=== PATIENT | female | born 1970 | race Caucasian/White ===

== ENCOUNTER 2016-08-28 00:07 | Emergency (ER) | payer MEDICAID ==
[~2016-08-28] VITALS: Ht 167.6 cm; Wt 124.3 kg
[~2016-08-28 00:07] MED LIST: ADVAIR DISK28 PUFFS IN; ADVAIR DISKUS 21 DSK IH; ALBUTEROL-200 PUFFS/ IH; ALBUTEROL2 PUFFS/17 IN; ALBUTEROL2.5 MG/NEB IN; AMLODIPINE10 MG PO; APAP/BUTALBITAL1 TA1 PO; ASPIRIN EC81 MG PO; BACLOFEN 10MG T10 MG PO; BACTRIM DS 8001 TA1 PO; BENZONATATE100 MG PO; BYDUREON PEN2 MG SC; CELECOXIB200 MG PO; CELEXA40 MG PO; CIPRO 500MG TA500 MG PO; CRESTOR10 MG PO; DICLOFENAC 50MG50 MG PO; DOXYCYCLINE HY100 M3 PO; DOXYCYCLINE HY100 M4 PO; DUONEB 3 MG/3 ML3 ML IH; FAMVIR500 MG PO; FISH OIL1000 MG PO; GABAPENTIN 600600 MG PO; GABAPENTIN TAB600 MG PO; GABAPENTIN300 MG PO; HYDROCHLOROTHIA25 M1 PO; IBU-8800 MG PO; INSULIN AS100 UNITS/ SC; INSULIN GL100 UNITS1 SC; INVOKANA300 MG PO; KEFLEX 500MG.500 MG PO; LASIX 20MG. TAB20 MG PO; LEVAQUIN LEVA-750 MG PO; LIPITOR10 MG PO; LISINOPRIL40 MG PO; LORTAB 5/500 501 TAB PO; LYRICA 100 MG100 MG PO; MEDROL 4MG. DOSE4 MG PO; MELOXICAM7.5 MG PO; METFORMIN1000 MG PO; METFORMIN500 MG PO; MONODOX100 MG PO; MUCINEX600 MG PO; NAPROSYN 375MG375 MG PO; NEXIUM40 MG PO; NIX CREAM R60 ML/BOT EX; NORCO 325 MG-51 TAB PO; NORVASC 10MG. T10 MG PO; OMEPRAZOLE40 MG PO; PEN-VK500 MG PO; PERCOCET 5/3251 EACH PO; PERCOCET1 TAB PO; PREDNISONE 10MG10 MG PO; PREDNISONE 20MG20 MG PO; PREDNISONE50 MG PO; PRENATAL PLUS1 TA1 PO; PRINIVIL10 MG PO; PROPRANOLOL HY160 MG PO; PROZAC40 MG PO; RANITIDINE HCL150 MG PO; ROBAXIN500 M1 PO; ROBITUSSIN10 ML/UDC PO; SEROQUEL50 MG PO; SINGULAIR 10 MG10 MG PO; TESSALON PERLE100 M1 PO; TESSALON PERLE100 MG PO; TIZANIDINE HCL 44 MG PO; TIZANIDINE2 MG PO; TOPAMAX25 MG PO; TRAZODONE 50MG50 MG PO; TRAZODONE50 MG PO; TRICOR145 M1 PO; VENTOLIN H0.09 MG/AC IH; VIBRAMYCIN 100100 MG PO; VICODIN 5/500 T1 TAB PO; VISTARIL25 MG PO; ZESTRIL20 MG PO
--- NOTE | 2016-08-28 00:26 | Emergency Room Report ---
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 N Clinical Suspician of Infection? N Mental Status: 1 - Regular (Normal Baseline) Sepsis Risk:Low Sepsis Risk Have you (or family members/close friends) recently traveled outside the [place]? N If Yes, where/when: Have you had exposure to infectious disease within the past month? N TB? Other? Specify: Source patient, RN notes reviewed, family, old records Exam Limitations no limitations Comment cough over the last few days with no rash Cardiac Chest Pain Chest pain indicative of cardiac No Timing/Duration this evening Severity moderate ALLERGIES Coded Allergies: erythromycin base (Intermediate, I-HIVES, SEVERE VOMITING 07/15/16) prochlorperazine (Intermediate, PARANOIA 07/15/16) Home Medications Active Scripts Doxycycline Hyclate (Vibramycin) 100 MG PO BID #20 CAP Prov: 07/15/16 Guaifenesin (Robitussin Plain Syr 200MG/10ML Udc) 5 ML PO Q4HP PRN cough #240 ML Prov: 07/15/16 Reported Medications AMLODIPINE BESYLATE (Norvasc) 1 TAB PO DAILY Propranolol Hcl (Propranolol HCl ER) 160 MG PO DAILY FLUTICASONE/SALMETEROL (Advair 500-50 Diskus) 2 PUFF IN BID Omeprazole (Omeprazole 40MG) 40 MG PO DAILY Montelukast Sodium (Singulair 10MG) 10 MG PO DAILY Albuterol/Ipratropiu (Duoneb) 3 ML IH QIDP PRN BREATHING #120 NEB METFORMIN HCL (Metformin) 1,000 MG PO BID Albuterol (Albuterol-Hfa Inhaler) 2 PUFFS IH Q4HP PRN BREATHING Canagliflozin (Invokana) 300 MG PO DAILY Celecoxib 200 MG PO DAILY #30 HYDROCHLOROTHIAZIDE (Hydrochlorothiazide) 25 MG PO DAILY Insulin Aspart (Novolog) (Insulin Aspart Flexpen 3ML) 30 UNITS SC BID #15 Insulin Glargine, Recombinan (Insulin Glargine 3ML) 50 UNITS SC QPM #15 CITALOPRAM HYDROBROMIDE (Citalopram HBr) 40 MG PO DAILY OMEGA-3 FATTY ACIDS/FISH OIL (Fish Oil 1,000 MG Capsule) 1,000 MG PO DAILY Gabapentin (Gabapentin 600MG) 80 MG PO Q8 Topiramate (Topamax) 25 MG PO QHS Atorvastatin Calcium (Lipitor 10MG) 10 MG PO QHS LISINOPRIL (Lisinopril) 10 MG PO DAILY Quetiapine Fumarate (Seroquel 50MG) 50 MG PO QHS FENOFIBRATE NANOCRYSTALLIZED (Tricor) 145 MG PO DAILY BACLOFEN (Baclofen) 10 MG PO TID Hydroxyzine Pamoate (Vistaril) 25 MG PO QHS History Medical History General CAD? No Angina: No [place]: No Hypertension? Yes Hyperlipidemia? Yes CHF? No DVT? No PE? No COPD? No Asthma? Yes Anemia? No GERD? Yes Gastric ulcers? No GI Bleed? No Hernia? No Thyroid Problems? No Hypothyroidism? No CVA? No Seizures? No Diabetes? Yes Insulin Dependent: Yes Insulin Pump: No Home FSBS? Yes Renal Insuffiency? No End Stage Renal Disease? No UTI? No Stones? No BPH? No GB Disease: Yes Nephritic Syndrome? No Asplenia? No Hepatitis? No Sickle Cell Disease? No Arthritis? Yes Migraines? No Cataracts? No Glaucoma? No MRSA? No HIV? No TB? No Anxiety? No Depression? No Cancer? Yes Site: SKIN CA CHIN More? 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 Respiratory cough, denies shortness of breath, denies wheezing Cardiovascular denies chest pain, denies syncope Gastrointestinal denies abdominal pain, denies diarrhea, denies vomiting Genitourinary denies: dysuria, frequency, hesitancy, hematuria. Musculoskeletal denies back pain, denies joint pain, denies joint swelling, denies neck pain Skin denies rash Psychiatric/Neurological denies headache, denies seizure Physical Exam Vital Signs Vital Signs Date Time Temp Pulse Resp B/P Pulse O2 O2 Flow FiO2 Ox Delivery Rate 08/280 99.7 78 16 135/93 90 - WBC >12,000 or <4,000 or 10% bands? 2 or more SIRS Criteria Met? B/P:135/93 MAP:107 Creatinine >2.0? UA output<0.5ml/kg/hr for 2 hrs? Platelet count >100,000? Lactate >2.0mmol/1? INR >1.2 or PTT > than 60 sec? Evidence of Organ Dysfunction? Provider documented clinical suspician of infection? N Sepsis Criteria Count: 0 Sepsis Risk: Low Sepsis Risk General Appearance no apparent distress Eye Exam - bilateral eye PERRL, bilateral eye EOMI Ear, Nose, Throat normal ENT inspection Neck supple Respiratory Status No: respiratory distress. Lung Sounds bilateral: rhonchi. 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 No Results/Orders Laboratory Tests 08/28/16 0015: Influenza Type A Ag DETECTED H, Influenza Type B Ag NOT DETECTED Orders Procedure Date/time Status CHEST(2 VIEWS-NOT PORTABLE) 08/28 16 Active INFLUENZA A&B ANTIGENS 08/28 16 Complete XRAY/CT/US XRAY/CT/US XRAY chest XR interpretation by reviewed by me Xray Results abnormal (perihilar changes ) Departure Departure Time of Disposition 0039 Disposition DC Home or Self Care(routine) Clinical Impression Primary Impression: Flu Condition STABLE Referrals JULIETH HENRY, JOHN (Family) Patient Instructions DI for H1N1 Influenza -- Adult Additional Instructions use meds and see pcp for follow up Discharge Counseling Counseled pt/family regarding diagnosis, test results, medications/RX, follow up needs Prescriptions Current Visit Scripts BENZONATATE (Benzonatate) 100 MG PO TID #15 CAP Oseltamivir Phosphate (Tamiflu 75MG Capsule) 75 MG PO BID #10 CAP ED Critical Care Critical Care No at [id number]
[2016-08-28] MEDS ORDERED: TAMIFLU 75MG CA75 MG PO (00:57)
[2016-08-28] MEDS ORDERED: TESSALON PERLE100 MG PO (00:57)
[2016-08-28 01:04] VITALS: BP 143/95
--- NOTE | 2016-08-28 08:04 | RADIOLOGY REPORT PS360 ---
CHEST(2 VIEWS-NOT PORTABLE) HISTORY: COUGH, CONGESTION COMPARISON: Multiple previous exams FINDINGS: The cardiomediastinal silhouette and pulmonary vascularity are within normal limits. The lungs are clear without infiltrates, suspicious nodules, or pleural effusions. No acute bony abnormalities. IMPRESSION: Negative chest, no acute finding
[2016-11-13] MEDS ORDERED: TYLENOL WITH CO1 TA1 PO (21:58)
[2016-11-13] MEDS ORDERED: NORCO 325 MG-51 TAB PO (22:15)
[2016-11-18] MEDS ORDERED: GABAPENTIN 600600 MG PO (22:13)
[2016-11-18] MEDS ORDERED: AUGMENTIN 875-1 EACH PO (23:49)
[2016-11-18] MEDS ORDERED: TESSALON PERLE100 M1 PO (23:49)
[2016-11-18] MEDS ORDERED: MEDROL 4MG. DOSE4 MG PO (23:50)
== END 2016-08-28 01:05 | disposition home or self-care (01) ==
LOC: ER 00:07
DX: J10.1 Influenza due to other identified influenza virus with other respiratory manifestations (principal); I10 Essential (primary) hypertension; K21.9 Gastro-esophageal reflux disease without esophagitis; E11.9 Type 2 diabetes mellitus without complications; Z79.4 Long term (current) use of insulin

== ENCOUNTER 2016-09-29 02:10 | Emergency (ER) | payer MEDICAID ==
[~2016-09-29] VITALS: Ht 167.6 cm; Wt 122.5 kg
[~2016-09-29 02:10] MED LIST changes: +TAMIFLU 75MG CA75 MG PO
--- NOTE | 2016-09-29 02:46 | Emergency Room Report ---
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 B/P: 194/127 MAP: 149 Pulse: 80 Resp: 22 Recent fever? N Clinical Suspician of Infection? N Mental Status: 1 - Regular (Normal Baseline) Sepsis Risk:Low Sepsis Risk Have you (or family members/close friends) recently traveled outside the [place]? N If Yes, where/when: Have you had exposure to infectious disease within the past month? N TB? Other? 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 been on abx and steroids and inhalers Cardiac Chest Pain Chest pain indicative of cardiac No Timing/Duration this evening Severity moderate ALLERGIES Coded Allergies: erythromycin base (Intermediate, I-HIVES, SEVERE VOMITING 07/15/16) prochlorperazine (Intermediate, PARANOIA 07/15/16) Home Medications Active Scripts Doxycycline Hyclate (Vibramycin) 100 MG PO BID #20 CAP Prov: 07/15/16 Guaifenesin (Robitussin Plain Syr 200MG/10ML Udc) 5 ML PO Q4HP PRN cough #240 ML Prov: 07/15/16 BENZONATATE (Benzonatate) 100 MG PO TID #15 CAP Prov: 08/28/16 Oseltamivir Phosphate (Tamiflu 75MG Capsule) 75 MG PO BID #10 CAP Prov: 08/28/16 Reported Medications AMLODIPINE BESYLATE (Norvasc) 1 TAB PO DAILY Propranolol Hcl (Propranolol HCl ER) 160 MG PO DAILY FLUTICASONE/SALMETEROL (Advair 500-50 Diskus) 2 PUFF IN BID Omeprazole (Omeprazole 40MG) 40 MG PO DAILY Montelukast Sodium (Singulair 10MG) 10 MG PO DAILY Albuterol/Ipratropiu (Duoneb) 3 ML IH QIDP PRN BREATHING #120 NEB METFORMIN HCL (Metformin) 1,000 MG PO BID Albuterol (Albuterol-Hfa Inhaler) 2 PUFFS IH Q4HP PRN BREATHING Canagliflozin (Invokana) 300 MG PO DAILY Celecoxib 200 MG PO DAILY #30 HYDROCHLOROTHIAZIDE (Hydrochlorothiazide) 25 MG PO DAILY Insulin Aspart (Novolog) (Insulin Aspart Flexpen 3ML) 30 UNITS SC BID #15 Insulin Glargine, Recombinan (Insulin Glargine 3ML) 50 UNITS SC QPM #15 CITALOPRAM HYDROBROMIDE (Citalopram HBr) 40 MG PO DAILY OMEGA-3 FATTY ACIDS/FISH OIL (Fish Oil 1,000 MG Capsule) 1,000 MG PO DAILY Gabapentin (Gabapentin 600MG) 80 MG PO Q8 Topiramate (Topamax) 25 MG PO QHS Atorvastatin Calcium (Lipitor 10MG) 10 MG PO QHS LISINOPRIL (Lisinopril) 10 MG PO DAILY Quetiapine Fumarate (Seroquel 50MG) 50 MG PO QHS FENOFIBRATE NANOCRYSTALLIZED (Tricor) 145 MG PO DAILY BACLOFEN (Baclofen) 10 MG PO TID Hydroxyzine Pamoate (Vistaril) 25 MG PO QHS History Medical History General CAD? No Angina: No [place]: No Hypertension? Yes Hyperlipidemia? Yes CHF? No DVT? No PE? No COPD? No Asthma? Yes Anemia? No GERD? Yes Gastric ulcers? No GI Bleed? No Hernia? No Thyroid Problems? No Hypothyroidism? No CVA? No Seizures? No Diabetes? Yes Insulin Dependent: Yes Insulin Pump: No Home FSBS? Yes Renal Insuffiency? No End Stage Renal Disease? No UTI? No Stones? No BPH? No GB Disease: Yes Nephritic Syndrome? No Asplenia? No Hepatitis? No Sickle Cell Disease? No Arthritis? Yes Migraines? No Cataracts? No Glaucoma? No MRSA? No HIV? No TB? No Anxiety? No Depression? No Cancer? Yes Site: SKIN CA CHIN More? 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 Respiratory cough, denies shortness of breath, denies wheezing, other Cardiovascular denies chest pain, denies palpitations, denies syncope Gastrointestinal denies abdominal pain, denies diarrhea, denies vomiting Genitourinary denies: dysuria, frequency, hesitancy, hematuria. Musculoskeletal denies back pain, denies joint pain, denies neck pain Skin denies rash Psychiatric/Neurological denies headache, denies seizure Physical Exam Vital Signs Vital Signs Date Time Temp Pulse Resp B/P Pulse O2 O2 Flow FiO2 Ox Delivery Rate 09/29 0433 98.0 76 20 197/112 96 09/29 0215 98.0 80 22 194/127 94 - WBC >12,000 or <4,000 or 10% bands? 2 or more SIRS Criteria Met? B/P:194/127 MAP:149 Creatinine >2.0? UA output<0.5ml/kg/hr for 2 hrs? Platelet count >100,000? Lactate >2.0mmol/1? INR >1.2 or PTT > than 60 sec? Evidence of Organ Dysfunction? Provider documented clinical suspician of infection? N Sepsis Criteria Count: 1 Sepsis Risk: Low Sepsis Risk General Appearance no apparent distress Eye Exam - bilateral eye PERRL, bilateral eye EOMI Ear, Nose, Throat normal ENT inspection Neck supple Respiratory Status No: respiratory distress. Lung Sounds bilateral: rhonchi. 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 No Results/Orders Laboratory Tests 09/29/16 0240: Troponin I < 0.02 09/29/16 0240: Sodium 137, Potassium 3.5, Chloride 102, Carbon Dioxide 25, BUN 15, Creatinine 0.9, Estimated Creat Clear 154, Estimated GFR (MDRD) 68, Glucose 306 H, Calcium 8.9, Total Bilirubin 0.3, AST 7 L, ALT 29, Alkaline Phosphatase 46, Total Protein 6.7, Albumin 3.0 L, Globulin 3.7 H, Albumin/Globulin Ratio 0.8 L, WBC 7.7, RBC 4.22, Hgb 12.5, Hct 37.8, MCV 89.6, RDW 14.1, Plt Count 359, MPV 5.9 L , Gran % 54.6, Gran # 4.2, Lymphocytes % 38.3, Monocytes % 3.6, Eosinophils % 3.1, Basophils % 0.5, Lymphocytes # 2.9, Monocytes # 0.3, Eosinophils # 0.2, Basophils # 0.0, PUBS MCHC 33.1, MCH 29.7 Current Medication Orders Sig/Safia Start time Last Medication Dose Route Stop Time Status Admin Albuterol/Ipratropium 3 ML ONCE ONE 09/29 314 DC 09/29 INH 09/29 315 0230 Furosemide 40 MG ONCE ONE 09/29 299 DC 09/29 IV 09/29 030 0255 Sodium Chloride 10 ML PRN PRN 09/29 0300 AC IV 09/30 0249 Furosemide 0 .STK-MED ONE 09/29 0254 DC .ROUTE Albuterol/Ipratropium 0 .STK-MED ONE 09/29 0230 DC INH Sodium Chloride 10 ML PRN PRN 09/29 0230 AC IV 09/30 0220 Orders Procedure Date/time Status RT REQUEST DUONEB 09/29 030 Active IV SALINE LOCK 09/29 024 Active TROPONIN I 09/29 248 Complete CHEST(2 VIEWS-NOT PORTABLE) 09/29 220 Active IV SALINE LOCK 09/29 220 Active CBC WITH AUTO DIFF 09/29 220 Complete CHEM 12 PROFILE 09/29 220 Complete XRAY/CT/US XRAY/CT/US XRAY chest XR interpretation by reviewed by me Xray Results abnormal (mild chf) Departure Departure Time of Disposition 0433 Disposition DC Home or Self Care(routine) Clinical Impression Primary Impression: Cough due to angiotensin-converting enzyme inhibitor Secondary Impressions: HTN (hypertension) Qualifiers: Hypertension type: essential hypertension Qualified Code: I10 - Essential (primary) hypertension Condition STABLE Patient Instructions DI for Cough -- Adult Additional Instructions stop lisinopril and see pcp saturday Discharge Counseling Counseled pt/family regarding diagnosis, test results, medications/RX, follow up needs Prescriptions Current Visit Scripts BENZONATATE (Benzonatate) 100 MG PO TID #15 CAP ED Critical Care Critical Care No at [id number]
[2016-09-29 03:47] LABS: HEMOGLOBIN 12.5 g/dL (12.2-16.2); LYMPH # 2.9 K/mm3 (0.7-4.5); LYMPH % 38.3 % (10-50.0)
[2016-09-29] MEDS ORDERED: TESSALON PERLE100 MG PO (04:36)
[2016-09-29 04:50] VITALS: BP 197/112
--- NOTE | 2016-09-29 06:33 | RADIOLOGY REPORT PS360 ---
CHEST(2 VIEWS-NOT PORTABLE) HISTORY: Cough and congestion with shortness of air COUGH ORDERING PHYSICIAN: Domi Hawthorne MD PATIENT AGE: 46 years COMPARISON: 08/28/2016 FINDINGS: Stable mild prominence of the cardiomediastinal silhouette. No CHF.. The lungs are clear without infiltrates, suspicious nodules, or pleural effusions. No acute bony abnormalities. IMPRESSION: Borderline cardiomegaly without failure.
[2016-11-13] MEDS ORDERED: TYLENOL WITH CO1 TA1 PO (21:58)
[2016-11-13] MEDS ORDERED: NORCO 325 MG-51 TAB PO (22:15)
[2016-11-18] MEDS ORDERED: GABAPENTIN 600600 MG PO (22:13)
[2016-11-18] MEDS ORDERED: AUGMENTIN 875-1 EACH PO (23:49)
[2016-11-18] MEDS ORDERED: TESSALON PERLE100 M1 PO (23:49)
[2016-11-18] MEDS ORDERED: MEDROL 4MG. DOSE4 MG PO (23:50)
== END 2016-09-29 04:50 | disposition home or self-care (01) ==
LOC: ER 02:10
PROVIDERS: Emergency Medicine
DX: R05 Cough (principal); T46.4X5A Adverse effect of angiotensin-converting-enzyme inhibitors, initial encounter; I10 Essential (primary) hypertension

== ENCOUNTER 2016-10-08 22:23 | Emergency (ER) | payer MEDICAID ==
[~2016-10-08] VITALS: Ht 167.6 cm; Wt 120.2 kg
[2016-10-08] MEDS ORDERED: ALDACTONE25 MG PO (22:37)
[2016-10-08] MEDS ORDERED: ESTRADIOL0.5 MG PO (22:38)
[2016-10-08] MEDS ORDERED: Pepcid20 MG PO (22:39)
[2016-10-08] MEDS ORDERED: LOSARTAN POTAS100 MG PO (22:39)
[2016-10-08] MEDS ORDERED: BACTROBAN2% TP (23:02)
[2016-10-08] MEDS ORDERED: MINOCYCLINE 10100 MG PO (23:02)
--- NOTE | 2016-10-08 23:03 | Emergency Room Report ---
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 N Clinical Suspician of Infection? N Mental Status: 1 - Regular (Normal Baseline) Sepsis Risk:Possible Sepsis Risk Have you (or family members/close friends) recently traveled outside the [place]? N If Yes, where/when: Have you had exposure to infectious disease within the past month? N TB? Other? Specify: Source patient, RN notes reviewed, family, old records Exam Limitations no limitations Comment rt lower leg lesion over the last few days Cardiac Chest Pain Chest pain indicative of cardiac No Timing/Duration this evening Severity moderate ALLERGIES Coded Allergies: erythromycin base (Intermediate, I-HIVES, SEVERE VOMITING 07/15/16) prochlorperazine (Intermediate, PARANOIA 07/15/16) Home Medications Reported Medications AMLODIPINE BESYLATE (Norvasc) 1 TAB PO DAILY FLUTICASONE/SALMETEROL (Advair 500-50 Diskus) 2 PUFF IN BID Omeprazole (Omeprazole 40MG) 40 MG PO DAILY Montelukast Sodium (Singulair 10MG) 10 MG PO DAILY Albuterol/Ipratropiu (Duoneb) 3 ML IH QIDP PRN BREATHING #120 NEB METFORMIN HCL (Metformin) 1,000 MG PO BID Albuterol (Albuterol-Hfa Inhaler) 2 PUFFS IH Q4HP PRN BREATHING Canagliflozin (Invokana) 300 MG PO DAILY Spironolactone (Aldactone) 25 MG PO DAILY Estradiol 2 MG PO DAILY Losartan Potassium (Losartan 100MG) 100 MG PO DAILY Famotidine (Pepcid 20MG) 20 MG PO BID Insulin Aspart (Novolog) (Insulin Aspart Flexpen 3ML) 30 UNITS SC BID #15 Insulin Glargine, Recombinan (Insulin Glargine 3ML) 50 UNITS SC QPM #15 CITALOPRAM HYDROBROMIDE (Citalopram HBr) 40 MG PO DAILY OMEGA-3 FATTY ACIDS/FISH OIL (Fish Oil 1,000 MG Capsule) 1,000 MG PO DAILY Gabapentin (Gabapentin 600MG) 80 MG PO Q8 Atorvastatin Calcium (Lipitor 10MG) 10 MG PO QHS LISINOPRIL (Lisinopril) 10 MG PO DAILY Quetiapine Fumarate (Seroquel 50MG) 50 MG PO QHS FENOFIBRATE NANOCRYSTALLIZED (Tricor) 145 MG PO DAILY BACLOFEN (Baclofen) 10 MG PO TID Hydroxyzine Pamoate (Vistaril) 25 MG PO QHS History Medical History General CAD? No Angina: No [place]: No Hypertension? Yes Hyperlipidemia? Yes CHF? No DVT? No PE? No COPD? No Asthma? Yes Anemia? No GERD? Yes Gastric ulcers? No GI Bleed? No Hernia? No Thyroid Problems? No Hypothyroidism? No CVA? No Seizures? No Diabetes? Yes Insulin Dependent: Yes Insulin Pump: No Home FSBS? Yes Renal Insuffiency? No End Stage Renal Disease? No UTI? No Stones? No BPH? No GB Disease: Yes Nephritic Syndrome? No Asplenia? No Hepatitis? No Sickle Cell Disease? No Arthritis? Yes Migraines? No Cataracts? No Glaucoma? No MRSA? No HIV? No TB? No Anxiety? No Depression? No Cancer? Yes Site: SKIN CA CHIN More? 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 Respiratory denies cough, denies shortness of breath, denies wheezing Cardiovascular denies chest pain, denies palpitations, denies syncope Gastrointestinal denies abdominal pain, denies diarrhea, denies vomiting Genitourinary denies: dysuria, frequency, hesitancy, hematuria. Musculoskeletal denies back pain, denies joint pain, denies neck pain Skin denies rash Psychiatric/Neurological denies headache, denies seizure Physical Exam Vital Signs Vital Signs Date Time Temp Pulse Resp B/P Pulse O2 O2 Flow FiO2 Ox Delivery Rate 10/080 98.3 109 20 139/88 99 - WBC >12,000 or <4,000 or 10% bands? 2 or more SIRS Criteria Met? B/P:139/88 MAP:105 Creatinine >2.0? UA output<0.5ml/kg/hr for 2 hrs? Platelet count >100,000? Lactate >2.0mmol/1? INR >1.2 or PTT > than 60 sec? Evidence of Organ Dysfunction? Provider documented clinical suspician of infection? N Sepsis Criteria Count: 2 Sepsis Risk: Possible Sepsis Risk General Appearance no apparent distress Eye Exam - bilateral eye PERRL, bilateral eye EOMI Ear, Nose, Throat normal ENT inspection Neck supple Respiratory Status No: respiratory distress. 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 No Departure Departure Time of Disposition 2255 Disposition DC Home or Self Care(routine) Clinical Impression Primary Impression: Cellulitis Qualifiers: Site of cellulitis: extremity Site of cellulitis of extremity: lower extremity Laterality: right Qualified Code: L03.115 - Cellulitis of right lower limb Condition STABLE Referrals Federcio Hawthorne MD (Family) Patient Instructions DI for Methicillin-Resistant Staph Infection (MRSA) Additional Instructions keep clean and see pcp for follow up Discharge Counseling Counseled pt/family regarding diagnosis, test results, medications/RX, follow up needs Prescriptions Current Visit Scripts MUPIROCIN 2% (Bactroban Oint) 1 BIBIANA TP BID #1 TUBE Minocycline Hcl (Minocycline 100MG. Capsule) 100 MG PO BID #14 CAP ED Critical Care Critical Care No at 2302
--- NOTE | 2016-10-08 23:03 | Emergency Room Report ---
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 N Clinical Suspician of Infection? N Mental Status: 1 - Regular (Normal Baseline) Sepsis Risk:Possible Sepsis Risk Have you (or family members/close friends) recently traveled outside the [place]? N If Yes, where/when: Have you had exposure to infectious disease within the past month? N TB? Other? Specify: Source patient, RN notes reviewed, family, old records Exam Limitations no limitations Comment rt lower leg lesion over the last few days Cardiac Chest Pain Chest pain indicative of cardiac No Timing/Duration this evening Severity moderate ALLERGIES Coded Allergies: erythromycin base (Intermediate, I-HIVES, SEVERE VOMITING 07/15/16) prochlorperazine (Intermediate, PARANOIA 07/15/16) Home Medications Reported Medications AMLODIPINE BESYLATE (Norvasc) 1 TAB PO DAILY FLUTICASONE/SALMETEROL (Advair 500-50 Diskus) 2 PUFF IN BID Omeprazole (Omeprazole 40MG) 40 MG PO DAILY Montelukast Sodium (Singulair 10MG) 10 MG PO DAILY Albuterol/Ipratropiu (Duoneb) 3 ML IH QIDP PRN BREATHING #120 NEB METFORMIN HCL (Metformin) 1,000 MG PO BID Albuterol (Albuterol-Hfa Inhaler) 2 PUFFS IH Q4HP PRN BREATHING Canagliflozin (Invokana) 300 MG PO DAILY Spironolactone (Aldactone) 25 MG PO DAILY Estradiol 2 MG PO DAILY Losartan Potassium (Losartan 100MG) 100 MG PO DAILY Famotidine (Pepcid 20MG) 20 MG PO BID Insulin Aspart (Novolog) (Insulin Aspart Flexpen 3ML) 30 UNITS SC BID #15 Insulin Glargine, Recombinan (Insulin Glargine 3ML) 50 UNITS SC QPM #15 CITALOPRAM HYDROBROMIDE (Citalopram HBr) 40 MG PO DAILY OMEGA-3 FATTY ACIDS/FISH OIL (Fish Oil 1,000 MG Capsule) 1,000 MG PO DAILY Gabapentin (Gabapentin 600MG) 80 MG PO Q8 Atorvastatin Calcium (Lipitor 10MG) 10 MG PO QHS LISINOPRIL (Lisinopril) 10 MG PO DAILY Quetiapine Fumarate (Seroquel 50MG) 50 MG PO QHS FENOFIBRATE NANOCRYSTALLIZED (Tricor) 145 MG PO DAILY BACLOFEN (Baclofen) 10 MG PO TID Hydroxyzine Pamoate (Vistaril) 25 MG PO QHS History Medical History General CAD? No Angina: No SC: No Hypertension? Yes Hyperlipidemia? Yes CHF? No DVT? No PE? No COPD? No Asthma? Yes Anemia? No GERD? Yes Gastric ulcers? No GI Bleed? No Hernia? No Thyroid Problems? No Hypothyroidism? No CVA? No Seizures? No Diabetes? Yes Insulin Dependent: Yes Insulin Pump: No Home FSBS? Yes Renal Insuffiency? No End Stage Renal Disease? No UTI? No Stones? No BPH? No GB Disease: Yes Nephritic Syndrome? No Asplenia? No Hepatitis? No Sickle Cell Disease? No Arthritis? Yes Migraines? No Cataracts? No Glaucoma? No MRSA? No HIV? No TB? No Anxiety? No Depression? No Cancer? Yes Site: SKIN CA CHIN More? 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 Respiratory denies cough, denies shortness of breath, denies wheezing Cardiovascular denies chest pain, denies palpitations, denies syncope Gastrointestinal denies abdominal pain, denies diarrhea, denies vomiting Genitourinary denies: dysuria, frequency, hesitancy, hematuria. Musculoskeletal denies back pain, denies joint pain, denies neck pain Skin denies rash Psychiatric/Neurological denies headache, denies seizure Physical Exam Vital Signs Vital Signs Date Time Temp Pulse Resp B/P Pulse O2 O2 Flow FiO2 Ox Delivery Rate 10/080 98.3 109 20 139/88 99 - WBC >12,000 or <4,000 or 10% bands? 2 or more SIRS Criteria Met? B/P:139/88 MAP:105 Creatinine >2.0? UA output<0.5ml/kg/hr for 2 hrs? Platelet count >100,000? Lactate >2.0mmol/1? INR >1.2 or PTT > than 60 sec? Evidence of Organ Dysfunction? Provider documented clinical suspician of infection? N Sepsis Criteria Count: 2 Sepsis Risk: Possible Sepsis Risk General Appearance no apparent distress Eye Exam - bilateral eye PERRL, bilateral eye EOMI Ear, Nose, Throat normal ENT inspection Neck supple Respiratory Status No: respiratory distress. 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 No Departure Departure Time of Disposition 2255 Disposition DC Home or Self Care(routine) Clinical Impression Primary Impression: Cellulitis Qualifiers: Site of cellulitis: extremity Site of cellulitis of extremity: lower extremity Laterality: right Qualified Code: L03.115 - Cellulitis of right lower limb Condition STABLE Referrals Federico Hawthorne MD (Family) Patient Instructions DI for Methicillin-Resistant Staph Infection (MRSA) Additional Instructions keep clean and see pcp for follow up Discharge Counseling Counseled pt/family regarding diagnosis, test results, medications/RX, follow up needs Prescriptions Current Visit Scripts MUPIROCIN 2% (Bactroban Oint) 1 BIBIANA TP BID #1 TUBE Minocycline Hcl (Minocycline 100MG. Capsule) 100 MG PO BID #14 CAP ED Critical Care Critical Care No at 2302
[2016-10-08 23:12] VITALS: BP 139/88
[2016-11-13] MEDS ORDERED: TYLENOL WITH CO1 TA1 PO (21:58)
[2016-11-13] MEDS ORDERED: NORCO 325 MG-51 TAB PO (22:15)
[2016-11-18] MEDS ORDERED: GABAPENTIN 600600 MG PO (22:13)
[2016-11-18] MEDS ORDERED: AUGMENTIN 875-1 EACH PO (23:49)
[2016-11-18] MEDS ORDERED: TESSALON PERLE100 M1 PO (23:49)
[2016-11-18] MEDS ORDERED: MEDROL 4MG. DOSE4 MG PO (23:50)
== END 2016-10-08 23:12 | disposition home or self-care (01) ==
LOC: ER 22:23
DX: L03.115 Cellulitis of right lower limb (principal); I10 Essential (primary) hypertension; K21.9 Gastro-esophageal reflux disease without esophagitis; E11.9 Type 2 diabetes mellitus without complications; Z79.4 Long term (current) use of insulin

== ENCOUNTER → 2017-05-08 | Outpatient (CLI) | payer MEDICAID ==
[~2017-05-08] MED LIST changes: +ALDACTONE25 MG PO; +AUGMENTIN 875-1 EACH PO; +BACTROBAN2% TP; +DIFLUCAN150 MG PO; +ESTRADIOL0.5 MG PO; +LOSARTAN POTAS100 MG PO; +MINOCYCLINE 10100 MG PO; +NYSTATIN TO15 GM/BOT TP; +Pepcid20 MG PO; +TYLENOL WITH CO1 TA1 PO
[2017-05-08 16:09] LABS: HEMOGLOBIN 12.8 g/dL (12.2-16.2); LYMPH # 2.3 K/mm3 (0.7-4.5); LYMPH % 30.8 % (10-50.0)
[2017-05-08 19:30] LABS: BUN 15 mg/dL (7-18)
[2017-05-08 20:22] LABS: GFR (ESTIMATED) 54 ML/MIN (59-)
[2017-05-10 08:45] LABS: Vitamin D, 25-Hydroxy 25.1 ng/mL (30.0-100.0)
== END ==
LOC: LAB 15:32
PROVIDERS: Physician Assistant
DX: E55.9 Vitamin D deficiency, unspecified (principal); E11.9 Type 2 diabetes mellitus without complications; E78.5 Hyperlipidemia, unspecified

== ENCOUNTER → 2017-06-03 | Outpatient (CLI) | payer MEDICAID ==
--- NOTE | 2017-06-04 05:22 | RADIOLOGY REPORT PS360 ---
MRI-L-SPINE W/O, MRI-3D RENDERING/MYELOGRAM HISTORY: Low back pain especially when standing, lumbar radiculopathy, bilateral leg numbness and tingling, prior lumbar surgery LUMBAR RADICULOPATHY ORDERING PHYSICIAN: JULIETH TRINIDAD PATIENT AGE: 46 years COMPARISON: 05/22/2016 TECHNIQUE: Standard multiplanar multiecho sequences are performed without contrast. 3-D MIP and myelographic images are also rendered and reviewed FINDINGS: There is straightening of the lumbar lordosis. The spinal cord ends at the L1-L2 level. There is a prominent central posterior bridging osteophyte slightly eccentric to the left at L1-L2 with hard disc as noted on the previous exam with resultant canal stenosis and moderate bilateral lateral recess narrowing left greater than right. Postsurgical changes are present at that level as well as before. L2-L3: Degenerative disc disease with bulging disc with mild right-sided foraminal narrowing. Mild facet hypertrophy. L3-L4: Degenerative disc disease with mild bulging disc with small central spurring/disc osteophyte complex with mild anterior compression upon the thecal sac as before. L4-5: Mild bulging disc somewhat eccentric to the left with [id number] left-sided foraminal narrowing. L5-S1: Unremarkable. No new extruded herniated disc evident.. IMPRESSION: 1. Overall no significant change compared to 06/22/2016. 2. Multilevel lumbar spondylosis with degenerative disc disease, bulging disc, and facet and ligamentum hypertrophy as detailed at each level above. Please see above for detail description. 3. No change in the prominent central posterior bridging osteophyte slightly eccentric to the left at L1-L2 with hard disc as noted on the previous exam with resultant canal stenosis and moderate bilateral lateral recess narrowing left greater than right. Postsurgical changes are present at that level as well as before.
== END ==
LOC: RAD 14:30
DX: M54.16 Radiculopathy, lumbar region (principal)

== ENCOUNTER 2017-07-20 17:08 | Emergency (ER) | payer MEDICAID ==
[~2017-07-20] VITALS: Ht 167.6 cm; Wt 134.9 kg
--- OUTSIDE RECORDS SUMMARY | 2017-07-20 17:26 | External Medical Summary Rpt | CCD ---
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 PHYSICIANS 80468 NAUSEA WITH 12-10-2009 [facility] VOMITING [facility] 88793 VOMITING 12-10-2009 EMERGENCY ALONE CARE PHYS [facility] V8801 ACQUIRED 12-05-2009 [facility] BOTH CERVIX WEST AND UTERUS 7847 EPISTAXIS 09-12-2009 [facility] 2562 POSTABLATIV 07-01-2009 HEALTH E OVARIAN [facility] FAILURE [facility] 8930 OPEN WOUND 04-09-2009 EMERGENCY TOE WITHOUT CARE PHYS MENTION [facility] COMPLICATIO N 8931 OPEN WOUND 04-09-2009 [facility] H[facility]PITAL COMPLICATED WEST E9209 ACC CAUSED 04-09-2009 [facility] CUT&PIERCIN [place] G INSTRUMENT/ OBJ 77818 PAIN IN 11-12-2008 KUNATH, JOINT, SITE REED & MIHAELA UNSPECIFIED 88141 CALCANEAL 10-22-2008 [facility]UR [facility] PSC 19564 UNSPECIFIED 10-20-2008 [facility]ALTH VIRAL [facility] 78211 UNSPECIFIED 10-20-2008 [facility] ARTHROPATHY [facility]ILY [facility] UNSPECIFIED 7140 RHEUMATOID 09-20-2008 [facility] ARTHRITIS [facility] 7231 CERVICALGIA 09-20-2008 [facility] 8472 LUMBAR 09-20-2008 [facility] SPRAIN AND HOSPITAL STRAIN WEST 43713 CONTUSION 09-20-2008 [facility] BACK [facility] 9599 INJURY 09-20-2008 RADIOLOGY OTHER AND ASSOCIATES UNSPECIFIED PSC UNSPECIFIED SITE 30036 UNSPECIFIED 02-05-2008 HEALTH GENITAL [facility] HERPES [facility] 11100 HERPETIC 02-05-2008 [facility] TIS 2749 GOUT, 01-09-2008 [facility] UNSPECIFIED [facility]IMARY CARE 84542 UNSPECIFIED 01-01-2008 FANG, SITE OF NOE Zuniga ANKLE SPRAIN AND STRAIN 29292 PAIN IN 10-21-2007 RADIOLOGY JOINT, ASSOCIATES ANKLE AND PSC FOOT 6272 SYMPTOMATIC 09-24-2007 [facility] MENOPAUSAL/ FAMILY FEMALE CARE[facility] 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, RIGHT FOOT M54.9 DORSALGIA, UNSPECIFIED R05 COUGH R07.89 OTHER CHEST PAIN R23.8 OTHER SKIN CHANGES R51 HEADACHE S42.309A UNSP FRACTURE OF SHAFT OF HUMERUS, UNSP ARM, INIT S86.912A STRAIN OF UNSP MUSC/TEND AT LOWER LEG LEVEL, LEFT LEG, INIT S90.02XA CONTUSION OF LEFT ANKLE, INITIAL ENCOUNTER Allergies, Adverse Reactions, Alerts Type Drug Allergy Adverse Reaction to Substance Substance Reaction Severity Erythromycin I-HIVES Unknown Prochlorperazine NA-HALLUCINATIONS Unknown Clinical Alert Notifications Alert Asthma: non-ICS non-compliance with h/o of SA beta agonist Diabetes: no eye exam in the last 365 days Diabetes: no lipid panel in the last 365 days Diabetes: no urine protein screening in the last 365 days Medications Na ND Rx Da Fi Fi Am Da Di Ph RX Ph St me C No te ll ll ou ys ag ar # ys at rm s nt no ma ic us Or Da si cy ia de te s n re d ME 54 10 11 30 30 00 WA Ac LO 45 -3 -2 .0 00 L- ti XI 80 0- 4- 00 07 MA ve CA 96 20 20 51 RT M 51 17 17 84 7. 6 31 PH 5 AR MG MA CY TA BL #5 ET 91 LO 00 10 11 30 30 00 WA Ac RA 78 -3 -2 .0 00 L- ti TA 15 0- 4- 00 08 MA ve DI 07 20 20 84 RT NE 70 17 17 18 1 19 PH 10 AR MA MG CY TA #5 BL 91 ET [place] 43 10 11 [address] 38 -2 -1 .0 00 L- ti AT 60 4- 7- 00 07 MA ve IN 53 20 20 51 RT 00 17 17 21 10 1 07 PH 0, AR 00 MA 0 CY UN IT #5 /G 91 M PO WD HY 00 10 11 30 [address] 18 -2 -1 .0 00 L- ti OX 50 4- 7- 00 07 MA ve YZ 67 20 20 51 RT IN 40 17 17 07 E 1 76 PH PA AR M MA 25 CY MG #5 91 CA P IN 50 10 11 30 30 00 PA Ac VO 45 -2 -1 .0 00 L- ti KA 80 4- 7- 00 07 MA ve NA 14 20 20 51 RT 13 17 17 07 30 0 65 PH 0 AR MG MA CY TA BL #5 ET 91 CI 54 10 11 30 30 00 PA Ac TA 45 -2 -1 .0 00 L- ti LO 80 4- 7- 00 07 MA ve AZ 88 20 20 51 RT AM 91 17 17 07 0 79 PH HB AR R MA 40 CY MG #5 91 TA BL ET FE 00 10 11 30 30 00 PA Ac NO 09 -2 -1 .0 00 L- ti FI 37 4- 7- 00 07 MA ve BR 75 20 20 51 RT AT 69 17 17 07 E 8 74 PH 14 AR 5 MA MG CY TA #5 BL 91 ET SP 00 10 11 30 30 00 PA Ac IR 22 -2 -1 .0 00 L- ti ON 82 4- 7- 00 07 MA ve OL 80 20 20 51 RT AC 31 17 17 07 TO 1 72 PH NE AR MA 25 CY MG #5 91 TA BL ET AM 68 10 11 30 30 00 PA Ac LO 64 -2 -1 .0 00 L- ti DI 50 4- 7- 00 07 MA ve PI 51 20 20 51 RT NE 65 17 17 07 4 73 PH BE AR SY MA LA CY TE #5 10 91 MG TA B LO 68 10 11 30 30 00 WA Ac SA 64 -2 -1 .0 00 L- ti RT 50 4- 7- 00 07 MA ve AN 41 20 20 51 RT 15 17 17 07 PO 4 71 PH TA AR SS MA IU CY M 10 #5 0 91 MG TA B FA 68 10 11 60 30 00 WA Ac MO 64 -2 -1 .0 00 L- ti TI 50 4- 7- 00 07 MA ve DI 14 20 20 50 RT NE 05 17 17 80 9 72 PH 20 AR MA MG CY TA #5 BL 91 ET FR 99 10 11 10 34 00 PA Ac EE 07 -2 -1 0. 00 L- ti ST 30 4- 7- 00 08 MA ve YL 13 20 20 0 84 RT E 00 17 17 11 28 1 41 PH G AR LA MA NC CY ET S #5 91 OM 60 10 11 30 30 00 PA Ac EP 50 -2 -1 .0 00 L- ti RA 50 4- 7- 00 07 MA ve ZO 14 20 20 51 RT LE 60 17 17 [address] AR MA 40 CY MG #5 91 CA PS UL E MO 57 10 11 30 30 00 PA Ac NT 23 -2 -1 .0 00 L- ti EL 70 4- 7- 00 07 MA ve UK 25 20 20 51 RT 53 17 17 07 T 0 70 PH SO AR D MA 10 CY MG #5 91 TA BL ET QU 16 10 11 30 30 00 PA Ac ET 72 -2 -1 .0 00 L- ti IA 90 4- 7- 00 07 MA ve PI 14 20 20 51 RT NE 60 17 17 07 1 69 PH FU AR MA MA RA CY TE #5 50 91 MG TA B NO 00 10 11 30 18 00 [facility] VO 16 -2 -1 .0 00 L- ti LO 93 4- 7- 00 07 MA ve G 69 20 20 51 RT ID 61 17 17 73 X 9 32 PH 70 AR -3 MA 0 CY FL EX #5 PE 91 N SY RN BD 08 10 11 10 28 00 PA Ac 29 -2 -1 0. 00 L- ti UL 03 4- 7- 00 08 MA ve TR 20 20 20 0 84 RT A- 10 17 17 11 FI 9 42 PH NE AR MA PE CY N ND #5 L 91 8M MX 31 G 64 10 11 4. 28 00 PA Ac T 38 -2 -1 00 00 L- ti D2 00 4- 7- 0 07 MA ve 73 20 20 51 RT 1. 70 17 17 27 25 6 15 PH AR MG MA CY (5 0, #5 00 91 0 UN IT ) AT 68 10 11 30 30 00 PA Ac OR 64 -2 -1 .0 00 L- ti VA 50 4- 7- [address] 45 20 20 51 RT AT 85 17 17 07 IN 4 75 PH AR 10 MA CY MG #5 TA 91 BL ET AD 00 10 11 12 30 00 PA Ac VA 17 -2 -1 .0 00 L- ti IR 30 4- 7- 00 07 MA ve 71 20 20 51 RT HF 72 17 17 07 A 0 67 PH 23 AR 0- MA 21 CY MC #5 G 91 IN VILLAVICENCIO LE R BA 00 10 11 90 30 00 PA Ac CL 83 -2 -1 .0 00 L- ti OF 21 4- 7- 00 07 MA ve EN 02 20 20 51 RT 45 17 17 07 10 0 84 PH AR MG MA CY TA BL #5 ET 91 FI 00 10 11 30 30 00 WA Ac SH 90 -2 -1 .0 00 L- ti 44 5- 7- 00 08 MA ve OI 04 20 20 84 RT L 36 17 17 12 1, 0 27 PH 00 AR 0 MA MG CY CA #5 PS 91 UL E GA 00 10 11 90 30 00 PA Ac BA 22 -1 -1 .0 00 L- ti PE 82 9- 7- 00 04 MA ve NT 63 20 20 53 RT IN 71 17 17 21 1 89 PH 80 AR 0 MA MG CY TA #5 BL 91 ET TR 59 10 11 1. 1 00 PA Ac IA 76 -1 -1 00 00 L- ti ZO 23 6- 0- 0 04 MA ve LA 71 20 20 53 RT M 80 17 17 26 0. 9 02 PH 25 AR MA MG CY TA #5 BL 91 ET ON 53 10 11 10 34 00 PA Ac ET 88 -1 -1 0. 00 L- ti OU 50 6- 0- 00 08 MA ve CH 24 20 20 0 84 RT 51 17 17 09 UL 0 14 PH TR AR A MA TE CY ST #5 ST 91 RI PS NO 00 10 11 30 23 00 PA Ac VO 16 -0 -0 .0 00 L- ti LO 93 7- 3- 00 07 MA ve G 69 20 20 50 RT ID 61 17 17 99 X 9 16 PH 70 AR -3 MA 0 CY FL EX #5 PE 91 N SY RN 64 10 10 4. 28 00 PA Ac T 38 -0 -2 00 00 L- ti D2 00 3- 7- 0 07 MA ve 73 20 20 51 RT 1. 70 17 17 07 25 6 82 PH AR MG MA CY (5 0, #5 00 91 0 UN IT ) FI 00 09 10 30 30 00 PA Ac SH 90 -1 -1 .0 00 L- ti 44 5- 3- 00 08 MA ve OI 04 20 20 84 RT L 36 17 17 11 1, 0 55 PH 00 AR 0 MA MG CY CA #5 PS 91 UL E NO 00 09 10 30 23 00 WA Ac VO 16 -1 -1 .0 00 L- ti LO 93 5- 3- 00 07 MA ve G 69 20 20 50 RT ID 61 17 17 99 X 9 16 PH 70 AR -3 MA 0 CY FL EX #5 PE 91 N SY RN FR 99 09 10 10 34 00 [facility] EE 07 -1 -1 0. 00 L- ti ST 30 5- 3- 00 08 MA ve YL 13 20 20 0 84 RT E 00 17 17 11 28 1 41 PH G AR LA MA NC CY ET S #5 91 AZ 50 09 10 6. 5 00 PA Ac IT 11 -2 -1 00 00 L- ti HR 10 0- 3- 0 07 MA ve OM 78 20 20 51 RT YC 75 17 17 07 IN 1 80 PH AR 25 MA 0 CY MG #5 TA 91 BL ET GA 00 09 10 90 30 00 PA Ac BA 22 -2 -1 .0 00 L- ti PE 82 0- 3- 00 04 MA ve NT 63 20 20 53 RT IN 71 17 17 21 1 89 PH 80 AR 0 MA MG CY TA #5 BL 91 ET BA 00 09 09 15 31 00 [facility] SA 00 -0 -2 .0 00 L- ti GL 27 5- 9- 00 07 MA ve AR 71 20 20 48 RT 55 17 17 95 10 9 02 PH 0 AR UN MA IT CY /M L #5 KW 91 IK PE N CI 54 09 09 30 30 00 PA Ac TA 45 -0 -2 .0 00 L- ti LO 80 6- 9- 00 07 MA ve AZ 88 20 20 50 RT AM 91 17 17 80 0 13 PH HB AR R MA 40 CY MG #5 91 TA BL ET BA 00 09 09 90 30 00 PA Ac CL 83 -0 -2 .0 00 L- ti OF 21 6- 9- 00 07 MA ve EN 02 20 20 50 RT 45 17 17 80 10 0 14 PH AR MG MA CY TA BL #5 ET 91 FA 68 09 09 60 30 00 PA Ac MO 64 -0 -2 .0 00 L- ti TI 50 6- 9- 00 07 MA ve DI 14 20 20 50 RT NE 05 17 17 80 9 72 PH 20 AR MA MG CY TA #5 BL 91 ET 64 09 09 4. 28 00 PA Ac T 38 -0 -2 00 00 L- ti D2 00 6- 9- 0 07 MA ve 73 20 20 50 RT 1. 70 17 17 80 25 6 24 PH AR MG MA CY (5 0, #5 00 91 0 UN IT ) AT 68 00 WA Ac OR 64 -0 -2 .0 00 L- ti VA [address] 45 20 20 50 RT AT 85 17 17 80 IN 4 26 PH AR 10 MA CY MG #5 TA 91 BL ET LO 68 09 05 18 30 00 WA Ac SA 64 -0 -2 .0 00 L- ti RT 50 07 MA ve AN 41 20 20 48 RT 15 17 17 89 PO 4 08 PH TA AR SS MA IU CY M 10 #5 0 91 MG TA B SP 59 00 WA Ac IR 74 -0 -2 .0 00 L- ti ON 60 07 MA ve OL 21 20 20 48 RT AC 60 17 17 89 TO 1 24 PH NE AR MA 25 CY MG #5 91 TA BL ET HY [address] 18 -0 -2 .0 00 L- ti OX 50 07 MA ve YZ 67 20 20 50 RT IN 40 17 17 80 E 1 09 PH PA AR M MA 25 CY MG #5 91 CA P MO 57 00 WA Ac NT 23 -0 -2 .0 00 L- ti EL 70 07 MA ve UK 25 20 20 50 RT 53 17 17 80 T 0 10 PH SO AR D MA 10 CY MG #5 91 TA BL ET QU 16 00 WA Ac ET 72 -0 -2 .0 00 L- ti IA 90 07 MA ve PI 14 20 20 50 RT NE 60 17 17 80 1 12 PH FU AR MA MA RA CY TE #5 50 91 MG TA B AM 68 00 WA Ac LO 64 -0 -2 .0 00 L- ti DI 50 07 MA ve PI 51 20 20 50 RT NE 65 17 17 80 4 20 PH BE AR SY MA LA CY TE #5 10 91 MG TA B LI 68 04 27 30 30 00 WA Ac SI 64 -0 -2 .0 00 L- ti NO 50 07 MA ve AZ 55 20 20 50 RT IL 25 17 17 80 4 21 PH 10 AR MA MG CY TA #5 BL 91 ET AD 00 04 27 12 30 00 WA Ac VA 17 -0 -2 .0 00 L- ti IR 30 6- 9- 00 07 MA ve 71 20 20 50 RT HF 72 17 17 80 A 0 22 PH 23 AR 0- MA 21 CY MC #5 G 91 IN VILLAVICENCIO LE R FE 00 04 27 30 30 00 PA Ac NO 09 -0 -2 .0 00 L- ti FI 37 5- 9- 00 07 MA ve BR 75 20 20 48 RT AT 69 17 17 89 E 8 12 PH 14 AR 5 MA MG CY TA #5 BL 91 ET OM 60 09 30 30 00 PA Ac EP 50 -0 -2 .0 00 L- ti RA 50 5 9- 00 07 MA ve ZO 14 20 20 48 RT LE 60 17 17 [address] AR MA 40 CY MG #5 91 CA PS UL E IN 50 04 27 30 30 00 PA Ac VO 45 -0 -2 .0 00 L- ti KA 80 5 9 00 07 MA ve NA 14 20 20 48 RT 13 17 17 89 30 0 07 PH 0 AR MG MA CY TA BL #5 ET 91 ON 08 09 10 34 00 PA Ac ET 88 -3 -2 0. 00 L- ti OU 50 1- 9- 00 08 MA ve CH 24 20 20 0 84 RT 51 17 17 09 UL 0 14 PH TR AR A MA TE CY ST #5 ST 91 RI PS BD 08 03 27 10 30 00 PA Ac 29 -2 -2 0. 00 L- ti UL 03 4- 2- 00 08 MA ve TR 20 20 20 0 84 RT A- 10 17 17 08 FI 9 20 PH NE AR MA PE CY N ND #5 L 91 8M MX 31 G ON 53 03 27 10 30 00 PA Ac ET 88 -2 -1 0. 00 L- ti OU 50 3- 5- 00 08 MA ve CH 13 20 20 0 84 RT 61 17 17 08 DE 0 05 PH LI AR CA MA CY 33 G #5 LA 91 NC ET S 64 07 08 4. 28 00 PA Ac T 38 -1 -1 00 00 L- ti D2 00 3- 1- 0 07 MA ve 73 20 20 48 RT 1. 70 17 17 89 25 6 26 PH AR MG MA CY (5 0, #5 00 91 0 UN IT ) ON 53 08 10 30 00 PA Ac ET 88 -1 -1 0. 00 L- ti OU 50 3- 1- 00 08 MA ve CH 13 20 20 0 84 RT 61 17 17 00 DE 0 52 PH LI AR CA MA CY 33 G #5 LA 91 NC ET S [place] 43 07 08 60 [address] 38 -1 -1 .0 00 L- ti AT 60 3- 1- 00 07 MA ve IN 53 20 20 49 RT 00 17 17 53 10 6 51 PH 0, AR 00 MA 0 CY UN IT #5 /G 91 M PO WD BA 00 07 08 15 31 00 PA Ac SA 00 -1 -1 .0 00 L- ti GL 27 3- 1- 00 07 MA ve AR 71 20 20 48 RT 55 17 17 95 10 9 02 PH 0 AR UN MA IT CY /M L #5 KW 91 IK PE N BA 00 07 08 90 30 00 PA Ac CL 83 -1 -1 .0 00 L- ti OF 21 3- 1- 00 07 MA ve EN 02 20 20 48 RT 45 17 17 89 10 0 16 PH AR MG MA CY TA BL #5 ET 91 CI 54 07 08 30 30 00 PA Ac TA 45 -1 -1 .0 00 L- ti LO 80 3- 1- 00 07 MA ve AZ 88 20 20 48 RT AM 91 17 17 89 0 09 PH HB AR R MA 40 CY MG #5 91 TA BL ET FA 68 07 08 60 30 00 PA Ac MO 64 -1 -1 .0 00 L- ti TI 50 3- 1- 00 07 MA ve DI 14 20 20 48 RT NE 05 17 17 89 9 11 PH 20 AR MA MG CY TA #5 BL 91 ET FE 00 07 08 30 30 00 PA Ac NO 09 -1 -1 .0 00 L- ti FI 37 3- 1- 00 07 MA ve BR 75 20 20 48 RT AT 69 17 17 89 E 8 12 PH 14 AR 5 MA MG CY TA #5 BL 91 ET HY 00 07 08 30 [address] 18 -1 -1 .0 00 L- ti OX 50 3- 1- 00 07 MA ve YZ 67 20 20 48 RT IN 40 17 17 89 E 1 05 PH PA AR M MA 25 CY MG #5 91 CA P IN 50 07 08 30 30 00 PA Ac VO 45 -1 -1 .0 00 L- ti KA 80 3- 1- 00 07 MA ve NA 14 20 20 48 RT 13 17 17 89 30 0 07 PH 0 AR MG MA CY TA BL #5 ET 91 LO 68 07 08 30 30 00 PA Ac SA 64 -1 -1 .0 00 L- ti RT 50 3- 1- 00 07 MA ve AN 41 20 20 48 RT 15 17 17 89 PO 4 08 PH TA AR SS MA IU CY M 10 #5 0 91 MG TA B NO 00 07 08 15 25 00 PA Ac VO 16 -1 -1 .0 00 L- ti LO 96 3- 1- 00 07 MA ve G 33 20 20 48 RT 10 91 17 17 89 0 0 19 PH UN AR IT MA S/ CY ML #5 FL 91 EX PE N MO 31 07 08 30 30 00 PA Ac NT 72 -1 -1 .0 00 L- ti EL 20 3- 1- 00 07 MA ve UK 72 20 20 48 RT 61 17 17 89 T 0 17 PH SO AR D MA 10 CY MG #5 91 TA BL ET OM 60 07 08 30 30 00 PA Ac EP 50 -1 -1 .0 00 L- ti RA 50 3- 1- 00 07 MA ve ZO 14 20 20 48 RT LE 60 17 17 [address] AR MA 40 CY MG #5 91 CA PS UL E QU 16 07 08 30 30 00 PA Ac ET 72 -1 -1 .0 00 L- ti IA 90 3- 1- 00 07 MA ve PI 14 20 20 48 RT NE 60 17 17 89 1 21 PH FU AR MA MA RA CY TE #5 50 91 MG TA B SP 59 07 08 30 30 00 PA Ac IR 74 -1 -1 .0 00 L- ti ON 60 3- 1- 00 07 MA ve OL 21 20 20 48 RT AC 60 17 17 89 TO 1 24 PH NE AR MA 25 CY MG #5 91 TA BL ET AT 68 07 08 30 30 00 PA Ac OR 64 -1 -1 .0 00 L- ti VA 50 4- 1- [address] 45 20 20 49 RT AT 85 17 17 88 IN 4 70 PH AR 10 MA CY MG #5 TA 91 BL ET AM 68 07 08 30 30 00 PA Ac LO 64 -1 -1 .0 00 L- ti DI 50 4- 1- 00 07 MA ve PI 51 20 20 49 RT NE 65 17 17 88 4 71 PH BE AR SY MA LA CY TE #5 10 91 MG TA B LI 68 07 08 30 30 00 PA Ac SI 18 -1 -1 .0 00 L- ti NO 00 4- 1- 00 07 MA ve AZ 98 20 20 49 RT [place] 00 17 17 88 1 72 PH 10 AR MA MG CY TA #5 BL 91 ET AD 00 07 08 12 30 00 WA Ac VA 17 -1 -1 .0 00 L- ti IR 30 4- 1- 00 07 MA ve 71 20 20 49 RT HF 72 17 17 88 A 0 73 PH 23 AR 0- MA 21 CY MC #5 G 91 IN VILLAVICENCIO LE R FL 55 06 07 1. 1 00 WA Ac UC 11 -2 -2 00 00 L- ti ON 10 3- 1- 0 07 MA ve AZ 14 20 20 49 RT OL 51 17 17 53 E 2 50 PH 15 AR 0 MA MG CY TA #5 BL 91 ET [place] 43 06 07 60 [address] 38 -2 -2 .0 00 L- ti AT 60 3- 1- 00 07 MA ve IN 53 20 20 49 RT 00 17 17 53 10 6 51 PH 0, AR 00 MA 0 CY UN IT #5 /G 91 M PO WD ON 53 06 06 10 34 00 PA Ac ET 88 -0 -3 0. 00 L- ti OU 50 2- 0- 00 08 MA ve CH 13 20 20 0 83 RT 61 17 17 97 DE 0 46 PH LI AR CA MA CY 33 G #5 LA 91 NC ET S ON 53 06 06 10 34 00 PA Ac ET 88 -0 -3 0. 00 L- ti OU 50 3- 0- 00 08 MA ve CH 24 20 20 0 83 RT 51 17 17 97 UL 0 45 PH TR AR A MA TE CY ST #5 ST 91 RI PS ON 53 06 06 1. 1 00 WA Ac ET 88 -0 -3 00 00 L- ti OU 50 5- 0- 0 08 MA ve CH 44 20 20 83 RT 80 17 17 97 UL 1 76 PH TR AR A2 MA CY GL UC #5 OS [address] HY 00 06 06 [address] 40 -0 -3 .0 00 L- ti OC 60 5- 0- 00 02 MA ve OD 12 20 20 24 RT ON 40 17 17 06 -A 1 17 PH CE AR TA MA ID CY NO PH #5 91 7. 5- 32 5 RE 08 05 06 10 30 00 WA Ac LI 39 -2 -2 0. 00 L- ti ON 69 9- 3- 00 08 MA ve 01 20 20 0 83 RT PE 63 17 17 95 N 4 42 PH NE AR ED MA LE CY 31 #5 GX 91 5/ 16 " AD 00 05 06 12 30 00 [facility] VA 17 -2 -1 .0 00 L- ti IR 30 2- 6- 00 07 MA ve 71 20 20 48 RT HF 72 17 17 89 A 0 70 PH 23 AR 0- MA 21 CY MC #5 G 91 IN VILLAVICENCIO LE R BA 00 05 15 31 00 [facility] SA 00 -2 -1 .0 00 L- ti GL 27 3- 6- 00 07 MA ve AR 71 20 20 48 RT 55 17 17 95 10 9 02 PH 0 AR UN MA IT CY /M L #5 KW 91 IK PE N SP 59 05 30 30 00 [facility] IR 74 -1 -1 .0 00 L- ti ON 60 8- 6- 00 07 MA ve OL 21 20 20 48 RT AC 60 17 17 06 TO 1 59 PH NE AR MA 25 CY MG #5 91 TA BL ET LO 68 05 30 30 00 [facility] SA 64 -1 -1 .0 00 L- ti RT 50 8- 6- 00 07 MA ve AN 41 20 20 48 RT 17 17 17 06 PO 0 60 PH TA AR SS MA IU CY M 10 #5 0 91 MG TA B HY 00 12 22 30 [address] [facility] [address] 18 -1 -1 .0 00 L- ti OX 50 9- 6- 00 07 MA ve YZ 67 20 20 48 RT IN 40 17 17 89 E 1 05 PH PA AR M MA 25 CY MG #5 91 CA P GA 00 05 30 00 [facility] BA 22 -1 -1 .0 00 L- ti PE 82 9- 6- 00 07 MA ve NT 63 20 20 48 RT IN 71 17 17 89 1 06 PH 80 AR 0 MA MG CY TA #5 BL 91 ET IN 50 05 30 30 00 [facility] VO 45 -1 -1 .0 00 L- ti KA 80 9- 6- 00 07 MA ve NA 14 20 20 48 RT 13 17 17 89 30 0 07 PH 0 AR MG MA CY TA BL #5 ET 91 CI 54 05 30 30 00 PA Ac TA 45 -1 -1 .0 00 L- ti LO 80 9- 6- 00 07 MA ve AZ 88 20 20 48 RT AM 91 17 17 89 0 09 PH HB AR R MA 40 CY MG #5 91 TA BL ET FA 68 05 06 60 30 00 PA Ac MO 64 -1 -1 .0 00 L- ti TI 50 9- 6- 00 07 MA ve DI 14 20 20 48 RT NE 05 17 17 89 9 11 PH 20 AR MA MG CY TA #5 BL 91 ET FE 00 12 22 29 30 00 WA Ac NO 09 -1 -1 .0 00 L- ti FI 37 - 6- 00 07 MA ve BR 75 20 20 48 RT AT 69 17 17 89 E 8 12 PH 14 AR 5 MA MG CY TA #5 BL 91 ET BA 00 05 30 00 WA Ac CL 83 -1 -1 .0 00 L- ti OF 21 07 MA ve EN 02 20 20 48 RT 45 17 17 89 10 0 16 PH AR MG MA CY TA BL #5 ET 91 MO 31 05 02 15 30 00 PA Ac NT 72 -1 -1 .0 00 L- ti EL 20 07 MA ve UK 72 20 20 48 RT 61 17 17 89 T 0 17 PH SO AR D MA 10 CY MG #5 91 TA BL ET NO 00 05 06 15 25 00 PA Ac VO 16 -1 -1 .0 00 L- ti LO 96 07 MA ve G 33 20 20 48 RT 10 91 17 17 89 0 0 19 PH UN AR IT MA S/ CY ML #5 FL 91 EX PE N OM 60 05 30 30 00 PA Ac EP 50 -1 -1 .0 00 L- ti RA 50 - 6- 00 07 MA ve ZO 14 20 20 48 RT LE 60 17 [address] AR MA 40 CY MG #5 91 CA PS UL E QU 16 05 02 15 30 00 PA Ac ET 72 -1 -1 .0 00 L- ti IA 90 6 07 MA ve PI 14 20 20 48 RT NE 60 17 17 89 1 21 PH FU AR MA MA RA CY TE #5 50 91 MG TA B 64 05 06 4. 28 00 PA Ac T 38 -1 -1 00 00 L- ti D2 00 9- 6- 0 07 MA ve 73 20 20 48 RT 1. 70 17 17 89 25 6 26 PH AR MG MA CY (5 0, #5 00 91 0 UN IT ) LI 54 05 06 30 30 00 PA Ac SI 45 -1 -1 .0 00 L- ti NO 80 6 00 07 MA ve AZ 99 20 20 48 RT IL 71 17 17 89 0 68 PH 10 AR MA MG CY TA #5 BL 91 ET AT 68 05 30 30 00 WA Ac OR 64 -1 -1 .0 00 L- ti VA 50 9- 6- [address] 45 20 20 48 RT AT 85 17 17 89 IN 4 69 PH AR 10 MA CY MG #5 TA 91 BL ET AM 68 05 06 30 30 00 WA Ac LO 64 -1 -1 .0 00 L- ti DI 50 9- 6- 00 07 MA ve PI 51 20 20 48 RT NE 65 17 17 89 4 71 PH BE AR SY MA LA CY TE #5 10 91 MG TA B HY 00 05 06 40 [address] 40 -1 -[address] ti OC 60 5- 9- 00 00 SI ve OD 12 20 20 48 DE ON 40 17 17 75 -A 5 83 PH CE AR TA MA ID CY NO PH OF CY 7. NT 5- HI 32 AN 5 A IN C IN 00 04 05 30 30 00 PA Ac CR 17 -1 -0 .0 00 L- ti US 30 0- 5- 00 07 MA ve E 87 20 20 48 RT EL 31 17 17 06 LI 0 61 PH PT AR A MA 62 CY .5 #5 MC 91 G IN H AL 00 04 04 22 25 00 PA Ac BU 48 -0 -2 5. 00 L- ti TE 79 5- 8- 00 07 MA ve RO 50 20 20 0 48 RT L 12 17 17 06 PARDO 5 57 PH L AR 2. MA 5 CY MG /3 #[address] SP 59 04 04 30 30 00 [facility] IR 74 -0 -2 .0 00 L- ti ON 60 5- 8- 00 07 MA ve OL 21 20 20 48 RT AC 60 17 17 06 TO 1 59 PH NE AR MA 25 CY MG #5 91 TA BL ET LO 68 04 04 30 30 00 PA Ac SA 64 -0 -2 .0 00 L- ti RT 50 5- 8- 00 07 MA ve AN 41 20 20 48 RT 17 17 17 06 PO 0 60 PH TA AR SS MA IU CY M 10 #5 0 91 MG TA B HY 00 03 04 [address] 40 -3 -2 .0 00 L- ti OC 60 0- 8- 00 02 MA ve OD 12 20 20 23 RT ON 30 17 17 97 -A 1 50 PH CE AR TA MA ID CY NO PH #5 EN 91 5- 32 5 SI 00 03 04 50 25 00 PA Ac LV 59 -3 -2 .0 00 L- ti ER 10 0- 8- 00 07 MA ve 81 20 20 47 RT PARDO 05 17 17 96 LF 5 99 PH AD AR IA MA ZI CY NE #5 1% 91 CR EA M AM 00 04 04 20 10 00 [facility] OX 78 -0 -2 .0 00 L- ti -C 11 3- 8- 00 07 MA ve LA 85 20 20 48 RT V 22 17 17 00 87 0 77 PH 5- AR 12 MA 5 CY MG #5 TA 91 BL ET BE 68 04 04 24 8 00 [facility] NZ 38 -0 -2 .0 00 L- ti ON 20 3- 8- 00 07 MA ve AT 24 20 20 48 RT AT 70 17 17 00 E 1 78 PH 10 AR 0 MA MG CY CA #5 PS 91 UL E ME 59 04 04 21 6 00 [facility] TH 74 -0 -2 .0 00 L- ti YL 60 3- 8- 00 07 MA ve AZ 00 20 20 48 RT ED 10 17 17 00 NI 3 79 PH SO AR LO MA NE CY 4 #5 MG 91 DO SE PK AC 00 03 04 20 3 00 CL Ac ET 09 -2 -2 .0 00 IN ti AM 30 7- 1- 00 00 IC ve IN 15 20 20 42 OP 01 17 17 63 PH HE 0 23 AR N- MA CO CY D #3 TA BL ET HY 00 03 04 7. [address] [facility] [address] 40 -2 -2 00 00 L- ti OC 60 9- 1- 0 02 MA ve OD 12 20 20 23 RT ON 30 17 17 97 -A 1 21 PH CE AR TA MA ID CY NO PH #5 EN 91 5- 32 5 HI 00 03 04 11 30 00 [facility] BI 23 -2 -1 8. 00 L- ti CL 40 1- 4- 00 08 MA ve EN 57 20 20 0 83 RT S 50 17 17 86 4% 4 20 PH AR LI MA QU CY ID #5 91 FL 55 03 04 2. 4 00 [facility] UC 11 -0 -0 00 00 L- ti ON 10 9- 7- 0 07 MA ve AZ 14 20 20 47 RT OL 51 17 17 53 E 2 71 PH 15 AR 0 MA MG CY TA #5 BL 91 ET LO 43 03 04 14 14 00 PH Ac SA 54 -1 -0 .0 00 YS ti RT 70 3- 7- 00 05 IC ve AN 36 20 20 02 IA 21 17 17 53 NS PO 1 89 TA PH SS AR IU MA M CY 10 0 AL MG LI AN TA CE B , IN C. FA 00 03 04 28 14 00 PH Ac MO 17 -1 -0 .0 00 YS ti TI 25 3- 7- 00 05 IC ve DI 72 20 20 02 IA NE 87 17 17 53 NS 0 87 20 PH AR MG MA CY TA BL AL ET LI AN CE , IN C. ES 00 03 04 14 14 00 PH Ac TR 55 -1 -0 .0 00 YS ti AD 50 3- 7- 00 05 IC ve IO 88 20 20 02 IA L 70 17 17 54 NS 2 4 06 MG PH AR TA MA BL CY ET AL LI AN CE , IN C. EA 08 02 03 10 30 00 PH Ac SY 49 -2 -2 0. 00 YS ti 63 6- 4- 00 03 IC ve TO 10 20 20 0 49 IA UC 60 17 17 67 NS H 1 27 PE PH N AR NE MA ED CY LE AL 31 LI GX AN 5/ CE 16 , IN C. HY 64 02 03 [address] 98 -2 -2 .0 00 YS ti OX 00 4- 4- 00 03 IC ve YZ 16 20 20 61 IA IN 90 17 17 43 NS E 5 67 PA PH M AR 25 MA CY MG AL CA LI P AN CE , IN C. MO 00 02 03 30 30 00 PH Ac NT 60 -2 -2 .0 00 YS ti EL 34 4- 4- 00 03 IC ve UK 65 20 20 61 IA 53 17 17 67 NS T 2 25 SO PH D AR 10 MA CY MG AL TA LI BL AN ET CE , IN C. AD 00 02 03 12 30 00 PH Ac VA 17 -2 -2 .0 00 YS ti IR 30 4- 4- 00 03 IC ve 71 20 20 61 IA HF 72 17 17 09 NS A 0 72 23 PH 0- AR 21 MA CY MC G AL IN LI VILLAVICENCIO AN LE CE R , IN C. AM 69 02 03 30 30 00 PH Ac LO 09 -2 -2 .0 00 YS ti DI 70 4- 4- 00 03 IC ve PI 12 20 20 60 IA NE 81 17 17 61 NS 5 39 BE PH SY AR LA MA TE CY 10 AL LI MG AN CE TA , B IN C. AT 55 02 03 30 30 00 PH Ac OR 11 -2 -2 .0 00 YS ti VA 10 4- 4- [address] 12 20 20 60 IA AT 10 17 17 61 NS IN 5 48 PH 10 AR MA MG CY TA AL BL LI ET AN CE , IN C. FE 68 02 03 30 30 00 PH Ac NO 38 -2 -2 .0 00 YS ti FI 20 4- 4- 00 03 IC ve BR 27 20 20 60 IA AT 01 17 17 61 NS E 6 56 14 PH 5 AR MG MA CY TA BL AL ET LI AN CE , IN C. FI 00 02 03 30 30 00 PH Ac SH 90 -2 -2 .0 00 YS ti 44 4- 4- 00 03 IC ve OI 04 20 20 49 IA L 36 17 17 67 NS 1, 0 01 00 PH 0 AR MG MA CY CA PS AL UL LI E AN CE , IN C. NO 00 02 03 15 30 00 PH Ac VO 16 -2 -2 .0 00 YS ti LO 96 4- 4- 00 03 IC ve G 33 20 20 46 IA 10 91 17 17 26 NS 0 0 39 UN PH IT AR S/ MA ML CY FL AL EX LI PE AN N CE , IN C. AC 65 02 03 10 30 00 PH Ac CU 70 -2 -2 0. 00 YS ti -C 20 4 4- 03 IC ve HE 40 20 20 0 61 IA K 71 17 17 09 NS AV 0 70 IV PH A AR PL MA US CY TE AL ST LI AN ST CE RP , IN C. IN 50 02 03 30 30 00 PH Ac VO 45 -2 -2 .0 00 YS ti KA 80 4- 4- 00 03 IC ve NA 14 20 20 60 IA 13 17 17 61 NS 30 0 40 0 PH MG AR MA TA CY BL ET AL LI AN CE , IN C. AC 50 02 03 10 30 00 PH Ac CU 92 -2 -2 0. 00 YS ti -C 40 4- 4- 00 03 IC ve HE 97 20 20 0 63 IA K 11 17 17 97 NS SO 0 31 FT PH CL AR IX MA CY LA NC AL ET LI S AN CE , IN C. LA 00 02 03 15 30 00 PH Ac NT 08 -2 -2 .0 00 YS ti US 82 4- 4- 00 03 IC ve 21 20 20 46 IA SO 90 17 17 27 NS LO [address] PH AR AR MA 10 CY 0 UN AL IT LI /M AN L CE , IN C. 64 02 03 4. 28 00 PH Ac T 38 -2 -2 00 00 YS ti D2 00 4- 4- 0 03 IC ve 73 20 20 61 IA 1. 70 17 17 09 NS 25 6 71 PH MG AR MA (5 CY 0, 00 AL 0 LI UN AN IT CE ) , IN C. CI 65 02 03 30 30 00 PH Ac TA 86 -2 -2 .0 00 YS ti LO 20 4- 4- 00 03 IC ve AZ 00 20 20 61 IA AM 70 17 17 43 NS 5 66 HB PH R AR 40 MA CY MG AL TA LI BL AN ET CE , IN C. GA 68 02 03 90 30 00 PH Ac BA 46 -2 -2 .0 00 YS ti PE 20 4- 4- 00 03 IC ve NT 12 20 20 54 IA IN 70 17 17 09 NS 5 92 80 PH 0 AR MG MA CY TA BL AL ET LI AN CE , IN C. QU 67 02 03 30 30 00 PH Ac ET 87 -2 -2 .0 00 YS ti IA 70 4- 4- 00 03 IC ve PI 24 20 20 61 IA NE 91 17 17 43 NS 0 63 FU PH MA AR RA MA TE CY 50 AL LI MG AN CE TA , B IN C. BA 00 02 03 90 30 00 PH Ac CL 52 -2 -2 .0 00 YS ti OF 71 4- 4- 00 03 IC ve EN 33 20 20 61 IA 01 17 17 43 NS 10 0 68 PH MG AR MA TA CY BL ET AL LI AN CE , IN C. OM 62 02 03 30 30 00 PH Ac EP 17 -2 -2 .0 00 YS ti RA 50 4- 4- 00 03 IC ve ZO 13 20 20 60 IA LE 64 17 17 [address] PH AR 40 MA CY MG AL CA LI PS AN UL CE E , IN C. ES 00 02 03 30 30 00 WA Ac TR 55 -1 -1 .0 00 L- ti AD 50 7- 7- 00 07 MA ve IO 88 20 20 47 RT L 70 17 17 14 2 4 51 PH MG AR MA TA CY BL ET #5 91 LO 68 02 03 30 30 00 WA Ac SA 64 -1 -1 .0 00 L- ti RT 50 6- 7- 00 07 MA ve AN 41 20 20 47 RT 17 17 17 11 PO 0 31 PH TA AR SS MA IU CY M 10 #5 0 91 MG TA B FA 68 02 03 60 30 00 WA Ac MO 64 -1 -1 .0 00 L- ti TI 50 6- 7- 00 07 MA ve DI 14 20 20 47 RT NE 05 17 17 11 9 33 PH 20 AR MA MG CY TA #5 BL 91 ET ID 13 02 03 14 7 00 WA Ac NO 66 -2 -1 .0 00 L- ti CY 80 1- 7- 00 07 MA ve CL 48 20 20 47 RT IN 45 17 17 19 E 0 59 PH 10 AR 0 MA MG CY CA #5 PS 91 UL E MU 68 02 03 22 7 00 PA Ac PI 46 -2 -1 .0 00 L- ti RO 20 1- 7- 00 07 MA ve CI 18 20 20 47 RT N 02 17 17 19 2% 2 62 PH AR OI MA NT CY ME NT #5 91 BE 68 02 03 15 5 00 PA Ac NZ 38 -1 -1 .0 00 L- ti ON 20 1- 0- 00 07 MA ve AT 24 20 20 47 RT AT 70 17 17 01 E 1 23 PH 10 AR 0 MA MG CY CA #5 PS 91 UL E SP 53 02 03 30 30 00 PA Ac IR 48 -1 -1 .0 00 L- ti ON 90 3- 0- 00 07 MA ve OL 14 20 20 47 RT AC 30 17 17 05 TO 1 18 PH NE AR MA 25 CY MG #5 91 TA BL ET LO 68 02 03 30 30 00 PA Ac SA 64 -1 -1 .0 00 L- ti RT 50 3- 0- 00 07 MA ve AN 40 20 20 47 RT 97 17 17 05 PO 0 21 PH TA AR SS MA IU CY M 50 #5 91 MG TA B HY 64 01 02 30 [address] 98 -2 -2 .0 00 YS ti OX 00 6- 4- 00 03 IC ve YZ 16 20 20 61 IA IN 90 17 17 43 NS E 5 67 PA PH M AR 25 MA CY MG AL CA LI P AN CE , IN C. AL 00 01 02 27 30 00 PH Ac BU 48 -2 -2 0. 00 YS ti TE 79 6- 4- 00 03 IC ve RO 50 20 20 0 60 IA L 10 17 17 50 NS PARDO 3 27 L PH 2. AR 5 MA MG CY /3 AL ML LI AN SO CE LN , IN C. MO 00 01 02 30 30 00 PH Ac NT 60 -2 -2 .0 00 YS ti EL 34 6- 4- 00 03 IC ve UK 65 20 20 61 IA 53 17 17 67 NS T 4 25 SO PH D AR 10 MA CY MG AL TA LI BL AN ET CE , IN C. AD 00 01 02 12 30 00 PH Ac VA 17 -2 -2 .0 00 YS ti IR 30 6- 4- 00 03 IC ve 71 20 20 61 IA HF 72 17 17 09 NS A 0 72 23 PH 0- AR 21 MA CY MC G AL IN LI VILLAVICENCIO AN LE CE R , IN C. AZ 51 01 02 60 30 00 PH Ac OP 99 -2 -2 .0 00 YS ti RA 10 6- 4- 00 03 IC ve NO 81 20 20 49 IA LO 80 17 17 66 NS L 1 92 ER PH AR 80 MA CY MG AL CA LI PS AN UL CE E , IN C. AM 69 01 02 30 30 00 PH Ac LO 09 -2 -2 .0 00 YS ti DI 70 6- 4- 00 03 IC ve PI 12 20 20 60 IA NE 81 17 17 61 NS 5 39 BE PH SY AR LA MA TE CY 10 AL LI MG AN CE TA , B IN C. AT 55 01 02 30 30 00 PH Ac OR 11 -2 -2 .0 00 YS ti VA 10 6- 4- [address] 12 20 20 60 IA AT 10 17 17 61 NS IN 5 48 PH 10 AR MA MG CY TA AL BL LI ET AN CE , IN C. FE 68 01 02 30 30 00 PH Ac NO 38 -2 -2 .0 00 YS ti FI 20 6- 4- 00 03 IC ve BR 27 20 20 60 IA AT 01 17 17 61 NS E 6 56 14 PH 5 AR MG MA CY TA BL AL ET LI AN CE , IN C. FI 00 01 02 30 30 00 PH Ac SH 90 -2 -2 .0 00 YS ti 44 6- 4- 00 03 IC ve OI 04 20 20 38 IA L 36 17 17 44 NS 1, 0 50 00 PH 0 AR MG MA CY CA PS AL UL LI E AN CE , IN C. NO 00 01 02 15 30 00 PH Ac VO 16 -2 -2 .0 00 YS ti LO 96 6- 4- 00 03 IC ve G 33 20 20 46 IA 10 91 17 17 26 NS 0 0 39 UN PH IT AR S/ MA ML CY FL AL EX LI PE AN N CE , IN C. IN 50 01 02 30 30 00 PH Ac VO 45 -2 -2 .0 00 YS ti KA 80 6- 4- 00 03 IC ve NA 14 20 20 60 IA 13 17 17 61 NS 30 0 40 0 PH MG AR MA TA CY BL ET AL LI AN CE , IN C. AC 65 01 02 10 30 00 PH Ac CU 70 -2 -2 0. 00 YS ti -C 20 6- 4- 00 03 IC ve HE 40 20 20 0 61 IA K 71 17 17 09 NS AV 0 70 IV PH A AR PL MA US CY TE AL ST LI AN ST CE RP , IN C. AC 50 01 02 10 30 00 PH Ac CU 92 -2 -2 0. 00 YS ti -C 40 6- 4- 00 03 IC ve HE 97 20 20 0 60 IA K 11 17 17 61 NS SO 0 65 FT PH CL AR IX MA CY LA NC AL ET LI S AN CE , IN C. LA 00 01 02 15 30 00 PH Ac NT 08 -2 -2 .0 00 YS ti US 82 6- 4- 00 03 IC ve 21 20 20 46 IA SO 90 17 17 27 NS LO [address] PH AR AR MA 10 CY 0 UN AL IT LI /M AN L CE , IN C. EA 08 01 02 10 30 00 PH Ac SY 49 -2 -2 0. 00 YS ti 63 6- 4- 00 03 IC ve TO 10 20 20 0 40 IA UC 60 17 17 21 NS H 1 22 PE PH N AR NE MA ED CY LE AL 31 LI GX AN 5/ CE 16 , IN C. HY 16 01 02 30 [address] 72 -2 -2 .0 00 YS ti OC 90 6- 4- 00 03 IC ve HL 18 20 20 60 IA OR 31 17 17 61 NS OT 7 62 HI PH AZ AR ID MA E CY 25 AL MG LI AN TA CE B , IN C. 64 01 02 4. 28 00 PH Ac T 38 -2 -2 00 00 YS ti D2 00 6- 4- 0 03 IC ve 73 20 20 61 IA 1. 70 17 17 09 NS 25 6 71 PH MG AR MA (5 CY 0, 00 AL 0 LI UN AN IT CE ) , IN C. CI 65 01 02 30 30 00 PH Ac TA 86 -2 -2 .0 00 YS ti LO 20 6- 4- 00 03 IC ve AZ 00 20 20 61 IA AM 70 17 17 43 NS 5 66 HB PH R AR 40 MA CY MG AL TA LI BL AN ET CE , IN C. GA 68 01 02 90 30 00 PH Ac BA 46 -2 -2 .0 00 YS ti PE 20 6- 4- 00 03 IC ve NT 12 20 20 54 IA IN 70 17 17 09 NS 5 92 80 PH 0 AR MG MA CY TA BL AL ET LI AN CE , IN C. CE 69 01 02 30 30 00 PH Ac LE 09 -2 -2 .0 00 YS ti CO 70 6- 4- 00 03 IC ve XI 42 20 20 40 IA B 11 17 17 21 NS 20 2 20 0 PH MG AR MA CA CY PS UL AL E LI AN CE , IN C. QU 67 01 02 30 30 00 PH Ac ET 87 -2 -2 .0 00 YS ti IA 70 6- 4- 00 03 IC ve PI 24 20 20 61 IA NE 91 17 17 43 NS 0 63 FU PH MA AR RA MA TE CY 50 AL LI MG AN CE TA , B IN C. BA 00 01 02 90 30 00 PH Ac CL 52 -2 -2 .0 00 YS ti OF 71 6- 4- 00 03 IC ve EN 33 20 20 61 IA 01 17 17 43 NS 10 0 68 PH MG AR MA TA CY BL ET AL LI AN CE , IN C. OM 55 01 02 30 30 00 PH Ac EP 11 -2 -2 .0 00 YS ti RA 10 6- 4- 00 03 IC ve ZO 64 20 20 60 IA LE 50 17 17 [address] PH AR 40 MA CY MG AL CA LI PS AN UL CE E , IN C. LA 00 12 02 15 30 00 PH Ac NT 08 -2 -1 .0 00 YS ti US 82 8- 0- 00 03 IC ve 21 20 20 46 IA SO 90 16 17 27 NS LO [address] PH AR AR MA 10 CY 0 UN AL IT LI /M AN L CE , IN C. BE 68 01 02 15 5 00 WA Ac NZ 38 -1 -0 .0 00 L- ti ON 20 0- 3- 00 07 MA ve AT 24 20 20 46 RT AT 70 17 17 36 E 1 94 PH 10 AR 0 MA MG CY CA #5 PS 91 UL E OS 47 01 02 10 5 00 WA Ac EL 78 -1 -0 .0 00 L- ti TA 10 0- 3- 00 07 MA ve ID 47 20 20 46 RT 01 17 17 36 R 3 95 PH PH AR OS MA CY 75 #5 MG 91 CA PS UL E RA 53 01 02 60 30 00 WA Ac NI 74 -0 -0 .0 00 L- ti TI 60 5- 3- 00 07 MA ve DI 25 20 20 46 RT NE 40 17 17 29 2 00 PH 30 AR 0 MA MG CY TA #5 BL 91 ET AC 65 12 01 10 30 00 PH Ac CU 70 -2 -2 0. 00 YS ti -C 20 9- 7- 00 03 IC ve HE 40 20 20 0 60 IA K 71 16 17 61 NS AV 0 51 IV PH A AR [address] MA US CY TE AL ST LI AN ST CE RP , IN C. AC 50 12 01 10 30 00 PH Ac CU 92 -2 -2 0. 00 YS ti -C 40 9- 7- 00 03 IC ve HE 97 20 20 0 60 IA K 11 16 17 61 NS SO 0 65 FT PH CL AR IX MA CY LA NC AL ET LI S AN CE , IN C. AD 00 12 01 12 30 00 PH Ac VA 17 -2 -2 .0 00 YS ti IR 30 9- 7- 00 03 IC ve 71 20 20 60 IA HF 72 16 17 61 NS A 0 49 23 PH 0- AR 21 MA CY MC G AL IN LI VILALVICENCIO AN LE CE R , IN C. AM 69 12 30 30 00 PH Ac LO 09 -2 -2 .0 00 YS ti DI 70 9- 7- 00 03 IC ve PI 12 20 20 60 IA NE 81 16 17 61 NS 5 39 BE PH SY AR LA MA TE CY 10 AL LI MG AN CE TA , B IN C. AT 55 12 30 30 00 PH Ac OR 11 -2 -2 .0 00 YS ti VA 10 9- 7- [address] 12 20 20 60 IA AT 10 16 17 61 NS IN 5 48 PH 10 AR MA MG CY TA AL BL LI ET AN CE , IN C. FE 45 12 30 30 00 PH Ac NO 80 -2 -2 .0 00 YS ti FI 20 9- 7- 00 03 IC ve BR 13 20 20 60 IA AT 27 16 17 61 NS E 5 56 14 PH 5 AR MG MA CY TA BL AL ET LI AN CE , IN C. HY 69 12 01 [address] 31 -2 -2 .0 00 YS ti OC 50 9- 7- 00 03 IC ve HL 13 20 20 60 IA OR 11 16 17 61 NS OT 0 62 HI PH AZ AR ID MA E CY 25 AL MG LI AN TA CE B , IN C. IN 50 12 01 30 30 00 PH Ac VO 45 -2 -2 .0 00 YS ti KA 80 9- 7- 00 03 IC ve NA 14 20 20 60 IA 13 16 17 61 NS 30 0 40 0 PH MG AR MA TA CY BL ET AL LI AN CE , IN C. LI 43 12 01 30 30 00 PH Ac SI 54 -2 -2 .0 00 YS ti NO 70 9- 7- 00 03 IC ve AZ 35 20 20 60 IA IL 31 16 17 61 NS 1 43 10 PH AR MG MA CY TA BL AL ET LI AN CE , IN C. OM 55 12 01 30 30 00 PH Ac EP 11 -2 -2 .0 00 YS ti RA 10 9- 7- 00 03 IC ve ZO 64 20 20 60 IA LE 50 16 17 [address] PH AR 40 MA CY MG AL CA LI PS AN UL CE E , IN C. 64 12 01 4. 28 00 PH Ac T 38 -2 -2 00 00 YS ti D2 00 9- 7- 0 03 IC ve 73 20 20 60 IA 1. 70 16 17 61 NS 25 6 58 PH MG AR MA (5 CY 0, 00 AL 0 LI UN AN IT CE ) , IN C. CE 65 01 01 20 10 00 WA Ac FU 86 -0 -2 .0 00 L- ti RO 20 3- 7- 00 07 MA ve XI 70 20 20 46 RT ME 06 17 17 22 0 78 PH AX AR ET MA IL CY 50 #5 0 91 MG TA B HY 64 12 30 [address] 98 -2 -2 .0 00 YS ti OX 00 8- 0- 00 03 IC ve YZ 16 20 20 54 IA IN 90 16 17 82 NS E 5 33 PA PH M AR 25 MA CY MG AL CA LI P AN CE , IN C. AL 00 12 01 27 30 00 PH Ac BU 48 -2 -2 0. 00 YS ti TE 79 8- 0- 00 03 IC ve RO 50 20 20 0 40 IA L 10 16 17 21 NS PARDO 3 23 L PH 2. AR 5 MA MG CY /3 AL ML LI AN SO CE LN , IN C. MO 00 12 01 30 30 00 PH Ac NT 60 -2 -2 .0 00 YS ti EL 34 8- 0- 00 03 IC ve UK 65 20 20 54 IA 53 16 17 79 NS T 4 57 SO PH D AR 10 MA CY MG AL TA LI BL AN ET CE , IN C. AZ 51 12 01 60 30 00 PH Ac OP 99 -2 -2 .0 00 YS ti RA 10 8- 0- 00 03 IC ve NO 81 20 20 49 IA LO 80 16 17 66 NS L 1 92 ER PH AR 80 MA CY MG AL CA LI PS AN UL CE E , IN C. NO 00 12 01 15 30 00 PH Ac VO 16 -2 -2 .0 00 YS ti LO 96 8- 0- 00 03 IC ve G 33 20 20 46 IA 10 91 16 17 26 NS 0 0 39 UN PH IT AR S/ MA ML CY FL AL EX LI PE AN N CE , IN C. ME 23 12 01 60 30 00 PH Ac TF 15 -2 -2 .0 00 YS ti OR 50 8- 0- 00 03 IC ve ID 10 20 20 40 IA N 41 16 17 21 NS HC 0 11 L PH 1, AR 00 MA 0 CY MG AL TA LI BL AN ET CE , IN C. CI 65 12 01 30 30 00 PH Ac TA 16 -2 -2 .0 00 YS ti LO 20 8- 0- 00 03 IC ve AZ 05 20 20 54 IA AM 45 16 17 82 NS 0 46 HB PH R AR 40 MA CY MG AL TA LI BL AN ET CE , IN C. TO 69 12 01 90 30 00 PH Ac PI 09 -2 -2 .0 00 YS ti RA 70 8- 0- 00 03 IC ve MA 12 20 20 54 IA TE 21 16 17 09 NS 5 93 25 PH AR MG MA CY TA BL AL ET LI AN CE , IN C. GA 68 12 01 90 30 00 PH Ac BA 46 -2 -2 .0 00 YS ti PE 20 8- 0- 00 03 IC ve NT 12 20 20 54 IA IN 70 16 17 09 NS 5 92 80 PH 0 AR MG MA CY TA BL AL ET LI AN CE , IN C. CE 69 12 01 30 30 00 PH Ac LE 09 -2 -2 .0 00 YS ti CO 70 8- 0- 00 03 IC ve XI 42 20 20 40 IA B 11 16 17 21 NS 20 2 20 0 PH MG AR MA CA CY PS UL AL E LI AN CE , IN C. QU 67 12 01 30 30 00 PH Ac ET 87 -2 -2 .0 00 YS ti IA 70 8- 0- 00 03 IC ve PI 24 20 20 54 IA NE 91 16 17 81 NS 0 94 FU PH MA AR RA MA TE CY 50 AL LI MG AN CE TA , B IN C. BA 00 12 01 90 30 00 PH Ac CL 52 -2 -2 .0 00 YS ti OF 71 8- 0- 00 03 IC ve EN 33 20 20 54 IA 01 16 17 82 NS 10 0 06 PH MG AR MA TA CY BL ET AL LI AN CE , IN C. PARDO 61 02 0 No LF 31 -1 AC 40 8- Lo ET 70 20 ng AM 10 13 er ID 1 E Ac 10 ti % ve EY E DR OP S LI 68 10 10 0 30 30 WA 38 GE Ac SI 18 -2 -2 .0 LG 56 IM ti NO 00 4- 4- 00 RE 41 AN ve AZ 51 20 20 EN 5 IL 70 11 11 S AN 3 #5 NA 40 76 3 MG # 57 TA 63 BL ET CR 00 10 10 0 30 30 WA 38 GE Ac ES 31 -2 -2 .0 LG 56 IM ti TO 00 4- 4- 00 RE 41 AN ve R 75 20 20 EN 6 20 29 11 11 S AN 0 #5 NA MG 76 3 TA # BL 57 ET 63 AM 68 10 10 0 30 30 WA 38 GE Ac LO 18 -2 -2 .0 LG 56 IM ti DI 00 4- 4- 00 RE 41 AN ve PI 75 20 20 EN 7 NE 20 11 11 S AN 3 #5 NA BE 76 SY 3 LA # TE 57 63 10 MG TA B FL 50 10 10 0 16 30 WA 38 GE Ac UT 38 -2 -2 .0 LG 56 IM ti IC 30 4- 4- 00 RE 41 AN ve 70 20 20 EN 8 ON 01 11 11 S AN E 6 #5 NA AZ 76 OP 3 # 50 57 63 MC G SP RA Y FL 00 10 10 0 30 30 WA 38 GE Ac UO 78 -2 -2 .0 LG 56 IM ti XE 12 4- 4- 00 RE 41 AN ve TI 82 20 20 EN 9 NE 43 11 11 S AN 1 #5 NA HC 76 L 3 40 # 57 MG 63 CA PS UL E HY 00 10 10 0 30 30 WA [address] 17 -2 -2 .0 LG 56 IM ti OC 22 4- 4- 00 RE 42 AN ve HL 08 20 20 EN 1 OR 98 11 11 S AN OT 0 #5 NA HI 76 AZ 3 ID # E 57 50 63 MG TA B NE 00 01 10 6 30 30 WA 37 GE Ac XI 18 -3 -2 .0 LG 15 IM ti UM 65 1- 1- 00 RE 53 AN ve 04 [address] 03 11 11 S AN 1 #5 NA 40 76 3 MG # 57 CA 63 PS UL E AC 00 10 10 0 20 4 WA 38 CO Ac ET 60 -2 -2 .0 LG 56 OP ti AM 32 1- 1- 00 RE 42 ER ve IN 33 20 20 EN 6 OP 83 11 11 S BI HE 2 #5 LL N- 76 Y CO 3 A D # #3 57 63 TA BL ET ME 59 10 10 0 21 6 WA 38 GA Ac TH 74 -1 -2 .0 LG 56 IN ti YL 60 8- 1- 00 RE 42 EY ve AZ 00 20 20 EN 7 ED 10 11 11 S ID NI 3 #5 CH SO 76 AE LO 3 L NE # S 4 57 63 MG DO SE PK 49 09 09 0 2. 30 WA 38 GE Ac 88 -1 -1 29 LG 35 IM ti 40 3- 5- 9 RE 00 AN ve 27 20 20 EN 2 01 11 11 S AN 4 #5 NA 76 3 # 57 63 FL 50 09 09 0 16 30 WA 38 GE Ac UT 38 -1 -1 .0 LG 35 IM ti IC 30 3- 3- 00 RE 00 AN ve 70 20 20 EN 0 ON 01 11 11 S AN E 6 #5 NA AZ 76 OP 3 # 50 57 63 MC G SP RA Y FL 00 09 09 0 30 30 WA 38 GE Ac UO 78 -1 -1 .0 LG 35 IM ti XE 12 3- 3- 00 RE 00 AN ve TI 82 20 20 EN 1 NE 43 11 11 S AN 1 #5 NA HC 76 L 3 40 # 57 MG 63 CA PS UL E LI 68 01 09 3 30 30 WA 37 GE Ac SI 18 -3 -1 .0 LG 15 IM ti NO 00 1- 2- 00 RE 52 AN ve AZ 51 20 20 EN 8 IL 70 11 11 S AN 3 #5 NA 40 76 3 MG # 57 TA 63 BL ET HY 00 01 09 3 30 30 WA [address] 17 -3 -1 .0 LG 15 IM ti OC 22 1- 2- 00 RE 52 AN ve HL 08 20 20 EN 9 OR 98 11 11 S AN OT 0 #5 NA HI 76 AZ 3 ID # E 57 50 63 MG TA B NE 00 01 09 6 30 30 WA 37 GE Ac XI 18 -3 -1 .0 LG 15 IM ti UM 65 2 00 RE 53 AN ve 04 [address] 03 11 11 S AN 1 #5 NA 40 76 3 MG # 57 CA 63 PS UL E CR 00 02 09 3 30 30 WA 37 GE Ac ES 31 -2 -1 .0 LG 31 IM ti TO 00 RE 53 AN ve R 75 20 20 EN 8 20 29 11 11 S AN 0 #5 NA MG 76 3 TA # BL 57 ET 63 AM 68 04 09 3 30 30 WA 37 CO Ac LO 18 -0 -1 .0 LG 51 TT ti DI 00 RE 18 ON ve PI 75 20 20 EN 8 NE 20 11 11 S RO 3 #5 BI BE 76 N SY 3 T LA # TE 57 63 10 MG TA B LI 68 01 08 3 30 30 WA 37 GE Ac SI 18 -3 -0 .0 LG 15 IM ti NO 00 RE 52 AN ve AZ 51 20 20 EN 8 IL 70 11 11 S AN 3 #5 NA 40 76 3 MG # 57 TA 63 BL ET HY 00 01 08 3 30 30 WA [address] 17 -3 -0 .0 LG 15 IM ti OC 22 RE 52 AN ve HL 08 20 20 EN 9 OR 98 11 11 S AN OT 0 #5 NA HI 76 AZ 3 ID # E 57 50 63 MG TA B NE 00 01 08 6 30 30 WA 37 GE Ac XI 18 -3 -0 .0 LG 15 IM ti UM 65 RE 53 AN ve 04 [address] 03 11 11 S AN 1 #5 NA 40 76 3 MG # 57 CA 63 PS UL E CR 00 02 08 3 30 30 WA 37 GE Ac ES 31 -2 -0 .0 LG 31 IM ti TO 00 RE 53 AN ve R 75 20 20 EN 8 20 29 11 11 S AN 0 #5 NA MG 76 3 TA # BL 57 ET 63 AM 68 04 08 3 30 30 WA 37 CO Ac LO 18 -0 -0 .0 LG 51 TT ti DI 00 RE 18 ON ve PI 75 20 20 EN 8 NE 20 11 11 S RO 3 #5 BI BE 76 N SY 3 T LA # TE 57 63 10 MG TA B TI 55 01 08 2 60 30 WA 37 CO Ac ZA 11 -2 -0 .0 LG 86 LG ti NI 10 0- 9- 00 RE 05 LA ve DI 17 20 20 EN 1 ZI NE 91 11 11 S ER 5 #5 HC 76 CH L 3 RI 2 # ST MG 57 OP 63 HE TA R BL L ET FL 00 08 08 0 30 30 WA 38 GE Ac UO 78 -0 -0 .0 LG 17 IM ti XE 12 RE 19 AN ve TI 82 20 20 EN 1 NE 43 11 11 S AN 1 #5 NA HC 76 L 3 40 # 57 MG 63 CA PS UL E 49 08 08 0 2. 30 WA 38 GE Ac 88 -0 -0 29 LG 17 IM ti 40 RE 19 AN ve 27 20 20 EN 2 01 11 11 S AN 4 #5 NA 76 3 # 57 63 FL 60 08 08 0 16 30 WA 38 GE Ac UT 50 -0 -0 .0 LG 17 IM ti IC 50 RE 37 AN ve 82 20 20 EN 3 ON 90 11 11 S AN E 1 #5 NA AZ 76 OP 3 # 50 57 63 MC G SP RA Y CL 63 07 07 0 28 7 WA 38 SO Ac IN 30 -2 -2 .0 LG 09 WE ti DA 40 4- 4- 00 RE 23 R ve MY 69 20 20 EN 7 DA CI 30 11 11 S N 1 #5 D HC 76 L 3 30 # 0 57 MG 63 CA PS UL E 00 07 07 0 20 3 WA 38 SO Ac 59 -2 -2 .0 LG 09 WE ti 10 4- 4- 00 RE 23 R ve 34 20 20 EN 8 DA 90 11 11 S 5 #5 D 76 3 # 57 63 00 07 07 0 12 2 WA 38 GR Ac 59 -2 -2 .0 LG 08 AY ti 10 2- 2- 00 RE 61 ve 34 20 20 EN 1 RO 90 11 11 S BE 5 #5 RT 76 B 3 # 57 63 PE 00 07 07 0 40 10 WA 38 GR Ac NI 09 -2 -2 .0 LG 08 AY ti CI 31 2- 2- 00 RE 61 ve LL 17 20 20 EN 2 RO IN 41 11 11 S BE 0 #5 RT VK 76 B 3 50 # 0 57 MG 63 TA BL ET LY 00 01 07 2 60 30 WA 38 CO Ac RI 07 -2 -1 .0 LG 02 LG ti CA 11 1- 3- 00 RE 35 LA ve 01 20 20 EN 7 ZI 15 66 11 11 S ER 0 8 #5 MG 76 CH 3 RI CA # ST PS 57 OP UL 63 HE E R L FL 00 02 07 2 30 30 WA 37 GE Ac UO 78 -2 -1 .0 LG 31 IM ti XE 12 8- 0- 00 RE 53 AN ve TI 82 20 20 EN 6 NE 43 11 11 S AN 1 #5 NA HC 76 L 3 40 # 57 MG 63 CA PS UL E TI 55 01 07 2 60 30 WA 37 CO Ac ZA 11 -2 -1 .0 LG 86 LG ti NI 10 0- 0- 00 RE 05 LA ve DI 17 20 20 EN 1 ZI NE 91 11 11 S ER 5 #5 HC 76 CH L 3 RI 2 # ST MG 57 OP 63 HE TA R BL L ET TI 55 01 06 2 60 30 WA 37 CO Ac ZA 11 -2 -0 .0 LG 86 LG ti NI 10 0- 8- 00 RE 05 LA ve DI 17 20 20 EN 1 ZI NE 91 11 11 S ER 5 #5 HC 76 CH L 3 RI 2 # ST MG 57 OP 63 HE TA R BL L ET AM 68 04 06 3 30 30 WA 37 CO Ac LO 18 -0 -0 .0 LG 51 TT ti DI 00 RE 18 ON ve PI 75 20 20 EN 8 NE 20 11 11 S RO 3 #5 BI BE 76 N SY 3 T LA # TE 57 63 10 MG TA B 49 02 06 1 2. 30 WA 37 GE Ac 88 -2 -0 29 LG 31 IM ti 40 8- 8- 9 RE 53 AN ve 27 20 20 EN 9 01 11 11 S AN 4 #5 NA 76 3 # 57 63 CR 00 02 06 3 30 30 WA 37 GE Ac ES 31 -2 -0 .0 LG 31 IM ti TO 00 RE 53 AN ve R 75 20 20 EN 8 20 29 11 11 S AN 0 #5 NA MG 76 3 TA # BL 57 ET 63 FL 00 02 06 2 30 30 WA 37 GE Ac UO 78 -2 -0 .0 LG 31 IM ti XE 12 RE 53 AN ve TI 82 20 20 EN 6 NE 43 11 11 S AN 1 #5 NA HC 76 L 3 40 # 57 MG 63 CA PS UL E NE 00 01 06 6 30 30 WA 37 GE Ac XI 18 -3 -0 .0 LG 15 IM ti UM 65 1- 8- 00 RE 53 AN ve 04 [address] 03 11 11 S AN 1 #5 NA 40 76 3 MG # 57 CA 63 PS UL E HY 00 01 06 3 30 30 WA [address] 17 -3 -0 .0 LG 15 IM ti OC 22 1- 8- 00 RE 52 AN ve HL 08 20 20 EN 9 OR 98 11 11 S AN OT 0 #5 NA HI 76 AZ 3 ID # E 57 50 63 MG TA B LI 68 01 06 3 30 30 WA 37 GE Ac SI 18 -3 -0 .0 LG 15 IM ti NO 00 1- 8- 00 RE 52 AN ve AZ 51 20 20 EN 8 IL 70 11 11 S AN 3 #5 NA 40 76 3 MG # 57 TA 63 BL ET 00 05 05 0 15 3 WA 37 RO Ac 59 -0 -0 .0 LG 68 GE ti 10 5- 6- 00 RE 08 RS ve 34 20 20 EN 3 90 11 11 S SH 5 #5 AR 76 ON 3 E # 57 63 FL 60 05 05 0 16 30 WA 37 RO Ac UT 50 -0 -0 .0 LG 68 GE ti IC 50 6- 6- 00 RE 08 RS ve 82 20 20 EN 4 ON 90 11 11 S SH E 1 #5 AR AZ 76 ON OP 3 E # 50 57 63 MC G SP RA Y CL 00 05 05 0 20 10 WA 37 RO Ac AR 09 -0 -0 .0 LG 68 GE ti IT 37 5- 6- 00 RE 08 RS ve HR 15 20 20 EN 5 OM 80 11 11 S SH YC 6 #5 AR IN 76 ON 3 E 50 # 0 57 MG 63 TA BL ET AM 68 04 04 3 30 30 WA 37 CO Ac LO 18 -0 -0 .0 LG 51 TT ti DI 00 4- 4- 00 RE 18 ON ve PI 75 20 20 EN 8 NE 20 11 11 S RO 3 #5 BI BE 76 N SY 3 T LA # TE 57 63 10 MG TA B 49 02 03 1 2. 30 WA 37 GE Ac 88 -2 -0 29 LG 31 IM ti 40 8- 1- 9 RE 53 AN ve 27 20 20 EN 9 01 11 11 S AN 4 #5 NA 76 3 # 57 63 FL 00 02 02 2 30 30 WA 37 GE Ac UO 78 -2 -2 .0 LG 31 IM ti XE 12 8- 8- 00 RE 53 AN ve TI 82 20 20 EN 6 NE 43 11 11 S AN 1 #5 NA HC 76 L 3 40 # 57 MG 63 CA PS UL E AM 68 02 02 3 30 30 WA 37 GE Ac LO 18 -2 -2 .0 LG 31 IM ti DI 00 RE 53 AN ve PI 75 20 20 EN 7 NE 10 11 11 S AN 3 #5 NA BE 76 SY 3 LA # TE 57 5 63 MG TA B CR 00 02 02 3 30 30 WA 37 GE Ac ES 31 -2 -2 .0 LG 31 IM ti TO 00 RE 53 AN ve R 75 20 20 EN 8 20 29 11 11 S AN 0 #5 NA MG 76 3 TA # BL 57 ET 63 AM 68 09 01 5 30 30 WA 36 GE Ac LO 18 -2 -3 .0 LG 47 IM ti DI 00 RE 74 AN ve PI 75 20 20 EN 9 NE 10 10 11 S AN 3 #5 NA BE 76 SY 3 LA # TE 57 5 63 MG TA B CR 00 11 01 1 30 30 WA 36 GE Ac ES 31 -0 -3 .0 LG 67 IM ti TO 00 RE 70 AN ve R 75 20 20 EN 6 20 29 10 11 S AN 0 #5 NA MG 76 3 TA # BL 57 ET 63 LI 68 01 01 3 30 30 WA 37 GE Ac SI 18 -3 -3 .0 LG 15 IM ti NO 00 RE 52 AN ve AZ 51 20 20 EN 8 IL 70 11 11 S AN 3 #5 NA 40 76 3 MG # 57 TA 63 BL ET HY 00 01 01 3 30 30 WA [address] 17 -3 -3 .0 LG 15 IM ti OC 22 RE 52 AN ve HL 08 20 20 EN 9 OR 98 11 11 S AN OT 0 #5 NA HI 76 AZ 3 ID # E 57 50 63 MG TA B NE 00 01 01 6 30 30 WA 37 GE Ac XI 18 -3 -3 .0 LG 15 IM ti UM 65 08-19- 00 RE 53 AN ve 04 [address] 03 11 11 S AN 1 #5 NA 40 76 3 MG # 57 CA 63 PS UL E 00 01 01 1 30 30 WA 37 GE Ac 09 -3 -3 .0 LG 15 IM ti 34 1- - RE 52 AN ve 35 20 20 EN 3 60 11 11 S AN 1 #5 NA 76 3 # 57 63 LY 00 01 01 3 60 30 WA 82 CO Ac RI 07 -2 -2 .0 LG 96 LG ti CA 11 1- - 00 RE 05 LA ve 01 20 20 EN ZI 15 66 11 11 S ER 0 8 #5 MG 54 CH 8 RI CA # ST PS 55 OP UL 48 HE E R L PE 00 01 01 0 40 10 WA 82 BR Ac NI 09 -2 -2 .0 LG 96 AC ti CI 31 1- 00 RE 04 KE ve LL 17 20 20 EN N IN 41 11 11 S DA 0 #5 VK 54 D 8 L 50 # 0 55 MG 48 TA BL ET TI 55 01 01 3 60 30 WA 82 CO Ac ZA 11 -2 -2 .0 LG 96 LG ti NI 10 0- 1- 00 RE 06 LA ve DI 17 20 20 EN ZI NE 91 11 11 S ER 5 #5 HC 54 CH L 8 RI 2 # ST MG 55 OP 48 HE TA R BL L ET 00 01 01 0 15 2 WA 82 BR Ac 59 -2 -2 .0 LG 96 AC ti 10 RE 07 KE ve 34 20 20 EN N 90 11 11 S DA 5 #5 54 D 8 L # 55 48 00 12 12 0 15 2 WA 16 KU Ac 59 -2 -2 .0 LG 89 SH ti 10 3 3- 00 RE 29 MA ve 34 20 20 EN 7 N 90 10 10 S PARDO 5 #9 SA 16 N 2 # 91 62 PE 00 12 12 0 40 10 WA 16 CO Ac NI 09 -2 -2 .0 LG 89 LG ti CI 31 3- 3- 00 RE 29 LA ve LL 17 20 20 EN 9 ZI IN 41 10 10 S ER 0 #9 VK 16 CH 2 RI 50 # ST 0 91 OP MG 62 HE R TA L BL ET CR 00 11 11 1 30 30 WA 36 GE Ac ES 31 -0 -0 .0 LG 67 IM ti TO RE 70 AN ve R 75 20 20 EN 6 20 29 10 10 S AN 0 #5 NA MG 76 3 TA # BL 57 ET 63 CR 00 10 10 3 30 30 WA 36 GE Ac ES 31 -2 -2 .0 LG 65 IM ti TO 00 RE 83 AN ve R 75 20 20 EN 3 10 19 10 10 S AN 0 #5 NA MG 76 3 TA # BL 57 ET 63 LI 68 07 10 3 30 30 WA 36 RA Ac SI 18 -1 -2 .0 LG 11 NC ti NO 00 6- 8- 00 RE 53 K ve AZ 51 20 20 EN 8 ER IL 70 10 10 S IN 3 #5 M 40 76 3 MG # 57 TA 63 BL ET LY 00 09 10 5 60 30 WA 36 CO Ac RI 07 -1 -2 .0 LG 43 LG ti CA 11 7- 8- 00 RE 94 LA ve 01 20 20 EN 1 ZI 15 66 10 10 S ER 0 8 #5 MG 76 CH 3 RI CA # ST PS 57 OP UL 63 HE E R L TI 55 09 10 3 60 30 WA 36 CO Ac ZA 11 -1 -2 .0 LG 43 LG ti NI 10 - 8 00 RE 94 LA ve DI 17 20 20 EN 2 ZI NE 91 10 10 S ER 5 #5 HC 76 CH L 3 RI 2 # ST MG 57 OP 63 HE TA R BL L ET NE 00 08 10 4 30 30 WA 36 GE Ac XI 18 -2 -2 .0 LG 47 IM ti UM 65 8 00 RE 74 AN ve 04 [address] 03 10 10 S AN 1 #5 NA 40 76 3 MG # 57 CA 63 PS UL E AM 68 09 10 5 30 30 WA 36 GE Ac LO 18 -2 -2 .0 LG 47 IM ti DI 00 RE 74 AN ve PI 75 20 20 EN 9 NE 10 10 10 S AN 3 #5 NA BE 76 SY 3 LA # TE 57 5 63 MG TA B HY 00 10 10 0 30 30 WA [address] 17 -1 -1 .0 LG 57 IM ti OC 22 3- 3- 00 RE 15 AN ve HL 08 20 20 EN 0 OR 98 10 10 S AN OT 0 #5 NA HI 76 AZ 3 ID # E 57 50 63 MG TA B AM 68 09 09 5 30 30 WA 36 GE Ac LO 18 -2 -2 .0 LG 47 IM ti DI 00 7 RE 74 AN ve PI 75 20 20 EN 9 NE 10 10 10 S AN 3 #5 NA BE 76 SY 3 LA # TE 57 5 63 MG TA B LI 68 07 09 3 30 30 WA 36 RA Ac SI 18 -1 -2 .0 LG 11 NC ti NO 00 6 5- 00 RE 53 K ve AZ 51 20 20 EN 8 ER IL 70 10 10 S IN 3 #5 M 40 76 3 MG # 57 TA 63 BL ET NE 00 08 09 4 30 30 WA 36 GE Ac XI 18 -2 -2 .0 LG 47 IM ti UM 65 4- 5- 00 RE 74 AN ve 04 [address] 03 10 10 S AN 1 #5 NA 40 76 3 MG # 57 CA 63 PS UL E CR 00 08 09 0 30 30 WA 36 GE Ac ES 31 -2 -2 .0 LG 47 IM ti TO 00 4- 5- 00 RE 74 AN ve R 75 20 20 EN 8 10 19 10 10 S AN 0 #5 NA MG 76 3 TA # BL 57 ET 63 LY 00 09 09 5 60 30 WA 36 CO Ac RI 07 -1 -1 .0 LG 43 LG ti CA 11 7- 7- 00 RE 94 LA ve 01 20 20 EN 1 ZI 15 66 10 10 S ER 0 8 #5 MG 76 CH 3 RI CA # ST PS 57 OP UL 63 HE E R L TI 55 09 09 3 60 30 WA 36 CO Ac ZA 11 -1 -1 .0 LG 43 LG ti NI 10 7- 7- 00 RE 94 LA ve DI 17 20 20 EN 2 ZI NE 91 10 10 S ER 5 #5 HC 76 CH L 3 RI 2 # ST MG 57 OP 63 HE TA R BL L ET GA 68 08 08 0 60 30 WA 36 CO Ac BA 46 -2 -2 .0 LG 32 LG ti PE 20 6- 6- 00 RE 10 LA ve NT 12 20 20 EN 2 ZI IN 60 10 10 S ER 5 #5 60 76 CH 0 3 RI MG # ST 57 OP TA 63 HE BL R ET L CR 00 08 08 1 30 30 WA 79 GE Ac ES 31 -2 -2 .0 LG 28 IM ti TO 00 4 4- 00 RE 34 AN ve R 75 20 20 EN 10 19 10 10 S AN 0 #5 NA MG 54 8 TA # BL 55 ET 48 NE 00 08 08 5 30 30 WA 79 GE Ac XI 18 -2 -2 .0 LG 28 IM ti UM 65 4- 4- 00 RE 35 AN ve [address] 03 10 10 S AN 1 #5 NA 40 54 8 MG # 55 CA 48 PS UL E LI 68 07 07 3 30 30 WA 36 RA Ac SI 18 -1 -1 .0 LG 11 NC ti NO 00 6- 6- 00 RE 53 K ve AZ 51 20 20 EN 8 ER IL 70 10 10 S IN 3 #5 M 40 76 3 MG # 57 TA 63 BL ET HY 00 11 07 3 30 30 WA [address] 17 -1 -1 .0 LG 08 NC ti OC 22 3- 5- 00 RE 32 K ve HL 08 20 20 EN 8 ER OR 98 09 10 S IN OT 0 #5 M HI 76 AZ 3 ID # E 57 50 63 MG TA B AM 68 06 07 1 30 30 WA 35 GE Ac LO 18 -0 -1 .0 LG 90 IM ti DI 00 1- 5- 00 RE 14 AN ve PI 75 20 20 EN 8 NE 10 10 10 S AN 3 #5 NA BE 76 SY 3 LA # TE 57 5 63 MG TA B CY 59 02 07 1 60 30 WA 36 CO Ac CL 74 -2 -1 .0 LG 11 LG ti OB 60 3- 5- 00 RE 53 LA ve EN 17 20 20 EN 4 ZI ZA 71 10 10 S ER AZ 0 #5 IN 76 CH E 3 RI 10 # ST 57 OP MG 63 HE R TA L BL ET AM 00 06 06 0 20 10 PA 35 GE Ac OX 78 -1 -1 .0 LG 97 IM ti -C 11 5- 7- 00 RE 33 AN ve LA 85 20 20 EN 4 V 22 10 10 S AN 87 0 #5 NA 5- 76 12 3 5 # MG 57 63 TA BL ET AM 68 06 06 1 30 30 PA 35 GE Ac LO 18 -0 -0 .0 LG 90 IM ti DI 00 1- 3- 00 RE 14 AN ve PI 75 20 20 EN 8 NE 10 10 10 S AN 3 #5 NA BE 76 SY 3 LA # TE 57 5 63 MG TA B 00 05 06 0 30 2 PA 35 YE Ac 59 -2 -0 .0 LG 90 LI ti 10 5- 3- 00 RE 14 CH ve 74 20 20 EN 9 90 10 10 S PARDO 5 #5 SA 76 N 3 M # 57 63 00 05 05 0 40 3 PA 35 YE Ac 59 -1 -1 .0 LG 81 LI ti 10 7- 8- 00 RE 56 CH ve 74 20 20 EN 1 90 10 10 S PARDO 5 #5 SA 76 N 3 M # 57 63 AZ 00 04 04 0 6. 1 PA 35 KI Ac OM 78 -2 -2 00 LG 69 LL ti ET 11 4- 4- 0 RE 10 IN ve VILLAVICENCIO 83 20 20 EN 3 DE ZI 00 10 10 S R NE 1 #5 76 HL 25 3 EY # E MG 57 63 TA BL ET PARDO 53 04 04 0 20 10 PA 35 KI Ac LF 74 -2 -2 .0 LG 69 LL ti AM 60 4- 4- 00 RE 10 IN ve ET 27 20 20 EN 4 DE HO 20 10 10 S R XA 5 #5 ZO 76 HL LE 3 EY -T # E MP 57 63 DS TA BL ET NE 00 04 04 0 30 30 WA 35 RA Ac XI 18 -1 -1 .0 LG 63 NC ti UM 65 RE 18 K ve 04 20 [address] 03 10 10 S IN 1 #5 M 40 76 3 MG # 57 CA 63 PS UL E PE 00 04 04 0 40 10 WA 35 LO Ac NI 09 -1 -1 .0 LG 66 VE ti CI 31 RE 20 ve LL 17 20 20 EN 9 TI IN 41 10 10 S MO 0 #5 TH VK 76 Y 3 A 50 # 0 57 MG 63 TA BL ET 00 04 04 0 20 3 WA 35 LO Ac 59 -1 -1 .0 LG 66 VE ti 10 RE 30 ve 74 20 20 EN 7 TI 90 10 10 S MO 5 #5 TH 76 Y 3 A # 57 63 AM 00 04 04 0 [address] Ac OX 78 -1 -1 .0 LG 65 AW ti -C 11 RE 57 ve LA 85 20 20 EN 2 AZ V 22 10 10 S ID 87 0 #5 5- 76 12 3 5 # MG 57 63 TA BL ET ME 68 04 04 0 [address] Ac LO 18 -1 -1 .0 LG 65 AW ti XI 00 RE 57 ve CA 50 20 20 EN 3 AZ M 10 10 10 S ID 7. 3 #5 5 76 MG 3 # TA 57 BL 63 ET TR 65 04 04 0 [address] Ac AM 16 -1 -1 .0 LG 65 AW ti AD 20 RE 57 ve OL 62 20 20 EN 4 AZ 71 10 10 S ID HC 1 #5 L 76 50 3 # MG 57 63 TA BL ET HY 00 11 04 3 30 30 WA [address] 17 -1 -1 .0 LG 08 NC ti OC 22 3 3 00 RE 32 K ve HL 08 20 20 EN 8 ER OR 98 09 10 S IN OT 0 #5 M HI 76 AZ 3 ID # E 57 50 63 MG TA B LI 68 11 04 3 30 30 WA 34 RA Ac SI 18 -1 -1 .0 LG 86 NC ti NO 00 3- 3- 00 RE 38 K ve AZ 51 20 20 EN 5 ER IL 70 09 10 S IN 3 #5 M 40 76 3 MG # 57 TA 63 BL ET LY 00 12 04 3 60 30 WA 35 CO Ac RI 07 -1 -1 .0 LG 32 LG ti CA 11 6- 3- 00 RE 19 LA ve 01 20 20 EN 8 ZI 15 66 09 10 S ER 0 8 #5 MG 76 CH 3 RI CA # ST PS 57 OP UL 63 HE E R L NE 00 01 03 1 30 30 WA 35 GE Ac XI 18 -2 -2 .0 LG 20 IM ti UM 65 5- 1- 00 RE 25 AN ve 04 [address] 03 10 10 S AN 1 #5 NA 40 76 3 MG # 57 CA 63 PS UL E CY 59 02 03 0 60 30 WA 35 CO Ac CL 74 -1 -2 .0 LG 51 LG ti OB 60 5- 1- 00 RE 01 LA ve EN 17 20 20 EN 1 ZI ZA 71 10 10 S ER AZ 0 #5 IN 76 CH E 3 RI 10 # ST 57 OP MG 63 HE R TA L BL ET 59 02 02 00 8. 30 WA 35 EM Ac 31 -1 -2 50 LG 32 ER ti 00 2- 6- 0 RE 13 Y ve 57 20 20 EN 1 DA 92 10 10 S RY 0 57 L 63 L AM 00 02 02 00 30 10 WA 35 EM Ac OX 09 -1 -2 .0 LG 32 ER ti IC 33 2- 6- 00 RE 13 Y ve IL 10 20 20 EN 0 DA LI 90 10 10 S RY N 5 57 L 50 63 L 0 MG CA PS UL E LY 00 10 02 01 60 30 WA 34 CO Ac RI 07 -1 -2 .0 LG 86 LG ti CA 11 6- 6- 00 RE 38 LA ve 01 20 20 EN 4 ZI 75 46 09 10 S ER 8 57 MG [address] PS OP UL HE E R L LI 68 11 02 02 30 30 WA 34 RA Ac SI 18 -1 -2 .0 LG 86 NC ti NO 00 3- 6- 00 RE 38 K ve AZ 51 20 20 EN 5 ER IL 70 09 10 S IN 3 57 M 40 63 MG TA BL ET AZ 50 02 02 00 60 4 WA 35 EM Ac OM 38 -1 -2 .0 LG 32 ER ti ET 30 2- 6- 00 RE 13 Y ve VILLAVICENCIO 80 20 20 EN 2 DA ZI 41 10 10 S RY NE 6 57 L -C 63 L OD EI NE SY RU P CY 59 02 02 00 60 30 WA 35 CO Ac CL 74 -1 -2 .0 LG 33 LG ti OB 60 5- 6- 00 RE 11 LA ve EN 17 20 20 EN 7 ZI ZA 71 10 10 S ER AZ 0 57 IN 63 CH E RI 10 ST OP MG HE R TA L BL ET HY 00 11 02 01 30 30 WA [address] 17 -1 -2 .0 LG 08 NC ti OC 22 3- 6- 00 RE 32 K ve HL 08 20 20 EN 8 ER OR 98 09 10 S IN OT 0 57 M HI 63 AZ ID E 50 MG TA B NE 00 01 02 00 30 30 WA 35 GE Ac XI 18 -2 -1 .0 LG 20 IM ti UM 65 5- 1- 00 RE 25 AN ve 04 [address] 03 10 10 S AN 1 57 NA 40 63 MG CA PS UL E LI 68 11 01 01 30 30 WA 34 RA Ac SI 18 -1 -1 .0 LG 86 NC ti NO 00 3- 4- 00 RE 38 K ve AZ 51 20 20 EN 5 ER IL 70 09 10 S IN 3 57 M 40 63 MG TA BL ET CY 59 11 01 01 60 30 WA 34 CO Ac CL 74 -0 -1 .0 LG 76 LG ti OB 60 9- 4- 00 RE 00 LA ve EN 17 20 20 EN 5 ZI ZA 71 09 10 S ER AZ 0 57 IN 63 CH E RI 10 ST OP MG HE R TA L BL ET HY 00 11 01 00 30 30 WA [address] 17 -1 -1 .0 LG 08 NC ti OC 22 3- 4- 00 RE 32 K ve HL 08 20 20 EN 8 ER OR 98 09 10 S IN OT 0 57 M HI 63 AZ ID E 50 MG TA B LY 00 12 12 00 60 30 WA 16 CO Ac RI 07 -1 -3 .0 LG 16 LG ti CA 11 6- 1- 00 RE 50 LA ve 01 20 20 EN 1 ZI 15 66 09 09 S ER 0 8 19 MG [address] PS OP UL HE E R L LY 00 10 12 00 60 30 WA 34 CO Ac RI 07 -1 -1 .0 LG 86 LG ti CA 11 6- 7- 00 RE 38 LA ve 01 20 20 EN 4 ZI 75 46 09 09 S ER 8 57 MG [address] PS OP UL HE E R L LI 68 11 12 00 30 30 WA 34 RA Ac SI 18 -1 -1 .0 LG 86 NC ti NO 00 3- 7- 00 RE 38 K ve AZ 51 20 20 EN 5 ER IL 70 09 09 S IN 3 57 M 40 63 MG TA BL ET CY 59 11 11 00 60 30 WA 34 CO Ac CL 74 -0 -1 .0 LG 76 LG ti OB 60 9- 9- 00 RE 00 LA ve EN 17 20 20 EN 5 ZI ZA 71 09 09 S ER AZ 0 57 IN 63 CH E RI 10 ST OP MG HE R TA L BL ET LI 68 11 11 00 14 14 WA 34 LA Ac SI 18 -1 -1 .0 LG 77 UR ti NO 00 1- 9- 00 RE 26 EN ve AZ 51 20 20 EN 8 O- IL 70 09 09 S AL 3 57 VA 40 63 RE Z MG LI AH TA J BL ET HY 00 11 11 00 30 30 WA [address] 17 -0 -1 .0 LG 76 UR ti OC 22 9- 9- 00 RE 00 EN ve HL 08 20 20 EN 6 O- OR 98 09 09 S AL OT 0 57 VA HI 63 RE AZ Z ID LI E AH 50 J MG TA B LY 00 10 10 00 60 30 WA 72 CO Ac RI 07 -1 -2 .0 LG 08 LG ti CA 11 6- 2- 00 RE 44 LA ve 01 20 20 EN ZI 75 46 09 09 S ER 8 05 MG 54 CH [address] PS OP UL HE E R L AZ 00 09 08 02 30 30 WA 70 LA Ac EM 04 -1 -1 .0 L- 70 UR ti AR 61 0- 3- 00 MA 31 EN ve IN 10 20 20 RT 8 O- 28 08 09 AL 0. 1 PH VA 62 AR RE 5 MA Z MG CY LI AH TA #1 J BL 51 ET 0 LI 54 05 08 01 30 30 WA 71 LA Ac SI 45 -2 -1 .0 L- 17 UR ti NO 80 8- 3- 00 MA 91 EN ve AZ 99 20 20 RT 0 O- IL 41 09 09 AL 0 PH VA 40 AR RE MA Z MG CY LI AH TA #1 J BL 51 ET 0 54 05 08 01 30 30 WA 71 LA Ac 45 -2 -1 .0 L- 17 UR ti 80 8- 3- 00 MA 90 EN ve 96 20 20 RT 9 O- 91 09 09 AL 0 PH VA AR RE MA Z CY [facility] #1 J 51 0 00 03 08 01 60 30 WA 71 CO Ac 37 -2 -1 .0 L- 17 LG ti 80 7- 3- 00 MA 74 LA ve 75 20 20 RT 0 ZI 19 09 09 ER 3 PH AR CH MA RI [facility] OP #1 HE 51 R 0 L SA 00 05 07 00 60 30 KM 68 CO Ac VE 45 -2 -0 .0 AR 05 LG ti LL 61 7- 2- 00 T 77 LA ve A 55 20 20 PH 7 ZI 50 06 09 09 AR ER 0 MA MG CY CH RI TA 30 ST BL 29 OP ET HE R L LI 54 05 06 00 30 30 WA 71 LA Ac SI 45 -2 -0 .0 L- 17 UR ti NO 80 8- 4- 00 MA 91 EN ve AZ 99 20 20 RT 0 O- IL 41 09 09 AL 0 PH VA 40 AR RE MA Z MG CY [facility] TA #1 J BL 51 ET 0 54 05 06 00 30 30 WA 71 LA Ac 45 -2 -0 .0 L- 17 UR ti 80 8- 4- 00 MA 90 EN ve 96 20 20 RT 9 O- 91 09 09 AL 0 PH VA AR RE MA Z CY [facility] #1 J 51 0 AZ 00 09 06 01 30 30 WA 70 LA Ac EM 04 -1 -0 .0 L- 70 UR ti AR 61 0- 4- 00 MA 31 EN ve IN 10 20 20 RT 8 O- 28 08 09 AL 0. 1 PH VA 62 AR RE 5 MA Z MG CY [facility] TA #1 J BL 51 ET 0 00 03 06 00 60 30 WA 71 CO Ac 37 -2 -0 .0 L- 17 LG ti 80 7- 4- 00 MA 74 LA ve 75 20 20 RT 0 ZI 19 09 09 ER 3 PH AR CH MA RI [facility] OP #1 HE 51 R 0 L CY 00 03 04 00 60 30 KR 66 CO Ac CL 59 -2 -0 .0 OG 16 LG ti OB 15 7- 9- 00 ER 31 LA ve EN 65 20 20 0 ZI ZA 81 09 09 PH ER AZ 0 AR IN MA CH E CY RI 10 ST #9 OP MG 01 HE R TA L BL ET NA 68 02 02 00 20 10 WA 32 No Ac AZ 46 -0 -1 .0 LG 00 t ti OX 20 2- 2- 00 RE 46 Av ve EN 19 20 20 EN 0 ai 00 09 09 S la 50 5 57 bl 0 63 e MG TA BL ET CY 59 02 02 00 15 5 WA 32 No Ac CL 74 -0 -1 .0 LG 00 t ti OB 60 2- 2- 00 RE 45 Av ve EN 17 20 20 EN 9 ai ZA 71 09 09 S la AZ 0 57 bl IN 63 e E 10 MG TA BL ET CI 16 02 02 00 14 7 WA 32 SP Ac AZ 25 -0 -1 .0 LG 00 EL ti OF 20 2- 2- 00 RE 45 LM ve LO 51 20 20 EN 7 AN XA 50 09 09 S CI 1 57 PA N 63 UL HC L 50 0 MG TA B 00 02 02 00 12 1 WA 32 SP Ac 59 -0 -1 .0 LG 00 EL ti 10 2- 2- 00 RE 45 LM ve 34 20 20 EN 8 AN 90 09 09 S 5 57 PA 63 UL LI 54 05 11 02 30 30 WA 70 LA Ac SI 45 -2 -2 .0 L- 51 UR ti NO 80 5- 0- 00 MA 25 EN ve AZ 99 20 20 RT 9 O- IL 41 08 08 AL 0 PH VA 40 AR RE MA Z MG CY LI AH TA #1 J BL 51 ET 0 GA 59 11 11 00 12 30 WA 70 LA Ac BA 76 -1 -2 0. L- 82 UR ti PE 25 4- 0- 00 MA 63 EN ve NT 02 20 20 0 RT 8 O- IN 30 08 08 AL 1 PH VA 60 AR RE 0 MA Z MG CY LI AH TA #1 J BL 51 ET 0 54 05 11 02 60 30 WA 70 BL Ac 45 -0 -2 .0 L- 47 EC ti 80 6- 0- 00 MA 62 HE ve 97 20 20 RT 3 R 60 08 08 SA 7 PH UL AR MA CY #1 51 0 DI 00 11 11 00 60 30 WA 70 LA Ac CL 78 -1 -2 .0 L- 82 UR ti OF 11 4- 0- 00 MA 63 EN ve EN 78 20 20 RT 6 O- AC 90 08 08 AL 1 PH VA SO AR RE D MA Z EC CY LI AH 75 #1 J 51 MG 0 TA B TR 00 05 11 02 90 30 WA 70 BL Ac AM 37 -2 -2 .0 L- 52 EC ti AD 84 9- 0- 00 MA 02 HE ve OL 15 20 20 RT 8 R 10 08 08 SA HC 1 PH UL L AR 50 MA CY MG #1 TA 51 BL 0 ET ME 00 05 11 02 30 10 WA 70 BL Ac TH 60 -2 -2 .0 L- 52 EC ti OC 34 9- 0- 00 MA 02 HE ve AR 48 20 20 RT 9 R BA 62 08 08 SA MO 1 PH UL L AR 75 MA 0 CY MG #1 TA 51 BL 0 ET HY 00 05 11 02 30 30 WA [address] 17 -2 -2 .0 L- 50 UR ti OC 22 2- 0- 00 MA 82 EN ve HL 08 20 20 RT 4 O- OR 98 08 08 AL OT 0 PH VA HI AR RE AZ MA Z ID CY LI E AH 50 #1 J 51 MG 0 TA B AZ 00 09 11 00 30 30 WA 70 LA Ac EM 04 -1 -2 .0 L- 70 UR ti AR 61 0- 0- 00 MA 31 EN ve IN 10 20 20 RT 8 O- 28 08 08 AL 0. 1 PH VA 62 AR RE 5 MA Z MG CY LI AH TA #1 J BL 51 ET 0 00 04 09 02 12 30 WA 70 LA Ac 17 -1 -1 0. L- 43 UR ti 24 7- 1- 00 MA 91 EN ve 44 20 20 0 RT 8 O- 36 08 08 AL 0 PH VA M RE 10 Z -1 LI 51 AH 0 J DI 00 04 09 02 60 30 WA 70 LA Ac CL 78 -1 -1 .0 L- 43 UR ti OF 11 7- 1- 00 MA 91 EN ve EN 78 20 20 RT 9 O- AC 90 08 08 AL 1 PH VA SO M RE D 10 Z EC -1 LI 51 AH 75 0 J MG TA B AZ 00 09 09 00 30 30 WA 63 AL Ac EM 04 -0 -1 .0 LG 06 VA ti AR 61 4- 1- 00 RE 24 RE ve IN 10 20 20 EN Z 28 08 08 S AN 0. 1 05 TH 62 54 ON 5 8 Y MG W TA BL ET TR 00 05 09 01 90 30 WA 70 BL Ac AM 37 -2 -1 .0 L- 52 EC ti AD 84 9- 1- 00 MA 02 HE ve OL 15 20 20 RT 8 R 10 08 08 SA HC 1 PH UL L M 50 10 -1 MG 51 0 TA BL ET HY 00 05 09 01 30 30 [place] [address] 17 -2 -1 .0 L- 50 UR ti OC 22 2- 1- 00 MA 82 EN ve HL 08 20 20 RT 4 O- OR 98 08 08 AL OT 0 PH VA HI M RE AZ 10 Z ID -1 LI E 51 AH 50 0 J MG TA B 54 05 09 01 60 30 WA 70 BL Ac 45 -0 -1 .0 L- 47 EC ti 80 6- 1- 00 MA 62 HE ve 97 20 20 RT 3 R 60 08 08 SA 7 PH UL M 10 -1 51 0 LI 54 05 09 01 30 30 WA 70 LA Ac SI 45 -2 -1 .0 L- 51 UR ti NO 80 5- 1- 00 MA 25 EN ve AZ 99 20 20 RT 9 O- IL 41 08 08 AL 0 PH VA 40 M RE 10 Z MG -1 LI 51 AH TA 0 J BL ET ME 00 05 09 01 30 10 WA 70 BL Ac TH 60 -2 -1 .0 L- 52 EC ti OC 34 9- 1- 00 MA 02 HE ve AR 48 20 20 RT 9 R BA 62 08 08 SA MO 1 PH UL L M 75 10 0 -1 MG 51 0 TA BL ET AC 00 06 07 00 21 7 KR 65 No Ac YC 09 -1 -0 .0 OG 65 t ti LO 38 9- 3- 00 ER 06 Av ve 94 20 20 3 ai R 30 08 08 PH la 40 1 AR bl 0 MA e MG CY TA #9 BL 01 ET 00 06 07 00 15 10 KR 45 No Ac AI 12 -1 -0 0. OG 38 t ti FE 10 9- 3- 00 ER 17 Av ve NE 77 20 20 0 6 ai SI 51 08 08 PH la N- 6 AR bl CO MA e DE CY IN E #9 SY 01 RU P 00 06 07 00 60 20 WA 30 GE Ac 59 -1 -0 .0 LG 76 IM ti 13 0- 3- 00 RE 71 AN ve 46 20 20 EN 0 60 08 08 S AN 5 57 NA 63 PE 00 06 07 00 21 7 WA 30 WA Ac NI 09 -0 -0 .0 LG 76 RR ti CI 31 9- 3- 00 RE 34 EN ve LL 17 20 20 EN 0 IN 41 08 08 S BR 0 57 EN VK 63 TO N 50 D 0 MG TA BL ET ME 00 05 06 00 30 10 WA 70 No Ac TH 60 -2 -0 .0 L- 52 t ti OC 34 9- 5- 00 MA 02 Av ve AR 48 20 20 RT 9 ai BA 62 08 08 la MO 1 PH bl L M e 75 10 0 -1 MG 51 0 TA BL ET GA 59 04 06 01 12 30 WA 70 No Ac BA 76 -1 -0 0. L- 43 t ti PE 25 7- 5- 00 MA 91 Av ve NT 02 20 20 0 RT 8 ai IN 30 08 08 la 1 PH bl 60 M e 0 10 MG -1 51 TA 0 BL ET LI 54 05 06 00 30 30 WA 70 No Ac SI 45 -2 -0 .0 L- 51 t ti NO 80 5- 5- 00 MA 25 Av ve AZ 99 20 20 RT 9 ai IL 41 08 08 la 0 PH bl 40 M e 10 MG -1 51 TA 0 BL ET TR 00 05 06 00 90 30 WA 70 No Ac AM 37 -2 -0 .0 L- 52 t ti AD 84 9- 5- 00 MA 02 Av ve OL 15 20 20 RT 8 ai 10 08 08 la HC 1 PH bl L M e 50 10 -1 MG 51 0 TA BL ET AZ 00 02 06 02 30 30 WA 70 No Ac EM 04 -0 -0 .0 L- 38 t ti AR 61 6- 5- 00 MA 58 Av ve IN 10 20 20 RT 8 ai 28 08 08 la 0. 1 PH bl 62 M e 5 10 MG -1 51 TA 0 BL ET HY 00 05 06 00 30 30 WA [address] 17 -2 -0 .0 L- 50 t ti OC 22 2- 5- 00 MA 82 Av ve HL 08 20 20 RT 4 ai OR 98 08 08 la OT 0 PH bl HI M e AZ 10 ID -1 E 51 50 0 MG TA B AL 00 05 06 00 60 30 WA 70 No Ac LO 59 -0 -0 .0 L- 47 t ti PU 15 6- 5- 00 MA 62 Av ve RI 54 20 20 RT 3 ai NO 30 08 08 la L 1 PH bl 10 M e 0 10 MG -1 51 TA 0 BL ET DI 00 04 06 01 60 30 WA 70 No Ac CL 78 -1 -0 .0 L- 43 t ti OF 11 7- 5- 00 MA 91 Av ve EN 78 20 20 RT 9 ai AC 90 08 08 la 1 PH bl SO M e D 10 EC -1 51 75 0 MG TA B AZ 00 02 04 01 30 30 WA 70 No Ac EM 04 -0 -2 .0 L- 38 t ti AR 61 6- 4- 00 MA 58 Av ve IN 10 20 20 RT 8 ai 28 08 08 la 0. 1 PH bl 62 M e 5 10 MG -1 51 TA 0 BL ET DI 00 04 04 00 60 30 WA 70 No Ac CL 78 -1 -2 .0 L- 43 t ti OF 11 7- 4- 00 MA 91 Av ve EN 78 20 20 RT 9 ai AC 90 08 08 la 1 PH bl SO M e D 10 EC -1 51 75 0 MG TA B GA 59 04 04 00 12 30 WA 70 No Ac BA 76 -1 -2 0. L- 43 t ti PE 25 7- 4- 00 MA 91 Av ve NT 02 20 20 0 RT 8 ai IN 30 08 08 la 1 PH bl 60 M e 0 10 MG -1 51 TA 0 BL ET AL 00 02 04 02 30 30 70 No Ac LO 59 -2 -2 .0 L- 33 t ti PU 15 0- 4- 00 MA 06 Av ve RI 54 20 20 RT 3 ai NO 30 08 08 la L 1 PH bl 10 M e 0 10 MG -1 51 TA 0 BL ET ME 00 02 04 01 30 10 70 No Ac TH 60 -0 -2 .0 L- 38 t ti OC 34 6- 4- 00 MA 58 Av ve AR 48 20 20 RT 9 ai BA 62 08 08 la MO 1 PH bl L M e 75 10 0 -1 MG 51 0 TA BL ET HY 00 02 04 01 [address] 17 -0 -2 .0 L- 38 t ti OC 22 6- 4- 00 MA 58 Av ve HL 08 20 20 RT 7 ai OR 98 08 08 la OT 0 PH bl HI M e AZ 10 ID -1 E 51 50 0 MG TA B LI 54 02 04 01 30 30 70 No Ac SI 45 -0 -2 .0 L- 38 t ti NO 80 6- 4- 00 MA 58 Av ve AZ 99 20 20 RT 6 ai IL 41 08 08 la 0 PH bl 40 M e 10 MG -1 51 TA 0 BL ET AZ 00 02 04 00 30 30 70 No Ac EM 04 -0 -1 .0 L- 38 t ti AR 61 6- 7- 00 MA 58 Av ve IN 10 20 20 RT 8 ai 28 08 08 la 0. 1 PH bl 62 M e 5 10 MG -1 51 TA 0 BL ET ME 00 02 04 00 30 10 WA 70 No Ac TH 60 -0 -1 .0 L- 38 t ti OC 34 6- 7- 00 MA 58 Av ve AR 48 20 20 RT 9 ai BA 62 08 08 la MO 1 PH bl L M e 75 10 0 -1 MG 51 0 TA BL ET AL 00 02 04 01 30 30 WA 70 No Ac LO 59 -2 -1 .0 L- 33 t ti PU 15 0- 7- 00 MA 06 Av ve RI 54 20 20 RT 3 ai NO 30 08 08 la L 1 PH bl 10 M e 0 10 MG -1 51 TA 0 BL ET 00 02 04 01 12 30 WA 70 No Ac 18 -0 -1 0. L- 30 t ti 50 7- 7- 00 MA 42 Av ve 10 20 20 0 RT 4 ai 70 08 08 la 1 PH bl M e 10 -1 51 0 HY 00 02 04 00 30 30 [place] [address] 17 -0 -1 .0 L- 38 t ti OC 22 6- 7- 00 MA 58 Av ve HL 08 20 20 RT 7 ai OR 98 08 08 la OT 0 PH bl HI M e AZ 10 ID -1 E 51 50 0 MG TA B LI 54 02 04 00 30 30 WA 70 No Ac SI 45 -0 -1 .0 L- 38 t ti NO 80 6- 7- 00 MA 58 Av ve AZ 99 20 20 RT 6 ai IL 41 08 08 la 0 PH bl 40 M e 10 MG -1 51 TA 0 BL ET DI 00 03 04 00 60 30 WA 70 No Ac CL 78 -0 -0 .0 L- 35 t ti OF 11 4- 7- 00 MA 78 Av ve EN 78 20 20 RT 7 ai AC 90 08 08 la 1 PH bl SO M e D 10 EC -1 51 75 0 MG TA B 00 02 03 00 15 3 WA 14 No Ac 59 -0 -2 .0 LG 31 t ti 10 3- 6- 00 RE 83 Av ve 34 20 20 EN 0 ai 90 08 08 S la 5 19 bl 09 e ME 00 02 03 00 30 10 WA 67 No Ac TH 60 -0 -2 .0 L 05 t ti OC 34 6- 6- 00 MA 36 Av ve AR 48 20 20 RT 9 ai BA 62 08 08 la MO 1 PH bl L AR e 75 MA 0 CY MG 10 TA -2 BL 96 ET 7 00 02 03 00 12 30 WA 70 No Ac 18 -0 -2 0. L- 30 t ti 50 7- 6- 00 MA 42 Av ve 10 20 20 0 RT 4 ai 70 08 08 la 1 PH bl M e 10 -1 51 0 LI 68 02 03 00 30 30 WA 67 No Ac SI 18 -0 -2 .0 L 05 t ti NO 00 6- 6- 00 MA 36 Av ve AZ 51 20 20 RT 2 ai IL 70 08 08 la 3 PH bl 40 AR e MA MG CY TA 10 BL -2 ET 96 7 TR 00 02 03 00 90 30 WA 67 No Ac AM 37 -0 -2 .0 L 05 t ti AD 84 6- 6- 00 MA 36 Av ve OL 15 20 20 RT 6 ai 10 08 08 la HC 1 PH bl L AR e 50 MA CY MG 10 TA -2 BL 96 ET 7 HY 00 02 03 00 30 30 WA [address] 17 -0 -2 .0 L 05 t ti OC 22 6- 6- 00 MA 36 Av ve HL 08 20 20 RT 3 ai OR 98 08 08 la OT 0 PH bl HI AR e AZ MA ID CY E 50 10 -2 MG 96 7 TA B AZ 00 02 03 00 30 30 WA 67 No Ac EM 04 -0 -2 .0 L 05 t ti AR 61 6- 6- 00 MA 36 Av ve IN 10 20 20 RT 8 ai 28 08 08 la 0. 1 PH bl 62 AR e 5 MA MG CY TA 10 BL -2 ET 96 7 AL 00 02 03 00 30 30 WA 70 No Ac LO 59 -2 -2 .0 L- 33 t ti PU 15 0- 6- 00 MA 06 Av ve RI 54 20 20 RT 3 ai NO 30 08 08 la L 1 PH bl 10 M e 0 10 MG -1 51 TA 0 BL ET Vital Signs 10-06-2012 22:17 Name Value Interpretat Reference Comment ion Range BP 108 mm[Hg] Diastolic BP Systolic 162 mm[Hg] Heart 60 /min Rate/Pulse O2% 97 % Respiratory 20 /min Rate 10-06-2012 21:35 Name Value Interpretat Reference Comment ion Range BP 109 mm[Hg] Diastolic BP Systolic 155 mm[Hg] Heart 62 /min Rate/Pulse O2% 97 % Respiratory 20 /min Rate Results Labs Lab Lab Date Result Refere Interp Status Commen Order Detail nces retati t Range on Comprehensive metabolic panel (06-17-2017 14:25) Serum = 1.0 1.1-1.8 complet or 017 ed plasma 14:25 albumin /globul in mass ra Serum = 3.7 3.4-5.0 complet or 017 gm/dL ed plasma 14:25 albumin measure ment (mas Serum 06-17-2 = 55 46-116 complet or 017 U/L ed plasma 14:25 alkalin e phospha tase dk Serum 06-17-2 = 0.5 0.2-1.0 complet or 017 mg/dL ed plasma 14:25 total bilirub in measure m Serum 06-17-2 = 17 7-18 complet or 017 mg/dL ed plasma 14:25 urea nitroge n measure men Serum 06-17-2 = 9.6 8.5-10. complet or 017 mg/dL 1 ed plasma 14:25 calcium measure ment (mas Serum 06-17-2 = 99 98-107 complet or 017 mmoL/L ed plasma 14:25 chlorid e measure ment (mo Carbon = 29 21.0-32 complet dioxide 017 mmoL/L .0 ed 14:25 measure ment Serum 06-17-2 = 0.9 0.55-1. complet or 017 mg/dL 02 ed plasma 14:25 creatin ine measure ment ( Estimat = 68 59- complet ed 017 ML/MIN ed glomeru 14:25 lar filtrat ion rate (GF Comment: REFERENCE RANGE: >60 ML/MIN/1.73 SQUARE METERS Comment: If this patient is -Citizen Of [place], then multiply the Comment: result by 1.210. Serum 06-17-2 = 3.7 1.3-3.2 complet globuli 017 gm/dL ed n 14:25 measure ment (mass/v olume) Serum 06-17- = 199 74-106 complet or 017 mg/dL ed plasma 14:25 glucose measure ment (mas Serum 2 = 4.6 3.5-5.1 complet potassi 017 mmoL/L ed um 14:25 measure ment Serum 06-17-2 = 132 136-145 complet sodium 017 mmoL/L ed measure 14:25 ment Serum 06-17-2 = 15 15-37 complet or 017 U/L ed plasma 14:25 asparta te aminotr ansfera ALT = 31 12-78 complet (SGPT) 017 U/L ed ser/alondra 14:25 s Protein 2 = 7.4 6.4-8.2 complet total 017 gm/dL ed ser/alondra 14:25 s CRP (06-17-2017 14:25) CRP = 1.4 0.0-0.9 complet 017 MG/DL ed 14:25 CBC w auto diff (06-17-2017 14:25) Automat 2 = 0.0 0-0.2 complet ed 017 K/MM3 ed blood 14:25 basophi l count (count/ vo Baso % = 0.6 % 0.1-2.0 complet 017 ed 14:25 Automat 2 = 0.1 0.0-0.4 complet ed 017 K/mm3 ed blood 14: eosinop hil count Automat = 1.4 % 0.1-12. complet ed 017 0 ed blood 14: eosinop hils/10 0 leukocy t Blood = 4.3 1.8-7.8 complet granulo 017 K/mm3 ed cytes 14:25 automat ed count (numb Granulo = 66.4 37.0-80 complet cyte 017 % .0 ed percent 14: age Blood = 44.2 37.0-47 complet hematoc 017 % .0 ed rit 14:25 (volume fractio n) Blood = 14.0 12.2-16 complet hemoglo 017 g/dL .2 ed bin 14:25 measure ment (mass/v olum Absolut = 1.8 0.7-4.5 complet e 017 K/mm3 ed lymphoc 14: yte count Lymphoc = 27.2 10-50.0 complet yte 017 % ed count, 14:25 blood, automat ed Mean = 28.8 27-31.2 complet corpusc 017 pg ed ular 14: hemoglo bin (MCH) determ Automat = 31.7 31.8-35 complet ed 017 g/dl .4 ed erythro 14:25 cyte mean corpusc ular h Automat = 90.9 82.2-97 complet ed 017 fl .8 ed erythro 14:25 cyte mean corpusc ular v Absolut = 0.3 0.1-1.0 complet e 017 K/mm3 ed monocyt 14:25 e count [place] % 06-17-2 = 4.3 % 1.7-9.3 complet 017 ed 14:25 Automat 06-17-2 = 8.2 7.4-10. complet ed 017 fl 4 ed blood 14:25 platele t mean volume dk Blood = 333 142-424 complet platele 017 K/mm3 ed t count 14:25 Red = 4.86 4.2-5.4 complet blood 017 M/mm3 ed cell 14:25 count Automat = 14.6 11.5-17 complet ed 017 % .5 ed erythro 14:25 cyte distrib ution width Blood = 6.5 4.8-10. complet leukocy 017 K/MM3 8 ed lani 14:25 count (number /volume ) Erythrocyte sedimentation rate by kelsea (06-17-2017 14:25) Erythro 06-17- = 31 0-20 complet cyte 017 mm/hr ed sedimen 14:25 tation rate by kelsea Serum DNA double strand antibody assay ( (06-17-2017 14:25) Serum < 1 0-9 complet DNA 017 IU/mL ed double 14:25 strand antibod y assay ( Comment: Negative <5 Comment: Equivocal 5 - 9 Comment: Positive >9 Comment: Performed at: [facility] Comment: [id number] [place], [place] [id number] Comment: Managing Broker: Pepe Anderson PhD, Phone: [phone] Antinuclear Antibodies, IFA (06-17-2017 14:25) Serum = . complet nuclear 017 Negativ ed 14:25 e antibod y titer by immunof l Comment: Negative <1:80 Comment: Borderline 1:80 Comment: Positive >1:80 Comment: Performed at: [facility] Comment: [id number] [place], [place] [id number] Comment: Managing Broker: Pepe Anderson PhD, Phone: [phone] CCP IgG + IgA serum LATOSHA (06-17-2017 14:25) CCP IgG = 8 0-19 complet + IgA 017 units ed serum 14:25 LATOSHA Comment: Negative <20 Comment: Weak positive 20 - 39 Comment: Moderate positive 40 - 59 Comment: Strong positive >59 Comment: Performed at: [facility] Comment: [address] [facility], [place], [place] [id number] Comment: Managing Broker: Tereso Rowe MD, Phone: [phone] Serum or plasma rheumatoid factor measur (06-17-2017 14:25) Serum < 10.0 0.0-13. complet or 017 IU/mL 9 ed plasma 14:25 rheumat oid factor measur Comment: Performed at: [facility] Comment: [id number] [place], [place] [id number] Comment: Managing Broker: Pepe Anderson PhD, Phone: [phone] Hemoglobin A1c in Blood (05-08-2017 08:55) Hemoglo 9.8 % 0.0% High complet bin A1c 017 - ed in 08:55 7.0% Blood Procedures Procedure DOS Code Location Performer Comment OTHER [address] [facility] EXPLORATI 4 N N ON&DECOMP [facility] [address] [facility] SKIN&SUBC [address] [place] [address] UTANEOUS [facility] TISSUE OTHER SITES APPLICATI 9354 [facility] ON [address] [facility] Encounters Encounter Start End Date Code Location Performer Type Date [facility] AND[facility] - 7 7 [facility] [facility] 7 [facility] 7 7 [facility] 7 7 [facility] 7 7 [facility] 7 7 [facility] 7 [facility] 7 [facility] 7 [facility] - 7 7 [facility] - 7 7 [facility] 7 7 [facility] - 7 7 [facility] - 7 7 [facility] 7 7 [facility] - 7 7 [facility] - 7 7 [facility] - 7 7 [facility] AND[facility] 7 7 [facility] [place] - 7 7 [facility] - 7 7 [facility] ANDRY [facility] 7 7 [facility] AND[facility] - 7 7 [facility] 6 6 [facility] [place] [facility] 6 6 [facility] 6 6 [facility] AND[facility] - 6 6 [facility] AND[facility] 6 6 [facility] - 6 6 [facility] 6 [facility] 6 6 [facility] 6 6 [facility] 6 6 [facility] - 6 6 [facility] 6 6 [facility] UNIV[facility] - 6 6 [facility] - 6 6 [facility] AND[facility] 6 6 [facility] - 6 6 [facility] AND[facility] 6 6 [facility] AND[facility] - 6 6 [facility] AND[facility] - 6 6 [facility] AND[facility] 6 6 [facility] AND[facility] - 6 6 [facility] 5 5 [facility] - 5 5 [facility] 5 5 [facility] 5 5 [facility] - 5 5 [facility] - 5 5 [facility] 5 5 [facility] AND[facility] - 5 5 [facility] AND[facility] 4 4 [facility] AND[facility] - 4 4 [facility] [place] - [address] [facility] - 4 4 [facility] AND[facility] 4 4 [facility] ANDRY - 3 3 [facility] ANDRY [facility] 3 3 [facility] ST - 3 3 [facility] ST - 3 3 [facility] Emergency PIPPA Andry Lazar (ER) 3 20:42 3 22:18 [facility] ANDRY - 3 3 [facility] ANDRY [facility] 3 3 [facility] ST - 3 3 [facility] ANDRY [facility] 3 3 [facility] ANDRY - 2 2 [facility] ANDRY - 2 2 [facility] AND[facility] - 2 2 [facility] ANDRY - 2 2 [facility] ANDRY [facility] 2 2 [facility] ANDRY - 2 2 [facility] ANDRY [facility] 2 2 [facility] ANDRY - 2 2 [facility] ANDRY - 2 2 [facility] ANDRY [facility] 2 2 [facility] ANDRY - 2 2 [facility] ANDRY - 1 1 [facility] ANDRY [facility] 1 1 [facility] ANDRY - [address] [facility] [address] - 1 1 [facility] NADRY - [address] [facility] [address] - 1 1 [facility] ANDRY [facility] [address] [facility] [address] - 1 1 [facility] ST - 1 1 [facility] ST - 1 1 [facility] ST - 0 0 [facility] - 0 [address] [facility] - 0 0 [facility] - 0 0 [facility] - 0 0 [facility] - 0 [address] [facility] [place] - 0 0 [facility] [place] - 0 0 [facility] [place] - 0 0 [facility] [place] - 0 [address] [facility] [place] [id number] [facility] [place] [id number] [facility] [place] [id number] [address] [facility] [place] [id number] 8 [facility] [place] [address] [facility] [place] [address] [facility]
--- OUTSIDE RECORDS SUMMARY | 2017-07-20 17:26 | External Medical Summary Rpt | CCD ---
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 OTHER AND ASSOCIATES UNSPECIFIED PSC UNSPECIFIED SITE 97747 UNSPECIFIED 02-05-2008 [facility] GENITAL [facility]PES [facility]. 14577 HERPETIC 02-05-2008 [facility] TIS 2749 GOUT, 01-09-2008 [facility]PEC[facility]IMARY C[facility] 27324 UNSPECIFIED 01-01-2008 FANG, SITE OF NOE Zuniga ANKLE SPRAIN AND STRAIN 14798 PAIN IN 10-21-2007 [facility]OC[facility] ANKLE [...] HY 00 10 11 [address] 18 -2 -1 .0 00 L- ti OX 50 4- 7- 00 07 MA ve YZ 67 20 20 51 RT IN 40 17 17 07 E 1 76 PH PA AR M MA 25 CY MG #5 91 CA P IN 50 10 11 30 30 00 ND Ac VO 45 -2 -1 .0 00 L- ti KA 80 4- 7- 00 07 MA ve NA 14 20 20 51 RT 13 17 17 07 30 0 65 PH 0 AR MG MA CY TA BL #5 ET 91 CI 54 10 11 30 30 00 ND Ac TA 45 -2 -1 .0 00 L- ti LO 80 4- 7- 00 07 MA ve RI 88 20 20 51 RT AM 91 17 17 07 0 79 PH HB AR R MA 40 CY MG #5 91 TA BL ET FE 00 10 11 30 30 00 ND Ac NO 09 -2 -1 .0 00 L- ti FI 37 4- 7- 00 07 MA ve BR 75 20 20 51 RT AT 69 17 17 07 E 8 74 PH 14 AR 5 MA MG CY TA #5 BL 91 ET SP 00 10 11 30 30 00 ND Ac IR 22 -2 -1 .0 00 L- ti ON 82 4- 7- 00 07 MA ve OL 80 20 20 51 RT AC 31 17 17 07 TO 1 72 PH NE AR MA 25 CY MG #5 91 TA BL ET AM 68 10 11 30 30 00 ND Ac LO 64 -2 -1 .0 00 [...] FR 99 10 11 10 34 00 ND Ac EE 07 -2 -1 0. 00 L- ti ST 30 4- 7- 00 08 MA ve YL 13 20 20 0 84 RT E 00 17 17 11 28 1 41 PH G AR LA MA NC CY ET S #5 91 OM 60 10 11 30 30 00 ND Ac EP 50 -2 -1 .0 00 L- ti RA 50 4- 7- 00 07 MA ve ZO 14 20 20 51 RT LE 60 17 17 [address] AR MA 40 CY MG #5 91 CA PS UL E MO 57 10 11 30 30 00 ND Ac NT 23 -2 -1 .0 00 L- ti EL 70 4- 7- 00 07 MA ve UK 25 20 20 51 RT 53 17 17 07 T 0 70 PH SO AR D MA 10 CY MG #5 91 TA BL ET QU 16 10 11 30 30 00 ND Ac ET 72 -2 -1 .0 00 L- ti IA 90 4- 7- 00 07 MA ve PI 14 20 20 51 RT NE 60 17 17 07 1 69 PH FU AR MA MA RA CY TE #5 50 91 MG TA B NO 00 10 11 30 18 00 [facility] VO 16 -2 -1 .0 00 L- ti LO 93 4- 7- 00 07 MA ve G 69 20 20 51 RT NV 61 17 17 73 X 9 32 PH 70 AR -3 MA 0 CY FL EX #5 PE 91 N SY RN BD 08 10 11 10 28 00 ND Ac 29 -2 -1 0. 00 L- ti UL 03 4- 7- 00 08 MA ve TR 20 20 20 0 84 RT A- 10 17 17 11 FI 9 42 PH NE AR MA PE CY N ND #5 L 91 8M MX 31 G 64 10 11 4. 28 00 ND Ac T 38 -2 -1 00 00 L- ti D2 00 4- 7- 0 07 MA ve 73 20 20 51 RT 1. 70 17 17 27 25 6 15 PH AR MG MA CY (5 0, #5 00 91 0 UN IT ) AT 68 10 11 30 30 00 ND Ac OR 64 -2 -1 .0 00 L- ti VA 50 4- 7- [address] 45 20 20 51 RT AT 85 17 17 07 IN 4 75 PH AR 10 MA CY MG #5 TA 91 BL ET AD 00 10 11 12 30 00 ND Ac VA 17 -2 -1 .0 00 L- ti IR 30 4- 7- 00 07 MA ve 71 20 20 51 RT HF 72 17 17 07 A 0 67 PH 23 AR 0- MA 21 CY MC #5 G 91 IN VILLAVICENCIO LE R BA 00 10 11 90 30 00 ND Ac CL 83 -2 -1 .0 00 [...] GA 00 10 11 90 30 00 ND Ac BA 22 -1 -1 .0 00 L- ti PE 82 9- 7- 00 04 MA ve NT 63 20 20 53 RT IN 71 17 17 21 1 89 PH 80 AR 0 MA MG CY TA #5 BL 91 ET TR 59 10 11 1. 1 00 ND Ac IA 76 -1 -1 00 00 L- ti ZO 23 6- 0- 0 04 MA ve LA 71 20 20 53 RT M 80 17 17 26 0. 9 02 PH 25 AR MA MG CY TA #5 BL 91 ET ON 53 10 11 10 34 00 ND Ac ET 88 -1 -1 0. 00 L- ti OU 50 6- 0- 00 08 MA ve CH 24 20 20 0 84 RT 51 17 17 09 UL 0 14 PH TR AR A MA TE CY ST #5 ST 91 RI PS NO 00 10 11 30 23 00 ND Ac VO 16 -0 -0 .0 00 L- ti LO 93 7- 3- 00 07 MA ve G 69 20 20 50 RT NV 61 17 17 99 X 9 16 PH 70 AR -3 MA 0 CY FL EX #5 PE 91 N SY RN 64 10 10 4. 28 00 ND Ac T 38 -0 -2 00 00 L- ti D2 00 3- 7- 0 07 MA ve 73 20 20 51 RT 1. 70 17 17 07 25 6 82 PH AR MG MA CY (5 0, #5 00 91 0 UN IT ) FI 00 09 10 30 30 00 ND Ac SH 90 -1 -1 .0 00 [...] ve G 69 20 20 50 RT NV 61 17 17 99 X 9 16 PH 70 AR -3 MA 0 CY FL EX #5 PE 91 N SY RN FR 99 09 10 10 34 00 [facility] EE 07 -1 -1 0. 00 L- ti ST 30 5- 3- 00 08 MA ve YL 13 20 20 0 84 RT E 00 17 17 11 28 1 41 PH G AR LA MA NC CY ET S #5 91 AZ 50 09 10 6. 5 00 ND Ac IT 11 -2 -1 00 00 L- ti HR 10 0- 3- 0 07 MA ve OM 78 20 20 51 RT YC 75 17 17 07 IN 1 80 PH AR 25 MA 0 CY MG #5 TA 91 BL ET GA 00 09 10 90 30 00 ND Ac BA 22 -2 -1 .0 00 L- ti PE 82 0- 3- 00 04 MA ve NT 63 20 20 53 RT IN 71 17 17 21 1 89 PH 80 AR 0 MA MG CY TA #5 BL 91 ET BA 00 09 09 15 31 00 [facility] SA 00 -0 -2 .0 00 L- ti GL 27 5- 9- 00 07 MA ve AR 71 20 20 48 RT 55 17 17 95 10 9 02 PH 0 AR UN MA IT CY /M L #5 KW 91 IK PE N CI 54 09 09 30 30 00 ND Ac TA 45 -0 -2 .0 00 L- ti LO 80 6- 9- 00 07 MA ve RI 88 20 20 50 RT AM 91 17 17 80 0 13 PH HB AR R MA 40 CY MG #5 91 TA BL ET BA 00 09 09 90 30 00 ND Ac CL 83 -0 -2 .0 00 L- ti OF 21 6- 9- 00 07 MA ve EN 02 20 20 50 RT 45 17 17 80 10 0 14 PH AR MG MA CY TA BL #5 ET 91 FA 68 09 09 60 30 00 ND Ac MO 64 -0 -2 .0 00 L- ti TI 50 6- 9- 00 07 MA ve DI 14 20 20 50 RT NE 05 17 17 80 9 72 PH 20 AR MA MG CY TA #5 BL 91 ET 64 09 09 4. 28 00 ND Ac T 38 -0 -2 00 00 [...] L- ti NO 50 07 MA ve RI 55 20 20 50 RT IL 25 [...] FE 00 04 27 30 30 00 ND Ac NO 09 -0 -2 .0 00 L- ti FI 37 5- 9- 00 07 MA ve BR 75 20 20 48 RT AT 69 17 17 89 E 8 12 PH 14 AR 5 MA MG CY TA #5 BL 91 ET OM 60 09 30 30 00 ND Ac EP 50 -0 -2 .0 00 L- ti RA 50 5 9- 00 07 MA ve ZO 14 20 20 48 RT LE 60 17 17 [address] AR MA 40 CY MG #5 91 CA PS UL E IN 50 04 27 30 30 00 ND Ac VO 45 -0 -2 .0 00 L- ti KA 80 5 9 00 07 MA ve NA 14 20 20 48 RT 13 17 17 89 30 0 07 PH 0 AR MG MA CY TA BL #5 ET 91 ON 08 09 10 34 00 ND Ac ET 88 -3 -2 0. 00 L- ti OU 50 1- 9- 00 08 MA ve CH 24 20 20 0 84 RT 51 17 17 09 UL 0 14 PH TR AR A MA TE CY ST #5 ST 91 RI PS BD 08 03 27 10 30 00 ND Ac 29 -2 -2 0. 00 L- ti UL 03 4- 2- 00 08 MA ve TR 20 20 20 0 84 RT A- 10 17 17 08 FI 9 20 PH NE AR MA PE CY N ND #5 L 91 8M MX 31 G ON 53 03 27 10 30 00 ND Ac ET 88 -2 -1 0. 00 L- ti OU 50 3- 5- 00 08 MA ve CH 13 20 20 0 84 RT 61 17 17 08 DE 0 05 PH LI AR CA MA CY 33 G #5 LA 91 NC ET S 64 07 08 4. 28 00 ND Ac T 38 -1 -1 00 00 L- ti D2 00 3- 1- 0 07 MA ve 73 20 20 48 RT 1. 70 17 17 89 25 6 26 PH AR MG MA CY (5 0, #5 00 91 0 UN IT ) ON 53 08 10 30 00 ND Ac ET 88 -1 -1 0. 00 L- ti OU 50 3- 1- 00 08 MA ve CH 13 20 20 0 84 RT 61 17 17 00 DE 0 52 PH LI AR CA MA CY 33 G #5 LA 91 NC ET S NY 43 07 08 60 [address] 38 -1 -1 .0 00 L- ti AT 60 3- 1- 00 07 MA ve IN 53 20 20 49 RT 00 17 17 53 10 6 51 PH 0, AR 00 MA 0 CY UN IT #5 /G 91 M PO WD BA 00 07 08 15 31 00 ND Ac SA 00 -1 -1 .0 00 L- ti GL 27 3- 1- 00 07 MA ve AR 71 20 20 48 RT 55 17 17 95 10 9 02 PH 0 AR UN MA IT CY /M L #5 KW 91 IK PE N BA 00 07 08 90 30 00 ND Ac CL 83 -1 -1 .0 00 L- ti OF 21 3- 1- 00 07 MA ve EN 02 20 20 48 RT 45 17 17 89 10 0 16 PH AR MG MA CY TA BL #5 ET 91 CI 54 07 08 30 30 00 ND Ac TA 45 -1 -1 .0 00 L- ti LO 80 3- 1- 00 07 MA ve RI 88 20 20 48 RT AM 91 17 17 89 0 09 PH HB AR R MA 40 CY MG #5 91 TA BL ET FA 68 07 08 60 30 00 ND Ac MO 64 -1 -1 .0 00 L- ti TI 50 3- 1- 00 07 MA ve DI 14 20 20 48 RT NE 05 17 17 89 9 11 PH 20 AR MA MG CY TA #5 BL 91 ET FE 00 07 08 30 30 00 ND Ac NO 09 -1 -1 .0 00 L- ti FI 37 3- 1- 00 07 MA ve BR 75 20 20 48 RT AT 69 17 17 89 E 8 12 PH 14 AR 5 MA MG CY TA #5 BL 91 ET HY 00 07 08 30 [address] 18 -1 -1 .0 00 L- ti OX 50 3- 1- 00 07 MA ve YZ 67 20 20 48 RT IN 40 17 17 89 E 1 05 PH PA AR M MA 25 CY MG #5 91 CA P IN 50 07 08 30 30 00 ND Ac VO 45 -1 -1 .0 00 L- ti KA 80 3- 1- 00 07 MA ve NA 14 20 20 48 RT 13 17 17 89 30 0 07 PH 0 AR MG MA CY TA BL #5 ET 91 LO 68 07 08 30 30 00 ND Ac SA 64 -1 -1 .0 00 L- ti RT 50 3- 1- 00 07 MA ve AN 41 20 20 48 RT 15 17 17 89 PO 4 08 PH TA AR SS MA IU CY M 10 #5 0 91 MG TA B NO 00 07 08 15 25 00 ND Ac VO 16 -1 -1 .0 00 L- ti LO 96 3- 1- 00 07 MA ve G 33 20 20 48 RT 10 91 17 17 89 0 0 19 PH UN AR IT MA S/ CY ML #5 FL 91 EX PE N MO 31 07 08 30 30 00 ND Ac NT 72 -1 -1 .0 00 L- ti EL 20 3- 1- 00 07 MA ve UK 72 20 20 48 RT 61 17 17 89 T 0 17 PH SO AR D MA 10 CY MG #5 91 TA BL ET OM 60 07 08 30 30 00 ND Ac EP 50 -1 -1 .0 00 L- ti RA 50 3- 1- 00 07 MA ve ZO 14 20 20 48 RT LE 60 17 17 [address] AR MA 40 CY MG #5 91 CA PS UL E QU 16 07 08 30 30 00 ND Ac ET 72 -1 -1 .0 00 L- ti IA 90 3- 1- 00 07 MA ve PI 14 20 20 48 RT NE 60 17 17 89 1 21 PH FU AR MA MA RA CY TE #5 50 91 MG TA B SP 59 07 08 30 30 00 ND Ac IR 74 -1 -1 .0 00 L- ti ON 60 3- 1- 00 07 MA ve OL 21 20 20 48 RT AC 60 17 17 89 TO 1 24 PH NE AR MA 25 CY MG #5 91 TA BL ET AT 68 07 08 30 30 00 ND Ac OR 64 -1 -1 .0 00 L- ti VA 50 4- 1- [address] 45 20 20 49 RT AT 85 17 17 88 IN 4 70 PH AR 10 MA CY MG #5 TA 91 BL ET AM 68 07 08 30 30 00 ND Ac LO 64 -1 -1 .0 00 L- ti DI 50 4- 1- 00 07 MA ve PI 51 20 20 49 RT NE 65 17 17 88 4 71 PH BE AR SY MA LA CY TE #5 10 91 MG TA B LI 68 07 08 30 30 00 ND Ac SI 18 -1 -1 .0 00 L- ti NO 00 4- 1- 00 07 MA ve RI 98 20 20 49 RT IL 00 [...] ON 53 06 06 10 34 00 ND Ac ET 88 -0 -3 0. 00 L- ti OU 50 2- 0- 00 08 MA ve CH 13 20 20 0 83 RT 61 17 17 97 DE 0 46 PH LI AR CA MA CY 33 G #5 LA 91 NC ET S ON 53 06 06 10 34 00 ND Ac ET 88 -0 -3 0. 00 [...] 1 17 PH CE AR TA MA NV CY NO PH #5 91 7. 5- [...] AD 00 05 06 12 30 00 [facility] VA 17 -2 -1 .0 00 L- ti IR 30 2- 6- 00 07 MA ve 71 20 20 48 RT HF 72 17 17 89 A 0 70 PH 23 AR 0- MA 21 CY MC #5 G 91 IN VILLAVICENCIO LE R BA 00 05 15 31 00 [facility] SA 00 -2 -1 .0 00 L- ti GL 27 3- 6- 00 07 MA ve AR 71 20 20 48 RT 55 17 17 95 10 9 02 PH 0 AR UN MA IT CY /M L #5 KW 91 IK PE N SP 59 05 30 30 00 [facility] IR 74 -1 -1 .0 00 L- ti ON 60 8- 6- 00 07 MA ve OL 21 20 20 48 RT AC 60 17 17 06 TO 1 59 PH NE AR MA 25 CY MG #5 91 TA BL ET LO 68 05 30 30 00 [facility] SA 64 -1 -1 .0 00 L- ti RT 50 8- 6- 00 07 MA ve AN 41 20 20 48 RT 17 17 17 06 PO 0 60 PH TA AR SS MA IU CY M 10 #5 0 91 MG TA B HY 00 12 22 [address] [facility] [address] 18 -1 -1 .0 00 L- ti OX 50 9- 6- 00 07 MA ve YZ 67 20 20 48 RT IN 40 17 17 89 E 1 05 PH PA AR M MA 25 CY MG #5 91 CA P GA 00 05 30 00 [facility] BA 22 -1 -1 .0 00 L- ti PE 82 9- 6- 00 07 MA ve NT 63 20 20 48 RT IN 71 17 17 89 1 06 PH 80 AR 0 MA MG CY TA #5 BL 91 ET IN 50 05 30 30 00 [facility] VO 45 -1 -1 .0 00 L- ti KA 80 9- 6- 00 07 MA ve NA 14 20 20 48 RT 13 17 17 89 30 0 07 PH 0 AR MG MA CY TA BL #5 ET 91 CI 54 05 30 30 00 ND Ac TA 45 -1 -1 .0 00 L- ti LO 80 9- 6- 00 07 MA ve RI 88 20 20 48 RT AM 91 17 17 89 0 09 PH HB AR R MA 40 CY MG #5 91 TA BL ET FA 68 05 06 60 30 00 ND Ac MO 64 -1 -1 .0 00 [...] MO 31 05 02 15 30 00 ND Ac NT 72 -1 -1 .0 00 L- ti EL 20 07 MA ve UK 72 20 20 48 RT 61 17 17 89 T 0 17 PH SO AR D MA 10 CY MG #5 91 TA BL ET NO 00 05 06 15 25 00 ND Ac VO 16 -1 -1 .0 00 L- ti LO 96 07 MA ve G 33 20 20 48 RT 10 91 17 17 89 0 0 19 PH UN AR IT MA S/ CY ML #5 FL 91 EX PE N OM 60 05 30 30 00 ND Ac EP 50 -1 -1 .0 00 L- ti RA 50 - 6- 00 07 MA ve ZO 14 20 20 48 RT LE 60 17 17 [address] AR MA 40 CY MG #5 91 CA PS UL E QU 16 05 02 15 30 00 ND Ac ET 72 -1 -1 .0 00 L- ti IA 90 6 07 MA ve PI 14 20 20 48 RT NE 60 17 17 89 1 21 PH FU AR MA MA RA CY TE #5 50 91 MG TA B 64 05 06 4. 28 00 ND Ac T 38 -1 -1 00 00 L- ti D2 00 9- 6- 0 07 MA ve 73 20 20 48 RT 1. 70 17 17 89 25 6 26 PH AR MG MA CY (5 0, #5 00 91 0 UN IT ) LI 54 05 06 30 30 00 ND Ac SI 45 -1 -1 .0 00 L- ti NO 80 6 00 07 MA ve RI 99 20 20 48 RT IL 71 [...] 5 83 PH CE AR TA MA NV CY NO PH OF CY 7. NT 5- HI 32 AN 5 A IN C IN 00 04 05 30 30 00 ND Ac CR 17 -1 -0 .0 00 L- ti US 30 0- 5- 00 07 MA ve E 87 20 20 48 RT EL 31 17 17 06 LI 0 61 PH PT AR A MA 62 CY .5 #5 MC 91 G IN H AL 00 04 04 22 25 00 ND Ac BU 48 -0 -2 5. 00 L- ti TE 79 5- 8- 00 07 MA ve RO 50 20 20 0 48 RT L 12 17 17 06 PARDO 5 57 PH L AR 2. MA 5 CY MG /3 #[address] SP 59 04 04 30 30 00 [facility] IR 74 -0 -2 .0 00 L- ti ON 60 5- 8- 00 07 MA ve OL 21 20 20 48 RT AC 60 17 17 06 TO 1 59 PH NE AR MA 25 CY MG #5 91 TA BL ET LO 68 04 04 30 30 00 ND Ac SA 64 -0 -2 .0 00 L- ti RT 50 5- 8- 00 07 MA ve AN 41 20 20 48 RT 17 17 17 06 PO 0 60 PH TA AR SS MA IU CY M 10 #5 0 91 MG TA B HY 00 03 04 [address] 40 -3 -2 .0 00 L- ti OC 60 0- 8- 00 02 MA ve OD 12 20 20 23 RT ON 30 17 17 97 -A 1 50 PH CE AR TA MA NV CY NO PH #5 EN 91 5- 32 5 SI 00 03 04 50 25 00 ND Ac LV 59 -3 -2 .0 00 L- ti ER 10 0- 8- 00 07 MA ve 81 20 20 47 RT PARDO 05 17 17 96 LF 5 99 PH AD AR IA MA ZI CY NE #5 1% 91 CR EA M AM 00 04 04 20 10 00 [facility] OX 78 -0 -2 .0 00 L- ti -C 11 3- 8- 00 07 MA ve LA 85 20 20 48 RT V 22 17 17 00 87 0 77 PH 5- AR 12 MA 5 CY MG #5 TA 91 BL ET BE 68 04 04 24 8 00 [facility] NZ 38 -0 -2 .0 00 L- ti ON 20 3- 8- 00 07 MA ve AT 24 20 20 48 RT AT 70 17 17 00 E 1 78 PH 10 AR 0 MA MG CY CA #5 PS 91 UL E ME 59 04 04 21 6 00 [facility] TH 74 -0 -2 .0 00 L- ti YL 60 3- 8- 00 07 MA ve RI 00 20 20 48 RT ED 10 [...] HY 00 03 04 7. [address] [facility] [address] 40 -2 -2 00 00 L- ti OC 60 9- 1- 0 02 MA ve OD 12 20 20 23 RT ON 30 17 17 97 -A 1 21 PH CE AR TA MA NV CY NO PH #5 EN 91 5- 32 5 HI 00 03 04 11 30 00 [facility] BI 23 -2 -1 8. 00 L- ti CL 40 1- 4- 00 08 MA ve EN 57 20 20 0 83 RT S 50 17 17 86 4% 4 20 PH AR LI MA QU CY ID #5 91 FL 55 03 04 2. 4 00 [facility] UC 11 -0 -0 00 00 [...] 20 4- 4- 00 03 IC ve RI 00 20 20 61 IA AM 70 [...] MG CY TA #5 BL 91 ET NV 13 02 03 14 7 00 WA Ac NO 66 -2 -1 .0 00 L- ti CY 80 1- 7- 00 07 MA ve CL 48 20 20 47 RT IN 45 17 17 19 E 0 59 PH 10 AR 0 MA MG CY CA #5 PS 91 UL E MU 68 02 03 22 7 00 ND Ac PI 46 -2 -1 .0 00 L- ti RO 20 1- 7- 00 07 MA ve CI 18 20 20 47 RT N 02 17 17 19 2% 2 62 PH AR OI MA NT CY ME NT #5 91 BE 68 02 03 15 5 00 ND Ac NZ 38 -1 -1 .0 00 L- ti ON 20 1- 0- 00 07 MA ve AT 24 20 20 47 RT AT 70 17 17 01 E 1 23 PH 10 AR 0 MA MG CY CA #5 PS 91 UL E SP 53 02 03 30 30 00 ND Ac IR 48 -1 -1 .0 00 L- ti ON 90 3- 0- 00 07 MA ve OL 14 20 20 47 RT AC 30 17 17 05 TO 1 18 PH NE AR MA 25 CY MG #5 91 TA BL ET LO 68 02 03 30 30 00 ND Ac SA 64 -1 -1 .0 00 [...] AN LE CE R , IN C. RI 51 01 02 60 30 00 PH [...] 20 6- 4- 00 03 IC ve RI 00 20 20 61 IA AM 70 [...] 10 0- 3- 00 07 MA ve NV 47 20 20 46 RT 01 17 [...] 70 9- 7- 00 03 IC ve RI 35 20 20 60 IA IL 31 [...] BL AN ET CE , IN C. RI 51 12 01 60 30 00 PH [...] 50 8- 0- 00 03 IC ve NV 10 20 20 40 IA N 41 16 17 21 NS HC 0 11 L PH 1, AR 00 MA 0 CY MG AL TA LI BL AN ET CE , IN C. CI 65 12 01 30 30 00 PH Ac TA 16 -2 -2 .0 00 YS ti LO 20 8- 0- 00 03 IC ve RI 05 20 20 54 IA AM 45 [...] 4- 4- 00 RE 41 AN ve RI 51 20 20 EN 5 IL 70 [...] 11 S AN E 6 #5 NA RI 76 OP 3 # 50 57 63 [...] 8- 1- 00 RE 42 EY ve RI 00 20 20 EN 7 ED 10 11 11 S NV NI 3 #5 CH SO 76 AE [...] 11 S AN E 6 #5 NA RI 76 OP 3 # 50 57 63 [...] 1- 2- 00 RE 52 AN ve RI 51 20 20 EN 8 IL 70 [...] ti NO 00 RE 52 AN ve RI 51 20 20 EN 8 IL 70 [...] 11 S AN E 1 #5 NA RI 76 OP 3 # 50 57 63 [...] 1- 8- 00 RE 52 AN ve RI 51 20 20 EN 8 IL 70 [...] 11 S SH E 1 #5 AR RI 76 ON OP 3 E # 50 [...] ti NO 00 RE 52 AN ve RI 51 20 20 EN 8 IL 70 [...] 6- 8- 00 RE 53 K ve RI 51 20 20 EN 8 ER IL [...] 6 5- 00 RE 53 K ve RI 51 20 20 EN 8 ER IL [...] 6- 6- 00 RE 53 K ve RI 51 20 20 EN 8 ER IL [...] ZI ZA 71 10 10 S ER RI 0 #5 IN 76 CH E 3 RI 10 # ST 57 OP MG 63 HE R TA L BL ET AM 00 06 06 0 20 10 ND 35 GE Ac OX 78 -1 -1 .0 LG 97 IM ti -C 11 5- 7- 00 RE 33 AN ve LA 85 20 20 EN 4 V 22 10 10 S AN 87 0 #5 NA 5- 76 12 3 5 # MG 57 63 TA BL ET AM 68 06 06 1 30 30 ND 35 GE Ac LO 18 -0 -0 .0 LG 90 IM ti DI 00 1- 3- 00 RE 14 AN ve PI 75 20 20 EN 8 NE 10 10 10 S AN 3 #5 NA BE 76 SY 3 LA # TE 57 5 63 MG TA B 00 05 06 0 30 2 ND 35 YE Ac 59 -2 -0 .0 LG 90 LI ti 10 5- 3- 00 RE 14 CH ve 74 20 20 EN 9 90 10 10 S PARDO 5 #5 SA 76 N 3 M # 57 63 00 05 05 0 40 3 ND 35 YE Ac 59 -1 -1 .0 LG 81 LI ti 10 7- 8- 00 RE 56 CH ve 74 20 20 EN 1 90 10 10 S PARDO 5 #5 SA 76 N 3 M # 57 63 RI 00 04 04 0 6. 1 ND 35 KI Ac OM 78 -2 -2 00 LG 69 LL ti ET 11 4- 4- 0 RE 10 IN ve VILLAVICENCIO 83 20 20 EN 3 DE ZI 00 10 10 S R NE 1 #5 76 HL 25 3 EY # E MG 57 63 TA BL ET PARDO 53 04 04 0 20 10 ND 35 KI Ac LF 74 -2 -2 [...] 2 AZ V 22 10 10 S NV 87 0 #5 5- 76 12 3 5 # MG 57 63 TA BL ET ME 68 04 04 0 [address] Ac LO 18 -1 -1 .0 LG 65 AW ti XI 00 RE 57 ve CA 50 20 20 EN 3 AZ M 10 10 10 S NV 7. 3 #5 5 76 MG 3 # TA 57 BL 63 ET TR 65 04 04 0 [address] Ac AM 16 -1 -1 .0 LG 65 AW ti AD 20 RE 57 ve OL 62 20 20 EN 4 AZ 71 10 10 S NV HC 1 #5 L 76 50 3 [...] 3- 3- 00 RE 38 K ve RI 51 20 20 EN 5 ER IL [...] ZI ZA 71 10 10 S ER RI 0 #5 IN 76 CH E 3 [...] 3- 6- 00 RE 38 K ve RI 51 20 20 EN 5 ER IL 70 09 10 S IN 3 57 M 40 63 MG TA BL ET RI 50 02 02 00 60 4 WA [...] ZI ZA 71 10 10 S ER RI 0 57 IN 63 CH E RI [...] 3- 4- 00 RE 38 K ve RI 51 20 20 EN 5 ER IL 70 09 10 S IN 3 57 M 40 63 MG TA BL ET CY 59 11 01 01 60 30 WA 34 CO Ac CL 74 -0 -1 .0 LG 76 LG ti OB 60 9- 4- 00 RE 00 LA ve EN 17 20 20 EN 5 ZI ZA 71 09 10 S ER RI 0 57 IN 63 CH E RI [...] 3- 7- 00 RE 38 K ve RI 51 20 20 EN 5 ER IL 70 09 09 S IN 3 57 M 40 63 MG TA BL ET CY 59 11 11 00 60 30 WA 34 CO Ac CL 74 -0 -1 .0 LG 76 LG ti OB 60 9- 9- 00 RE 00 LA ve EN 17 20 20 EN 5 ZI ZA 71 09 09 S ER RI 0 57 IN 63 CH E RI 10 ST OP MG HE R TA L BL ET LI 68 11 11 00 14 14 WA 34 LA Ac SI 18 -1 -1 .0 LG 77 UR ti NO 00 1- 9- 00 RE 26 EN ve RI 51 20 20 EN 8 O- IL [...] PS OP UL HE E R L RI 00 09 08 02 30 30 WA [...] 8- 3- 00 MA 91 EN ve RI 99 20 20 RT 0 O- IL [...] PH VA AR RE MA Z CY [facility] #1 J 51 0 00 03 08 01 60 30 WA 71 CO Ac 37 -2 -1 .0 L- 17 LG ti 80 7- 3- 00 MA 74 LA ve 75 20 20 RT 0 ZI 19 09 09 ER 3 PH AR CH MA RI [facility] OP #1 HE 51 R 0 L [...] 8- 4- 00 MA 91 EN ve RI 99 20 20 RT 0 O- IL 41 09 09 AL 0 PH VA 40 AR RE MA Z MG CY [facility] TA #1 J BL 51 ET 0 54 05 06 00 30 30 WA 71 LA Ac 45 -2 -0 .0 L- 17 UR ti 80 8- 4- 00 MA 90 EN ve 96 20 20 RT 9 O- 91 09 09 AL 0 PH VA AR RE MA Z CY [facility] #1 J 51 0 RI 00 09 06 01 30 30 WA 70 LA Ac EM 04 -1 -0 .0 L- 70 UR ti AR 61 0- 4- 00 MA 31 EN ve IN 10 20 20 RT 8 O- 28 08 09 AL 0. 1 PH VA 62 AR RE 5 MA Z MG CY [facility] TA #1 J BL 51 ET 0 00 03 06 00 60 30 WA 71 CO Ac 37 -2 -0 .0 L- 17 LG ti 80 7- 4- 00 MA 74 LA ve 75 20 20 RT 0 ZI 19 09 09 ER 3 PH AR CH MA RI [facility] OP #1 HE 51 R 0 L CY 00 03 04 00 60 30 KR 66 CO Ac CL 59 -2 -0 .0 OG 16 LG ti OB 15 7- 9- 00 ER 31 LA ve EN 65 20 20 0 ZI ZA 81 09 09 PH ER RI 0 AR IN MA CH E CY RI 10 ST #9 OP MG 01 HE R TA L BL ET NA 68 02 02 00 20 10 WA 32 No Ac RI 46 -0 -1 .0 LG 00 t [...] ai ZA 71 09 09 S la RI 0 57 bl IN 63 e E 10 MG TA BL ET CI 16 02 02 00 14 7 WA 32 SP Ac RI 25 -0 -1 .0 LG 00 EL [...] 5- 0- 00 MA 25 EN ve RI 99 20 20 RT 9 O- IL [...] #1 J 51 MG 0 TA B RI 00 09 11 00 30 30 WA [...] AH 75 0 J MG TA B RI 00 09 09 00 30 30 WA [...] 5- 1- 00 MA 25 EN ve RI 99 20 20 RT 9 O- IL [...] 5- 5- 00 MA 25 Av ve RI 99 20 20 RT 9 ai IL [...] -1 MG 51 0 TA BL ET RI 00 02 06 02 30 30 WA [...] -1 51 75 0 MG TA B RI 00 02 04 01 30 30 WA [...] 6- 4- 00 MA 58 Av ve RI 99 20 20 RT 6 ai IL 41 08 08 la 0 PH bl 40 M e 10 MG -1 51 TA 0 BL ET RI 00 02 04 00 30 30 70 [...] 6- 7- 00 MA 58 Av ve RI 99 20 20 RT 6 ai IL [...] 6- 6- 00 MA 36 Av ve RI 51 20 20 RT 2 ai IL [...] 10 -2 MG 96 7 TA B RI 00 02 03 00 30 30 WA [...] Comment: If this patient is -Citizen Of [place], then multiply the Comment: result by 1.210. [...] 017 K/mm3 ed monocyt 14:25 e count [place] % 06-17-2 = 4.3 % 1.7-9.3 complet [...] 9 Comment: Positive >9 Comment: Performed at: [facility] Comment: [id number], [place] [id number] Comment: Marketing Database Analyst: Pepe Anderson PhD, Phone: [phone] Antinuclear Antibodies, IFA (06-17-2017 14:25) Serum = . complet nuclear 017 Negativ ed 14:25 e antibod y titer by immunof l Comment: Negative <1:80 Comment: Borderline 1:80 Comment: Positive >1:80 Comment: Performed at: [facility] Comment: [id number], [place] [id number] Comment: Marketing Database Analyst: Pepe Anderson PhD, Phone: [phone] CCP IgG + IgA serum LATOSHA (06-17-2017 14:25) CCP IgG = 8 0-19 complet + IgA 017 units ed serum 14:25 LATOSHA Comment: Negative <20 Comment: Weak positive 20 - 39 Comment: Moderate positive 40 - 59 Comment: Strong positive >59 Comment: Performed at: [facility] Comment: [id number] [facility], [place], [place] [id number] Comment: Marketing Database Analyst: Tereso Rowe MD, Phone: [phone] Serum or plasma rheumatoid factor measur (06-17-2017 14:25) Serum < 10.0 0.0-13. complet or 017 IU/mL 9 ed plasma 14:25 rheumat oid factor measur Comment: Performed at: [place] [facility] Comment: [id number] [place], [place] [id number] Comment: Marketing Database Analyst: Pepe Anderson PhD, Phone: [phone] Hemoglobin A1c in Blood (05-08-2017 08:55) Hemoglo 9.8 % 0.0% High complet bin A1c 017 - ed in 08:55 7.0% Blood Procedures Procedure DOS Code Location Performer Comment OTHER 0309 [facility] EXPLORATI 4 N N ON&DECOMP [facility] [address] [facility] SKIN&SUBC [address] [place] [address] UTANEOUS [facility] TISSUE OTHER SITES APPLICATI 9354 R [facility] ON [address] SPLINT [facility] Encounters Encounter Start End Date Code Location Performer Type Date [facility] - 7 7 [facility] 7 [facility] - 7 7 [facility] AND[facility] 7 7 [facility] 7 [facility] - 7 7 [facility] ANDRY [facility] 7 7 [facility] ANDRY - 7 7 [facility] - 7 7 [facility] - 7 7 [facility] - 7 7 [facility] - 7 7 [facility] - 7 7 [facility] - 7 7 [facility] - 7 7 [facility] - 7 7 [facility] 7 7 [facility] 7 [facility] UK - 7 7 [facility] ANDRY - 7 7 [facility] 6 6 [facility] - 6 6 [facility] - 6 6 [facility] AND[facility] - 6 6 [facility] AND[facility] 6 6 [facility] - 6 6 Y [facility] ANDRY [facility] 6 6 [facility] AND[facility] 6 6 [facility] AND[facility] - 6 6 [facility] ANDRY - 6 6 [facility] ANDRY - 6 6 [facility] ANDRY [facility] 6 6 [facility] UNIVERSIT - 6 6 Y [facility] AND[facility] - 6 6 [facility] ANDRY [facility] 6 6 [facility] ANDRY - 6 6 [facility] ANDRY - 6 6 [facility] ANDRY - 6 6 [facility] ANDRY - 6 6 [facility] ANDRY [facility] 6 6 [facility] ANDRY - 6 6 [facility] AND[facility] - 5 5 [facility] UNIV[facility] - 5 5 Y [facility] ANDRY [facility] 5 5 [facility] UNIVERSIT - 5 5 Y [facility] T [facility] ANDRY - 5 5 [facility] ANDRY - 5 5 [facility] ANDRY [facility] 5 5 [facility] ANDRY [facility] 5 5 [facility] NADRY - 4 4 [facility] ANDRY - 4 4 [facility] [place] - 4 4 [facility] ANDRY [facility] 4 4 [facility] ANDRY [facility] 4 4 [facility] ANDRY - 3 3 [facility] ANDRY - 3 3 [facility] - 3 3 [facility] ST - 3 3 [facility] Emergency PIPPA Andry Lazar (ER[facility] 3 20:42 3 22:18 [facility] ANDRY - 3 3 [facility] ANDRY - 3 3 [facility] - 3 3 [facility] ANDRY - 3 3 [facility] ANDRY [facility] 2 2 [facility] ANDRY - 2 2 [facility] ANDRY - 2 2 [facility] ANDRY - 2 2 [facility] AND[facility] - 2 2 [facility] ANDRY - 2 2 [facility] ANDRY - 2 2 [facility] ANDRY [facility] 2 2 [facility] - 2 2 [facility] ANDRY [facility] 2 2 [facility] ANDRY - 2 2 [facility] - 1 1 [facility] ANDRY [facility] 1 1 [facility] ANDRY - 1 1 [facility] ST - 1 1 [facility] ANDRY - 1 1 [facility] - 1 1 [facility] ANDRY [facility] 1 1 [facility] [address] - 1 [address] [facility] [address] - 1 [address] [facility] [address] - 1 [address] [facility] [address] - 0 0 [facility] - 0 0 [facility] - 0 0 [facility] - 0 0 [facility] - 0 0 [facility] - 0 [address] [facility] - [address] [facility] - [address] [facility] - [address] [facility] - [address] [facility] [place] [id number] [address] [facility] [place] [place] [phone] [address] [facility] [place] [phone] [facility] [place] [phone] [address] [facility] [place] [phone] [address] [facility] [phone] 8 [facility]
--- OUTSIDE RECORDS SUMMARY | 2017-07-20 17:41 | External Medical Summary Rpt | CCD ---
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 04-09-2009 [facility] COMPL[facility] WEST [id number] ACC CAUSED 04-09-2009 [facility] CUT&PIERCIN WEST G INSTRUMENT/ OBJ 80274 PAIN IN 11-12-2008 KUNATH, JOINT, SITE REED & TEMMING UNSPECIFIED 27439 CALCANEAL 10-22-2008 [facility] PSC 16737 UNSPECIFIED 10-20-2008 HEALTH VIRAL POINT WARTS [facility] 94219 UNSPECIFIED 10-20-2008 [facility] ARTHROPATHY [facility] UNSPECIFIED 7140 RHEUMATOID 09-20-2008 [facility] AR[facility]RIT[facility] 7231 CERVICALGIA 09-20-2008 [facility] 8472 LUMBAR 09-20-2008 [facility] SPR[facility]OS[facility] STRAIN WEST 15514 CONTUSION 09-20-2008 [facility] 9599 INJURY 09-20-2008 RADIOLOGY OTHER AND ASSOCIATES UNSPECIFIED PSC UNSPECIFIED SITE 86954 UNSPECIFIED 02-05-2008 HEALTH GENITAL POINT HERPES [facility] 26436 HERPETIC 02-05-2008 [facility] TIS 2749 GOUT, 01-09-2008 [facility] UNSPECIFIED [facility]IMARY CARE 06980 UNSPECIFIED 01-01-2008 FANG, SITE OF NOE Zuniga ANKLE SPRAIN AND STRAIN 10680 PAIN IN 10-21-2007 [facility], [facility] ANKLE AND PSC FOOT 6272 SYMPTOMATIC 09-24-2007 [facility] MENOPAUSAL/ FAMILY FEMALE [facility] CLIMACTERIC STATES Medications Na ND Rx Da Fi Fi Am Da Di Ph RX Ph St me C No te ll ll ou ys ag ar # ys at rm s nt no ma ic us Or Da si cy ia de te s n re d LO 00 10 11 30 30 00 WA Ac RA 78 -3 -2 .0 00 L- ti TA 15 0- 4- 00 08 MA ve DI 07 20 20 84 RT NE 70 17 17 18 1 19 PH 10 AR MA MG CY TA #5 BL 91 ET ME 54 10 11 30 30 00 WA Ac LO 45 -3 -2 .0 00 L- ti XI 80 0- 4- 00 07 MA ve CA 96 20 20 51 RT M 51 17 17 84 7. 6 31 PH 5 AR MG MA CY TA BL #5 ET 91 GA 00 10 11 90 30 00 WA Ac BA 22 -1 -1 .0 00 [...] /G 91 M PO WD BA 00 10 11 90 30 00 MI Ac CL 83 -2 -1 .0 00 L- ti OF 21 4- 7- 00 07 MA ve EN 02 20 20 51 RT 45 17 17 07 10 0 84 PH AR MG MA CY TA BL #5 ET 91 AD 00 10 11 12 30 00 MI Ac VA 17 -2 -1 .0 00 L- ti IR 30 4- 7- 00 07 MA ve 71 20 20 51 RT HF 72 17 17 07 A 0 67 PH 23 AR 0- MA 21 CY MC #5 G 91 IN VILLAVICENCIO LE R AT 68 10 11 30 30 00 MI Ac OR 64 -2 -1 .0 00 L- ti VA 50 4- 7- [address] 45 20 20 51 RT AT 85 17 17 07 IN 4 75 PH AR 10 MA CY MG #5 TA 91 BL ET 64 10 11 4. 28 00 MI Ac T 38 -2 -1 00 00 L- ti D2 00 4- 7- 0 07 MA ve 73 20 20 51 RT 1. 70 17 17 27 25 6 15 PH AR MG MA CY (5 0, #5 00 91 0 UN IT ) BD 08 10 11 10 28 00 MI Ac 29 -2 -1 0. 00 L- ti UL 03 4- 7- 00 08 MA ve TR 20 20 20 0 84 RT A- 10 17 17 11 FI 9 42 PH NE AR MA PE CY N ND #5 L 91 8M MX 31 G NO 00 10 11 30 18 00 MI Ac VO 16 -2 -1 .0 00 L- ti LO 93 4- 7- 00 07 MA ve G 69 20 20 51 RT [place] 61 17 17 73 X 9 32 PH 70 AR -3 MA 0 CY FL EX #5 PE 91 N SY RN QU 16 10 11 30 30 00 MI Ac ET 72 -2 -1 .0 00 L- ti IA 90 4- 7- 00 07 MA ve PI 14 20 20 51 RT NE 60 17 17 07 1 69 PH FU AR MA MA RA CY TE #5 50 91 MG TA B MO 57 10 11 30 30 00 MI Ac NT 23 -2 -1 .0 00 L- ti EL 70 4- 7- 00 07 MA ve UK 25 20 20 51 RT 53 17 17 07 T 0 70 PH SO AR D MA 10 CY MG #5 91 TA BL ET OM 60 10 11 30 30 00 MI Ac EP 50 -2 -1 .0 00 L- ti RA 50 4- 7- 00 07 MA ve ZO 14 20 20 51 RT LE 60 17 17 [address] AR MA 40 CY MG #5 91 CA PS UL E FR 99 10 11 10 34 00 MI Ac EE 07 -2 -1 0. 00 L- ti ST 30 4- 7- 00 08 MA ve YL 13 20 20 0 84 RT E 00 17 17 11 28 1 41 PH G AR LA MA NC CY ET S #5 91 FA 68 10 11 60 30 00 MI Ac MO 64 -2 -1 .0 00 L- ti TI 50 4- 7- 00 07 MA ve DI 14 20 20 50 RT NE 05 17 17 80 9 72 PH 20 AR MA MG CY TA #5 BL 91 ET LO 68 10 11 30 30 00 MI Ac SA 64 -2 -1 .0 00 L- ti RT 50 4- 7- 00 07 MA ve AN 41 20 20 51 RT 15 17 17 07 PO 4 71 PH TA AR SS MA IU CY M 10 #5 0 91 MG TA B AM 68 10 11 30 30 00 MI Ac LO 64 -2 -1 .0 00 L- ti DI 50 4- 7- 00 07 MA ve PI 51 20 20 51 RT NE 65 17 17 07 4 73 PH BE AR SY MA LA CY TE #5 10 91 MG TA B SP 00 10 11 30 30 00 MI Ac IR 22 -2 -1 .0 00 L- ti ON 82 4- 7- 00 07 MA ve OL 80 20 20 51 RT AC 31 17 17 07 TO 1 72 PH NE AR MA 25 CY MG #5 91 TA BL ET FE 00 10 11 30 30 00 MI Ac NO 09 -2 -1 .0 00 L- ti FI 37 4- 7- 00 07 MA ve BR 75 20 20 51 RT AT 69 17 17 07 E 8 74 PH 14 AR 5 MA MG CY TA #5 BL 91 ET CI 54 10 11 30 30 00 MI Ac TA 45 -2 -1 .0 00 L- ti LO 80 4- 7- 00 07 MA ve IA 88 20 20 51 RT AM 91 17 17 07 0 79 PH HB AR R MA 40 CY MG #5 91 TA BL ET IN 50 10 11 30 30 00 MI Ac VO 45 -2 -1 .0 00 L- ti KA 80 4- 7- 00 07 MA ve NA 14 20 20 51 RT 13 17 17 07 30 0 65 PH 0 AR MG MA CY TA BL #5 ET 91 HY 00 10 11 30 [address] 18 -2 -1 .0 00 L- ti OX 50 4- 7- 00 07 MA ve YZ 67 20 20 51 RT IN 40 17 17 07 E 1 76 PH PA AR M MA 25 CY MG #5 91 CA P FI 00 10 11 30 30 00 MI Ac SH 90 -2 -1 .0 00 L- ti 44 5- 7- 00 08 MA ve OI 04 20 20 84 RT L 36 17 17 12 1, 0 27 PH 00 AR 0 MA MG CY CA #5 PS 91 UL E TR 59 10 11 1. 1 00 MI Ac IA 76 -1 -1 00 00 L- ti ZO 23 6- 0- 0 04 MA ve LA 71 20 20 53 RT M 80 17 17 26 0. 9 02 PH 25 AR MA MG CY TA #5 BL 91 ET ON 53 10 11 10 34 00 MI Ac ET 88 -1 -1 0. 00 L- ti OU 50 6- 0- 00 08 MA ve CH 24 20 20 0 84 RT 51 17 17 09 UL 0 14 PH TR AR A MA TE CY ST #5 ST 91 RI PS NO 00 10 11 30 23 00 MI Ac VO 16 -0 -0 .0 00 L- ti LO 93 7- 3- 00 07 MA ve G 69 20 20 50 RT [place] 61 17 17 99 X 9 16 PH 70 AR -3 MA 0 CY FL EX #5 PE 91 N SY RN 64 10 10 4. 28 00 MI Ac T 38 -0 -2 00 00 L- ti D2 00 3- 7- 0 07 MA ve 73 20 20 51 RT 1. 70 17 17 07 25 6 82 PH AR MG MA CY (5 0, #5 00 91 0 UN IT ) FR 99 09 10 10 34 00 MI Ac EE 07 -1 -1 0. 00 L- ti ST 30 5- 3- 00 08 MA ve YL 13 20 20 0 84 RT E 00 17 17 11 28 1 41 PH G AR LA MA NC CY ET S #5 91 NO 00 09 10 30 23 00 MI Ac VO 16 -1 -1 .0 00 L- ti LO 93 5- 3- 00 07 MA ve G 69 20 20 50 RT [place] 61 17 17 99 X 9 16 PH 70 AR -3 MA 0 CY FL EX #5 PE 91 N SY RN FI 00 09 10 30 30 00 MI Ac SH 90 -1 -1 .0 00 L- ti 44 5- 3- 00 08 MA ve OI 04 20 20 84 RT L 36 17 17 11 1, 0 55 PH 00 AR 0 MA MG CY CA #5 PS 91 UL E AZ 50 09 10 6. 5 00 MI Ac IT 11 -2 -1 00 00 L- ti HR 10 0- 3- 0 07 MA ve OM 78 20 20 51 RT YC 75 17 17 07 IN 1 80 PH AR 25 MA 0 CY MG #5 TA 91 BL ET GA 00 09 10 90 30 00 MI Ac BA 22 -2 -1 .0 00 L- ti PE 82 0- 3- 00 04 MA ve NT 63 20 20 53 RT IN 71 17 17 21 1 89 PH 80 AR 0 MA MG CY TA #5 BL 91 ET ON 53 08 09 10 34 00 MI Ac ET 88 -3 -2 0. 00 L- ti OU 50 1- 9- 00 08 MA ve CH 24 20 20 0 84 RT 51 17 17 09 UL 0 14 PH TR AR A MA TE CY ST #5 ST 91 RI PS IN 50 09 09 30 30 00 MI Ac VO 45 -0 -2 .0 00 L- ti KA 80 5- 9- 00 07 MA ve NA 14 20 20 48 RT 13 17 17 89 30 0 07 PH 0 AR MG MA CY TA BL #5 ET 91 OM 60 09 09 30 30 00 MI Ac EP 50 -0 -2 .0 00 L- ti RA 50 5- 9- 00 07 MA ve ZO 14 20 20 48 RT LE 60 17 [address] AR MA 40 CY MG #5 91 CA PS UL E BA 00 09 05 03 31 00 MI Ac SA 00 -0 -2 .0 00 L- ti GL 27 07 MA ve AR 71 20 20 48 RT 55 17 17 95 10 9 02 PH 0 AR UN MA IT CY /M L #5 KW 91 IK PE N FE 00 MI Ac NO 09 -0 -2 .0 00 L- ti FI 37 07 MA ve BR 75 20 20 48 RT AT 69 17 17 89 E 8 12 PH 14 AR 5 MA MG CY TA #5 BL 91 ET LO 68 MI Ac SA 64 -0 -2 .0 00 L- ti RT 50 07 MA ve AN 41 20 20 48 RT 15 17 17 89 PO 4 08 PH TA AR SS MA IU CY M 10 #5 0 91 MG TA B SP 59 MI Ac IR 74 -0 -2 .0 00 L- ti ON 60 07 MA ve OL 21 20 20 48 RT AC 60 17 17 89 TO 1 24 PH NE AR MA 25 CY MG #5 91 TA BL ET HY [address] 18 -0 -2 .0 00 L- ti OX 50 07 MA ve YZ 67 20 20 50 RT IN 40 17 17 80 E 1 09 PH PA AR M MA 25 CY MG #5 91 CA P MO 57 MI Ac NT 23 -0 -2 .0 00 L- ti EL 70 07 MA ve UK 25 20 20 50 RT 53 17 17 80 T 0 10 PH SO AR D MA 10 CY MG #5 91 TA BL ET QU 16 MI Ac ET 72 -0 -2 .0 00 L- ti IA 90 07 MA ve PI 14 20 20 50 RT NE 60 17 17 80 1 12 PH FU AR MA MA RA CY TE #5 50 91 MG TA B CI 54 MI Ac TA 45 -0 -2 .0 00 L- ti LO 80 07 MA ve IA 88 20 20 50 RT AM 91 17 17 80 0 13 PH HB AR R MA 40 CY MG #5 91 TA BL ET BA 00 04 27 90 30 MI Ac CL 83 -0 -2 .0 00 L- ti OF 21 6- 9- 00 07 MA ve EN 02 20 20 50 RT 45 17 17 80 10 0 14 PH AR MG MA CY TA BL #5 ET 91 AM 68 09 09 30 30 00 WA Ac LO 64 -0 -2 .0 00 L- ti DI 50 6- 9- 00 07 MA ve PI 51 20 20 50 RT NE 65 17 17 80 4 20 PH BE AR SY MA LA CY TE #5 10 91 MG TA B LI 68 09 30 30 00 WA Ac SI 64 -0 -2 .0 00 L- ti NO 50 6- 9- 00 07 MA ve IA 55 20 20 50 RT IL 25 17 17 80 4 21 PH 10 AR MA MG CY TA #5 BL 91 ET AD 00 09 09 12 30 00 WA Ac VA 17 -0 -2 .0 00 L- ti IR 30 6- 9- 00 07 MA ve 71 20 20 50 RT HF 72 17 17 80 A 0 22 PH 23 AR 0- MA 21 CY MC #5 G 91 IN VILLAVICENCIO LE R 64 09 09 4. 28 00 WA Ac T 38 -0 -2 00 00 L- ti D2 00 6- 9- 0 07 MA ve 73 20 20 50 RT 1. 70 17 17 80 25 6 24 PH AR MG MA CY (5 0, #5 00 91 0 UN IT ) AT 68 09 09 30 30 00 WA Ac OR 64 -0 -2 .0 00 L- ti VA 50 6- 9- [address] 45 20 20 50 RT AT 85 17 17 80 IN 4 26 PH AR 10 MA CY MG #5 TA 91 BL ET FA 68 09 09 60 30 00 MI Ac MO 64 -0 -2 .0 00 L- ti TI 50 6- 9- 00 07 MA ve DI 14 20 20 50 RT NE 05 17 17 80 9 72 PH 20 AR MA MG CY TA #5 BL 91 ET BD 08 08 09 10 30 00 WA Ac 29 -2 -2 0. 00 L- ti UL 03 4- 2- 00 08 MA ve TR 20 20 20 0 84 RT A- 10 17 17 08 FI 9 20 PH NE AR MA PE CY N ND #5 L 91 8M MX 31 G ON 53 08 09 10 30 00 WA Ac ET 88 -2 -1 0. 00 L- ti OU 50 3- 5- 00 08 MA ve CH 13 20 20 0 84 RT 61 17 17 08 DE 0 05 PH LI AR CA MA CY 33 G #5 LA 91 NC ET S 64 07 08 4. 28 00 MI Ac T 38 -1 -1 00 00 L- ti D2 00 3- 1- 0 07 MA ve 73 20 20 48 RT 1. 70 17 17 89 25 6 26 PH AR MG MA CY (5 0, #5 00 91 0 UN IT ) ON 53 07 08 10 30 00 MI Ac ET 88 -1 -1 0. 00 L- ti OU 50 3- 1- 00 08 MA ve CH 13 20 20 0 84 RT 61 17 17 00 DE 0 52 PH LI AR CA MA CY 33 G #5 LA 91 NC ET S [place] 43 07 08 60 [address] 38 -1 -1 .0 00 L- ti AT 60 3- 1- 00 07 MA ve IN 53 20 20 49 RT 00 17 17 53 10 6 51 PH 0, AR 00 MA 0 CY UN IT #5 /G 91 M PO WD BA 00 07 08 15 31 00 MI Ac SA 00 -1 -1 .0 00 L- ti GL 27 3- 1- 00 07 MA ve AR 71 20 20 48 RT 55 17 17 95 10 9 02 PH 0 AR UN MA IT CY /M L #5 KW 91 IK PE N BA 00 07 08 90 30 00 MI Ac CL 83 -1 -1 .0 00 L- ti OF 21 3- 1- 00 07 MA ve EN 02 20 20 48 RT 45 17 17 89 10 0 16 PH AR MG MA CY TA BL #5 ET 91 CI 54 07 08 30 30 00 MI Ac TA 45 -1 -1 .0 00 L- ti LO 80 3- 1- 00 07 MA ve IA 88 20 20 48 RT AM 91 17 17 89 0 09 PH HB AR R MA 40 CY MG #5 91 TA BL ET FA 68 07 08 60 30 00 MI Ac MO 64 -1 -1 .0 00 L- ti TI 50 3- 1- 00 07 MA ve DI 14 20 20 48 RT NE 05 17 17 89 9 11 PH 20 AR MA MG CY TA #5 BL 91 ET FE 00 07 08 30 30 00 MI Ac NO 09 -1 -1 .0 00 L- ti FI 37 3- 1- 00 07 MA ve BR 75 20 20 48 RT AT 69 17 17 89 E 8 12 PH 14 AR 5 MA MG CY TA #5 BL 91 ET HY 00 07 08 30 [address] 18 -1 -1 .0 00 L- ti OX 50 3- 1- 00 07 MA ve YZ 67 20 20 48 RT IN 40 17 17 89 E 1 05 PH PA AR M MA 25 CY MG #5 91 CA P IN 50 07 08 30 30 00 MI Ac VO 45 -1 -1 .0 00 L- ti KA 80 3- 1- 00 07 MA ve NA 14 20 20 48 RT 13 17 17 89 30 0 07 PH 0 AR MG MA CY TA BL #5 ET 91 LO 68 07 08 30 30 00 MI Ac SA 64 -1 -1 .0 00 L- ti RT 50 3- 1- 00 07 MA ve AN 41 20 20 48 RT 15 17 17 89 PO 4 08 PH TA AR SS MA IU CY M 10 #5 0 91 MG TA B NO 00 07 08 15 25 00 MI Ac VO 16 -1 -1 .0 00 L- ti LO 96 3- 1- 00 07 MA ve G 33 20 20 48 RT 10 91 17 17 89 0 0 19 PH UN AR IT MA S/ CY ML #5 FL 91 EX PE N MO 31 07 08 30 30 00 MI Ac NT 72 -1 -1 .0 00 L- ti EL 20 3- 1- 00 07 MA ve UK 72 20 20 48 RT 61 17 17 89 T 0 17 PH SO AR D MA 10 CY MG #5 91 TA BL ET OM 60 07 08 30 30 00 MI Ac EP 50 -1 -1 .0 00 L- ti RA 50 3- 1- 00 07 MA ve ZO 14 20 20 48 RT LE 60 17 17 [address] AR MA 40 CY MG #5 91 CA PS UL E QU 16 07 08 30 30 00 MI Ac ET 72 -1 -1 .0 00 L- ti IA 90 3- 1- 00 07 MA ve PI 14 20 20 48 RT NE 60 17 17 89 1 21 PH FU AR MA MA RA CY TE #5 50 91 MG TA B SP 59 07 08 30 30 00 MI Ac IR 74 -1 -1 .0 00 L- ti ON 60 3- 1- 00 07 MA ve OL 21 20 20 48 RT AC 60 17 17 89 TO 1 24 PH NE AR MA 25 CY MG #5 91 TA BL ET AT 68 07 08 30 30 00 MI Ac OR 64 -1 -1 .0 00 L- ti VA 50 4- 1- [address] 45 20 20 49 RT AT 85 17 17 88 IN 4 70 PH AR 10 MA CY MG #5 TA 91 BL ET AM 68 07 08 30 30 00 WA Ac LO 64 -1 -1 .0 00 L- ti DI 50 4- 1- 00 07 MA ve PI 51 20 20 49 RT NE 65 17 17 88 4 71 PH BE AR SY MA LA CY TE #5 10 91 MG TA B LI 68 07 08 30 30 00 MI Ac SI 18 -1 -1 .0 00 L- ti NO 00 4- 1- 00 07 MA ve IA 98 20 20 49 RT IL 00 17 17 88 1 72 PH 10 AR MA MG CY TA #5 BL 91 ET AD 00 07 08 12 30 00 MI Ac VA 17 -1 -1 .0 00 L- ti IR 30 4- 1- 00 07 MA ve 71 20 20 49 RT HF 72 17 17 88 A 0 73 PH 23 AR 0- MA 21 CY MC #5 G 91 IN VILLAVICENCIO LE R FL 55 06 07 1. 1 00 MI Ac UC 11 -2 -2 00 00 L- ti ON 10 3- 1- 0 07 MA ve AZ 14 20 20 49 RT OL 51 17 17 53 E 2 50 PH 15 AR 0 MA MG CY TA #5 BL 91 ET [place] 43 06 07 60 [address] 38 -2 -2 .0 00 L- ti AT 60 3- 1- 00 07 MA ve IN 53 20 20 49 RT 00 17 17 53 10 6 51 PH 0, AR 00 MA 0 CY UN IT #5 /G 91 M PO WD ON 53 06 06 10 34 00 MI Ac ET 88 -0 -3 0. 00 L- ti OU 50 3- 0- 00 08 MA ve CH 24 20 20 0 83 RT 51 17 17 97 UL 0 45 PH TR AR A MA TE CY ST #5 ST 91 RI PS ON 53 06 06 1. 1 00 MI Ac ET 88 -0 -3 00 00 L- ti OU 50 5- 0- 0 08 MA ve CH 44 20 20 83 RT 80 17 17 97 UL 1 76 PH TR AR A2 MA CY GL UC #5 OS [address] HY 00 06 06 [address] 40 -0 -3 .0 00 L- ti OC 60 5- 0- 00 02 MA ve OD 12 20 20 24 RT ON 40 17 17 06 -A 1 17 PH CE AR TA MA [place] CY NO PH #5 91 7. 5- 32 5 ON 53 06 06 10 34 00 MI Ac ET 88 -0 -3 0. 00 L- ti OU 50 2- 0- 00 08 MA ve CH 13 20 20 0 83 RT 61 17 17 97 DE 0 46 PH LI AR CA MA CY 33 G #5 LA 91 NC ET S RE 08 05 01 26 30 00 MI Ac LI 39 -2 -2 0. 00 L- ti ON 69 3 00 08 MA ve 01 20 20 0 83 RT PE 63 17 17 95 N 4 42 PH NE AR ED MA LE CY 31 #5 GX 91 " SP 59 05 30 30 00 MI Ac IR 74 -1 -1 .0 00 L- ti ON 60 07 MA ve OL 21 20 20 48 RT AC 60 17 17 06 TO 1 59 PH NE AR MA 25 CY MG #5 91 TA BL ET LO 68 05 02 15 30 00 MI Ac SA 64 -1 -1 .0 00 L- ti RT 50 8 6 00 07 MA ve AN 41 20 20 48 RT 17 17 17 06 PO 0 60 PH TA AR SS MA IU CY M 10 #5 0 91 MG TA B HY 00 12 22 [address] 18 -1 -1 .0 00 L- ti OX 50 9 6- 00 07 MA ve YZ 67 20 20 48 RT IN 40 17 17 89 E 1 05 PH PA AR M MA 25 CY MG #5 91 CA P GA 00 05 30 00 MI Ac BA 22 -1 -1 .0 00 L- ti PE 82 9- 6- 00 07 MA ve NT 63 20 20 48 RT IN 71 17 17 89 1 06 PH 80 AR 0 MA MG CY TA #5 BL 91 ET IN 50 05 02 15 30 00 MI Ac VO 45 -1 -1 .0 00 L- ti KA 80 9 6- 00 07 MA ve NA 14 20 20 48 RT 13 17 17 89 30 0 07 PH 0 AR MG MA CY TA BL #5 ET 91 CI 54 05 30 30 00 MI Ac TA 45 -1 -1 .0 00 L- ti LO 80 9 6- 00 07 MA ve IA 88 20 20 48 RT AM 91 17 17 89 0 09 PH HB AR R MA 40 CY MG #5 91 TA BL ET FA 68 05 06 60 30 00 MI Ac MO 64 -1 -1 .0 00 L- ti TI 50 9 6- 00 07 MA ve DI 14 20 20 48 RT NE 05 17 17 89 9 11 PH 20 AR MA MG CY TA #5 BL 91 ET FE 00 12 22 29 30 00 MI Ac NO 09 -1 -1 .0 00 L- ti FI 37 9- 6- 07 MA ve BR 75 20 20 48 RT AT 69 17 17 89 E 8 12 PH 14 AR 5 MA MG CY TA #5 BL 91 ET BA 00 05 06 30 00 MI Ac CL 83 -1 -1 .0 00 L- ti OF 21 07 MA ve EN 02 20 20 48 RT 45 17 17 89 10 0 16 PH AR MG MA CY TA BL #5 ET 91 MO 31 00 MI Ac NT 72 -1 -1 .0 00 L- ti EL 20 07 MA ve UK 72 20 20 48 RT 61 17 17 89 T 0 17 PH SO AR D MA 10 CY MG #5 91 TA BL ET NO 00 12 22 15 00 MI Ac VO 16 -1 -1 .0 00 L- ti LO 96 9 6- 07 MA ve G 33 20 20 48 RT 10 91 17 17 89 0 0 19 PH UN AR IT MA S/ CY ML #5 FL 91 EX PE N OM 60 00 [facility] EP 50 -1 -1 .0 00 L- ti RA 50 9 6- 00 07 MA ve ZO 14 20 20 48 RT LE 60 17 17 [address] AR MA 40 CY MG #5 91 CA PS UL E QU 16 00 MI Ac ET 72 -1 -1 .0 00 L- ti IA 90 9 6- 00 07 MA ve PI 14 20 20 48 RT NE 60 17 17 89 1 21 PH FU AR MA MA RA CY TE #5 50 91 MG TA B 64 05 06 4. 28 00 MI Ac T 38 -1 -1 00 00 L- ti D2 00 9- 6- 0 07 MA ve 73 20 20 48 RT 1. 70 17 17 89 25 6 26 PH AR MG MA CY (5 0, #5 00 91 0 UN IT ) LI 54 05 02 15 30 00 MI Ac SI 45 -1 -1 .0 00 L- ti NO 80 9 6- 07 MA ve IA 99 20 20 48 RT IL 71 17 17 89 0 68 PH 10 AR MA MG CY TA #5 BL 91 ET AT 68 05 02 15 30 00 MI Ac OR 64 -1 -1 .0 00 [...] TE #5 10 91 MG TA B AD 00 05 06 12 30 00 MI Ac VA 17 -2 -1 .0 00 L- ti IR 30 2- 6- 00 07 MA ve 71 20 20 48 RT HF 72 17 17 89 A 0 70 PH 23 AR 0- MA 21 CY MC #5 G 91 IN VILLAVICENCIO LE R BA 00 05 06 15 31 00 MI Ac SA 00 -2 -1 .0 00 L- ti GL 27 3- 6- 00 07 MA ve AR 71 20 20 48 RT 55 17 17 95 10 9 02 PH 0 AR UN MA IT CY /M L #5 KW 91 IK PE N HY 00 05 06 40 [address] 40 -1 -[address] ti OC 60 5- 9- 00 00 SI ve OD 12 20 20 48 DE ON 40 17 17 75 -A 5 83 PH CE AR TA MA [place] CY NO PH OF CY 7. NT 5- HI 32 AN 5 A IN C IN 00 04 05 30 30 00 MI Ac CR 17 -1 -0 .0 00 L- ti US 30 0- 5- 00 07 MA ve E 87 20 20 48 RT EL 31 17 17 06 LI 0 61 PH PT AR A MA 62 CY .5 #5 MC 91 G IN H HY 00 03 04 [address] 40 -3 -2 .0 00 L- ti OC 60 0- 8- 00 02 MA ve OD 12 20 20 23 RT ON 30 17 17 97 -A 1 50 PH CE AR TA MA [place] CY NO PH #5 EN 91 5- 32 5 SI 00 03 04 50 25 00 [place] Ac LV 59 -3 -2 .0 00 L- ti ER 10 0- 8- 00 07 MA ve 81 20 20 47 RT PARDO 05 17 17 96 LF 5 99 PH AD AR IA MA ZI CY NE #5 1% 91 CR EA M AM 00 04 04 20 10 00 MI Ac OX 78 -0 -2 .0 00 L- ti -C 11 3- 8- 00 07 MA ve LA 85 20 20 48 RT V 22 17 17 00 87 0 77 PH 5- AR 12 MA 5 CY MG #5 TA 91 BL ET BE 68 04 04 24 8 00 MI Ac NZ 38 -0 -2 .0 00 L- ti ON 20 3- 8- 00 07 MA ve AT 24 20 20 48 RT AT 70 17 17 00 E 1 78 PH 10 AR 0 MA MG CY CA #5 PS 91 UL E ME 59 04 04 21 6 00 MI Ac TH 74 -0 -2 .0 00 L- ti YL 60 3- 8- 00 07 MA ve IA 00 20 20 48 RT ED 10 17 17 00 NI 3 79 PH SO AR LO MA NE CY 4 #5 MG 91 DO SE PK AL 00 04 04 22 25 00 MI Ac BU 48 -0 -2 5. 00 L- ti TE 79 5- 8- 00 07 MA ve RO 50 20 20 0 48 RT L 12 17 17 06 PARDO 5 57 PH L AR 2. MA 5 CY MG /3 #5 [address] SP 59 04 04 30 30 00 MI Ac IR 74 -0 -2 .0 00 L- ti ON 60 5 8 00 07 MA ve OL 21 20 20 48 RT AC 60 17 17 06 TO 1 59 PH NE AR MA 25 CY MG #5 91 TA BL ET LO 68 04 04 30 30 00 MI Ac SA 64 -0 -2 .0 00 L- ti RT 50 5- 8- 00 07 MA ve AN 41 20 20 48 RT 17 17 17 06 PO 0 60 PH TA AR SS MA IU CY M 10 #5 0 91 MG TA B AC 00 03 04 20 3 00 CL Ac ET 09 -2 -2 .0 00 IN ti AM 30 7- 1- 00 00 IC ve IN 15 20 20 42 OP 01 17 17 63 PH HE 0 23 AR N- MA CO CY D #3 TA BL ET HY 00 03 04 7. [address] 40 -2 -2 00 00 L- ti OC 60 9- 1- 0 02 MA ve OD 12 20 20 23 RT ON 30 17 17 97 -A 1 21 PH CE AR TA MA [place] CY NO PH #5 EN 91 5- 32 5 HI 00 03 04 11 30 00 MI Ac BI 23 -2 -1 8. 00 L- ti CL 40 1- 4- 00 08 MA ve EN 57 20 20 0 83 RT S 50 17 17 86 4% 4 20 PH AR LI MA QU CY ID #5 91 FL 55 03 04 2. 4 00 [place] Ac UC 11 -0 -0 00 00 L- [...] AL LI AN CE , IN C. HY 64 02 03 [...] -2 0. 00 YS ti -C 20 4- 4- 00 03 IC ve HE 40 [...] 20 4- 4- 00 03 IC ve IA 00 20 20 61 IA AM 70 [...] AN UL CE E , IN C. EA 08 02 03 10 30 00 PH Ac SY 49 -2 -2 0. 00 YS ti 63 6- 4- 00 03 IC ve TO 10 20 20 0 49 IA UC 60 17 17 67 NS H 1 27 PE PH N AR NE MA ED CY LE AL 31 LI GX AN 5/ CE 16 , IN C. LO 68 02 03 30 30 00 [place] Ac SA 64 -1 -1 .0 00 L- ti RT 50 6- 7- 00 07 MA ve AN 41 20 20 47 RT 17 17 17 11 PO 0 31 PH TA AR SS MA IU CY M 10 #5 0 91 MG TA B FA 68 02 03 60 30 00 MI Ac MO 64 -1 -1 .0 00 L- ti TI 50 6- 7- 00 07 MA ve DI 14 20 20 47 RT NE 05 17 17 11 9 33 PH 20 AR MA MG CY TA #5 BL 91 ET ES 00 02 03 30 30 00 MI Ac TR 55 -1 -1 .0 00 L- ti AD 50 7- 7- 00 07 MA ve IO 88 20 20 47 RT L 70 17 17 14 2 4 51 PH MG AR MA TA CY BL ET #5 91 [place] 13 02 03 14 7 00 MI Ac NO 66 -2 -1 .0 00 L- ti CY 80 1- 7- 00 07 MA ve CL 48 20 20 47 RT IN 45 17 17 19 E 0 59 PH 10 AR 0 MA MG CY CA #5 PS 91 UL E MU 68 02 03 22 7 00 MI Ac PI 46 -2 -1 .0 00 L- ti RO 20 1- 7- 00 07 MA ve CI 18 20 20 47 RT N 02 17 17 19 2% 2 62 PH AR OI MA NT CY ME NT #5 91 BE 68 02 03 15 5 00 MI Ac NZ 38 -1 -1 .0 00 L- ti ON 20 1- 0- 00 07 MA ve AT 24 20 20 47 RT AT 70 17 17 01 E 1 23 PH 10 AR 0 MA MG CY CA #5 PS 91 UL E SP 53 02 03 30 30 00 MI Ac IR 48 -1 -1 .0 00 L- ti ON 90 3- 0- 00 07 MA ve OL 14 20 20 47 RT AC 30 17 17 05 TO 1 18 PH NE AR MA 25 CY MG #5 91 TA BL ET LO 68 02 03 30 30 00 MI Ac SA 64 -1 -1 .0 00 [...] CE LN , IN C. MO 00 02 30 30 00 PH Ac NT 60 -2 -2 .0 00 YS ti EL 34 6- 4- 00 03 IC ve UK 65 20 20 61 IA 53 17 17 67 NS T 4 25 SO PH D AR 10 MA CY MG AL TA LI BL AN ET CE , IN C. AD 00 02 12 30 00 PH Ac VA 17 -2 -2 .0 00 YS ti IR 30 6- 4- 00 03 IC ve 71 20 20 61 IA HF 72 17 17 09 NS A 0 72 23 PH 0- AR 21 MA CY MC G AL IN LI VILLAVICENCIO AN LE CE R , IN C. IA 51 01 02 60 30 00 PH [...] CE , IN C. FI 00 02 30 30 00 PH Ac SH [...] 20 6- 4- 00 03 IC ve IA 00 20 20 61 IA AM 70 [...] /M AN L CE , IN C. RA 53 01 02 60 30 00 WA Ac NI 74 -0 -0 .0 00 L- ti TI 60 5- 3- 00 07 MA ve DI 25 20 20 46 RT NE 40 17 17 29 2 00 PH 30 AR 0 MA MG CY TA #5 BL 91 ET BE 68 01 02 15 5 00 [...] 10 0- 3- 00 07 MA ve [place] 47 20 20 46 RT 01 17 17 36 R 3 95 PH PH AR OS MA CY 75 #5 MG 91 CA PS UL E AC 65 12 01 10 30 00 PH Ac CU 70 -2 -2 0. 00 YS ti -C 20 03 IC ve HE 40 20 20 0 60 IA K 71 16 17 61 NS AV 0 51 IV PH A AR PL MA US CY TE AL ST LI AN ST CE RP , IN C. AC 50 12 01 30 00 PH Ac CU 92 -2 -2 0. 00 YS ti -C 40 03 IC ve HE 97 20 20 0 60 IA K 11 16 17 61 NS SO 0 65 FT PH CL AR IX MA CY LA NC AL ET LI S AN CE , IN C. AD 00 12 08 30 29 00 PH Ac VA 17 -2 -2 .0 00 YS ti IR 30 03 IC ve 71 20 20 60 IA HF 72 16 17 61 NS A 0 49 23 PH 0- AR 21 MA CY MC G AL IN LI VILLAVICENCIO AN LE CE R , IN C. AM 69 12 09 17 30 00 PH Ac LO 09 -2 -2 .0 00 YS ti DI 70 03 IC ve PI 12 20 20 60 IA NE 81 16 17 61 NS 5 39 BE PH SY AR LA MA TE CY 10 AL LI MG AN CE TA , B IN C. AT 55 12 09 17 30 00 PH Ac OR 11 -2 -2 .0 00 YS ti VA 10 - [address] 12 20 20 60 IA AT 10 16 17 61 NS IN 5 48 PH 10 AR MA MG CY TA AL BL LI ET AN CE , IN C. FE 45 12 09 17 30 00 PH Ac NO 80 -2 -2 .0 00 YS ti FI 20 9- 7- 00 03 IC ve BR 13 20 20 60 IA AT 27 16 17 61 NS E 5 56 14 PH 5 AR MG MA CY TA BL AL ET LI AN CE , IN C. HY 69 12 [address] 31 -2 -2 .0 00 YS ti OC 50 9- 7- 00 03 IC ve HL 13 20 20 60 IA OR 11 16 17 61 NS OT 0 62 HI PH AZ AR ID MA E CY 25 AL MG LI AN TA CE B , IN C. IN 50 12 30 30 00 PH Ac VO 45 -2 -2 .0 00 YS ti KA 80 9- 7- 00 03 IC ve NA 14 20 20 60 IA 13 16 17 61 NS 30 0 40 0 PH MG AR MA TA CY BL ET AL LI AN CE , IN C. LI 43 12 30 30 00 PH Ac SI 54 -2 -2 .0 00 YS ti NO 70 9- 7- 00 03 IC ve IA 35 20 20 60 IA IL 31 16 17 61 NS 1 43 10 PH AR MG MA CY TA BL AL ET LI AN CE , IN C. OM 55 12 30 30 00 PH Ac EP 11 [...] 91 MG TA B HY 64 12 01 [address] 98 [...] LN , IN C. MO 00 12 30 30 00 PH Ac NT 60 -2 -2 .0 00 YS ti EL 34 8- 0- 00 03 IC ve [place] 65 20 20 54 IA 53 16 17 79 NS T 4 57 SO PH D AR 10 MA CY MG AL TA LI BL AN ET CE , IN C. IA 51 12 01 60 30 00 PH Ac OP 99 -2 -2 .0 00 YS ti RA 10 8- 0- 00 03 IC ve NO 81 20 20 49 IA LO 80 16 17 66 NS L 1 92 ER PH AR 80 MA CY MG AL CA LI PS AN UL CE E , IN C. NO 00 07 19 15 30 00 PH Ac VO 16 [...] 50 8- 0- 00 03 IC ve [place] 10 20 20 40 IA N 41 16 17 21 NS HC 0 11 L PH 1, AR 00 MA 0 CY MG AL TA LI BL AN ET CE , IN C. CI 65 12 30 30 00 PH Ac TA 16 -2 -2 .0 00 YS ti LO 20 8- 0- 00 03 IC ve IA 05 20 20 54 IA AM 45 16 17 82 NS 0 46 HB PH R AR 40 MA CY MG AL TA LI BL AN ET CE , IN C. TO 69 12 90 30 00 PH Ac PI 09 -2 -2 .0 00 YS ti RA 70 8- 0- 00 03 IC ve MA 12 20 20 54 IA TE 21 16 17 09 NS 5 93 25 PH AR MG MA CY TA BL AL ET LI AN CE , IN C. GA 68 12 90 30 00 PH Ac BA 46 [...] LI AN CE , IN C. LI 68 10 10 0 30 30 WA 38 GE Ac SI 18 -2 -2 .0 LG 56 IM ti NO 00 4- 4 00 RE 41 AN ve IA 51 20 20 EN 5 IL 70 11 11 S AN 3 #5 NA 40 76 3 MG # 57 TA 63 BL ET CR 00 10 10 0 30 30 WA 38 GE Ac ES 31 -2 -2 .0 LG 56 IM ti TO 00 4 4 00 RE 41 AN ve R 75 [...] 11 S AN E 6 #5 NA IA 76 OP 3 # 50 57 63 [...] 8- 1- 00 RE 42 EY ve IA 00 20 20 EN 7 ED 10 11 11 S [place] NI 3 #5 CH SO 76 AE [...] 11 S AN E 6 #5 NA IA 76 OP 3 # 50 57 63 [...] 1- 2- 00 RE 52 AN ve IA 51 20 20 EN 8 IL 70 [...] NE 00 01 09 6 30 30 MI 37 GE Ac XI 18 -3 -1 .0 LG 15 IM ti UM 65 1- 2- 00 RE 53 AN ve 04 [address] 03 11 11 S AN 1 #5 NA 40 76 3 MG # 57 CA 63 PS UL E CR 00 02 09 3 30 30 MI 37 GE Ac ES 31 -2 -1 .0 LG 31 IM ti TO 00 RE 53 AN ve R 75 20 20 EN 8 20 29 11 11 S AN 0 #5 NA MG 76 3 TA # BL 57 ET 63 AM 68 04 09 3 30 30 MI 37 CO Ac LO 18 -0 -1 .0 LG 51 TT ti DI 00 RE 18 ON ve PI 75 20 20 EN 8 NE 20 11 11 S RO 3 #5 BI BE 76 N SY 3 T LA # TE 57 63 10 MG TA B LI 68 01 08 3 30 30 MI 37 GE Ac SI 18 -3 -0 .0 LG 15 IM ti NO 00 RE 52 AN ve IA 51 20 20 EN 8 IL 70 11 11 S AN 3 #5 NA 40 76 3 MG # 57 TA 63 BL ET HY 00 01 08 3 30 30 MI [address] 17 -3 -0 .0 LG 15 IM ti OC 22 RE 52 AN ve HL 08 20 20 EN 9 OR 98 11 11 S AN OT 0 #5 NA HI 76 AZ 3 ID # E 57 50 63 MG TA B NE 00 01 08 6 30 30 MI 37 GE Ac XI 18 -3 -0 .0 LG 15 IM ti UM 65 08-27- 00 RE 53 AN ve 04 [address] 03 11 11 S AN 1 #5 NA 40 76 3 MG # 57 CA 63 PS UL E CR 00 02 08 3 30 30 MI 37 GE Ac ES 31 -2 -0 .0 LG 31 IM ti TO 00 RE 53 AN ve R 75 20 20 EN 8 20 29 11 11 S AN 0 #5 NA MG 76 3 TA # BL 57 ET 63 AM 68 04 08 3 30 30 MI 37 CO Ac LO 18 -0 -0 .0 LG 51 TT ti DI 00 4- 9- 00 RE 18 ON ve PI 75 [...] .0 LG 17 IM ti XE 12 9- 9- 00 RE 19 AN ve TI 82 20 20 EN 1 NE 43 11 11 S AN 1 #5 NA HC 76 L 3 40 # 57 MG 63 CA PS UL E 49 08 08 0 2. 30 WA 38 GE Ac 88 -0 -0 29 LG 17 IM ti 40 9- 9- 9 RE 19 AN ve 27 20 20 EN 2 01 11 11 S AN 4 #5 NA 76 3 # 57 63 FL 60 08 08 0 16 30 WA 38 GE Ac UT 50 -0 -0 .0 LG 17 IM ti IC 50 9- 9- 00 RE 37 AN ve 82 20 20 EN 3 ON 90 11 11 S AN E 1 #5 NA IA 76 OP 3 # 50 57 63 [...] .0 LG 31 IM ti XE 12 8 0 RE 53 AN ve TI 82 20 20 EN 6 NE 43 11 11 S AN 1 #5 NA HC 76 L 3 40 # 57 MG 63 CA PS UL E TI 55 01 07 2 60 30 WA 37 CO Ac ZA 11 -2 -1 .0 LG 86 LG ti NI 10 0- 0 00 RE 05 LA ve DI 17 20 20 EN 1 ZI NE 91 11 11 S ER 5 #5 HC 76 CH L 3 RI 2 # ST MG 57 OP 63 HE TA R BL L ET LI 68 01 06 3 30 30 WA 37 GE Ac SI 18 -3 -0 .0 LG 15 IM ti NO 00 RE 52 AN ve IA 51 20 20 EN 8 IL 70 11 11 S AN 3 #5 NA 40 76 3 MG # 57 TA 63 BL ET HY 00 01 06 3 30 30 WA [address] 17 -3 -0 .0 LG 15 IM ti OC 22 RE 52 AN ve HL 08 20 20 EN 9 OR 98 11 11 S AN OT 0 #5 NA HI 76 AZ 3 ID # E 57 50 63 MG TA B NE 00 01 06 6 30 30 WA 37 GE Ac XI 18 -3 -0 .0 LG 15 IM ti UM 65 RE 53 AN ve 04 [address] 03 11 11 S AN 1 #5 NA 40 76 3 MG # 57 CA 63 PS UL E FL 00 02 06 2 30 30 WA 37 GE Ac UO 78 -2 -0 .0 LG 31 IM ti XE 12 RE 53 AN ve TI 82 20 20 EN 6 NE 43 11 11 S AN 1 #5 NA HC 76 L 3 40 # 57 MG 63 CA PS UL E CR 00 02 06 3 30 30 WA 37 GE Ac ES 31 -2 -0 .0 LG 31 IM ti TO 00 8- 8- 00 RE 53 AN ve R 75 20 20 EN 8 20 29 11 11 S AN 0 #5 NA MG 76 3 TA # BL 57 ET 63 49 02 06 1 2. 30 WA 37 GE Ac 88 -2 -0 29 LG 31 IM ti 40 8- 8- 9 RE 53 AN ve 27 20 20 EN 9 01 11 11 S AN 4 #5 NA 76 3 # 57 63 AM 68 04 06 3 30 30 WA 37 CO Ac LO 18 -0 -0 .0 LG 51 TT ti DI 00 4- 8- 00 RE 18 ON ve PI 75 20 20 EN 8 NE 20 11 11 S RO 3 #5 BI BE 76 N SY 3 T LA # TE 57 63 10 MG TA B TI 55 01 06 2 60 30 WA 37 CO Ac ZA 11 -2 -0 .0 LG 86 LG ti NI 10 0- 8- 00 RE 05 LA ve DI 17 20 20 EN 1 ZI NE 91 11 11 S ER 5 #5 HC 76 CH L 3 RI 2 # ST MG 57 OP 63 HE TA R BL L ET 00 05 05 0 15 3 [...] 11 S SH E 1 #5 AR IA 76 ON OP 3 E # 50 [...] ti NO 00 RE 52 AN ve IA 51 20 20 EN 8 IL 70 [...] .0 LG 15 IM ti 34 1- 1- 00 RE 52 AN ve 35 20 20 EN 3 60 11 11 S AN 1 #5 NA 76 3 # 57 63 PE 00 01 01 0 40 10 WA 82 BR Ac NI 09 -2 -2 .0 LG 96 AC ti CI 31 1- 1- 00 RE 04 KE ve LL [...] -2 .0 LG 96 AC ti 10 1- 00 RE 07 KE ve 34 20 20 EN N 90 11 11 S DA 5 #5 54 D 8 L # 55 48 LY 00 01 01 3 60 30 WA 82 CO Ac RI 07 -2 -2 .0 LG 96 LG ti CA 11 1- 1- 00 RE 05 LA ve 01 20 20 EN ZI 15 66 11 11 S ER 0 8 #5 MG 54 CH 8 RI CA # ST PS 55 OP UL 48 HE E R L 00 12 12 0 15 2 WA 16 KU Ac 59 -2 -2 .0 LG 89 SH ti 10 3- 3- 00 RE 29 MA ve 34 [...] -0 .0 LG 67 IM ti TO 00 2- 2- 00 RE 70 AN ve R 75 [...] .0 LG 11 NC ti NO 00 8 00 RE 53 K ve IA 51 20 20 EN 8 ER IL 70 10 10 S IN 3 #5 M 40 76 3 MG # 57 TA 63 BL ET LY 00 09 10 5 60 30 WA 36 CO Ac RI 07 -1 -2 .0 LG 43 LG ti CA 11 7 8 00 RE 94 LA ve 01 20 20 EN 1 ZI 15 66 10 10 S ER 0 8 #5 MG 76 CH 3 RI CA # ST PS 57 OP UL 63 HE E R L TI 55 09 10 3 60 30 WA 36 CO Ac ZA 11 -1 -2 .0 LG 43 LG ti NI 10 RE 94 LA ve DI 17 20 20 EN 2 ZI NE 91 10 10 S ER 5 #5 HC 76 CH L 3 RI 2 # ST MG 57 OP 63 HE TA R BL L ET NE 00 08 10 4 30 30 WA 36 GE Ac XI 18 -2 -2 .0 LG 47 IM ti UM 65 4 8 00 RE 74 AN ve 04 [address] 03 10 10 S AN 1 #5 NA 40 76 3 MG # 57 CA 63 PS UL E AM 68 09 10 5 30 30 WA 36 GE Ac LO 18 -2 -2 .0 LG 47 IM ti DI 00 8 00 RE 74 AN ve PI 75 [...] LG 47 IM ti DI 00 7 7 00 RE 74 AN ve PI 75 20 20 EN 9 NE 10 10 10 S AN 3 #5 NA BE 76 SY 3 LA # TE 57 5 63 MG TA B LI 68 07 09 3 30 30 WA 36 RA Ac SI 18 -1 -2 .0 LG 11 NC ti NO 00 6- 5- 00 RE 53 K ve IA 51 20 20 EN 8 ER IL [...] .0 LG 28 IM ti TO 00 4- 4- 00 RE 34 AN ve R [...] 6- 6- 00 RE 53 K ve IA 51 20 20 EN 8 ER IL [...] ZI ZA 71 10 10 S ER IA 0 #5 IN 76 CH E 3 RI 10 # ST 57 OP MG 63 HE R TA L BL ET AM 00 06 06 0 20 10 MI 35 GE Ac OX 78 -1 -1 .0 LG 97 IM ti -C 11 5- 7- 00 RE 33 AN ve LA 85 20 20 EN 4 V 22 10 10 S AN 87 0 #5 NA 5- 76 12 3 5 # MG 57 63 TA BL ET AM 68 06 06 1 30 30 WA 35 GE Ac LO 18 -0 -0 .0 LG 90 IM ti DI 00 1- 3- 00 RE 14 AN ve PI 75 20 20 EN 8 NE 10 10 10 S AN 3 #5 NA BE 76 SY 3 LA # TE 57 5 63 MG TA B 00 05 06 0 30 2 WA 35 YE Ac 59 -2 -0 .0 LG 90 LI ti 10 5- 3- 00 RE 14 CH ve 74 20 20 EN 9 90 10 10 S PARDO 5 #5 SA 76 N 3 M # 57 63 00 05 05 0 40 3 WA 35 YE Ac 59 -1 -1 .0 LG 81 LI ti 10 7- 8- 00 RE 56 CH ve 74 20 20 EN 1 90 10 10 S PARDO 5 #5 SA 76 N 3 M # 57 63 IA 00 04 04 0 6. 1 WA 35 KI Ac OM 78 -2 -2 00 LG 69 LL ti ET 11 4- 4- 0 RE 10 IN ve VILLAVICENCIO 83 20 20 EN 3 DE ZI 00 10 10 S R NE 1 #5 76 HL 25 3 EY # E MG 57 63 TA BL ET PARDO 53 04 04 0 20 10 WA 35 KI Ac LF 74 -2 -2 [...] .0 LG 63 NC ti UM 65 9- 9- 00 RE 18 K ve 04 20 [address] 03 10 10 S IN 1 #5 M 40 76 3 MG # 57 CA 63 PS UL E PE 00 04 04 0 40 10 WA 35 LO Ac NI 09 -1 -1 .0 LG 66 VE ti CI 31 9- 9- 00 RE 20 ve LL 17 20 20 EN 9 TI IN 41 10 10 S MO 0 #5 TH VK 76 Y 3 A 50 # 0 57 MG 63 TA BL ET 00 04 04 0 20 3 WA 35 LO Ac 59 -1 -1 .0 LG 66 VE ti 10 9- 9- 00 RE 30 ve 74 20 20 EN 7 TI 90 10 10 S MO 5 #5 TH 76 Y 3 A # 57 63 AM 00 04 04 0 [address] Ac OX 78 -1 -1 .0 LG 65 AW ti -C 11 8- 8- 00 RE 57 ve LA 85 20 20 EN 2 AZ V 22 10 10 S [place] 87 0 #5 5- 76 12 3 5 # MG 57 63 TA BL ET ME 68 04 04 0 [address] Ac LO 18 -1 -1 .0 LG 65 AW ti XI 00 8- 8- 00 RE 57 ve CA 50 20 20 EN 3 AZ M 10 10 10 S [place] 7. 3 #5 5 76 MG 3 # TA 57 BL 63 ET TR 65 04 04 0 [address] Ac AM 16 -1 -1 .0 LG 65 AW ti AD 20 8- 8- 00 RE 57 ve OL 62 20 20 EN 4 AZ 71 10 10 S NY HC 1 #5 L 76 50 3 # MG 57 63 TA BL ET LI 68 11 04 3 30 30 WA 34 RA Ac SI 18 -1 -1 .0 LG 86 NC ti NO 00 3- 3- 00 RE 38 K ve IA 51 20 20 EN 5 ER IL 70 09 10 S IN 3 #5 M 40 76 3 MG # 57 TA 63 BL ET HY 00 11 04 3 30 30 WA [address] 17 -1 -1 .0 LG 08 NC ti OC 22 3- 3- 00 RE 32 K ve HL 08 20 20 EN 8 ER OR 98 09 10 S IN OT 0 #5 M HI 76 AZ 3 ID # E 57 50 63 MG TA B LY 00 12 04 3 60 30 [...] ZI ZA 71 10 10 S ER IA 0 #5 IN 76 CH E 3 RI 10 # ST 57 OP MG 63 HE R TA L BL ET LI 68 11 02 02 30 30 WA 34 RA Ac SI 18 -1 -2 .0 LG 86 NC ti NO 00 3- 6- 00 RE 38 K ve IA 51 20 20 EN 5 ER IL 70 09 10 S IN 3 57 M 40 63 MG TA BL ET HY 00 11 02 01 30 30 WA [address] 17 -1 -2 .0 LG 08 NC ti OC 22 3- 6- 00 RE 32 K ve HL 08 20 20 EN 8 ER OR 98 09 10 S IN OT 0 57 M HI 63 AZ ID E 50 MG TA B IA 50 02 02 00 60 4 WA [...] ZI ZA 71 10 10 S ER IA 0 57 IN 63 CH E RI 10 ST OP MG HE R TA L BL ET 59 [...] PS OP UL HE E R L NE 00 01 02 00 30 30 WA 35 GE Ac XI 18 -2 -1 .0 LG 20 IM ti UM 65 5- 1- 00 RE 25 AN ve 04 [address] 03 10 10 S AN 1 57 NA 40 63 MG CA PS UL E CY 59 11 01 01 60 30 WA 34 CO Ac CL 74 -0 -1 .0 LG 76 LG ti OB 60 9- 4- 00 RE 00 LA ve EN 17 20 20 EN 5 ZI ZA 71 09 10 S ER IA 0 57 IN 63 CH E RI [...] AZ ID E 50 MG TA B LI 68 11 01 01 30 30 WA 34 RA Ac SI 18 -1 -1 .0 LG 86 NC ti NO 00 3- 4- 00 RE 38 K ve IA 51 20 20 EN 5 ER IL 70 09 10 S IN 3 57 M 40 63 MG TA BL ET LY 00 12 12 00 60 30 [...] 3- 7- 00 RE 38 K ve IA 51 20 20 EN 5 ER IL 70 09 09 S IN 3 57 M 40 63 MG TA BL ET CY 59 11 11 00 60 30 WA 34 CO Ac CL 74 -0 -1 .0 LG 76 LG ti OB 60 9- 9- 00 RE 00 LA ve EN 17 20 20 EN 5 ZI ZA 71 09 09 S ER IA 0 57 IN 63 CH E RI 10 ST OP MG HE R TA L BL ET HY 00 11 11 00 30 30 WA [address] 17 -0 -1 .0 LG 76 UR ti OC 22 9- 9- 00 RE 00 EN ve HL 08 20 20 EN 6 O- OR 98 09 09 S AL OT 0 57 VA HI 63 RE AZ Z ID LI E AH 50 J MG TA B LI 68 11 11 00 14 14 WA 34 LA Ac SI 18 -1 -1 .0 LG 77 UR ti NO 00 1- 9- 00 RE 26 EN ve IA 51 20 20 EN 8 O- IL 70 09 09 S AL 3 57 VA 40 63 RE Z MG LI AH TA J BL ET LY 00 10 10 00 60 30 WA 72 CO Ac RI 07 -1 -2 .0 LG 08 LG ti CA 11 6- 2- 00 RE 44 LA ve 01 20 20 EN ZI 75 46 09 09 S ER 8 05 MG 54 CH [address] PS OP UL HE E R L IA 00 09 08 02 30 30 WA [...] 8- 3- 00 MA 91 EN ve IA 99 20 20 RT 0 O- IL [...] PH VA AR RE MA Z CY LI AH #1 J 51 0 00 03 08 01 60 30 WA 71 CO Ac 37 -2 -1 .0 L- 17 LG ti 80 7- 3- 00 MA 74 LA ve 75 20 20 RT 0 ZI 19 09 09 ER 3 PH AR CH MA RI CY ST OP #1 HE 51 R 0 L [...] 8- 4- 00 MA 91 EN ve IA 99 20 20 RT 0 O- IL 41 09 09 AL 0 PH VA 40 AR RE MA Z MG CY LUIZA AH TA #1 J BL 51 ET 0 00 03 06 00 60 30 WA 71 CO Ac 37 -2 -0 .0 L- 17 LG ti 80 7- 4- 00 MA 74 LA ve 75 20 20 RT 0 ZI 19 09 09 ER 3 PH AR CH MA RI CY ST OP #1 HE 51 R 0 L 54 05 06 00 30 30 WA 71 LA Ac 45 -2 -0 .0 L- 17 UR ti 80 8- 4- 00 MA 90 EN ve 96 20 20 RT 9 O- 91 09 09 AL 0 PH VA AR RE MA Z CY LI AH #1 J 51 0 IA 00 09 06 01 30 30 WA 70 LA Ac EM 04 -1 -0 .0 L- 70 UR ti AR 61 0- 4- 00 MA 31 EN ve IN 10 20 20 RT 8 O- 28 08 09 AL 0. 1 PH VA 62 AR RE 5 MA Z MG CY LI TA #1 J BL 51 ET 0 CY 00 03 04 00 60 30 KR 66 CO Ac CL 59 -2 -0 .0 OG 16 LG ti OB 15 7- 9- 00 ER 31 LA ve EN 65 20 20 0 ZI ZA 81 09 09 PH ER IA 0 AR IN MA CH E CY RI 10 ST #9 OP MG 01 HE R TA L BL ET NA 68 02 02 00 20 10 WA 32 No Ac IA 46 -0 -1 .0 LG 00 t [...] ai ZA 71 09 09 S la IA 0 57 bl IN 63 e E 10 MG TA BL ET CI 16 02 02 00 14 7 WA 32 SP Ac IA 25 -0 -1 .0 LG 00 EL [...] 09 S 5 57 PA 63 UL GA 59 11 11 00 12 30 [...] #1 J 51 MG 0 TA B IA 00 09 11 00 30 30 WA 70 LA Ac EM 04 -1 -2 .0 L- 70 UR ti AR 61 0- 0- 00 MA 31 EN ve IN 10 20 20 RT 8 O- 28 08 08 AL 0. 1 PH VA 62 AR RE 5 MA Z MG CY LI AH TA #1 J BL 51 ET 0 LI 54 05 11 02 30 30 WA 70 LA Ac SI 45 -2 -2 .0 L- 51 UR ti NO 80 5- 0- 00 MA 25 EN ve IA 99 20 20 RT 9 O- IL 41 08 08 AL 0 PH VA 40 AR RE MA Z MG CY LI AH TA #1 J BL 51 ET 0 HY 00 05 09 01 30 30 WA [address] 17 -2 -1 .0 L- 50 UR ti OC 22 2- 1- 00 MA 82 EN ve HL 08 20 20 RT 4 O- OR 98 08 08 AL OT 0 PH VA HI M RE AZ 10 Z ID -1 LI E 51 AH 50 0 J MG TA B ME 00 05 09 01 30 10 WA 70 BL Ac TH 60 -2 -1 .0 L- 52 EC ti OC 34 9- 1- 00 MA 02 HE ve AR 48 20 20 RT 9 R BA 62 08 08 SA MO 1 PH UL L M 75 10 0 -1 MG 51 0 TA BL ET LI 54 05 09 01 30 30 WA 70 LA Ac SI 45 -2 -1 .0 L- 51 UR ti NO 80 5- 1- 00 MA 25 EN ve IA 99 20 20 RT 9 O- IL 41 08 08 AL 0 PH VA 40 M RE 10 Z MG -1 LI 51 AH TA 0 J BL ET 00 04 09 02 12 30 WA [...] AH 75 0 J MG TA B IA 00 09 09 00 30 30 WA [...] -1 MG 51 0 TA BL ET 54 05 09 01 60 30 WA 70 BL Ac 45 -0 -1 .0 L- 47 EC ti 80 6- 1- 00 MA 62 HE ve 97 20 20 RT 3 R 60 08 08 SA 7 PH UL M 10 -1 51 0 00 06 07 00 60 20 WA [...] 50 D 0 MG TA BL ET 00 06 07 00 15 10 KR 45 No Ac AI 12 -1 -0 0. OG 38 t ti FE 10 9- 3- 00 ER 17 Av ve NE 77 20 20 0 6 ai SI 51 08 08 PH la N- 6 AR bl CO MA e DE CY IN E #9 SY 01 RU P AC 00 06 07 00 21 7 KR 65 No Ac YC 09 -1 -0 .0 OG 65 t ti LO 38 9- 3- 00 ER 06 Av ve 94 20 20 3 ai R 30 08 08 PH la 40 1 AR bl 0 MA e MG CY TA #9 BL 01 ET TR 00 05 06 00 90 30 WA 70 No Ac AM 37 -2 -0 .0 L- 52 t ti AD 84 9- 5- 00 MA 02 Av ve OL 15 20 20 RT 8 ai 10 08 08 la HC 1 PH bl L M e 50 10 -1 MG 51 0 TA BL ET ME 00 05 06 [...] MG -1 51 TA 0 BL ET IA 00 02 06 02 30 30 WA [...] -1 51 75 0 MG TA B LI 54 05 06 00 30 30 WA 70 No Ac SI 45 -2 -0 .0 L- 51 t ti NO 80 5- 5- 00 MA 25 Av ve IA 99 20 20 RT 9 ai IL [...] MG -1 51 TA 0 BL ET GA 59 04 04 30 70 No Ac BA 76 -1 -2 0. L- 43 t ti PE 25 7- 4- 00 MA 91 Av ve NT 02 20 20 0 RT 8 ai IN 30 08 08 la 1 PH bl 60 M e 0 10 MG -1 51 TA 0 BL ET DI 00 04 04 60 30 70 No Ac CL 78 -1 -2 .0 L- 43 t ti OF 11 7- 4- 00 MA 91 Av ve EN 78 20 20 RT 9 ai AC 90 08 08 la 1 PH bl SO M e D 10 EC -1 51 75 0 MG TA B ME 00 02 04 30 10 70 No Ac TH 60 -0 -2 .0 L- 38 t ti OC 34 6- 4- 00 MA 58 Av ve AR 48 20 20 RT 9 ai BA 62 08 08 la MO 1 PH bl L M e 75 10 0 -1 MG 51 0 TA BL ET HY 00 02 04 30 [address] 17 -0 -2 .0 L- 38 t ti OC 22 6- 4- 00 MA 58 Av ve HL 08 20 20 RT 7 ai OR 98 08 08 la OT 0 PH bl HI M e AZ 10 ID -1 E 51 50 0 MG TA B LI 54 02 04 30 30 70 No Ac SI 45 -0 -2 .0 L- 38 t ti NO 80 6- 4- 00 MA 58 Av ve IA 99 20 20 RT 6 ai IL 41 08 08 la 0 PH bl 40 M e 10 MG -1 51 TA 0 BL ET IA 00 02 04 09 17 30 70 No Ac EM 04 -0 -2 .0 L- 38 t ti AR 61 6- 4- 00 MA 58 Av ve IN 10 20 20 RT 8 ai 28 08 08 la 0. 1 PH bl 62 M e 5 10 MG -1 51 TA 0 BL ET AL 00 02 04 09 17 30 70 No Ac LO 59 -2 -1 [...] bl M e 10 -1 51 0 IA 00 02 04 00 30 30 WA 70 No Ac EM 04 -0 -1 .0 L- 38 t ti AR 61 6- 7- 00 MA 58 Av ve IN 10 20 20 RT 8 ai 28 08 08 la 0. 1 PH bl 62 M e 5 10 MG -1 51 TA 0 BL ET HY 00 02 04 00 30 30 WA [address] 17 -0 -1 .0 L- 38 t ti OC 22 6- 7- 00 MA 58 Av ve HL 08 20 20 RT 7 ai OR 98 08 08 la OT 0 PH bl HI M e AZ 10 ID -1 E 51 50 0 MG TA B ME 00 02 04 00 30 10 WA 70 No Ac TH 60 -0 -1 .0 L- 38 t ti OC 34 6- 7- 00 MA 58 Av ve AR 48 20 20 RT 9 ai BA 62 08 08 la MO 1 PH bl L M e 75 10 0 -1 MG 51 0 TA BL ET LI 54 02 04 00 30 30 WA 70 No Ac SI 45 -0 -1 .0 L- 38 t ti NO 80 6- 7- 00 MA 58 Av ve IA 99 20 20 RT 6 ai IL [...] S la 5 19 bl 09 e 00 02 03 00 12 30 WA [...] 6- 6- 00 MA 36 Av ve IA 51 20 20 RT 2 ai IL [...] 10 -2 MG 96 7 TA B IA 00 02 03 00 30 30 WA 67 No Ac EM 04 -0 -2 .0 L 05 t ti AR 61 6- 6- 00 MA 36 Av ve IN 10 20 20 RT 8 ai 28 08 08 la 0. 1 PH bl 62 AR e 5 MA MG CY TA 10 BL -2 ET 96 7 ME 00 02 03 00 30 10 WA 67 No Ac TH 60 -0 -2 .0 L 05 t ti OC 34 6- 6- 00 MA 36 Av ve AR 48 20 20 RT 9 ai BA 62 08 08 la MO 1 PH bl L AR e 75 MA 0 CY MG 10 TA -2 BL 96 ET 7 AL 00 02 03 00 30 30 WA 70 No Ac LO 59 -2 -2 .0 L- 33 t ti PU 15 0- 6- 00 MA 06 Av ve RI 54 20 20 RT 3 ai NO 30 08 08 la L 1 PH bl 10 M e 0 10 MG -1 51 TA 0 BL ET Procedures Procedure DOS Code Location Performer Comment OTHER 0309 [facility] EXPLORATI 4 N N ON&DECOMP [facility] 8659 [facility] SKIN&SUBC [address] [place] [address] [facility] TISSUE OTHER SITES APPLICATI 9354 [facility] ON OF 8 [facility] Encounters Encounter Start End Date Code Location Performer Type Date [facility] - 7 7 [facility] OUTPAT[facility]EN [facility] 7 7 [facility] - 7 7 [facility] AND[facility] - 7 7 [facility] - [facility] 7 [facility] - 7 7 [facility] - 7 7 [facility] - 7 7 [facility] - 7 7 [facility] - 7 7 [facility] - 7 7 [facility] - 7 7 [facility] - 7 7 [facility] - 7 7 [facility] - 7 7 [facility] - 7 7 [facility] - 7 7 [facility] - 7 7 [facility] - 7 7 [facility] - 7 7 [facility] - 6 6 [facility] - 6 6 [facility] - [facility] 6 [facility] - 6 6 [facility] - 6 6 [facility] - 6 6 [facility] - 6 6 Y [facility] ANDRY - 6 6 [facility] - 6 6 [facility] - 6 6 [facility]RY - 6 6 [facility] ANDRY - 6 6 [facility] ANDRY - 6 6 [facility]IVERS[facility] - [address] [facility] ANDRY - 6 6 [facility] ANDRY - 6 6 [facility] - 6 6 [facility] - 6 6 [facility] ANDRY - 6 6 [facility] ANDRY - 6 6 [facility] ANDRY - 6 6 [facility] ANDRY - 6 6 [facility] ANDRY - 5 5 [facility] UNIVERSIT - 5 5 Y [facility] ANDRY - 5 5 [facility] - 5 5 Y [facility] ANDRY - 5 5 [facility] - 5 5 [facility] ANDRY - 5 5 [facility]RY - 5 5 [facility]RY - 4 4 [facility] - 4 4 [facility] [place] - 4 4 [facility] ANDRY - 4 4 [facility] ANDRY [facility] 4 4 [facility] ANDRY - 3 3 [facility] ANDRY - 3 3 [facility] ST - 3 3 [facility] ST - 3 3 [facility] ANDRY - 3 3 [facility] - 3 3 [facility] ST - 3 3 [facility] ANDRY - 3 3 [facility] - 2 2 [facility] - 2 2 [facility] - 2 2 [facility] - 2 2 [facility] - 2 2 [facility] - 2 2 [facility] - 2 2 [facility] - 2 2 [facility] - 2 2 [facility] - 2 2 [facility] - 2 2 [facility] - 1 1 [facility] - 1 1 [facility] - [facility] - [facility] - 1 1 [facility] - 1 1 [facility] - 1 1 [facility] - 1 [facility] - [facility] - 0 [facility] - 0 0 [facility] - 0 0 [facility] - 0 0 [facility] - [address] [facility] - 0 0 [facility] - 0 0 [facility] - 0 0 [facility] - 0 0 [facility] [place] [id number] [facility] [place] [id number] [facility] [address] [place] [id number] [facility] [place] [id number] [facility] [place] [id number] [facility]
--- OUTSIDE RECORDS SUMMARY | 2017-07-20 17:41 | External Medical Summary Rpt | CCD ---
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 01-09-2008 [facility] UNSPECIF[facility]IMARY C[facility] 00071 UNSPECIFIED 01-01-2008 FANG, SITE OF NOE Zuniga ANKLE SPRAIN AND STRAIN 94678 PAIN IN 10-21-2007 [facility] ANKLE [...] BA 00 10 11 90 30 00 MA Ac CL 83 -2 -1 .0 00 L- ti OF 21 4- 7- 00 07 MA ve EN 02 20 20 51 RT 45 17 17 07 10 0 84 PH AR MG MA CY TA BL #5 ET 91 AD 00 10 11 12 30 00 MA Ac VA 17 -2 -1 .0 00 L- ti IR 30 4- 7- 00 07 MA ve 71 20 20 51 RT HF 72 17 17 07 A 0 67 PH 23 AR 0- MA 21 CY MC #5 G 91 IN VILLAVICENCIO LE R AT 68 10 11 30 30 00 MA Ac OR 64 -2 -1 .0 00 L- ti VA 50 4- 7- [address] 45 20 20 51 RT AT 85 17 17 07 IN 4 75 PH AR 10 MA CY MG #5 TA 91 BL ET 64 10 11 4. 28 00 MA Ac T 38 -2 -1 00 00 L- ti D2 00 4- 7- 0 07 MA ve 73 20 20 51 RT 1. 70 17 17 27 25 6 15 PH AR MG MA CY (5 0, #5 00 91 0 UN IT ) BD 08 10 11 10 28 00 MA Ac 29 -2 -1 0. 00 L- ti UL 03 4- 7- 00 08 MA ve TR 20 20 20 0 84 RT A- 10 17 17 11 FI 9 42 PH NE AR MA PE CY N ND #5 L 91 8M MX 31 G NO 00 10 11 30 18 00 MA Ac VO 16 -2 -1 .0 00 L- ti LO 93 4- 7- 00 07 MA ve G 69 20 20 51 RT MT 61 17 17 73 X 9 32 PH 70 AR -3 MA 0 CY FL EX #5 PE 91 N SY RN QU 16 10 11 30 30 00 MA Ac ET 72 -2 -1 .0 00 L- ti IA 90 4- 7- 00 07 MA ve PI 14 20 20 51 RT NE 60 17 17 07 1 69 PH FU AR MA MA RA CY TE #5 50 91 MG TA B MO 57 10 11 30 30 00 MA Ac NT 23 -2 -1 .0 00 L- ti EL 70 4- 7- 00 07 MA ve UK 25 20 20 51 RT 53 17 17 07 T 0 70 PH SO AR D MA 10 CY MG #5 91 TA BL ET OM 60 10 11 30 30 00 MA Ac EP 50 -2 -1 .0 00 L- ti RA 50 4- 7- 00 07 MA ve ZO 14 20 20 51 RT LE 60 17 17 [address] AR MA 40 CY MG #5 91 CA PS UL E FR 99 10 11 10 34 00 MA Ac EE 07 -2 -1 0. 00 L- ti ST 30 4- 7- 00 08 MA ve YL 13 20 20 0 84 RT E 00 17 17 11 28 1 41 PH G AR LA MA NC CY ET S #5 91 FA 68 10 11 60 30 00 MA Ac MO 64 -2 -1 .0 00 L- ti TI 50 4- 7- 00 07 MA ve DI 14 20 20 50 RT NE 05 17 17 80 9 72 PH 20 AR MA MG CY TA #5 BL 91 ET LO 68 10 11 30 30 00 MA Ac SA 64 -2 -1 .0 00 L- ti RT 50 4- 7- 00 07 MA ve AN 41 20 20 51 RT 15 17 17 07 PO 4 71 PH TA AR SS MA IU CY M 10 #5 0 91 MG TA B AM 68 10 11 30 30 00 MA Ac LO 64 -2 -1 .0 00 L- ti DI 50 4- 7- 00 07 MA ve PI 51 20 20 51 RT NE 65 17 17 07 4 73 PH BE AR SY MA LA CY TE #5 10 91 MG TA B SP 00 10 11 30 30 00 MA Ac IR 22 -2 -1 .0 00 L- ti ON 82 4- 7- 00 07 MA ve OL 80 20 20 51 RT AC 31 17 17 07 TO 1 72 PH NE AR MA 25 CY MG #5 91 TA BL ET FE 00 10 11 30 30 00 MA Ac NO 09 -2 -1 .0 00 L- ti FI 37 4- 7- 00 07 MA ve BR 75 20 20 51 RT AT 69 17 17 07 E 8 74 PH 14 AR 5 MA MG CY TA #5 BL 91 ET CI 54 10 11 30 30 00 MA Ac TA 45 -2 -1 .0 00 L- ti LO 80 4- 7- 00 07 MA ve AR 88 20 20 51 RT AM 91 17 17 07 0 79 PH HB AR R MA 40 CY MG #5 91 TA BL ET IN 50 10 11 30 30 00 MA Ac VO 45 -2 -1 .0 00 L- ti KA 80 4- 7- 00 07 MA ve NA 14 20 20 51 RT 13 17 17 07 30 0 65 PH 0 AR MG MA CY TA BL #5 ET 91 HY 00 10 11 [address] 18 -2 -1 .0 00 L- ti OX 50 4- 7- 00 07 MA ve YZ 67 20 20 51 RT IN 40 17 17 07 E 1 76 PH PA AR M MA 25 CY MG #5 91 CA P FI 00 10 11 30 30 00 MA Ac SH 90 -2 -1 .0 00 L- ti 44 5- 7- 00 08 MA ve OI 04 20 20 84 RT L 36 17 17 12 1, 0 27 PH 00 AR 0 MA MG CY CA #5 PS 91 UL E TR 59 10 11 1. 1 00 MA Ac IA 76 -1 -1 00 00 L- ti ZO 23 6- 0- 0 04 MA ve LA 71 20 20 53 RT M 80 17 17 26 0. 9 02 PH 25 AR MA MG CY TA #5 BL 91 ET ON 53 10 11 10 34 00 MA Ac ET 88 -1 -1 0. 00 L- ti OU 50 6- 0- 00 08 MA ve CH 24 20 20 0 84 RT 51 17 17 09 UL 0 14 PH TR AR A MA TE CY ST #5 ST 91 RI PS NO 00 10 11 30 23 00 MA Ac VO 16 -0 -0 .0 00 L- ti LO 93 7- 3- 00 07 MA ve G 69 20 20 50 RT MT 61 17 17 99 X 9 16 PH 70 AR -3 MA 0 CY FL EX #5 PE 91 N SY RN 64 10 10 4. 28 00 MA Ac T 38 -0 -2 00 00 L- ti D2 00 3- 7- 0 07 MA ve 73 20 20 51 RT 1. 70 17 17 07 25 6 82 PH AR MG MA CY (5 0, #5 00 91 0 UN IT ) FR 99 09 10 10 34 00 MA Ac EE 07 -1 -1 0. 00 L- ti ST 30 5- 3- 00 08 MA ve YL 13 20 20 0 84 RT E 00 17 17 11 28 1 41 PH G AR LA MA NC CY ET S #5 91 NO 00 09 10 30 23 00 MA Ac VO 16 -1 -1 .0 00 L- ti LO 93 5- 3- 00 07 MA ve G 69 20 20 50 RT MT 61 17 17 99 X 9 16 PH 70 AR -3 MA 0 CY FL EX #5 PE 91 N SY RN FI 00 09 10 30 30 00 MA Ac SH 90 -1 -1 .0 00 L- ti 44 5- 3- 00 08 MA ve OI 04 20 20 84 RT L 36 17 17 11 1, 0 55 PH 00 AR 0 MA MG CY CA #5 PS 91 UL E AZ 50 09 10 6. 5 00 MA Ac IT 11 -2 -1 00 00 L- ti HR 10 0- 3- 0 07 MA ve OM 78 20 20 51 RT YC 75 17 17 07 IN 1 80 PH AR 25 MA 0 CY MG #5 TA 91 BL ET GA 00 09 10 90 30 00 MA Ac BA 22 -2 -1 .0 00 L- ti PE 82 0- 3- 00 04 MA ve NT 63 20 20 53 RT IN 71 17 17 21 1 89 PH 80 AR 0 MA MG CY TA #5 BL 91 ET ON 53 08 09 10 34 00 MA Ac ET 88 -3 -2 0. 00 L- ti OU 50 1- 9- 00 08 MA ve CH 24 20 20 0 84 RT 51 17 17 09 UL 0 14 PH TR AR A MA TE CY ST #5 ST 91 RI PS IN 50 09 09 30 30 00 MA Ac VO 45 -0 -2 .0 00 L- ti KA 80 5- 9- 00 07 MA ve NA 14 20 20 48 RT 13 17 17 89 30 0 07 PH 0 AR MG MA CY TA BL #5 ET 91 OM 60 09 09 30 30 00 MA Ac EP 50 -0 -2 .0 00 L- ti RA 50 5- 9- 00 07 MA ve ZO 14 20 20 48 RT LE 60 17 17 [address] AR MA 40 CY MG #5 91 CA PS UL E BA 00 09 05 03 31 00 MA Ac SA 00 -0 -2 .0 00 L- ti GL 27 07 MA ve AR 71 20 20 48 RT 55 17 17 95 10 9 02 PH 0 AR UN MA IT CY /M L #5 KW 91 IK PE N FE 00 MA Ac NO 09 -0 -2 .0 00 L- ti FI 37 07 MA ve BR 75 20 20 48 RT AT 69 17 17 89 E 8 12 PH 14 AR 5 MA MG CY TA #5 BL 91 ET LO 68 MA Ac SA 64 -0 -2 .0 00 L- ti RT 50 07 MA ve AN 41 20 20 48 RT 15 17 17 89 PO 4 08 PH TA AR SS MA IU CY M 10 #5 0 91 MG TA B SP 59 MA Ac IR 74 -0 -2 .0 00 L- ti ON 60 07 MA ve OL 21 20 20 48 RT AC 60 17 17 89 TO 1 24 PH NE AR MA 25 CY MG #5 91 TA BL ET HY [address] 18 -0 -2 .0 00 L- ti OX 50 07 MA ve YZ 67 20 20 50 RT IN 40 17 17 80 E 1 09 PH PA AR M MA 25 CY MG #5 91 CA P MO 57 MA Ac NT 23 -0 -2 .0 00 L- ti EL 70 07 MA ve UK 25 20 20 50 RT 53 17 17 80 T 0 10 PH SO AR D MA 10 CY MG #5 91 TA BL ET QU 16 MA Ac ET 72 -0 -2 .0 00 L- ti IA 90 07 MA ve PI 14 20 20 50 RT NE 60 17 17 80 1 12 PH FU AR MA MA RA CY TE #5 50 91 MG TA B CI 54 MA Ac TA 45 -0 -2 .0 00 L- ti LO 80 07 MA ve AR 88 20 20 50 RT AM 91 17 17 80 0 13 PH HB AR R MA 40 CY MG #5 91 TA BL ET BA 00 04 27 90 30 MA Ac CL 83 -0 -2 .0 00 [...] 50 6- 9- 00 07 MA ve AR 55 20 20 50 RT IL 25 [...] FA 68 09 09 60 30 00 MA Ac MO 64 -0 -2 .0 00 [...] S 64 07 08 4. 28 00 MA Ac T 38 -1 -1 00 00 L- ti D2 00 3- 1- 0 07 MA ve 73 20 20 48 RT 1. 70 17 17 89 25 6 26 PH AR MG MA CY (5 0, #5 00 91 0 UN IT ) ON 53 07 08 10 30 00 MA Ac ET 88 -1 -1 0. 00 L- ti OU 50 3- 1- 00 08 MA ve CH 13 20 20 0 84 RT 61 17 17 00 DE 0 52 PH LI AR CA MA CY 33 G #5 LA 91 NC ET S NY 43 07 08 60 [address] 38 -1 -1 .0 00 L- ti AT 60 3- 1- 00 07 MA ve IN 53 20 20 49 RT 00 17 17 53 10 6 51 PH 0, AR 00 MA 0 CY UN IT #5 /G 91 M PO WD BA 00 07 08 15 31 00 MA Ac SA 00 -1 -1 .0 00 L- ti GL 27 3- 1- 00 07 MA ve AR 71 20 20 48 RT 55 17 17 95 10 9 02 PH 0 AR UN MA IT CY /M L #5 KW 91 IK PE N BA 00 07 08 90 30 00 MA Ac CL 83 -1 -1 .0 00 L- ti OF 21 3- 1- 00 07 MA ve EN 02 20 20 48 RT 45 17 17 89 10 0 16 PH AR MG MA CY TA BL #5 ET 91 CI 54 07 08 30 30 00 MA Ac TA 45 -1 -1 .0 00 L- ti LO 80 3- 1- 00 07 MA ve AR 88 20 20 48 RT AM 91 17 17 89 0 09 PH HB AR R MA 40 CY MG #5 91 TA BL ET FA 68 07 08 60 30 00 MA Ac MO 64 -1 -1 .0 00 L- ti TI 50 3- 1- 00 07 MA ve DI 14 20 20 48 RT NE 05 17 17 89 9 11 PH 20 AR MA MG CY TA #5 BL 91 ET FE 00 07 08 30 30 00 MA Ac NO 09 -1 -1 .0 00 L- ti FI 37 3- 1- 00 07 MA ve BR 75 20 20 48 RT AT 69 17 17 89 E 8 12 PH 14 AR 5 MA MG CY TA #5 BL 91 ET HY 00 07 08 30 [address] 18 -1 -1 .0 00 L- ti OX 50 3- 1- 00 07 MA ve YZ 67 20 20 48 RT IN 40 17 17 89 E 1 05 PH PA AR M MA 25 CY MG #5 91 CA P IN 50 07 08 30 30 00 MA Ac VO 45 -1 -1 .0 00 L- ti KA 80 3- 1- 00 07 MA ve NA 14 20 20 48 RT 13 17 17 89 30 0 07 PH 0 AR MG MA CY TA BL #5 ET 91 LO 68 07 08 30 30 00 MA Ac SA 64 -1 -1 .0 00 L- ti RT 50 3- 1- 00 07 MA ve AN 41 20 20 48 RT 15 17 17 89 PO 4 08 PH TA AR SS MA IU CY M 10 #5 0 91 MG TA B NO 00 07 08 15 25 00 MA Ac VO 16 -1 -1 .0 00 L- ti LO 96 3- 1- 00 07 MA ve G 33 20 20 48 RT 10 91 17 17 89 0 0 19 PH UN AR IT MA S/ CY ML #5 FL 91 EX PE N MO 31 07 08 30 30 00 MA Ac NT 72 -1 -1 .0 00 L- ti EL 20 3- 1- 00 07 MA ve UK 72 20 20 48 RT 61 17 17 89 T 0 17 PH SO AR D MA 10 CY MG #5 91 TA BL ET OM 60 07 08 30 30 00 MA Ac EP 50 -1 -1 .0 00 L- ti RA 50 3- 1- 00 07 MA ve ZO 14 20 20 48 RT LE 60 17 17 [address] AR MA 40 CY MG #5 91 CA PS UL E QU 16 07 08 30 30 00 MA Ac ET 72 -1 -1 .0 00 L- ti IA 90 3- 1- 00 07 MA ve PI 14 20 20 48 RT NE 60 17 17 89 1 21 PH FU AR MA MA RA CY TE #5 50 91 MG TA B SP 59 07 08 30 30 00 MA Ac IR 74 -1 -1 .0 00 L- ti ON 60 3- 1- 00 07 MA ve OL 21 20 20 48 RT AC 60 17 17 89 TO 1 24 PH NE AR MA 25 CY MG #5 91 TA BL ET AT 68 07 08 30 30 00 MA Ac OR 64 -1 -1 .0 00 [...] LI 68 07 08 30 30 00 MA Ac SI 18 -1 -1 .0 00 L- ti NO 00 4- 1- 00 07 MA ve AR 98 20 20 49 RT IL 00 17 17 88 1 72 PH 10 AR MA MG CY TA #5 BL 91 ET AD 00 07 08 12 30 00 MA Ac VA 17 -1 -1 .0 00 L- ti IR 30 4- 1- 00 07 MA ve 71 20 20 49 RT HF 72 17 17 88 A 0 73 PH 23 AR 0- MA 21 CY MC #5 G 91 IN VILLAVICENCIO LE R FL 55 06 07 1. 1 00 MA Ac UC 11 -2 -2 00 00 L- ti ON 10 3- 1- 0 07 MA ve AZ 14 20 20 49 RT OL 51 17 17 53 E 2 50 PH 15 AR 0 MA MG CY TA #5 BL 91 ET [place] 43 06 07 60 [address] 38 -2 -2 .0 00 L- ti AT 60 3- 1- 00 07 MA ve IN 53 20 20 49 RT 00 17 17 53 10 6 51 PH 0, AR 00 MA 0 CY UN IT #5 /G 91 M PO WD ON 53 06 06 10 34 00 MA Ac ET 88 -0 -3 0. 00 L- ti OU 50 3- 0- 00 08 MA ve CH 24 20 20 0 83 RT 51 17 17 97 UL 0 45 PH TR AR A MA TE CY ST #5 ST 91 RI PS ON 53 06 06 1. 1 00 MA Ac ET 88 -0 -3 00 00 L- ti OU 50 5- 0- 0 08 MA ve CH 44 20 20 83 RT 80 17 17 97 UL 1 76 PH TR AR A2 MA CY GL UC #5 OS [address] HY 00 06 06 [address] 40 -0 -3 .0 00 L- ti OC 60 5- 0- 00 02 MA ve OD 12 20 20 24 RT ON 40 17 17 06 -A 1 17 PH CE AR TA MA MT CY NO PH #5 91 7. 5- 32 5 ON 53 06 06 10 34 00 MA Ac ET 88 -0 -3 0. 00 L- ti OU 50 2- 0- 00 08 MA ve CH 13 20 20 0 83 RT 61 17 17 97 DE 0 46 PH LI AR CA MA CY 33 G #5 LA 91 NC ET S RE 08 05 01 26 30 00 MA Ac LI 39 -2 -2 0. 00 L- ti ON 69 3 00 08 MA ve 01 20 20 0 83 RT PE 63 17 17 95 N 4 42 PH NE AR ED MA LE CY 31 #5 GX 91 " SP 59 05 30 30 00 MA Ac IR 74 -1 -1 .0 00 L- ti ON 60 07 MA ve OL 21 20 20 48 RT AC 60 17 17 06 TO 1 59 PH NE AR MA 25 CY MG #5 91 TA BL ET LO 68 05 02 15 30 00 MA Ac SA 64 -1 -1 .0 00 L- ti RT 50 8 6 00 07 MA ve AN 41 20 20 48 RT 17 17 17 06 PO 0 60 PH TA AR SS MA IU CY M 10 #5 0 91 MG TA B HY 00 12 22 [address] 18 -1 -1 .0 00 L- ti OX 50 9 6- 00 07 MA ve YZ 67 20 20 48 RT IN 40 17 17 89 E 1 05 PH PA AR M MA 25 CY MG #5 91 CA P GA 00 05 30 00 MA Ac BA 22 -1 -1 .0 00 L- ti PE 82 9- 6- 00 07 MA ve NT 63 20 20 48 RT IN 71 17 17 89 1 06 PH 80 AR 0 MA MG CY TA #5 BL 91 ET IN 50 05 02 15 30 00 MA Ac VO 45 -1 -1 .0 00 L- ti KA 80 9 6- 00 07 MA ve NA 14 20 20 48 RT 13 17 17 89 30 0 07 PH 0 AR MG MA CY TA BL #5 ET 91 CI 54 05 30 30 00 MA Ac TA 45 -1 -1 .0 00 L- ti LO 80 9 6- 00 07 MA ve AR 88 20 20 48 RT AM 91 17 17 89 0 09 PH HB AR R MA 40 CY MG #5 91 TA BL ET FA 68 05 06 60 30 00 MA Ac MO 64 -1 -1 .0 00 L- ti TI 50 9 6- 00 07 MA ve DI 14 20 20 48 RT NE 05 17 17 89 9 11 PH 20 AR MA MG CY TA #5 BL 91 ET FE 00 12 22 29 30 00 MA Ac NO 09 -1 -1 .0 00 L- ti FI 37 9- 6- 07 MA ve BR 75 20 20 48 RT AT 69 17 17 89 E 8 12 PH 14 AR 5 MA MG CY TA #5 BL 91 ET BA 00 05 06 30 00 MA Ac CL 83 -1 -1 .0 00 L- ti OF 21 07 MA ve EN 02 20 20 48 RT 45 17 17 89 10 0 16 PH AR MG MA CY TA BL #5 ET 91 MO 31 00 MA Ac NT 72 -1 -1 .0 00 L- ti EL 20 07 MA ve UK 72 20 20 48 RT 61 17 17 89 T 0 17 PH SO AR D MA 10 CY MG #5 91 TA BL ET NO 00 12 22 15 00 MA Ac VO 16 -1 -1 .0 00 L- ti LO 96 9 6- 07 MA ve G 33 20 20 48 RT 10 91 17 17 89 0 0 19 PH UN AR IT MA S/ CY ML #5 FL 91 EX PE N OM 60 00 [facility] EP 50 -1 -1 .0 00 L- ti RA 50 9 6- 00 07 MA ve ZO 14 20 20 48 RT LE 60 17 17 [address] AR MA 40 CY MG #5 91 CA PS UL E QU 16 00 MA Ac ET 72 -1 -1 .0 00 L- ti IA 90 9 6- 00 07 MA ve PI 14 20 20 48 RT NE 60 17 17 89 1 21 PH FU AR MA MA RA CY TE #5 50 91 MG TA B 64 05 06 4. 28 00 MA Ac T 38 -1 -1 00 00 L- ti D2 00 9- 6- 0 07 MA ve 73 20 20 48 RT 1. 70 17 17 89 25 6 26 PH AR MG MA CY (5 0, #5 00 91 0 UN IT ) LI 54 05 02 15 30 00 MA Ac SI 45 -1 -1 .0 00 L- ti NO 80 9 6- 07 MA ve AR 99 20 20 48 RT IL 71 17 17 89 0 68 PH 10 AR MA MG CY TA #5 BL 91 ET AT 68 05 02 15 30 00 MA Ac OR 64 -1 -1 .0 00 [...] AD 00 05 06 12 30 00 MA Ac VA 17 -2 -1 .0 00 L- ti IR 30 2- 6- 00 07 MA ve 71 20 20 48 RT HF 72 17 17 89 A 0 70 PH 23 AR 0- MA 21 CY MC #5 G 91 IN VILLAVICENCIO LE R BA 00 05 06 15 31 00 MA Ac SA 00 -2 -1 .0 00 [...] 5 83 PH CE AR TA MA MT CY NO PH OF CY 7. NT 5- HI 32 AN 5 A IN C IN 00 04 05 30 30 00 MA Ac CR 17 -1 -0 .0 00 L- ti US 30 0- 5- 00 07 MA ve E 87 20 20 48 RT EL 31 17 17 06 LI 0 61 PH PT AR A MA 62 CY .5 #5 MC 91 G IN H HY 00 03 04 [address] 40 -3 -2 .0 00 L- ti OC 60 0- 8- 00 02 MA ve OD 12 20 20 23 RT ON 30 17 17 97 -A 1 50 PH CE AR TA MA MT CY NO PH #5 EN 91 5- [...] AM 00 04 04 20 10 00 MA Ac OX 78 -0 -2 .0 00 L- ti -C 11 3- 8- 00 07 MA ve LA 85 20 20 48 RT V 22 17 17 00 87 0 77 PH 5- AR 12 MA 5 CY MG #5 TA 91 BL ET BE 68 04 04 24 8 00 MA Ac NZ 38 -0 -2 .0 00 L- ti ON 20 3- 8- 00 07 MA ve AT 24 20 20 48 RT AT 70 17 17 00 E 1 78 PH 10 AR 0 MA MG CY CA #5 PS 91 UL E ME 59 04 04 21 6 00 MA Ac TH 74 -0 -2 .0 00 L- ti YL 60 3- 8- 00 07 MA ve AR 00 20 20 48 RT ED 10 17 17 00 NI 3 79 PH SO AR LO MA NE CY 4 #5 MG 91 DO SE PK AL 00 04 04 22 25 00 MA Ac BU 48 -0 -2 5. 00 L- ti TE 79 5- 8- 00 07 MA ve RO 50 20 20 0 48 RT L 12 17 17 06 PARDO 5 57 PH L AR 2. MA 5 CY MG /3 #5 [address] SP 59 04 04 30 30 00 MA Ac IR 74 -0 -2 .0 00 L- ti ON 60 5 8 00 07 MA ve OL 21 20 20 48 RT AC 60 17 17 06 TO 1 59 PH NE AR MA 25 CY MG #5 91 TA BL ET LO 68 04 04 30 30 00 MA Ac SA 64 -0 -2 .0 00 [...] HY 00 03 04 7. [address] 40 -2 -2 00 00 L- ti OC 60 9- 1- 0 02 MA ve OD 12 20 20 23 RT ON 30 17 17 97 -A 1 21 PH CE AR TA MA MT CY NO PH #5 EN 91 5- 32 5 HI 00 03 04 11 30 00 MA Ac BI 23 -2 -1 8. 00 [...] 20 4- 4- 00 03 IC ve AR 00 20 20 61 IA AM 70 [...] FA 68 02 03 60 30 00 MA Ac MO 64 -1 -1 .0 00 L- ti TI 50 6- 7- 00 07 MA ve DI 14 20 20 47 RT NE 05 17 17 11 9 33 PH 20 AR MA MG CY TA #5 BL 91 ET ES 00 02 03 30 30 00 MA Ac TR 55 -1 -1 .0 00 L- ti AD 50 7- 7- 00 07 MA ve IO 88 20 20 47 RT L 70 17 17 14 2 4 51 PH MG AR MA TA CY BL ET #5 91 MT 13 02 03 14 7 00 MA Ac NO 66 -2 -1 .0 00 L- ti CY 80 1- 7- 00 07 MA ve CL 48 20 20 47 RT IN 45 17 17 19 E 0 59 PH 10 AR 0 MA MG CY CA #5 PS 91 UL E MU 68 02 03 22 7 00 MA Ac PI 46 -2 -1 .0 00 L- ti RO 20 1- 7- 00 07 MA ve CI 18 20 20 47 RT N 02 17 17 19 2% 2 62 PH AR OI MA NT CY ME NT #5 91 BE 68 02 03 15 5 00 MA Ac NZ 38 -1 -1 .0 00 L- ti ON 20 1- 0- 00 07 MA ve AT 24 20 20 47 RT AT 70 17 17 01 E 1 23 PH 10 AR 0 MA MG CY CA #5 PS 91 UL E SP 53 02 03 30 30 00 MA Ac IR 48 -1 -1 .0 00 L- ti ON 90 3- 0- 00 07 MA ve OL 14 20 20 47 RT AC 30 17 17 05 TO 1 18 PH NE AR MA 25 CY MG #5 91 TA BL ET LO 68 02 03 30 30 00 MA Ac SA 64 -1 -1 .0 00 [...] AN LE CE R , IN C. AR 51 01 02 60 30 00 PH [...] 20 6- 4- 00 03 IC ve AR 00 20 20 61 IA AM 70 [...] 10 0- 3- 00 07 MA ve MT 47 20 20 46 RT 01 17 [...] 70 9- 7- 00 03 IC ve AR 35 20 20 60 IA IL 31 [...] BL AN ET CE , IN C. AR 51 12 01 60 30 00 PH [...] 50 8- 0- 00 03 IC ve MT 10 20 20 40 IA N 41 16 17 21 NS HC 0 11 L PH 1, AR 00 MA 0 CY MG AL TA LI BL AN ET CE , IN C. CI 65 12 30 30 00 PH Ac TA 16 -2 -2 .0 00 YS ti LO 20 8- 0- 00 03 IC ve AR 05 20 20 54 IA AM 45 [...] 4- 4 00 RE 41 AN ve AR 51 20 20 EN 5 IL 70 [...] 11 S AN E 6 #5 NA AR 76 OP 3 # 50 57 63 [...] 8- 1- 00 RE 42 EY ve AR 00 20 20 EN 7 ED 10 11 11 S MT NI 3 #5 CH SO 76 AE [...] 11 S AN E 6 #5 NA AR 76 OP 3 # 50 57 63 [...] 1- 2- 00 RE 52 AN ve AR 51 20 20 EN 8 IL 70 [...] NE 00 01 09 6 30 30 MA 37 GE Ac XI 18 -3 -1 .0 LG 15 IM ti UM 65 1- 2- 00 RE 53 AN ve 04 [address] 03 11 11 S AN 1 #5 NA 40 76 3 MG # 57 CA 63 PS UL E CR 00 02 09 3 30 30 MA 37 GE Ac ES 31 -2 -1 .0 LG 31 IM ti TO 00 RE 53 AN ve R 75 20 20 EN 8 20 29 11 11 S AN 0 #5 NA MG 76 3 TA # BL 57 ET 63 AM 68 04 09 3 30 30 MA 37 CO Ac LO 18 -0 -1 .0 LG 51 TT ti DI 00 RE 18 ON ve PI 75 20 20 EN 8 NE 20 11 11 S RO 3 #5 BI BE 76 N SY 3 T LA # TE 57 63 10 MG TA B LI 68 01 08 3 30 30 MA 37 GE Ac SI 18 -3 -0 .0 LG 15 IM ti NO 00 RE 52 AN ve AR 51 20 20 EN 8 IL 70 11 11 S AN 3 #5 NA 40 76 3 MG # 57 TA 63 BL ET HY 00 01 08 3 30 30 MA [address] 17 -3 -0 .0 LG 15 IM ti OC 22 RE 52 AN ve HL 08 20 20 EN 9 OR 98 11 11 S AN OT 0 #5 NA HI 76 AZ 3 ID # E 57 50 63 MG TA B NE 00 01 08 6 30 30 MA 37 GE Ac XI 18 -3 -0 .0 LG 15 IM ti UM 65 08-27- 00 RE 53 AN ve 04 [address] 03 11 11 S AN 1 #5 NA 40 76 3 MG # 57 CA 63 PS UL E CR 00 02 08 3 30 30 MA 37 GE Ac ES 31 -2 -0 .0 LG 31 IM ti TO 00 RE 53 AN ve R 75 20 20 EN 8 20 29 11 11 S AN 0 #5 NA MG 76 3 TA # BL 57 ET 63 AM 68 04 08 3 30 30 MA 37 CO Ac LO 18 -0 -0 [...] 11 S AN E 1 #5 NA AR 76 OP 3 # 50 57 63 [...] ti NO 00 RE 52 AN ve AR 51 20 20 EN 8 IL 70 [...] 11 S SH E 1 #5 AR AR 76 ON OP 3 E # 50 [...] ti NO 00 RE 52 AN ve AR 51 20 20 EN 8 IL 70 [...] 00 8 00 RE 53 K ve AR 51 20 20 EN 8 ER IL [...] 6- 5- 00 RE 53 K ve AR 51 20 20 EN 8 ER IL [...] 6- 6- 00 RE 53 K ve AR 51 20 20 EN 8 ER IL [...] ZI ZA 71 10 10 S ER AR 0 #5 IN 76 CH E 3 RI 10 # ST 57 OP MG 63 HE R TA L BL ET AM 00 06 06 0 20 10 MA 35 GE Ac OX 78 -1 -1 [...] 76 N 3 M # 57 63 AR 00 04 04 0 6. 1 WA [...] 2 AZ V 22 10 10 S MT 87 0 #5 5- 76 12 3 5 # MG 57 63 TA BL ET ME 68 04 04 0 [address] Ac LO 18 -1 -1 .0 LG 65 AW ti XI 00 8- 8- 00 RE 57 ve CA 50 20 20 EN 3 AZ M 10 10 10 S MT 7. 3 #5 5 76 MG 3 # TA 57 BL 63 ET TR 65 04 04 0 [address] Ac AM 16 -1 -1 .0 LG 65 AW ti AD 20 8- 8- 00 RE 57 ve OL 62 20 20 EN 4 AZ 71 10 10 S MT HC 1 #5 L 76 50 3 # MG 57 63 TA BL ET LI 68 11 04 3 30 30 WA 34 RA Ac SI 18 -1 -1 .0 LG 86 NC ti NO 00 3- 3- 00 RE 38 K ve AR 51 20 20 EN 5 ER IL [...] ZI ZA 71 10 10 S ER AR 0 #5 IN 76 CH E 3 RI 10 # ST 57 OP MG 63 HE R TA L BL ET LI 68 11 02 02 30 30 WA 34 RA Ac SI 18 -1 -2 .0 LG 86 NC ti NO 00 3- 6- 00 RE 38 K ve AR 51 20 20 EN 5 ER IL [...] AZ ID E 50 MG TA B AR 50 02 02 00 60 4 WA [...] ZI ZA 71 10 10 S ER AR 0 57 IN 63 CH E RI [...] ZI ZA 71 09 10 S ER AR 0 57 IN 63 CH E RI [...] 3- 4- 00 RE 38 K ve AR 51 20 20 EN 5 ER IL [...] 3- 7- 00 RE 38 K ve AR 51 20 20 EN 5 ER IL 70 09 09 S IN 3 57 M 40 63 MG TA BL ET CY 59 11 11 00 60 30 WA 34 CO Ac CL 74 -0 -1 .0 LG 76 LG ti OB 60 9- 9- 00 RE 00 LA ve EN 17 20 20 EN 5 ZI ZA 71 09 09 S ER AR 0 57 IN 63 CH E RI [...] 1- 9- 00 RE 26 EN ve AR 51 20 20 EN 8 O- IL [...] PS OP UL HE E R L AR 00 09 08 02 30 30 WA [...] 8- 3- 00 MA 91 EN ve AR 99 20 20 RT 0 O- IL [...] 8- 4- 00 MA 91 EN ve AR 99 20 20 RT 0 O- IL [...] CY LI AH #1 J 51 0 AR 00 09 06 01 30 30 WA [...] ZI ZA 81 09 09 PH ER AR 0 AR IN MA CH E CY RI 10 ST #9 OP MG 01 HE R TA L BL ET NA 68 02 02 00 20 10 WA 32 No Ac AR 46 -0 -1 .0 LG 00 t [...] ai ZA 71 09 09 S la AR 0 57 bl IN 63 e E 10 MG TA BL ET CI 16 02 02 00 14 7 WA 32 SP Ac AR 25 -0 -1 .0 LG 00 EL [...] #1 J 51 MG 0 TA B AR 00 09 11 00 30 30 WA [...] 5- 0- 00 MA 25 EN ve AR 99 20 20 RT 9 O- IL [...] 5- 1- 00 MA 25 EN ve AR 99 20 20 RT 9 O- IL [...] AH 75 0 J MG TA B AR 00 09 09 00 30 30 WA [...] MG -1 51 TA 0 BL ET AR 00 02 06 02 30 30 WA [...] 5- 5- 00 MA 25 Av ve AR 99 20 20 RT 9 ai IL [...] 4- 00 MA 58 Av ve AR 99 20 20 RT 6 ai IL 41 08 08 la 0 PH bl 40 M e 10 MG -1 51 TA 0 BL ET AR 00 02 04 09 17 30 70 [...] bl M e 10 -1 51 0 AR 00 02 04 00 30 30 WA [...] 7- 00 MA 58 Av ve AR 99 20 20 RT 6 ai IL [...] 6- 00 MA 36 Av ve AR 51 20 20 RT 2 ai IL [...] 10 -2 MG 96 7 TA B AR 00 02 03 00 30 30 WA [...] DOS Code Location Performer Comment OTHER 0309 [facility] EXPLORAT[facility] 4 N N ON&[facility] [facility] SKIN&SUBC [address] [place] [address] [facility] T[facility] OTHER SITES APPLICATI 9354 [facility] ON OF 8 [facility] Encounters Encounter Start End Date Code Location Performer Type Date [facility] - [facility] - 7 7 [facility] OUTPATIEN [facility] ANDRY [facility] 7 7 [facility] ANDRY - 7 7 [facility] - 7 7 [facility] AND[facility] 7 7 [facility] - [facility] [facility] 7 7 [facility] - 7 7 [facility] - [facility] 7 7 [facility] - 6 6 [facility] [place] - 6 6 [facility] 6 6 [facility] - 6 6 [facility] - 6 6 [facility] 6 [facility] - 6 6 [facility] - 6 6 [facility] - 6 6 [facility] - 6 6 [facility] - 6 6 [facility] - 6 6 [facility] - 6 6 [facility] - 6 6 [facility] - 6 6 [facility] - 6 6 [facility] - 6 6 [facility] - 6 6 [facility] - 6 6 [facility] - 6 6 [facility] - 6 6 [facility] - 5 5 [facility] - 5 5 [facility] - 5 5 [facility] - 5 5 [facility] AND[facility] - 5 5 [facility] - 5 5 [facility] - 5 5 [facility] 5 5 [facility] - 4 4 [facility] - 4 4 [facility] [place] - 4 4 [facility] - 4 4 [facility] 4 4 [facility] - 3 3 [facility] 3 3 [facility] - 3 3 [facility] ST - 3 3 [facility] - 3 3 [facility] 3 3 [facility] - 3 3 [facility] - 3 3 [facility] - 2 2 [facility] - 2 2 [facility] - 2 2 [facility] - 2 2 [facility] - 2 2 [facility] - 2 2 [facility] - 2 2 [facility] - 2 2 [facility] - 2 2 [facility] - 2 2 [facility] - 2 2 [facility] - 1 1 [facility] - 1 1 [facility] - 1 1 [facility] 1 [facility] ANDRY [facility] 1 1 [facility] 1 [facility] ANDRY - [address] [facility] [address] - 1 1 [facility] - 1 [address] [facility] - [facility] [address] [facility] - 0 0 [facility] - 0 0 [facility] - 0 0 [facility] - 0 0 [facility] - 0 0 [facility] - 0 [address] [facility] [address] [facility] - 0 [facility] - 0 [facility] [address] [facility] [place] [id number] [facility] [place] [id number] [facility] [address] [place] [address] [address] [facility] [place] [address] [facility] [place] [address] [facility]
--- OUTSIDE RECORDS SUMMARY | 2017-07-20 17:46 | External Medical Summary Rpt | CCD ---
Demographics Preferred Language Persian Marital Status Unknown Taoism Affiliation Unknown Race Unknown Ethnic Group Unknown Author Author , AMAURI BAUGH Address Unknown Phone Immunization No patient found.
--- OUTSIDE RECORDS SUMMARY | 2017-07-20 17:46 | External Medical Summary Rpt | CCD ---
Demographics Preferred Language German Marital Status Unknown Alevism Affiliation Unknown Race Unknown Ethnic Group Unknown Author Author , AMAURI BAUGH Address Unknown Phone Immunization No patient found.
--- OUTSIDE RECORDS SUMMARY | 2017-07-20 17:46 | External Medical Summary Rpt ---
Author Author [employer], [employer] Organization [employer] Address Unknown Phone Unavailable Results CBC W Auto Differential panel in Blood Observa Value Referen Units Interpr Notes Date tion ce etation Range Basophils 0 - 0.2 K/MM3 Normal No Jun 17 informati 2016 2:25 [#/volume on in PM ] in source Blood by data Automated count Basophils 0.1 - 2.0 % Normal No Jun 17 /100 informati 2017 2:25 leukocyte on in PM s in source Blood by data Automated count Eosinophi 0.0 - 0.4 K/mm3 Normal No Jun 17 ls informati 2016 2:25 [#/volume on in PM ] in source Blood by data Automated count Eosinophi 0.1 - % Normal No Jun 17 ls/100 12.0 informati 2016 2:25 leukocyte on in PM s in source Blood by data Automated count Granulocy 1.8 - 7.8 K/mm3 Normal No Jun 17 lani informati 2017 2:25 [#/volume on in PM ] in source Blood by data Automated count Granulocy 37.0 - % Normal No Jun 17 lani/100 80.0 informati 2017 2:25 leukocyte on in PM s in source Blood by data Automated count Hematocri 37.0 - % Normal No Jun 17 t [Volume 47.0 informati 2016 2:25 on in PM Fraction] source of Blood data Hemoglobi 12.2 - g/dL Normal No Jun 17 n 16.2 informati 2016 2:25 [Mass/vol on in PM ume] in source Blood data Lymphocyt 0.7 - 4.5 K/mm3 Normal No Jun 17 es informati 2016 2:25 [#/volume on in PM ] in source Unspecifi data ed specimen by Automated count Lymphocyt 10 - 50.0 % Normal No Jun 17 es informati 2016 2:25 [#/volume on in PM ] in source Unspecifi data ed specimen by Automated count Erythrocy 27 - 31.2 pg Normal No Jun 17 te mean informati 2016 2:25 corpuscul on in PM ar source hemoglobi data n [Entitic mass] Erythrocy 31.8 - g/dl Low No Jun 17 te mean 35.4 inform2016 2:25 corpuscul on in PM ar source hemoglobi data n concentra tion [Mass/vol ume] by Automated count Erythrocy 82.2 - fl Normal No Jun 17 te mean 97.8 informati 2016 2:25 corpuscul on in PM ar volume source [Entitic data volume] by Automated count Monocytes 0.1 - 1.0 K/mm3 Normal No Jun 17 inform2016 2:25 [#/volume on in PM ] in source Blood by data Automated count Monocytes 1.7 - 9.3 % Normal No Jun 17 /100 inform2016 2:25 leukocyte on in PM s in source Blood by data Automated count Platelet 7.4 - fl Normal No Jun 17 mean 10.4 inform2016 2:25 volume on in PM [Entitic source volume] data in Blood by Automated count Platelets 142 - 424 K/mm3 Normal No Jun 17 inform2016 2:25 [#/volume on in PM ] in source Blood data Erythrocy 4.2 - 5.4 M/mm3 Normal No Jun 17 lani informati 2016 2:25 [#/volume on in PM ] in source Amniotic data fluid Erythrocy 11.5 - % Normal No Jun 17 te 17.5 informati 2016 2:25 distribut on in PM ion width source [Entitic data volume] by Automated count Leukocyte 4.8 - K/MM3 Normal No Jun 17 s 10.8 informati 2016 2:25 [#/volume on in PM ] in source Blood data Erythrocyte sedimentation rate by Westergren method Observa Value Referen Units Interpr Notes Date tion ce etation Range Erythrocy 0 - 20 mm/hr High No Jun 17 te informati 2016 2:25 sedimenta on in PM tion rate source by data Westergre n method Comprehensive metabolic 2000 panel in Serum or Plasma Observa Value Referen Units Interpr Notes Date tion ce etation Range Albumin/G 1.1 - 1.8 No Low No Jun 17 lobulin informati informati 2016 2:25 [Mass on in on in PM ratio] in source source Serum or data data Plasma Albumin 3.4 - 5.0 gm/dL Normal No Jun 17 [Mass/vol informati 2017 2:25 ume] in on in PM Serum or source Plasma data Alkaline 46 - 116 U/L Normal No Jun 17 phosphata informati 2017 2:25 se on in PM [Enzymati source c data activity/ volume] in Serum or Plasma Bilirubin 0.2 - 1.0 mg/dL Normal No Jun 17 .total informati 2017 2:25 [Mass/vol on in PM ume] in source Serum or data Plasma Urea 7 - 18 mg/dL Normal No Jun 17 nitrogen informati 2017 2:25 [Mass/vol on in PM ume] in source Serum or data Plasma Calcium 8.5 - mg/dL Normal No Jun 17 [Mass/vol 10.1 informati 2017 2:25 ume] in on in PM Serum or source Plasma data Chloride 98 - 107 mmoL/L Normal No Jun 17 [Moles/vo informati 2017 2:25 lume] in on in PM Serum or source Plasma data Carbon 21.0 - mmoL/L Normal No Jun 17 dioxide, 32.0 informati 2017 2:25 total on in PM [Moles/vo source lume] in data Serum or Plasma Creatinin 0.55 - mg/dL Normal No Jun 17 e 1.02 informati 2017 2:25 [Mass/vol on in PM ume] in source Serum or data Plasma Estimated 59- ML/MIN No REFERENCE Jun 17 informati RANGE: 2017 2:25 glomerula on in >60 PM r source ML/MIN/1. filtratio data 73 SQUARE n rate METERSIf (GF this patient is -A merican, then multiply theresult by 1.210. Globulin 1.3 - 3.2 gm/dL High No Jun 17 [Mass/vol informati 2017 2:25 ume] in on in PM Serum source data Glucose 74 - 106 mg/dL High No Jun 17 [Mass/vol informati 2017 2:25 ume] in on in PM Serum or source Plasma data Potassium 3.5 - 5.1 mmoL/L Normal No Jun 17 informati 2017 2:25 [Moles/vo on in PM lume] in source Serum or data Plasma Sodium 136 - 145 mmoL/L Low No Jun 17 [Moles/vo informati 2017 2:25 lume] in on in PM Serum or source Plasma data Aspartate 15 - 37 U/L Normal No Jun 17 informati 2017 2:25 aminotran on in PM sferase source [Enzymati data c activity/ volume] in Serum or Plasma Alanine 12 - 78 U/L Normal No Jun 17 aminotran informati 2017 2:25 sferase on in PM [Enzymati source c data activity/ volume] in Serum or Plasma Protein 6.4 - 8.2 gm/dL Normal No Jun 17 [Mass/vol informati 2017 2:25 ume] in on in PM Serum or source Plasma data CRP Observa Value Referen Units Interpr Notes Date tion ce etation Range CRP 0.0 - 0.9 MG/DL High No Jun 17 informati 2017 2:25 on in PM source data Cobalamin (Vitamin B12) [Mass/volume] in Serum Observa Value Referen Units Interpr Notes Date tion ce etation Range Cobalamin 211 - 946 pg/mL No Performed May 08 (Vitamin informati at: CB 2017 8:55 B12) on in - [facility] AM [Mass/vol source ume] in data [place] [address] Serum 0 [place], [place] [id number] [employer] Operator: Pepe Anderson PhD, Phone: [phone] Folate [Mass/volume] in Serum or Plasma Observa Value Referen Units Interpr Notes Date tion ce etation Range Folate >3.0 ng/mL No A serum Sep [Mass/vol informati folate 2017 8:55 ume] in on in concentra AM Serum or source tion of Plasma data less than 3.1 ng/mL isconside red to represent clinical deficienc y. 25-Hydroxyvitamin D [Mass/volume] in Serum or Plasma Observa Value Referen Units Interpr Notes Date tion ce etation Range 25-Hydrox 30.0 - ng/mL Low Vitamin D Sep 20 yvitamin 100.0 2017 8:55 D deficienc AM [Mass/vol y has ume] in been Serum or defined Plasma by the [place] ofMedicin e and an Endocrine Society practice guideline as alevel of serum 25-OH vitamin D less than 20 ng/mL (1,2).The Endocrine Society went on to further define vitamin Dinsuffic iency as a level between 21 and 29 ng/mL (2).1. IOM (Institut e of Medicine) . 2010. Dietary reference intakes for calcium and D. Zack crum DC: [employer].2. Roxy MF, Robyn NC, Mari Stanford VILLAVICENCIO, et al.Evalua tion, treatment , and preventio n of vitamin Ddeficien cy: an Endocrine Society clinical practiceg giana. JCEM. 2010; 96(7):191 1-30. Comprehensive metabolic 2000 panel in Serum or Plasma Observa Value Referen Units Interpr Notes Date tion ce etation Range Albumin/G 1.1 - 1.8 No Normal No Sep 20 lobulin informati informati 2017 8:55 [Mass on in on in AM ratio] in source source Serum or data data Plasma Albumin 3.4 - 5.0 gm/dL Normal No Sep 20 [Mass/vol informati 2017 8:55 ume] in on in AM Serum or source Plasma data Alkaline 46 - 116 U/L Normal No Sep 20 phosphata informati 2017 8:55 se on in AM [Enzymati source c data activity/ volume] in Serum or Plasma Bilirubin 0.2 - 1.0 mg/dL Normal No Sep 20 .total informati 2017 8:55 [Mass/vol on in AM ume] in source Serum or data Plasma Urea 7 - 18 mg/dL Normal No Sep 20 nitrogen informati 2017 8:55 [Mass/vol on in AM ume] in source Serum or data Plasma Calcium 8.5 - mg/dL Normal No Sep 20 [Mass/vol 10.1 informati 2017 8:55 ume] in on in AM Serum or source Plasma data Chloride 98 - 107 mmoL/L Normal No Sep 20 [Moles/vo informati 2017 8:55 lume] in on in AM Serum or source Plasma data Carbon 21.0 - mmoL/L Normal No Sep 20 dioxide, 32.0 informati 2017 8:55 total on in AM [Moles/vo source lume] in data Serum or Plasma Creatinin 0.55 - mg/dL High No Sep 20 e 1.02 informati 2017 8:55 [Mass/vol on in AM ume] in source Serum or data Plasma Estimated 59- ML/MIN Low REFERENCE Sep 20 RANGE: 2017 8:55 glomerula >60 AM r ML/MIN/1. filtratio 73 SQUARE n rate METERSIf (GF this patient is -A merican, then multiply theresult by 1.210. Globulin 1.3 - 3.2 gm/dL Normal No Sep 20 [Mass/vol informati 2017 8:55 ume] in on in AM Serum source data Glucose 74 - 106 mg/dL High No Sep 20 [Mass/vol informati 2017 8:55 ume] in on in AM Serum or source Plasma data Potassium 3.5 - 5.1 mmoL/L Normal No Sep 20 informati 2016 8:55 [Moles/vo on in AM lume] in source Serum or data Plasma Sodium 136 - 145 mmoL/L Normal No Sep 20 [Moles/vo informati 2016 8:55 lume] in on in AM Serum or source Plasma data Aspartate 15 - 37 U/L Low No Sep 20 informati 2017 8:55 aminotran on in AM sferase source [Enzymati data c activity/ volume] in Serum or Plasma Alanine 12 - 78 U/L Normal No Sep 20 aminotran informati 2017 8:55 sferase on in AM [Enzymati source c data activity/ volume] in Serum or Plasma Protein 6.4 - 8.2 gm/dL Normal No Sep 20 [Mass/vol informati 2017 8:55 ume] in on in AM Serum or source Plasma data Lipid 1996 panel in Serum or Plasma Observa Value Referen Units Interpr Notes Date tion ce etation Range Cholester < 200 mg/dL No No Sep 20 ol informati informati 2017 8:55 [Moles/vo on in on in AM lume] in source source Unspecifi data data ed specimen Cholester 40 - 60 MG/DL Low No Sep 20 ol in HDL informati 2017 8:55 on in AM [Mass/vol source ume] in data Serum or Plasma Cholester 0 - 130 mg/dL Normal No Sep 20 ol in LDL informati 2017 8:55 on in AM [Mass/vol source ume] in data Serum or Plasma by calculati on Triglycer 30 - 200 mg/dL High No Sep 20 jaimie informati 2017 8:55 [Moles/vo on in AM lume] in source Serum or data Plasma Cholester 0 - 40 No High No Sep 20 ol in informati informati 2017 8:55 VLDL on in on in AM [Mass/vol source source ume] in data data Serum or Plasma Thyrotropin [Units/volume] in Serum or Plasma Observa Value Referen Units Interpr Notes Date tion ce etation Range Thyrotrop 0.358 - uIU/ml No No Sep 20 in 3.740 informati informati 2017 8:55 [Units/vo on in on in AM lume] in source source Serum or data data Plasma Hemoglobin A1c in Blood Observa Value Referen Units Interpr Notes Date tion ce etation Range Hemoglo 9.8 0.0 - % High < 6% Sep 20 bin A1c 7.0 NON-CHRIS 2017 in BETIC 8:55 AM Blood LEVEL< 7% CONTROL LED DIABETI C LEVEL> 8% POORLY CONTROL LED DIABETI C LEVEL CBC W Auto Differential panel in Blood Observa Value Referen Units Interpr Notes Date tion ce etation Range Basophils 0 - 0.2 K/MM3 Normal No Sep 20 informati 2017 8:55 [#/volume on in AM ] in source Blood by data Automated count Basophils 0.1 - 2.0 % Normal No Sep 20 /100 informati 2017 8:55 leukocyte on in AM s in source Blood by data Automated count Eosinophi 0.0 - 0.4 K/mm3 Normal No Sep 20 ls informati 2016 8:55 [#/volume on in AM ] in source Blood by data Automated count Eosinophi 0.1 - % Normal No Sep 20 ls/100 12.0 informati 2017 8:55 leukocyte on in AM s in source Blood by data Automated count Granulocy 1.8 - 7.8 K/mm3 Normal No Sep 20 lani informati 2017 8:55 [#/volume on in AM ] in source Blood by data Automated count Granulocy 37.0 - % Normal No Sep 20 lani/100 80.0 informati 2016 8:55 leukocyte on in AM s in source Blood by data Automated count Hematocri 37.0 - % Normal No Sep 20 t [Volume 47.0 informati 2017 8:55 on in AM Fraction] source of Blood data Hemoglobi 12.2 - g/dL Normal No Sep 20 n 16.2 informati 2016 8:55 [Mass/vol on in AM ume] in source Blood data Lymphocyt 0.7 - 4.5 K/mm3 Normal No Sep 20 es informati 2016 8:55 [#/volume on in AM ] in source Unspecifi data ed specimen by Automated count Lymphocyt 10 - 50.0 % Normal No Sep 20 es informati 2016 8:55 [#/volume on in AM ] in source Unspecifi data ed specimen by Automated count Erythrocy 27 - 31.2 pg Normal No Sep 20 te mean informati 2016 8:55 corpuscul on in AM ar source hemoglobi data n [Entitic mass] Erythrocy 31.8 - g/dl Normal No Sep 20 te mean 35.4 informati 2016 8:55 corpuscul on in AM ar source hemoglobi data n concentra tion [Mass/vol ume] by Automated count Erythrocy 82.2 - fl Normal No Sep 20 te mean 97.8 informati 2016 8:55 corpuscul on in AM ar volume source [Entitic data volume] by Automated count Monocytes 0.1 - 1.0 K/mm3 Normal No Sep 20 informati 2017 8:55 [#/volume on in AM ] in source Blood by data Automated count Monocytes 1.7 - 9.3 % Normal No Sep 20 /100 informati 2016 8:55 leukocyte on in AM s in source Blood by data Automated count Platelet 7.4 - fl Normal No Sep 20 mean 10.4 informati 2017 8:55 volume on in AM [Entitic source volume] data in Blood by Automated count Platelets 142 - 424 K/mm3 No No Sep 20 informati informati 2017 8:55 [#/volume on in on in AM ] in source source Blood data data Erythrocy 4.2 - 5.4 M/mm3 Normal No Sep 20 lani informati 2016 8:55 [#/volume on in AM ] in source Amniotic data fluid Erythrocy 11.5 - % Normal No Sep 20 te 17.5 informati 2016 8:55 distribut on in AM ion width source [Entitic data volume] by Automated count Leukocyte 4.8 - K/MM3 Normal No Sep 20 s 10.8 informati 2016 8:55 [#/volume on in AM ] in source Blood data XR CHEST PA AND LATERAL Observa Value Referen Units Interpr Notes Date tion ce etation Range TEXT PROCEDU No No No No Sep 06 DIAGNOS RE: AP informa informa informa informa 2012 IS and tion in tion in tion in tion in 7:44 PM BATTERY lateral source source source source chest, data data data data 09/06/19 13.TOMMIE CATION: Shortne ss of breath. FINDING S: AP and lateral chest. Compari son PA and lateral chest perform ed2009. Low lunglun gs. Heart size and pulmona ry vascula rity are within normal limits. Nofocal infiltr ates,ef fusion, pneumot horax.I MPRESSI ON: No acute finding s in the chest. EK EKG 12 LEAD Observa Value Referen Units Interpr Notes Date tion ce etation Range Sinus No No No No Sep 06 bradyca informa informa informa informa 2013 rdiaNor tion in tion in tion in tion in 7:25 PM mal ECG source source source source except data data data data for rate
--- OUTSIDE RECORDS SUMMARY | 2017-07-20 17:46 | External Medical Summary Rpt ---
[...] [facility] AM [Mass/vol source ume] in data [place] [address] Serum 0 [place], [place] [id number] [employer] Director: Pepe Anderson PhD, Phone: [phone] Folate [Mass/volume] in Serum or Plasma [...] been Serum or defined Plasma by the [place] ofMedicin e and an Endocrine Society practice guideline as alevel of serum 25-OH vitamin D less than 20 ng/mL (1,2).The Endocrine Society went on to further define vitamin Dinsuffic iency as a level between 21 and 29 ng/mL (2).1. IOM (Institut e of Medicine) . 2010. Dietary reference intakes for calcium and D. Zack crum DC: [employer] Press.2. Roxy MF, Robyn NC, Mari Stanford [...] - 200 mg/dL High No Sep 20 jiamie informati 2017 8:55 [Moles/vo on in AM [...]
[2017-07-20] MEDS ORDERED: FLONASE 50 MCG16 GM (17:55)
[2017-07-20] MEDS ORDERED: OMNICEF 300 MG300 MG PO (17:55)
[2017-07-20] MEDS ORDERED: DELSYM30 MG/5 ML PO (17:55)
[2017-07-20] MEDS ORDERED: MUCINEX1200 MG PO (17:55)
--- NOTE | 2017-07-20 18:00 | [facility]gent [facility] Report ---
History of Present Issue Date/Time Seen by Provider 07/20/17 7552 Visit Reason Pt arrived:Wheelchair Presenting Problem:PT C/O COUGH, HEAD AND CHEST CONGESTION Location if Accident: Onset of symptoms date/time:/ or onset unknown for:MEDICAL HX UNKNOWN Have you (or family members/close friends) recently traveled outside the [place]? N If Yes, where/when: Have you had exposure to infectious disease within the past month? TB? Other? Specify: Patient state that she has been having cough and congestion on and off for the last several weeks State that she has continued to get worse State that she has been having sinus pain and pressure along with bilateral ear pain State that she has been coughing so much that her throat feels sore and irritated ALLERGIES Coded Allergies: erythromycin base (Intermediate, I-HIVES, SEVERE VOMITING 11/12/16) prochlorperazine (Intermediate, PARANOIA 11/12/16) Home Medications Active Scripts Fluconazole (Diflucan 150MG) 150 MG PO ONCE #1 TAB Prov: 02/08/17 Nystatin (Nystatin Topical Powder; 15GM Bottle) 1 BIBIANA TP TID #1 BOTTLE Ref 1 Prov: 02/08/17 Reported Medications AMLODIPINE BESYLATE (Norvasc) 1 TAB PO DAILY FLUTICASONE/SALMETEROL (Advair 500-50 Diskus) 2 PUFF IN BID Omeprazole (Omeprazole 40MG) 40 MG PO DAILY Montelukast Sodium (Singulair 10MG) 10 MG PO DAILY Albuterol/Ipratropiu (Duoneb) 3 ML IH QIDP PRN BREATHING #120 NEB Albuterol (Albuterol-Hfa Inhaler) 2 PUFFS IH Q4HP PRN BREATHING Canagliflozin (Invokana) 300 MG PO DAILY Spironolactone (Aldactone) 25 MG PO DAILY Estradiol 2 MG PO DAILY Losartan Potassium (Losartan 100MG) 100 MG PO DAILY Famotidine (Pepcid 20MG) 20 MG PO BID Gabapentin (Gabapentin 600MG) 800 MG PO TID Insulin Aspart (Novolog) (Insulin Aspart Flexpen 3ML) 30 UNITS SC BID #15 Insulin Glargine, Recombinan (Insulin Glargine 3ML) 50 UNITS SC QPM #15 CITALOPRAM HYDROBROMIDE (Citalopram HBr) 40 MG PO DAILY OMEGA-3 FATTY ACIDS/FISH OIL (Fish Oil 1,000 MG Capsule) 1,000 MG PO DAILY Atorvastatin Calcium (Lipitor 10MG) 10 MG PO QHS Quetiapine Fumarate (Seroquel 50MG) 50 MG PO QHS FENOFIBRATE NANOCRYSTALLIZED (Tricor) 145 MG PO DAILY BACLOFEN (Baclofen) 10 MG PO TID Hydroxyzine Pamoate (Vistaril) 25 MG PO QHS History Medical History General CAD? No Angina: No NV: No Hypertension? Yes Hyperlipidemia? Yes CHF? No DVT? No PE? No COPD? No Asthma? Yes Anemia? No GERD? Yes Gastric ulcers? No GI Bleed? No Hernia? No Thyroid Problems? No Hypothyroidism? No CVA? No Seizures? No Diabetes? Yes Insulin Dependent: Yes Insulin Pump: No Home FSBS? Yes Renal Insuffiency? No UTI? No Stones? No BPH? No GB Disease: Yes Nephritic Syndrome? No Asplenia? No Hepatitis? No Sickle Cell Disease? No Arthritis? Yes Migraines? No Cataracts? No Glaucoma? No MRSA? No HIV? No TB? No Anxiety? No Depression? No Cancer? Yes Site: SKIN CA CHIN More? Yes Additional hx: OSTEOARTHRITIS FIBROMYALGIA DJD CHF Immunization HX Ped.Immunizations UTD No DT/Tetanus 1-4 Years Ago Flu Refused Pneumonia Never Had Surgical Hx Previous Surgery?Y HYSTERECTOMY Tubal Ligation EXPLORATORY LAP CHOLECYSTECTOMY LAMINECTOMY 2013 CA SKIN ON CHIN VAGINAL BIOPSY CA TUMORS VAGINA Family History Family HX Diabetes Yes CAD Yes Hypertension Yes Hyperlipidemia Yes Cancer Yes TB No Social History Smoking Hx Smoker: Current Every Day Smoker Tobacco: Yes Type Cigarettes Packs/day 1 1/2 - 2 Packs Alcohol Alcohol: No Review of Systems All Other Systems Reviewed and Negative ENT ear pain, nose congestion, throat pain. Respiratory denies no symptoms reported, see HPI, cough, orthopnea, denies shortness of breath, denies wheezing Physical Exam Vital Signs Vital Signs Date Time Temp Pulse Resp B/P Pulse O2 O2 Flow FiO2 Ox Delivery Rate 07/20 1721 98.4 102 22 153/98 98 General Appearance normal appearance, WD/WN, no apparent distress Ear, Nose, Throat sinus pain/drainage, nasal congestion, Throat red, irritated nasal congestion and drainage Respiratory Status Yes: trachea midline, chest symmetrical, non tender chest. No: respiratory distress. Lung Sounds bilateral: normal breath sounds, lungs clear. Cardiovascular normal exam, regular rate/rhythm, no peripheral edema Neurologic alert, normal exam, oriented x 3 Medical Decision Making LABS/Meds/Orders Pt receiving controlled substance in ED? No Results/Orders Current Medication Orders Sig/Safia Start time Last Medication Dose Route Stop Time Status Admin Cefdinir 300 MG ONCE ONE 07/20 1800 AC PO 07/20 180 Departure Departure Time of Disposition 174 Disposition DC Home or Self Care(routine) Clinical Impression Primary Impression: Upper respiratory infection Qualifiers: URI type: unspecified URI Qualified Code: J06.9 - Acute upper respiratory infection, unspecified Condition STABLE Referrals JOHN SURESH (Family): 3 Days-Call Office if no improvement Patient Instructions Cough, DI for Cough -- Adult, Sore Throat Additional Instructions * Monitor Temp. Tylenol and/or Ibuprofen as needed. ER if fever is no less than 101 despite alternating Tylenol and Ibuprofen * Encourage fluids, water, Gatorade, powerade, pedialyte if /toddler/or child * Warm salt water gargles for throat irritation *Warm fluids *Sore throat lozenges *Sleep elevated *humidifier or vaporizer Lots of rest Increase fluids, water, Gatorade, powerade *Flonase 2 sprays each nostril daily but may take 2-3 days to notice improvement with it Use nebulizer as previously prescribed Follow up IMMEDIATELY for new or worsening of symptoms OR no noticeable improvement over the next 48-72 hours. 911 immediately for any life threatening symptoms such as chest pain or difficulty breathing Discharge Counseling Counseled pt/family regarding diagnosis, test results, medications/RX, home care, follow up needs Prescriptions Current Visit Scripts CEFDINIR (Cefdinir) 300 MG PO BID #20 CAP Fluticasone Propionate (Flonase 50 Mcg Nasal [place]) 2 SPRAY NA DAILY #1 BOT Dextromethorphan Polistirex (Delsym) 10 TSP PO Q12H #150 ML Guaifenesin (Mucinex) 1,200 MG PO BID #20 TER at 1800
[2017-07-20 18:30] VITALS: BP 152/90
[2017-08-01] MEDS ORDERED: KEFLEX 500MG.500 MG PO (18:30)
[2017-08-02] MEDS ORDERED: AMLO5TAB PO (17:03)
[2017-08-02] MEDS ORDERED: LISINOPRIL10 MG PO (17:09)
[2017-08-02] MEDS ORDERED: LOPRESSOR 50 MG50 MG PO (17:09)
[2017-08-02] MEDS ORDERED: FUROSEMIDE40 MG PO (17:09)
== END 2017-07-20 18:31 | disposition home or self-care (01) ==
LOC: UTC 17:08
DX: J06.9 Acute upper respiratory infection, unspecified (principal)

== ENCOUNTER 2017-07-28 01:07 | Emergency (ER) | payer MEDICAID ==
[~2017-07-28] VITALS: Ht 167.6 cm; Wt 134.3 kg
[~2017-07-28 01:07] MED LIST changes: +DELSYM30 MG/5 ML PO; +FLONASE 50 MCG16 GM; +MUCINEX1200 MG PO; +OMNICEF 300 MG300 MG PO
[2017-07-28 01:44] LABS: HEMOGLOBIN 13.8 g/dL (12.2-16.2); LYMPH # 2.6 K/mm3 (0.7-4.5); LYMPH % 30.8 % (10-50.0)
--- OUTSIDE RECORDS SUMMARY | 2017-07-28 02:22 | External Medical Summary Rpt | CCD ---
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 OR [place] LUMP IN MED CTR HEAD AND NECK 96625 OTHER 12-21-2010 ST DISEASES OF [place] NASAL [facility] CAVITY AND SINUSES 3671 MYOPIA 10-20-2010 QUANG MENDOZA 3309 SYMPTOMATIC 10-03-2010 ST STATES [facility] W/ARTFICL ER MENOPAUSE 99118 PAIN IN 10-03-2010 ST JOINT [place] PELVIC [facility]ICAL[facility] REGION AND ER THIGH 34164 INCONCLUSIV 10-03-2010 [place] [address] OTHER 10-03-2010 ST ABNORMAL [facility] RADIOLOGICA ER L EXAM BREAST V7612 OTHER 10-03-2010 ST [place] [address] UNSPECIFIED 09-08-2010 ST DENTAL [place] 2662 OTHER 08-15-2010 [facility]ALTH B-COMPLEX [facility] DEFICIENCIE FAMILY S CARE, [place] V061 NEED PROPH 08-15-2010 HEALTH VAC W/COMB [facility] DIPHTH-TETA FAMILY NUS-PERTUSS CARE, IN VAC V7231 ROUTINE 08-15-2010 HEALTH GYNECOLOGIC [facility] AL FAMILY EXAMINATION CARE, IN V762 SCREENING 08-15-2010 ST FOR [place] MALIGNANT [facility]ICAL[facility]ENT NEOPLASM OF ER THE CERVIX 27128 PAIN IN 07-31-2010 [place] FIRE JOINT, PROTECT LOWER LEG DISTR 31444 CONTUSION 07-31-2010 ST. OF KNEE [place] JUDITH V143 PERSONAL 07-31-2010 [facility]. 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 CULAR [place] PREMATURE JUDITH BEATS 25466 OTHER 04-28-2010 ST. PREMATURE [place] BEATS JUDITH 95189 GENERALIZED 04-28-2010 [facility] PSC 7850 UNSPECIFIED 04-28-2010 [facility] HEART PSC TACHYCARDIA 2669 UNSPECIFIED 04-11-2010 HEALTH VITAMIN [place] [address] UNSPECIFIED 03-09-2010 [facility]IO [facility] 7821 RASH AND 03-09-2010 HEALTH OTHER POINT NONSPECIFIC FAMILY SKIN CARE, INC. ERUPTION 37263 CALCU 01-02-2010 ST GALLBLADD [place] W/OTH PHYSICIANS CHOLECYST W/O [place]ENTION OBST 49600 CALCU 01-02-2010 INDEPENDENT GALLBLADD W/O MENTION ANESTHESIOL OGIST CHOLECYST/O BST 60768 CALCU BD 01-02-2010 ST WITHOUT [place] MENTION MED CTR CHOLECYST/O BSTRUCTION 5756 CHOLESTEROL 01-02-2010 [facility] [place] GALLBL[facility] PHYSICIANS 96311 NAUSEA WITH 12-10-2009 [facility] VOMITING [facility] 75635 VOMITING 12-10-2009 EMERGENCY ALONE CARE PHYS [facility] V8801 ACQUIRED 12-05-2009 [facility] BOTH CERVIX WEST AND UTERUS 7847 EPISTAXIS 09-12-2009 [facility] 2562 POSTABLATIV 07-01-2009 HEALTH E OVARIAN POINT FAILURE [facility] 8930 OPEN WOUND 04-09-2009 EMERGENCY TOE WITHOUT CARE PHYS MENTION [facility] COMPLICATIO N 8931 OPEN WOUND 04-09-2009 [facility] COMPL[facility]ATED [facility] E9209 ACC CAUSED 04-09-2009 [facility] CUT&PIERCIN HIALEAH G INSTRUMENT/ OBJ 86856 PAIN IN 11-12-2008 KUNATH, JOINT, SITE REED & TEMMING UNSPECIFIED 57817 CALCANEAL 10-22-2008 [facility] PSC 25975 UNSPECIFIED 10-20-2008 [facility] VIRAL [facility] 41664 UNSPECIFIED 10-20-2008 [facility] ARTHROPATHY [facility]ILY [facility]. UNSPECIFIED 7140 RHEUMATOID 09-20-2008 [facility] ARTHRITIS [facility] 7231 CERVICALGIA 09-20-2008 [facility] 8472 LUMBAR 09-20-2008 [facility] SPRAIN AND HOSPITAL STRAIN WEST 32085 CONTUSION 09-20-2008 [facility] 9599 INJURY 09-20-2008 RAD[facility] OTHER AND ASSOCIATES UNSPECIFIED PSC UNSPECIFIED SITE 46774 UNSPECIFIED 02-05-2008 [facility]ALTH GENITAL [facility]. 87192 HERPETIC 02-05-2008 [facility] [place] [place] [facility] TIS 2749 GOUT, 01-09-2008 [facility] UNSPECIFIED [facility]IMARY C[facility] 44125 UNSPECIFIED 01-01-2008 FANG, SITE OF NOE Zuniga ANKLE SPRAIN AND STRAIN 16088 PAIN IN 10-21-2007 [facility], [facility]OCIATES ANKLE [...] MG CY TA #5 BL 91 ET FI 00 10 11 30 30 00 [...] TA #5 BL 91 ET BA 00 10 11 90 30 00 PR Ac CL 83 -2 -1 .0 00 L- ti OF 21 4- 7- 00 07 MA ve EN 02 20 20 51 RT 45 17 17 07 10 0 84 PH AR MG MA CY TA BL #5 ET 91 [place] 43 10 11 [address] 38 -2 -1 .0 00 L- ti AT 60 4- 7- 00 07 MA ve IN 53 20 20 51 RT 00 17 17 21 10 1 07 PH 0, AR 00 MA 0 CY UN IT #5 /G 91 M PO WD QU 16 10 11 30 30 00 PR Ac ET 72 -2 -1 .0 00 L- ti IA 90 4- 7- 00 07 MA ve PI 14 20 20 51 RT NE 60 17 17 07 1 69 PH FU AR MA MA RA CY TE #5 50 91 MG TA B NO 00 10 11 30 18 00 PR Ac VO 16 -2 -1 .0 00 L- ti LO 93 4- 7- 00 07 MA ve G 69 20 20 51 RT WY 61 17 17 73 X 9 32 PH 70 AR -3 MA 0 CY FL EX #5 PE 91 N SY RN BD 08 10 11 10 28 00 PR Ac 29 -2 -1 0. 00 L- ti UL 03 4- 7- 00 08 MA ve TR 20 20 20 0 84 RT A- 10 17 17 11 FI 9 42 PH NE AR MA PE CY N ND #5 L 91 8M MX 31 G 64 10 11 4. 28 00 PR Ac T 38 -2 -1 00 00 L- ti D2 00 4- 7- 0 07 MA ve 73 20 20 51 RT 1. 70 17 17 27 25 6 15 PH AR MG MA CY (5 0, #5 00 91 0 UN IT ) AT 68 10 11 30 30 00 WA Ac OR 64 -2 -1 .0 00 L- ti VA 50 4- 7- [address] 45 20 20 51 RT AT 85 17 17 07 IN 4 75 PH AR 10 MA CY MG #5 TA 91 BL ET AD 00 10 11 12 30 00 PR Ac VA 17 -2 -1 .0 00 L- ti IR 30 4- 7- 00 07 MA ve 71 20 20 51 RT HF 72 17 17 07 A 0 67 PH 23 AR 0- MA 21 CY MC #5 G 91 IN VILLAVICENCIO LE R AM 68 10 11 30 30 00 WA Ac LO 64 -2 -1 .0 00 L- ti DI 50 4- 7- 00 07 MA ve PI 51 20 20 51 RT NE 65 17 17 07 4 73 PH BE AR SY MA LA CY TE #5 10 91 MG TA B LO 68 10 11 30 30 00 PR Ac SA 64 -2 -1 .0 00 L- ti RT 50 4- 7- 00 07 MA ve AN 41 20 20 51 RT 15 17 17 07 PO 4 71 PH TA AR SS MA IU CY M 10 #5 0 91 MG TA B FA 68 10 11 60 30 00 PR Ac MO 64 -2 -1 .0 00 L- ti TI 50 4- 7- 00 07 MA ve DI 14 20 20 50 RT NE 05 17 17 80 9 72 PH 20 AR MA MG CY TA #5 BL 91 ET FR 99 10 11 10 34 00 PR Ac EE 07 -2 -1 0. 00 L- ti ST 30 4- 7- 00 08 MA ve YL 13 20 20 0 84 RT E 00 17 17 11 28 1 41 PH G AR LA MA NC CY ET S #5 91 OM 60 10 11 30 30 00 PR Ac EP 50 -2 -1 .0 00 L- ti RA 50 4- 7- 00 07 MA ve ZO 14 20 20 51 RT LE 60 17 17 [address] AR MA 40 CY MG #5 91 CA PS UL E MO 57 10 11 30 30 00 PR Ac NT 23 -2 -1 .0 00 L- ti EL 70 4- 7- 00 07 MA ve UK 25 20 20 51 RT 53 17 17 07 T 0 70 PH SO AR D MA 10 CY MG #5 91 TA BL ET IN 50 10 11 30 30 00 PR Ac VO 45 -2 -1 .0 00 L- ti KA 80 4- 7- 00 07 MA ve NA 14 20 20 51 RT 13 17 17 07 30 0 65 PH 0 AR MG MA CY TA BL #5 ET 91 CI 54 10 11 30 30 00 PR Ac TA 45 -2 -1 .0 00 L- ti LO 80 4- 7- 00 07 MA ve NM 88 20 20 51 RT AM 91 17 17 07 0 79 PH HB AR R MA 40 CY MG #5 91 TA BL ET FE 00 10 11 30 30 00 WA Ac NO 09 -2 -1 .0 00 L- ti FI 37 4- 7- 00 07 MA ve BR 75 20 20 51 RT AT 69 17 17 07 E 8 74 PH 14 AR 5 MA MG CY TA #5 BL 91 ET SP 00 10 11 30 30 00 PR Ac IR 22 -2 -1 .0 00 L- ti ON 82 4- 7- 00 07 MA ve OL 80 20 20 51 RT AC 31 17 17 07 TO 1 72 PH NE AR MA 25 CY MG #5 91 TA BL ET HY 00 10 11 30 [address] 18 -2 -1 .0 00 L- ti OX 50 4- 7- 00 07 MA ve YZ 67 20 20 51 RT IN 40 17 17 07 E 1 76 PH PA AR M MA 25 CY MG #5 91 CA P ON 53 10 11 10 34 00 PR Ac ET 88 -1 -1 0. 00 L- ti OU 50 6- 0- 00 08 MA ve CH 24 20 20 0 84 RT 51 17 17 09 UL 0 14 PH TR AR A MA TE CY ST #5 ST 91 RI PS TR 59 10 11 1. 1 00 PR Ac IA 76 -1 -1 00 00 L- ti ZO 23 6- 0- 0 04 MA ve LA 71 20 20 53 RT M 80 17 17 26 0. 9 02 PH 25 AR MA MG CY TA #5 BL 91 ET NO 00 10 11 30 23 00 PR Ac VO 16 -0 -0 .0 00 L- ti LO 93 7- 3- 00 07 MA ve G 69 20 20 50 RT WY 61 17 17 99 X 9 16 PH 70 AR -3 MA 0 CY FL EX #5 PE 91 N SY RN 64 10 10 4. 28 00 PR Ac T 38 -0 -2 00 00 L- ti D2 00 3- 7- 0 07 MA ve 73 20 20 51 RT 1. 70 17 17 07 25 6 82 PH AR MG MA CY (5 0, #5 00 91 0 UN IT ) FR 99 09 10 10 34 00 PR Ac EE 07 -1 -1 0. 00 L- ti ST 30 5- 3- 00 08 MA ve YL 13 20 20 0 84 RT E 00 17 17 11 28 1 41 PH G AR LA MA NC CY ET S #5 91 NO 00 09 10 30 23 00 PR Ac VO 16 -1 -1 .0 00 L- ti LO 93 5- 3- 00 07 MA ve G 69 20 20 50 RT WY 61 17 17 99 X 9 16 PH 70 AR -3 MA 0 CY FL EX #5 PE 91 N SY RN FI 00 09 10 30 30 00 PR Ac SH 90 -1 -1 .0 00 L- ti 44 5- 3- 00 08 MA ve OI 04 20 20 84 RT L 36 17 17 11 1, 0 55 PH 00 AR 0 MA MG CY CA #5 PS 91 UL E GA 00 09 10 90 30 00 PR Ac BA 22 -2 -1 .0 00 L- ti PE 82 0- 3- 00 04 MA ve NT 63 20 20 53 RT IN 71 17 17 21 1 89 PH 80 AR 0 MA MG CY TA #5 BL 91 ET AZ 50 09 10 6. 5 00 PR Ac IT 11 -2 -1 00 00 L- ti HR 10 0- 3- 0 07 MA ve OM 78 20 20 51 RT YC 75 17 17 07 IN 1 80 PH AR 25 MA 0 CY MG #5 TA 91 BL ET BA 00 09 09 90 30 00 PR Ac CL 83 -0 -2 .0 00 L- ti OF 21 6- 9- 00 07 MA ve EN 02 20 20 50 RT 45 17 17 80 10 0 14 PH AR MG MA CY TA BL #5 ET 91 CI 54 09 30 30 00 PR Ac TA 45 -0 -2 .0 00 L- ti LO 80 6- 9- 00 07 MA ve NM 88 20 20 50 RT AM 91 17 17 80 0 13 PH HB AR R MA 40 CY MG #5 91 TA BL ET QU 16 09 09 30 30 00 PR Ac ET 72 -0 -2 .0 00 L- ti IA 90 6- 9- 00 07 MA ve PI 14 20 20 50 RT NE 60 17 17 80 1 12 PH FU AR MA MA RA CY TE #5 50 91 MG TA B MO 57 09 09 30 30 00 PR Ac NT 23 -0 -2 .0 00 L- ti EL 70 6- 9- 00 07 MA ve UK 25 20 20 50 RT 53 17 17 80 T 0 10 PH SO AR D MA 10 CY MG #5 91 TA BL ET HY 00 04 27 30 [address] 18 -0 -2 .0 00 L- ti OX 50 6 07 MA ve YZ 67 20 20 50 RT IN 40 17 17 80 E 1 09 PH PA AR M MA 25 CY MG #5 91 CA P SP 59 09 05 18 30 00 PR Ac IR 74 -0 -2 .0 00 L- ti ON 60 07 MA ve OL 21 20 20 48 RT AC 60 17 17 89 TO 1 24 PH NE AR MA 25 CY MG #5 91 TA BL ET LO 68 09 05 18 30 00 PR Ac SA 64 -0 -2 .0 00 L- ti RT 50 07 MA ve AN 41 20 20 48 RT 15 17 17 89 PO 4 08 PH TA AR SS MA IU CY M 10 #5 0 91 MG TA B FE 00 PR Ac NO 09 -0 -2 .0 00 L- ti FI 37 07 MA ve BR 75 20 20 48 RT AT 69 17 17 89 E 8 12 PH 14 AR 5 MA MG CY TA #5 BL 91 ET ON 53 08 09 10 34 00 PR Ac ET 88 -3 -2 0. 00 L- ti OU 50 08 MA ve CH 24 20 20 0 84 RT 51 17 17 09 UL 0 14 PH TR AR A MA TE CY ST #5 ST 91 RI PS FA 68 09 30 00 PR Ac MO 64 -0 -2 .0 00 L- ti TI 50 07 MA ve DI 14 20 20 50 RT NE 05 17 17 80 9 72 PH 20 AR MA MG CY TA #5 BL 91 ET IN 50 09 05 18 30 00 WA Ac VO 45 -0 -2 .0 00 L- ti KA 80 07 MA ve NA 14 20 20 48 RT 13 17 17 89 30 0 07 PH 0 AR MG MA CY TA BL #5 ET 91 OM 60 09 05 18 30 00 WA Ac EP 50 -0 -2 .0 00 L- ti RA 50 07 MA ve ZO 14 20 20 48 RT LE 60 17 17 [address] AR MA 40 CY MG #5 91 CA PS UL E AT 68 09 05 18 30 00 PR Ac OR 64 -0 -2 .0 00 L- ti VA 50 6- 9- [address] 45 20 20 50 RT AT 85 17 17 80 IN 4 26 PH AR 10 MA CY MG #5 TA 91 BL ET 64 09 09 4. 28 00 PR Ac T 38 -0 -2 00 00 L- ti D2 00 6- 9- 0 07 MA ve 73 20 20 50 RT 1. 70 17 17 80 25 6 24 PH AR MG MA CY (5 0, #5 00 91 0 UN IT ) AD 00 09 09 12 30 00 PR Ac VA 17 -0 -2 .0 00 L- ti IR 30 6- 9- 00 07 MA ve 71 20 20 50 RT HF 72 17 17 80 A 0 22 PH 23 AR 0- MA 21 CY MC #5 G 91 IN VILLAVICENCIO LE R LI 68 04 27 30 30 00 [facility] SI 64 -0 -2 .0 00 L- ti NO 50 6- 9- 00 07 MA ve NM 55 20 20 50 RT IL 25 17 17 80 4 21 PH 10 AR MA MG CY TA #5 BL 91 ET AM 68 04 27 30 30 00 PR Ac LO 64 -0 -2 .0 00 L- ti DI 50 6- 9- 00 07 MA ve PI 51 20 20 50 RT NE 65 17 17 80 4 20 PH BE AR SY MA LA CY TE #5 10 91 MG TA B BA 00 04 27 15 31 00 [facility] SA 00 -0 -2 .0 00 L- ti GL 27 5- 9- 00 07 MA ve AR 71 20 20 48 RT 55 17 17 95 10 9 02 PH 0 AR UN MA IT CY /M L #5 KW 91 IK PE N BD 08 08 09 10 30 00 PR Ac 29 -2 -2 0. 00 L- ti UL 03 4- 2- 00 08 MA ve TR 20 20 20 0 84 RT A- 10 17 17 08 FI 9 20 PH NE AR MA PE CY N ND #5 L 91 8M MX 31 G ON 53 08 09 10 30 00 PR Ac ET 88 -2 -1 0. 00 L- ti OU 50 3- 5- 00 08 MA ve CH 13 20 20 0 84 RT 61 17 17 08 DE 0 05 PH LI AR CA MA CY 33 G #5 LA 91 NC ET S AD 00 07 08 12 30 00 PR Ac VA 17 -1 -1 .0 00 L- ti IR 30 4- 1- 00 07 MA ve 71 20 20 49 RT HF 72 17 17 88 A 0 73 PH 23 AR 0- MA 21 CY MC #5 G 91 IN VILLAVICENCIO LE R 64 07 08 4. 28 00 PR Ac T 38 -1 -1 00 00 L- ti D2 00 3- 1- 0 07 MA ve 73 20 20 48 RT 1. 70 17 17 89 25 6 26 PH AR MG MA CY (5 0, #5 00 91 0 UN IT ) ON 53 07 08 10 30 00 PR Ac ET 88 -1 -1 0. 00 L- ti OU 50 3- 1- 00 08 MA ve CH 13 20 20 0 84 RT 61 17 17 00 DE 0 52 PH LI AR CA MA CY 33 G #5 LA 91 NC ET S [place] 43 07 08 60 20 [address] [facility] [address] 38 -1 -1 .0 00 L- ti AT 60 3- 1- 00 07 MA ve IN 53 20 20 49 RT 00 17 17 53 10 6 51 PH 0, AR 00 MA 0 CY UN IT #5 /G 91 M PO WD BA 00 07 08 15 31 00 PR Ac SA 00 -1 -1 .0 00 L- ti GL 27 3- 1- 00 07 MA ve AR 71 20 20 48 RT 55 17 17 95 10 9 02 PH 0 AR UN MA IT CY /M L #5 KW 91 IK PE N MO 31 07 08 30 30 00 [facility] NT 72 -1 -1 .0 00 L- ti EL 20 3- 1- 00 07 MA ve UK 72 20 20 48 RT 61 17 17 89 T 0 17 PH SO AR D MA 10 CY MG #5 91 TA BL ET NO 00 07 08 15 25 00 [facility] VO 16 -1 -1 .0 00 L- ti LO 96 3- 1- 00 07 MA ve G 33 20 20 48 RT 10 91 17 17 89 0 0 19 PH UN AR IT MA S/ CY ML #5 FL 91 EX PE N BA 00 07 08 90 30 00 PR Ac CL 83 -1 -1 .0 00 L- ti OF 21 3- 1- 00 07 MA ve EN 02 20 20 48 RT 45 17 17 89 10 0 16 PH AR MG MA CY TA BL #5 ET 91 CI 54 07 08 30 30 00 PR Ac TA 45 -1 -1 .0 00 L- ti LO 80 3- 1- 00 07 MA ve NM 88 20 20 48 RT AM 91 17 17 89 0 09 PH HB AR R MA 40 CY MG #5 91 TA BL ET FA 68 07 08 60 30 00 WA Ac MO 64 -1 -1 .0 00 L- ti TI 50 3- 1- 00 07 MA ve DI 14 20 20 48 RT NE 05 17 17 89 9 11 PH 20 AR MA MG CY TA #5 BL 91 ET FE 00 07 08 30 30 00 WA Ac NO 09 -1 -1 .0 00 L- ti FI 37 3- 1- 00 07 MA ve BR 75 20 20 48 RT AT 69 17 17 89 E 8 12 PH 14 AR 5 MA MG CY TA #5 BL 91 ET HY 00 07 08 [address] 18 -1 -1 .0 00 L- ti OX 50 3- 1- 00 07 MA ve YZ 67 20 20 48 RT IN 40 17 17 89 E 1 05 PH PA AR M MA 25 CY MG #5 91 CA P IN 50 07 08 30 30 00 PR Ac VO 45 -1 -1 .0 00 L- ti KA 80 3- 1- 00 07 MA ve NA 14 20 20 48 RT 13 17 17 89 30 0 07 PH 0 AR MG MA CY TA BL #5 ET 91 LI 68 07 08 30 30 00 PR Ac SI 18 -1 -1 .0 00 L- ti NO 00 4- 1- 00 07 MA ve NM 98 20 20 49 RT IL 00 17 17 88 1 72 PH 10 AR MA MG CY TA #5 BL 91 ET AM 68 07 08 30 30 00 PR Ac LO 64 -1 -1 .0 00 L- ti DI 50 4- 1- 00 07 MA ve PI 51 20 20 49 RT NE 65 17 17 88 4 71 PH BE AR SY MA LA CY TE #5 10 91 MG TA B AT 68 07 08 30 30 00 WA Ac OR 64 -1 -1 .0 00 L- ti VA 50 4- 1- [address] 45 20 20 49 RT AT 85 17 17 88 IN 4 70 PH AR 10 MA CY MG #5 TA 91 BL ET SP 59 07 08 30 30 00 WA Ac IR 74 -1 -1 .0 00 L- ti ON 60 3- 1- 00 07 MA ve OL 21 20 20 48 RT AC 60 17 17 89 TO 1 24 PH NE AR MA 25 CY MG #5 91 TA BL ET QU 16 07 08 30 30 00 WA Ac ET 72 -1 -1 .0 00 L- ti IA 90 3- 1- 00 07 MA ve PI 14 20 20 48 RT NE 60 17 17 89 1 21 PH FU AR MA MA RA CY TE #5 50 91 MG TA B OM 60 07 08 30 30 00 WA Ac EP 50 -1 -1 .0 00 L- ti RA 50 3- 1- 00 07 MA ve ZO 14 20 20 48 RT LE 60 17 17 [address] AR MA 40 CY MG #5 91 CA PS UL E LO 68 07 08 30 30 00 WA Ac SA 64 -1 -1 .0 00 L- ti RT 50 3- 1- 00 07 MA ve AN 41 20 20 48 RT 15 17 17 89 PO 4 08 PH TA AR SS MA IU CY M 10 #5 0 91 MG TA B FL 55 06 07 1. 1 00 [...] ON 53 06 06 10 34 00 WA Ac ET 88 -0 -3 0. 00 L- ti OU 50 3- 0- 00 08 MA ve CH 24 20 20 0 83 RT 51 17 17 97 UL 0 45 PH TR AR A MA TE CY ST #5 ST 91 RI PS ON 53 06 06 10 34 00 WA Ac ET 88 -0 -3 0. 00 L- ti OU 50 2- 0- 00 08 MA ve CH 13 20 20 0 83 RT 61 17 17 97 DE 0 46 PH LI AR CA MA CY 33 G #5 LA 91 NC ET S ON 53 06 06 1. 1 00 [...] 1 17 PH CE AR TA MA WY CY NO PH #5 91 7. 5- 32 5 RE 08 05 06 10 30 00 PR Ac LI 39 -2 -2 0. 00 L- ti ON 69 08 MA ve 01 20 20 0 83 RT PE 63 17 17 95 N 4 42 PH NE AR ED MA LE CY 31 #5 GX 91 " BA 00 05 06 15 31 00 PR Ac SA 00 -2 -1 .0 00 L- ti GL 27 3 6 07 MA ve AR 71 20 20 48 RT 55 17 17 95 10 9 02 PH 0 AR UN MA IT CY /M L #5 KW 91 IK PE N FE 00 05 02 15 30 00 PR Ac NO 09 -1 -1 .0 00 L- ti FI 37 6 07 MA ve BR 75 20 20 48 RT AT 69 17 17 89 E 8 12 PH 14 AR 5 MA MG CY TA #5 BL 91 ET BA 00 05 06 30 00 PR Ac CL 83 -1 -1 .0 00 L- ti OF 21 07 MA ve EN 02 20 20 48 RT 45 17 17 89 10 0 16 PH AR MG MA CY TA BL #5 ET 91 MO 31 05 02 15 30 00 PR Ac NT 72 -1 -1 .0 00 L- ti EL 20 6 07 MA ve UK 72 20 20 48 RT 61 17 17 89 T 0 17 PH SO AR D MA 10 CY MG #5 91 TA BL ET NO 00 05 15 00 PR Ac VO 16 -1 -1 .0 00 L- ti LO 96 9 6- 00 07 MA ve G 33 20 20 48 RT 10 91 17 17 89 0 0 19 PH UN AR IT MA S/ CY ML #5 FL 91 EX PE N OM 60 05 02 15 30 00 PR Ac EP 50 -1 -1 .0 00 L- ti RA 50 6 07 MA ve ZO 14 20 20 48 RT LE 60 17 17 [address] AR MA 40 CY MG #5 91 CA PS UL E QU 16 00 PR Ac ET 72 -1 -1 .0 00 L- ti IA 90 6 07 MA ve PI 14 20 20 48 RT NE 60 17 17 89 1 21 PH FU AR MA MA RA CY TE #5 50 91 MG TA B SP 59 05 02 15 30 00 PR Ac IR 74 -1 -1 .0 00 L- ti ON 60 8- 6- 00 07 MA ve OL 21 20 20 48 RT AC 60 17 17 06 TO 1 59 PH NE AR MA 25 CY MG #5 91 TA BL ET LO 68 05 30 30 00 PR Ac SA 64 -1 -1 .0 00 L- ti RT 50 8- 6- 00 07 MA ve AN 41 20 20 48 RT 17 17 17 06 PO 0 60 PH TA AR SS MA IU CY M 10 #5 0 91 MG TA B 64 05 06 4. 28 00 PR Ac T 38 -1 -1 00 00 L- ti D2 00 9- 6- 0 07 MA ve 73 20 20 48 RT 1. 70 17 17 89 25 6 26 PH AR MG MA CY (5 0, #5 00 91 0 UN IT ) LI 54 05 30 30 00 [facility] SI 45 -1 -1 .0 00 L- ti NO 80 9 6- 07 MA ve NM 99 20 20 48 RT IL 71 17 17 89 0 68 PH 10 AR MA MG CY TA #5 BL 91 ET AT 68 05 30 30 00 PR Ac OR 64 -1 -1 .0 00 L- ti VA 50 9- 6- [address] 45 20 20 48 RT AT 85 17 17 89 IN 4 69 PH AR 10 MA CY MG #5 TA 91 BL ET AM 68 05 30 30 00 PR Ac LO 64 -1 -1 .0 00 L- ti DI 50 9- 6- 00 07 MA ve PI 51 20 20 48 RT NE 65 17 17 89 4 71 PH BE AR SY MA LA CY TE #5 10 91 MG TA B HY 00 12 22 [address] 18 -1 -1 .0 00 L- ti OX 50 9 6- 00 07 MA ve YZ 67 20 20 48 RT IN 40 17 17 89 E 1 05 PH PA AR M MA 25 CY MG #5 91 CA P GA 00 05 90 30 00 PR Ac BA 22 -1 -1 .0 00 L- ti PE 82 9- 6- 00 07 MA ve NT 63 20 20 48 RT IN 71 17 17 89 1 06 PH 80 AR 0 MA MG CY TA #5 BL 91 ET IN 50 05 06 30 30 00 PR Ac VO 45 -1 -1 .0 00 L- ti KA 80 9- 6- 00 07 MA ve NA 14 20 20 48 RT 13 17 17 89 30 0 07 PH 0 AR MG MA CY TA BL #5 ET 91 CI 54 05 06 30 30 00 WA Ac TA 45 -1 -1 .0 00 L- ti LO 80 9- 6- 00 07 MA ve NM 88 20 20 48 RT AM 91 17 17 89 0 09 PH HB AR R MA 40 CY MG #5 91 TA BL ET FA 68 05 06 60 30 00 PR Ac MO 64 -1 -1 .0 00 L- ti TI 50 9- 6- 00 07 MA ve DI 14 20 20 48 RT NE 05 17 17 89 9 11 PH 20 AR MA MG CY TA #5 BL 91 ET AD 00 05 06 12 30 00 PR Ac VA 17 -2 -1 .0 00 L- ti IR 30 2- 6- 00 07 MA ve 71 20 20 48 RT HF 72 17 17 89 A 0 70 PH 23 AR 0- MA 21 CY MC #5 G 91 IN VILLAVICENCIO LE R HY 00 05 06 40 [address] 40 -1 -[address] ti OC 60 5- 9- 00 00 SI ve OD 12 20 20 48 DE ON 40 17 17 75 -A 5 83 PH CE AR TA MA [place] CY NO PH OF CY 7. NT 5- HI 32 AN 5 A IN C IN 00 04 05 30 30 00 PR Ac CR 17 -1 -0 .0 00 L- ti US 30 0- 5- 00 07 MA ve E 87 20 20 48 RT EL 31 17 17 06 LI 0 61 PH PT AR A MA 62 CY .5 #5 MC 91 G IN H SI 00 03 04 50 25 00 PR Ac LV 59 -3 -2 .0 00 L- ti ER 10 0- 8- 00 07 MA ve 81 20 20 47 RT PARDO 05 17 17 96 LF 5 99 PH AD AR IA MA ZI CY NE #5 1% 91 CR EA M AM 00 04 04 20 10 00 PR Ac OX 78 -0 -2 .0 00 L- ti -C 11 3- 8- 00 07 MA ve LA 85 20 20 48 RT V 22 17 17 00 87 0 77 PH 5- AR 12 MA 5 CY MG #5 TA 91 BL ET BE 68 04 04 24 8 00 PR Ac NZ 38 -0 -2 .0 00 L- ti ON 20 3- 8- 00 07 MA ve AT 24 20 20 48 RT AT 70 17 17 00 E 1 78 PH 10 AR 0 MA MG CY CA #5 PS 91 UL E ME 59 04 04 21 6 00 WA Ac TH 74 -0 -2 .0 00 L- ti YL 60 3- 8- 00 07 MA ve NM 00 20 20 48 RT ED 10 17 17 00 NI 3 79 PH SO AR LO MA NE CY 4 #5 MG 91 DO SE PK AL 00 04 04 22 25 00 [facility] BU 48 -0 -2 5. 00 L- ti TE 79 5- 8- 00 07 MA ve RO 50 20 20 0 48 RT L 12 17 17 06 PARDO 5 57 PH L AR 2. MA 5 CY MG /3 #[address] SP 59 04 04 30 30 00 [facility] IR 74 -0 -2 .0 00 L- ti ON 60 5- 8- 00 07 MA ve OL 21 20 20 48 RT AC 60 17 17 06 TO 1 59 PH NE AR MA 25 CY MG #5 91 TA BL ET HY 00 03 04 30 [address] [facility] [address] 40 -3 -2 .0 00 L- ti OC 60 0- 8- 00 02 MA ve OD 12 20 20 23 RT ON 30 17 17 97 -A 1 50 PH CE AR TA MA [place] CY NO PH #5 EN 91 5- 32 5 LO 68 04 04 30 30 00 [facility] SA 64 -0 -2 .0 00 L- [...] HY 00 03 04 7. [address] [facility] [address] 40 -2 -2 00 00 L- ti OC 60 9- 1- 0 02 MA ve OD 12 20 20 23 RT ON 30 17 17 97 -A 1 21 PH CE AR TA MA [place] CY NO PH #5 EN 91 5- 32 5 HI 00 03 04 11 30 00 [facility] BI 23 -2 -1 8. 00 L- ti CL 40 1- 4- 00 08 MA ve EN 57 20 20 0 83 RT S 50 17 17 86 4% 4 20 PH AR LI MA QU CY ID #5 91 FL 55 03 04 2. 4 00 [facility] UC 11 -0 -0 00 00 L- ti ON 10 9- 7- 0 07 MA ve AZ 14 20 20 47 RT OL 51 17 17 53 E 2 71 PH 15 AR 0 MA MG CY TA #5 BL 91 ET ES 00 03 04 14 14 00 PH Ac TR 55 -1 -0 .0 00 YS ti AD 50 3- 7- 00 05 IC ve IO 88 20 20 02 IA L 70 17 17 54 NS 2 4 06 MG PH AR TA MA BL CY ET AL LI AN CE , IN C. FA 00 03 04 28 14 00 PH Ac MO 17 -1 -0 .0 00 YS ti TI 25 3- 7- 00 05 IC ve DI 72 20 20 02 IA NE 87 17 17 53 NS 0 87 20 PH AR MG MA CY TA BL AL ET LI AN CE , IN C. LO 43 03 04 14 14 00 PH Ac SA 54 -1 -0 .0 00 YS ti RT 70 3- 7- 00 05 IC ve AN 36 20 20 02 IA 21 17 17 53 NS PO 1 89 TA PH SS AR IU MA M CY 10 0 AL MG LI AN TA CE B , IN C. EA 08 02 03 10 30 00 PH Ac SY 49 -2 -2 0. 00 YS ti 63 6- 4- 00 03 IC ve TO 10 20 20 0 49 IA UC 60 17 17 67 NS H 1 27 PE PH N AR NE MA ED CY LE AL 31 LI GX AN 5/ CE 16 , IN C. NO 00 02 03 [...] AN IT CE ) , IN C. MO 00 02 03 [...] LI E AN CE , IN C. CI 65 02 03 30 30 00 PH Ac TA 86 -2 -2 .0 00 YS ti LO 20 4- 4- 00 03 IC ve NM 00 20 20 61 IA AM 70 [...] AN UL CE E , IN C. HY 64 02 03 [address] 98 -2 -2 .0 00 YS ti OX 00 4- 4- 00 03 IC ve YZ 16 20 20 61 IA IN 90 17 17 43 NS E 5 67 PA PH M AR 25 MA CY MG AL CA LI P AN CE , IN C. [place] 13 02 03 14 7 00 WA Ac NO 66 -2 -1 .0 00 L- ti CY 80 1- 7- 00 07 MA ve CL 48 20 20 47 RT IN 45 17 17 19 E 0 59 PH 10 AR 0 MA MG CY CA #5 PS 91 UL E MU 68 02 03 22 7 00 WA Ac PI 46 -2 -1 .0 00 L- ti RO 20 1- 7- 00 07 MA ve CI 18 20 20 47 RT N 02 17 17 19 2% 2 62 PH AR OI MA NT CY ME NT #5 91 LO 68 02 03 30 30 00 PR Ac SA 64 -1 -1 .0 00 L- ti RT 50 6- 7- 00 07 MA ve AN 41 20 20 47 RT 17 17 17 11 PO 0 31 PH TA AR SS MA IU CY M 10 #5 0 91 MG TA B FA 68 02 03 60 30 00 PR Ac MO 64 -1 -1 .0 00 L- ti TI 50 6- 7- 00 07 MA ve DI 14 20 20 47 RT NE 05 17 17 11 9 33 PH 20 AR MA MG CY TA #5 BL 91 ET ES 00 02 03 30 30 00 PR Ac TR 55 -1 -1 .0 00 L- ti AD 50 7- 7- 00 07 MA ve IO 88 20 20 47 RT L 70 17 17 14 2 4 51 PH MG AR MA TA CY BL ET #5 91 LO 68 02 03 30 30 00 PR Ac SA 64 -1 -1 .0 00 L- ti RT 50 3- 0- 00 07 MA ve AN 40 20 20 47 RT 97 17 17 05 PO 0 21 PH TA AR SS MA IU CY M 50 #5 91 MG TA B SP 53 02 03 30 30 00 PR Ac IR 48 -1 -1 .0 00 L- ti ON 90 3- 0- 00 07 MA ve OL 14 20 20 47 RT AC 30 17 17 05 TO 1 18 PH NE AR MA 25 CY MG #5 91 TA BL ET BE 68 02 03 15 5 00 PR Ac NZ 38 -1 -1 .0 00 L- ti ON 20 1- 0- 00 07 MA ve AT 24 20 20 47 RT AT 70 17 17 01 E 1 23 PH 10 AR 0 MA MG CY CA #5 PS 91 UL E FI 00 01 02 30 30 00 [...] CE , IN C. LA 00 02 15 30 00 PH Ac NT 08 -2 -2 .0 00 YS ti US 82 6- 4- 00 03 IC ve 21 20 20 46 IA SO 90 17 17 27 NS LO [address] PH AR AR MA 10 CY 0 UN AL IT LI /M AN L CE , IN C. HY 64 02 [address] [...] AN LE CE R , IN C. NM 51 01 02 60 30 00 PH Ac OP 99 -2 -2 .0 00 YS ti RA 10 6- 4- 00 03 IC ve NO 81 20 20 49 IA LO 80 17 17 66 NS L 1 92 ER PH AR 80 MA CY MG AL CA LI PS AN UL CE E , IN C. CI 65 01 02 30 30 00 PH Ac TA 86 -2 -2 .0 00 YS ti LO 20 6- 4- 00 03 IC ve NM 00 20 20 61 IA AM 70 [...] ET LI AN CE , IN C. EA 08 01 [...] AN IT CE ) , IN C. LA 00 12 02 [...] BE 68 01 02 15 5 00 PR Ac NZ 38 -1 -0 .0 00 L- ti ON 20 0- 3- 00 07 MA ve AT 24 20 20 46 RT AT 70 17 17 36 E 1 94 PH 10 AR 0 MA MG CY CA #5 PS 91 UL E OS 47 01 02 10 5 00 PR Ac EL 78 -1 -0 .0 00 L- ti TA 10 0- 3- 00 07 MA ve WY 47 20 20 46 RT 01 17 17 36 R 3 95 PH PH AR OS MA CY 75 #5 MG 91 CA PS UL E CE 65 01 01 20 10 00 PR Ac FU 86 -0 -2 .0 00 L- ti RO 20 3- 7- 00 07 MA ve XI 70 20 20 46 RT ME 06 17 17 22 0 78 PH AX AR ET MA IL CY 50 #5 0 91 MG TA B AC 65 12 01 10 30 00 [...] R , IN C. AM 69 12 01 30 30 00 PH Ac LO 09 -2 -2 .0 00 YS ti DI 70 9- 7- 00 03 IC ve PI 12 20 20 60 IA NE 81 16 17 61 NS 5 39 BE PH SY AR LA MA TE CY 10 AL LI MG AN CE TA , B IN C. AT 55 12 01 30 30 00 PH Ac OR 11 -2 -2 .0 00 YS ti VA 10 9- 7- [address] 12 20 20 60 IA AT 10 16 17 61 NS IN 5 48 PH 10 AR MA MG CY TA AL BL LI ET AN CE , IN C. FE 45 12 01 30 30 00 PH Ac NO 80 [...] 70 9- 7- 00 03 IC ve NM 35 20 20 60 IA IL 31 [...] CE ) , IN C. CI 65 12 01 30 30 00 PH Ac TA 16 -2 -2 .0 00 YS ti LO 20 8- 0- 00 03 IC ve NM 05 20 20 54 IA AM 45 [...] CE , IN C. QU 67 12 30 30 00 PH Ac ET 87 [...] AL LI AN CE , IN C. AL 00 [...] BL AN ET CE , IN C. NM 51 12 01 60 30 00 PH [...] 50 8- 0- 00 03 IC ve WY 10 20 20 40 IA N 41 16 17 21 NS HC 0 11 L PH 1, AR 00 MA 0 CY MG AL TA LI BL AN ET CE , IN C. HY 64 12 01 [address] 98 -2 -2 .0 00 YS ti OX 00 8- 0- 00 03 IC ve YZ 16 20 20 54 IA IN 90 16 17 82 NS E 5 33 PA PH M AR 25 MA CY MG AL CA LI P AN CE , IN C. PARDO 61 02 0 No LF 31 -1 AC 40 8- Lo ET 70 20 ng AM 10 13 er ID 1 E Ac 10 ti % ve EY E DR OP S HY 00 10 10 0 30 30 WA [address] 17 -2 -2 .0 LG 56 IM ti OC 22 4- 4- 00 RE 42 AN ve HL 08 20 20 EN 1 OR 98 11 11 S AN OT 0 #5 NA HI 76 AZ 3 ID # E 57 50 63 MG TA B FL 00 10 10 0 30 30 WA 38 GE Ac UO 78 -2 -2 .0 LG 56 IM ti XE 12 4- 4- 00 RE 41 AN ve TI 82 20 20 EN 9 NE 43 11 11 S AN 1 #5 NA HC 76 L 3 40 # 57 MG 63 CA PS UL E FL 50 10 10 0 16 30 WA 38 GE Ac UT 38 -2 -2 .0 LG 56 IM ti IC 30 4- 4- 00 RE 41 AN ve 70 20 20 EN 8 ON 01 11 11 S AN E 6 #5 NA NM 76 OP 3 # 50 57 63 MC G SP RA Y AM 68 10 10 0 30 30 WA 38 GE Ac LO 18 -2 -2 .0 LG 56 IM ti DI 00 4- 4- 00 RE 41 AN ve PI 75 20 20 EN 7 NE 20 11 11 S AN 3 #5 NA BE 76 SY 3 LA # TE 57 63 10 MG TA B CR 00 10 10 0 30 30 WA 38 GE Ac ES 31 -2 -2 .0 LG 56 IM ti TO 00 4- 4- 00 RE 41 AN ve R 75 20 20 EN 6 20 29 11 11 S AN 0 #5 NA MG 76 3 TA # BL 57 ET 63 LI 68 10 10 0 30 30 WA 38 GE Ac SI 18 -2 -2 .0 LG 56 IM ti NO 00 4- 4- 00 RE 41 AN ve NM 51 20 20 EN 5 IL 70 11 11 S AN 3 #5 NA 40 76 3 MG # 57 TA 63 BL ET NE 00 01 10 6 30 30 WA 37 GE Ac XI 18 -3 -2 .0 LG 15 IM ti UM 65 1- 1- 00 RE 53 AN ve 04 [address] 03 11 11 S AN 1 #5 NA 40 76 3 MG # 57 CA 63 PS UL E ME 59 10 10 0 21 6 WA 38 GA Ac TH 74 -1 -2 .0 LG 56 IN ti YL 60 8- 1- 00 RE 42 EY ve NM 00 20 20 EN 7 ED 10 11 11 S WY NI 3 #5 CH SO 76 AE LO 3 L NE # S 4 57 63 MG DO SE PK AC 00 10 10 0 20 4 WA 38 CO Ac ET 60 -2 -2 .0 LG 56 OP ti AM 32 1- 1- 00 RE 42 ER ve IN 33 20 20 EN 6 OP 83 11 11 S BI HE 2 #5 LL N- 76 Y CO 3 A D # #3 57 63 TA BL ET 49 09 09 0 2. 30 WA 38 GE Ac 88 -1 -1 29 LG 35 IM ti 40 3- 5- 9 RE 00 AN ve 27 20 20 EN 2 01 11 11 S AN 4 #5 NA 76 3 # 57 63 FL 00 09 09 0 30 30 WA 38 GE Ac UO 78 -1 -1 .0 LG 35 IM ti XE 12 3- 3- 00 RE 00 AN ve TI 82 20 20 EN 1 NE 43 11 11 S AN 1 #5 NA HC 76 L 3 40 # 57 MG 63 CA PS UL E FL 50 09 09 0 16 30 WA 38 GE Ac UT 38 -1 -1 .0 LG 35 IM ti IC 30 3- 3- 00 RE 00 AN ve 70 20 20 EN 0 ON 01 11 11 S AN E 6 #5 NA NM 76 OP 3 # 50 57 63 MC G SP RA Y CR 00 02 09 3 30 30 WA 37 GE Ac ES 31 -2 -1 .0 LG 31 IM ti TO 00 8- 2- 00 RE 53 AN ve R 75 20 20 EN 8 20 29 11 11 S AN 0 #5 NA MG 76 3 TA # BL 57 ET 63 NE 00 01 09 6 30 30 WA 37 GE Ac XI 18 -3 -1 .0 LG 15 IM ti UM 65 1- 2- 00 RE 53 AN ve 04 [address] 03 11 11 S AN 1 #5 NA 40 76 3 MG # 57 CA 63 PS UL E AM 68 04 09 3 30 30 37 CO Ac LO 18 -0 -1 .0 LG 51 TT ti DI 00 4- 2- 00 RE 18 ON ve PI 75 20 20 EN 8 NE 20 11 11 S RO 3 #5 BI BE 76 N SY 3 T LA # TE 57 63 10 MG TA B HY 00 01 09 3 [address] 17 -3 -1 .0 LG 15 IM ti OC 22 1- 2- 00 RE 52 AN ve HL 08 20 20 EN 9 OR 98 11 11 S AN OT 0 #5 NA HI 76 AZ 3 ID # E 57 50 63 MG TA B LI 68 01 09 3 30 30 37 GE Ac SI 18 -3 -1 .0 LG 15 IM ti NO 00 1- 2- 00 RE 52 AN ve NM 51 20 20 EN 8 IL 70 11 11 S AN 3 #5 NA 40 76 3 MG # 57 TA 63 BL ET AM 68 04 08 3 30 30 37 CO Ac LO 18 -0 -0 .0 LG 51 TT ti DI 00 4- 9- 00 RE 18 ON ve PI 75 20 20 EN 8 NE 20 11 11 S RO 3 #5 BI BE 76 N SY 3 T LA # TE 57 63 10 MG TA B TI 55 01 08 2 60 30 37 CO Ac ZA 11 -2 -0 .0 LG 86 LG ti NI 10 0- 9- 00 RE 05 LA ve DI 17 20 20 EN 1 ZI NE 91 11 11 S ER 5 #5 HC 76 CH L 3 RI 2 # ST MG 57 OP 63 HE TA R BL L ET FL 00 08 08 0 30 30 38 GE Ac UO 78 -0 -0 .0 LG 17 IM ti XE 12 9- 9- 00 RE 19 AN ve TI 82 20 20 EN 1 NE 43 11 11 S AN 1 #5 NA HC 76 L 3 40 # 57 MG 63 CA PS UL E 49 08 08 0 2. 30 38 GE Ac 88 -0 -0 29 LG 17 IM ti 40 9- 9- 9 RE 19 AN ve 27 20 20 EN 2 01 11 11 S AN 4 #5 NA 76 3 # 57 63 FL 60 08 08 0 16 30 38 GE Ac UT 50 -0 -0 .0 LG 17 IM ti IC 50 9- 9- 00 RE 37 AN ve 82 20 20 EN 3 ON 90 11 11 S AN E 1 #5 NA NM 76 OP 3 # 50 57 63 MC G SP RA Y LI 68 01 08 3 30 30 WA 37 GE Ac SI 18 -3 -0 .0 LG 15 IM ti NO 00 1- 9- 00 RE 52 AN ve NM 51 20 20 EN 8 IL 70 11 11 S AN 3 #5 NA 40 76 3 MG # 57 TA 63 BL ET HY 00 01 08 3 30 30 WA [address] 17 -3 -0 .0 LG 15 IM ti OC 22 1- 9- 00 RE 52 AN ve HL 08 20 20 EN 9 OR 98 11 11 S AN OT 0 #5 NA HI 76 AZ 3 ID # E 57 50 63 MG TA B NE 00 01 08 6 30 30 WA 37 GE Ac XI 18 -3 -0 .0 LG 15 IM ti UM 65 1- 9- 00 RE 53 AN ve 04 [address] 03 11 11 S AN 1 #5 NA 40 76 3 MG # 57 CA 63 PS UL E CR 00 02 08 3 30 30 WA 37 GE Ac ES 31 -2 -0 .0 LG 31 IM ti TO 00 8- 9- 00 RE 53 AN ve R 75 20 20 EN 8 20 29 11 11 S AN 0 #5 NA MG 76 3 TA # BL 57 ET 63 00 07 07 0 20 3 WA 38 SO Ac 59 -2 -2 .0 LG 09 WE ti 10 4- 4- 00 RE 23 R ve 34 20 20 EN 8 DA 90 11 11 S 5 #5 D 76 3 # 57 63 CL 63 07 07 0 28 7 WA 38 SO Ac IN 30 -2 -2 .0 LG 09 WE ti DA 40 4- 4- 00 RE 23 R ve MY 69 20 20 EN 7 DA CI 30 11 11 S N 1 #5 D HC 76 L 3 30 # 0 57 MG 63 CA PS UL E PE 00 07 07 0 40 10 WA 38 GR Ac NI 09 -2 -2 .0 LG 08 AY ti CI 31 2- 2- 00 RE 61 ve LL 17 20 20 EN 2 RO IN 41 11 11 S BE 0 #5 RT VK 76 B 3 50 # 0 57 MG 63 TA BL ET 00 07 07 0 12 2 WA 38 GR Ac 59 -2 -2 .0 LG 08 AY ti 10 2- 2- 00 RE 61 ve 34 20 20 EN 1 RO 90 11 11 S BE 5 #5 RT 76 B 3 # 57 63 LY 00 01 07 2 60 30 WA 38 CO Ac RI 07 -2 -1 .0 LG 02 LG ti CA 11 1- 3- 00 RE 35 LA ve 01 20 20 EN 7 ZI 15 66 11 11 S ER 0 8 #5 MG 76 CH 3 RI CA # ST PS 57 OP UL 63 HE E R L TI 55 01 07 2 60 30 [...] TA R BL L ET FL 00 02 07 2 30 30 WA 37 GE Ac UO 78 -2 -1 .0 LG 31 IM ti XE 12 8- 0- 00 RE 53 AN ve TI 82 20 20 EN 6 NE 43 11 11 S AN 1 #5 NA HC 76 L 3 40 # 57 MG 63 CA PS UL E TI 55 01 06 2 60 30 [...] .0 LG 51 TT ti DI 00 4 8- 00 RE 18 ON ve PI [...] LG 31 IM ti XE 12 8 8- 00 RE 53 AN ve TI [...] 1- 8- 00 RE 52 AN ve NM 51 20 20 EN 8 IL 70 11 11 S AN 3 #5 NA 40 76 3 MG # 57 TA 63 BL ET 00 05 05 0 15 3 37 RO Ac 59 -0 -0 .0 [...] 11 S SH E 1 #5 AR NM 76 ON OP 3 E # 50 57 63 MC G SP RA Y CL 00 05 05 0 20 10 PR 37 RO Ac AR 09 -0 -0 [...] 3 # 57 63 CR 00 02 02 3 30 30 WA 37 GE Ac ES 31 -2 -2 .0 LG 31 IM ti TO 00 RE 53 AN ve R 75 20 20 EN 8 20 29 11 11 S AN 0 #5 NA MG 76 3 TA # BL 57 ET 63 AM 68 02 02 3 30 30 WA 37 GE Ac LO 18 -2 -2 .0 LG 31 IM ti DI 00 RE 53 AN ve PI 75 20 20 EN 7 NE 10 11 11 S AN 3 #5 NA BE 76 SY 3 LA # TE 57 5 63 MG TA B FL 00 02 02 2 30 30 WA 37 GE Ac UO 78 -2 -2 .0 LG 31 IM ti XE 12 RE 53 AN ve TI 82 20 20 EN 6 NE 43 11 11 S AN 1 #5 NA HC 76 L 3 40 # 57 MG 63 CA PS UL E 00 01 01 1 30 30 PR 37 GE Ac 09 -3 -3 .0 LG 15 IM ti 34 RE 52 AN ve 35 20 20 EN 3 60 11 11 S AN 1 #5 NA 76 3 # 57 63 NE 00 01 01 6 30 30 WA 37 GE Ac XI 18 -3 -3 .0 LG 15 IM ti UM 65 RE 53 AN ve 04 [address] 03 11 11 S AN 1 #5 NA 40 76 3 MG # 57 CA 63 PS UL E HY 00 01 01 3 30 30 WA [address] 17 -3 -3 .0 LG 15 IM ti OC 22 RE 52 AN ve HL 08 20 20 EN 9 OR 98 11 11 S AN OT 0 #5 NA HI 76 AZ 3 ID # E 57 50 63 MG TA B LI 68 01 01 3 30 30 WA 37 GE Ac SI 18 -3 -3 .0 LG 15 IM ti NO 00 RE 52 AN ve NM 51 20 20 EN 8 IL 70 11 11 S AN 3 #5 NA 40 76 3 MG # 57 TA 63 BL ET CR 00 11 01 1 30 30 [...] .0 LG 47 IM ti DI 00 7- 1- 00 RE 74 AN ve PI 75 20 20 EN 9 NE 10 10 11 S AN 3 #5 NA BE 76 SY 3 LA # TE 57 5 63 MG TA B TI 55 01 01 3 60 30 WA 82 CO Ac ZA 11 -2 -2 .0 LG 96 LG ti NI 10 0- 1- 00 RE 06 LA ve DI 17 20 20 EN ZI NE 91 11 11 S ER 5 #5 HC 54 CH L 8 RI 2 # ST MG 55 OP 48 HE TA R BL L ET PE 00 01 01 0 40 10 WA 82 BR Ac NI 09 -2 -2 .0 LG 96 AC ti CI 31 1- 1- 00 RE 04 KE ve LL 17 20 20 EN N IN 41 11 11 S DA 0 #5 VK 54 D 8 L 50 # 0 55 MG 48 TA BL ET 00 01 01 0 15 2 WA 82 BR Ac 59 -2 -2 .0 LG 96 AC ti 10 1- - RE 07 KE ve 34 20 20 [...] 48 HE E R L PE 00 12 12 0 40 10 WA 16 CO Ac NI 09 -2 -2 .0 LG 89 LG ti CI 31 3- 3- 00 RE 29 LA ve LL 17 20 20 EN 9 ZI IN 41 10 10 S ER 0 #9 VK 16 CH 2 RI 50 # ST 0 91 OP MG 62 HE R TA L BL ET 00 12 12 0 15 2 WA 16 KU Ac 59 -2 -2 .0 LG 89 SH ti 10 3- 3- 00 RE 29 MA ve 34 20 20 EN 7 N 90 10 10 S PARDO 5 #9 SA 16 N 2 # 91 62 CR 00 11 11 1 30 30 [...] .0 LG 65 IM ti TO 00 00 RE 83 AN ve R 75 20 20 EN 3 10 19 10 10 S AN 0 #5 NA MG 76 3 TA # BL 57 ET 63 AM 68 09 10 5 30 30 WA 36 GE Ac LO 18 -2 -2 .0 LG 47 IM ti DI 00 7 8- 00 RE 74 AN ve PI 75 20 20 EN 9 NE 10 10 10 S AN 3 #5 NA BE 76 SY 3 LA # TE 57 5 63 MG TA B NE 00 08 10 4 30 30 WA 36 GE Ac XI 18 -2 -2 .0 LG 47 IM ti UM 65 4 8- 00 RE 74 AN ve 04 [address] 03 10 10 S AN 1 #5 NA 40 76 3 MG # 57 CA 63 PS UL E TI 55 09 10 3 60 30 WA 36 CO Ac ZA 11 -1 -2 .0 LG 43 LG ti NI 10 7 8 00 RE 94 LA ve DI 17 20 20 EN 2 ZI NE 91 10 10 S ER 5 #5 HC 76 CH L 3 RI 2 # ST MG 57 OP 63 HE TA R BL L ET LY 00 09 10 5 60 30 WA 36 CO Ac RI 07 -1 -2 .0 LG 43 LG ti CA 11 7 8 00 RE 94 LA ve 01 20 20 EN 1 ZI 15 66 10 10 S ER 0 8 #5 MG 76 CH 3 RI CA # ST PS 57 OP UL 63 HE E R L LI 68 07 10 3 30 30 WA 36 RA Ac SI 18 -1 -2 .0 LG 11 NC ti NO 00 RE 53 K ve NM 51 20 20 EN 8 ER IL 70 10 10 S IN 3 #5 M 40 76 3 MG # 57 TA 63 BL ET HY 00 10 10 0 30 30 [...] LG 47 IM ti DI 00 7 00 RE 74 AN ve PI 75 20 20 EN 9 NE 10 10 10 S AN 3 #5 NA BE 76 SY 3 LA # TE 57 5 63 MG TA B LI 68 07 09 3 30 30 WA 36 RA Ac SI 18 -1 -2 .0 LG 11 NC ti NO 00 6- 5- 00 RE 53 K ve NM 51 20 20 EN 8 ER IL 70 10 10 S IN 3 #5 M 40 76 3 MG # 57 TA 63 BL ET CR 00 08 09 0 30 30 WA 36 GE Ac ES 31 -2 -2 .0 LG 47 IM ti TO 00 4- 5- 00 RE 74 AN ve R 75 20 20 EN 8 10 19 10 10 S AN 0 #5 NA MG 76 3 TA # BL 57 ET 63 NE 00 08 09 4 30 30 WA 36 GE Ac XI 18 -2 -2 .0 LG 47 IM ti UM 65 4- 5- 00 RE 74 AN ve 04 [address] 03 10 10 S AN 1 #5 NA 40 76 3 MG # 57 CA 63 PS UL E TI 55 09 09 3 60 30 WA 36 CO Ac ZA 11 -1 -1 .0 LG 43 LG ti NI 10 7- 7- 00 RE 94 LA ve DI 17 20 20 EN 2 ZI NE 91 10 10 S ER 5 #5 HC 76 CH L 3 RI 2 # ST MG 57 OP 63 HE TA R BL L ET LY 00 09 09 5 60 30 WA 36 CO Ac RI 07 -1 -1 .0 LG 43 LG ti CA 11 7- 7- 00 RE 94 LA ve 01 20 20 EN 1 ZI 15 66 10 10 S ER 0 8 #5 MG 76 CH 3 RI CA # ST PS 57 OP UL 63 HE E R L GA 68 08 08 0 60 30 [...] 6- 6- 00 RE 53 K ve NM 51 20 20 EN 8 ER IL [...] E 57 50 63 MG TA B CY 59 02 07 1 60 30 WA 36 CO Ac CL 74 -2 -1 .0 LG 11 LG ti OB 60 3- 5- 00 RE 53 LA ve EN 17 20 20 EN 4 ZI ZA 71 10 10 S ER NM 0 #5 IN 76 CH E 3 RI 10 # ST 57 OP MG 63 HE R TA L BL ET AM 68 06 07 1 30 30 PR 35 GE Ac LO 18 -0 -1 .0 LG 90 IM ti DI 00 1- 5- 00 RE 14 AN ve PI 75 20 20 EN 8 NE 10 10 10 S AN 3 #5 NA BE 76 SY 3 LA # TE 57 5 63 MG TA B AM 00 06 06 0 20 10 PR 35 GE Ac OX 78 -1 -1 [...] B 00 05 06 0 30 2 PR 35 YE Ac 59 -2 -0 .0 [...] 76 N 3 M # 57 63 PARDO 53 04 04 0 20 10 PR 35 KI Ac LF 74 -2 -2 .0 LG 69 LL ti AM 60 4- 4- 00 RE 10 IN ve ET 27 20 20 EN 4 DE HO 20 10 10 S R XA 5 #5 ZO 76 HL LE 3 EY -T # E MP 57 63 DS TA BL ET NM 00 04 04 0 6. 1 WA 35 KI Ac OM 78 -2 -2 00 LG 69 LL ti ET 11 4- 4- 0 RE 10 IN ve VILLAVICENCIO 83 20 20 EN 3 DE ZI 00 10 10 S R NE 1 #5 76 HL 25 3 EY # E MG 57 63 TA BL ET NE 00 04 04 0 30 30 WA 35 RA Ac XI 18 -1 -1 .0 LG 63 NC ti UM 65 9 9- 00 RE 18 K ve 04 20 [address] 03 10 10 S IN 1 #5 M 40 76 3 MG # 57 CA 63 PS UL E 00 04 04 0 20 3 WA 35 LO Ac 59 -1 -1 .0 LG 66 VE ti 10 9- 9- 00 RE 30 ve 74 20 20 EN 7 TI 90 10 10 S MO 5 #5 TH 76 Y 3 A # 57 63 PE 00 04 04 0 40 10 WA 35 LO Ac NI 09 -1 -1 .0 LG 66 VE ti CI 31 04-27- 00 RE 20 ve LL 17 20 20 EN 9 TI IN 41 10 10 S MO 0 #5 TH VK 76 Y 3 A 50 # 0 57 MG 63 TA BL ET TR 65 04 04 0 [address] Ac AM 16 -1 -1 .0 LG 65 AW ti AD 20 8- 8- 00 RE 57 ve OL 62 20 20 EN 4 AZ 71 10 10 S [place] HC 1 #5 L 76 50 3 # MG 57 63 TA BL ET ME 68 04 04 0 [address] Ac LO 18 -1 -1 .0 LG 65 AW ti XI 00 8 8- 00 RE 57 ve CA 50 20 20 EN 3 AZ M 10 10 10 S [place] 7. 3 #5 5 76 MG 3 # TA 57 BL 63 ET AM 00 04 04 0 [address] Ac OX 78 -1 -1 .0 LG 65 AW ti -C 11 8- 8- 00 RE 57 ve LA 85 20 20 EN 2 AZ V 22 10 10 S [place] 87 0 #5 5- 76 12 3 [...] 3- 3- 00 RE 38 K ve NM 51 20 20 EN 5 ER IL [...] OP UL 63 HE E R L CY 59 02 03 0 60 30 WA 35 CO Ac CL 74 -1 -2 .0 LG 51 LG ti OB 60 5- 1- 00 RE 01 LA ve EN 17 20 20 EN 1 ZI ZA 71 10 10 S ER NM 0 #5 IN 76 CH E 3 RI 10 # ST 57 OP MG 63 HE R TA L BL ET NE 00 01 03 1 30 30 WA 35 GE Ac XI 18 -2 -2 .0 LG 20 IM ti UM 65 5- - 00 RE 25 AN ve 04 [address] 03 10 10 S AN 1 #5 NA 40 76 3 MG # 57 CA 63 PS UL E LY 00 10 02 01 60 30 WA 34 CO Ac RI 07 -1 -2 .0 LG 86 LG ti CA 11 6- 6- 00 RE 38 LA ve 01 20 20 EN 4 ZI 75 46 09 10 S ER 8 57 MG [address] PS OP UL HE E R L CY 59 02 02 00 60 30 WA 35 CO Ac CL 74 -1 -2 .0 LG 33 LG ti OB 60 5- 6- 00 RE 11 LA ve EN 17 20 20 EN 7 ZI ZA 71 10 10 S ER NM 0 57 IN 63 CH E RI 10 ST OP MG HE R TA L BL ET LI 68 11 02 02 30 30 WA 34 RA Ac SI 18 -1 -2 .0 LG 86 NC ti NO 00 3- 6- 00 RE 38 K ve NM 51 20 20 EN 5 ER IL [...] AZ ID E 50 MG TA B 59 02 02 00 8. 30 WA 35 EM Ac 31 -1 -2 50 LG 32 ER ti 00 2- 6- 0 RE 13 Y ve 57 20 20 EN 1 DA 92 10 10 S RY 0 57 L 63 L NM 50 02 02 00 60 4 WA 35 EM Ac OM 38 -1 -2 .0 LG 32 ER ti ET 30 2- 6- 00 RE 13 Y ve VILLAVICENCIO 80 20 20 EN 2 DA ZI 41 10 10 S RY NE 6 57 L -C 63 L OD EI NE SY RU P AM 00 02 02 00 30 10 WA 35 EM Ac OX 09 -1 -2 .0 LG 32 ER ti IC 33 2- 6- 00 RE 13 Y ve IL 10 20 20 EN 0 DA LI 90 10 10 S RY N 5 57 L 50 63 L 0 MG CA PS UL E NE 00 01 02 00 30 30 [...] ZI ZA 71 09 10 S ER NM 0 57 IN 63 CH E RI [...] 3- 4- 00 RE 38 K ve NM 51 20 20 EN 5 ER IL [...] 3- 7- 00 RE 38 K ve NM 51 20 20 EN 5 ER IL 70 09 09 S IN 3 57 M 40 63 MG TA BL ET CY 59 11 11 00 60 30 WA 34 CO Ac CL 74 -0 -1 .0 LG 76 LG ti OB 60 9- 9- 00 RE 00 LA ve EN 17 20 20 EN 5 ZI ZA 71 09 09 S ER NM 0 57 IN 63 CH E RI 10 ST OP MG HE R TA L BL ET LI 68 11 11 00 14 14 WA 34 LA Ac SI 18 -1 -1 .0 LG 77 UR ti NO 00 1- 9- 00 RE 26 EN ve NM 51 20 20 EN 8 O- IL [...] PS OP UL HE E R L NM 00 09 08 02 30 30 WA [...] 8- 3- 00 MA 91 EN ve NM 99 20 20 RT 0 O- IL 41 09 09 AL 0 PH VA 40 AR RE MA Z MG CY LI TA #1 [...] BL 29 OP ET HE R L NM 00 09 06 01 30 30 WA [...] CY LI AH #1 J 51 0 LI 54 05 06 00 30 30 WA 71 LA Ac SI 45 -2 -0 .0 L- 17 UR ti NO 80 8- 4- 00 MA 91 EN ve NM 99 20 20 RT 0 O- IL 41 09 09 AL 0 PH VA 40 AR RE MA Z MG CY LI TA #1 [...] ZI ZA 81 09 09 PH ER NM 0 AR IN MA CH E CY RI 10 ST #9 OP MG 01 HE R TA L BL ET 00 02 02 00 12 1 WA 32 SP Ac 59 -0 -1 .0 LG 00 EL ti 10 2- 2- 00 RE 45 LM ve 34 20 20 EN 8 AN 90 09 09 S 5 57 PA 63 UL CI 16 02 02 00 14 7 WA 32 SP Ac NM 25 -0 -1 .0 LG 00 EL ti OF 20 2- 2- 00 RE 45 LM ve LO 51 20 20 EN 7 AN XA 50 09 09 S CI 1 57 PA N 63 UL HC L 50 0 MG TA B CY 59 02 02 00 15 5 WA 32 No Ac CL 74 -0 -1 .0 LG 00 t ti OB 60 2- 2- 00 RE 45 Av ve EN 17 20 20 EN 9 ai ZA 71 09 09 S la NM 0 57 bl IN 63 e E 10 MG TA BL ET NA 68 02 02 00 20 10 WA 32 No Ac NM 46 -0 -1 .0 LG 00 t ti OX 20 2- 2- 00 RE 46 Av ve EN 19 20 20 EN 0 ai 00 09 09 S la 50 5 57 bl 0 63 e MG TA BL ET DI 00 11 11 00 60 30 WA 70 LA Ac CL 78 -1 -2 .0 L- 82 UR ti OF 11 4- 0- 00 MA 63 EN ve EN 78 20 20 RT 6 O- AC 90 08 08 AL 1 PH VA SO AR RE D MA Z EC CY LI AH 75 #1 J 51 MG 0 TA B GA 59 11 11 00 12 30 WA 70 LA Ac BA 76 -1 -2 0. L- 82 UR ti PE 25 4- 0- 00 MA 63 EN ve NT 02 20 20 0 RT 8 O- IN 30 08 08 AL 1 PH VA 60 AR RE 0 MA Z MG CY LI AH TA #1 J BL 51 ET 0 NM 00 09 11 00 30 30 WA 70 LA Ac EM 04 -1 -2 .0 L- 70 UR ti AR 61 0- 0- 00 MA 31 EN ve IN 10 20 20 RT 8 O- 28 08 08 AL 0. 1 PH VA 62 AR RE 5 MA Z MG CY LI AH TA #1 J BL 51 ET 0 HY 00 05 11 02 30 30 [...] #1 J 51 MG 0 TA B LI 54 05 11 02 30 30 WA 70 LA Ac SI 45 -2 -2 .0 L- 51 UR ti NO 80 5- 0- 00 MA 25 EN ve NM 99 20 20 RT 9 O- IL [...] UL AR MA CY #1 51 0 ME 00 05 11 02 30 10 WA 70 BL Ac TH 60 -2 -2 .0 L- 52 EC ti OC 34 9- 0- 00 MA 02 HE ve AR 48 20 20 RT 9 R BA 62 08 08 SA MO 1 PH UL L AR 75 MA 0 CY MG #1 TA 51 BL 0 ET TR 00 05 11 02 90 30 WA 70 BL Ac AM 37 -2 -2 .0 L- 52 EC ti AD 84 9- 0- 00 MA 02 HE ve OL 15 20 20 RT 8 R 10 08 08 SA HC 1 PH UL L AR 50 MA CY MG #1 TA 51 BL 0 ET ME 00 05 09 01 30 10 WA 70 BL Ac TH 60 -2 -1 .0 L- 52 EC ti OC 34 9- 1- 00 MA 02 HE ve AR 48 20 20 RT 9 R BA 62 08 08 SA MO 1 PH UL L M 75 10 0 -1 MG 51 0 TA BL ET TR 00 05 09 [...] UL M 10 -1 51 0 00 04 09 02 12 30 [...] AH 75 0 J MG TA B LI 54 05 09 01 30 30 WA 70 LA Ac SI 45 -2 -1 .0 L- 51 UR ti NO 80 5- 1- 00 MA 25 EN ve NM 99 20 20 RT 9 O- IL 41 08 08 AL 0 PH VA 40 M RE 10 Z MG -1 LI 51 AH TA 0 J BL ET HY 00 05 09 01 [...] AH 50 0 J MG TA B NM 00 09 09 00 30 30 WA 63 AL Ac EM 04 -0 -1 .0 LG 06 VA ti AR 61 4- 1- 00 RE 24 RE ve IN 10 20 20 EN Z 28 08 08 S AN 0. 1 05 TH 62 54 ON 5 8 Y MG W TA BL ET 00 06 07 00 60 20 WA [...] 50 D 0 MG TA BL ET AC 00 06 07 [...] IN E #9 SY 01 RU P TR 00 05 06 00 90 30 WA 70 No Ac AM 37 -2 -0 .0 L- 52 t ti AD 84 9- 5- 00 MA 02 Av ve OL 15 20 20 RT 8 ai 10 08 08 la HC 1 PH bl L M e 50 10 -1 MG 51 0 TA BL ET NM 00 02 06 02 30 30 WA 70 No Ac EM 04 -0 -0 .0 L- 38 t ti AR 61 6- 5- 00 MA 58 Av ve IN 10 20 20 RT 8 ai 28 08 08 la 0. 1 PH bl 62 M e 5 10 MG -1 51 TA 0 BL ET HY 00 05 06 00 [address] 17 -2 -0 .0 L- 50 t ti OC 22 2- 5- 00 MA 82 Av ve HL 08 20 20 RT 4 ai OR 98 08 08 la OT 0 PH bl HI M e AZ 10 ID -1 E 51 50 0 MG TA B LI 54 05 06 00 30 30 70 No Ac SI 45 -2 -0 .0 L- 51 t ti NO 80 5- 5- 00 MA 25 Av ve NM 99 20 20 RT 9 ai IL 41 08 08 la 0 PH bl 40 M e 10 MG -1 51 TA 0 BL ET AL 00 05 06 00 60 30 70 No Ac LO 59 -0 -0 .0 L- 47 t ti PU 15 6- 5- 00 MA 62 Av ve RI 54 20 20 RT 3 ai NO 30 08 08 la L 1 PH bl 10 M e 0 10 MG -1 51 TA 0 BL ET GA 59 04 06 01 12 30 70 No Ac BA 76 -1 -0 0. L- 43 t ti PE 25 7- 5- 00 MA 91 Av ve NT 02 20 20 0 RT 8 ai IN 30 08 08 la 1 PH bl 60 M e 0 10 MG -1 51 TA 0 BL ET DI 00 04 06 01 60 30 70 No Ac CL 78 -1 -0 .0 L- 43 t ti OF 11 7- 5- 00 MA 91 Av ve EN 78 20 20 RT 9 ai AC 90 08 08 la 1 PH bl SO M e D 10 EC -1 51 75 0 MG TA B ME 00 05 06 00 30 10 70 No Ac TH 60 -2 -0 [...] 6- 4- 00 MA 58 Av ve NM 99 20 20 RT 6 ai IL [...] 0 BL ET GA 59 04 04 00 30 70 No Ac BA 76 -1 -2 0. L- 43 t ti PE 25 7- 4- 00 MA 91 Av ve NT 02 20 20 0 RT 8 ai IN 30 08 08 la 1 PH bl 60 M e 0 10 MG -1 51 TA 0 BL ET DI 00 04 04 00 60 30 70 No Ac CL 78 -1 -2 .0 L- 43 t ti OF 11 7- 4- 00 MA 91 Av ve EN 78 20 20 RT 9 ai AC 90 08 08 la 1 PH bl SO M e D 10 EC -1 51 75 0 MG TA B ME 00 02 04 01 30 10 70 No Ac TH 60 -0 -2 .0 L- 38 t ti OC 34 6- 4- 00 MA 58 Av ve AR 48 20 20 RT 9 ai BA 62 08 08 la MO 1 PH bl L M e 75 10 0 -1 MG 51 0 TA BL ET NM 00 02 04 30 30 70 No Ac EM 04 -0 -2 .0 L- 38 t ti AR 61 6- 4- 00 MA 58 Av ve IN 10 20 20 RT 8 ai 28 08 08 la 0. 1 PH bl 62 M e 5 10 MG -1 51 TA 0 BL ET AL 00 02 04 01 30 30 70 No Ac LO 59 [...] 6- 7- 00 MA 58 Av ve NM 99 20 20 RT 6 ai IL [...] -1 MG 51 0 TA BL ET NM 00 02 04 00 30 30 WA [...] bl M e 10 -1 51 0 DI 00 03 04 00 60 30 WA 70 No Ac CL 78 -0 -0 .0 L- 35 t ti OF 11 4- 7- 00 MA 78 Av ve EN 78 20 20 RT 7 ai AC 90 08 08 la 1 PH bl SO M e D 10 EC -1 51 75 0 MG TA B 00 02 03 00 12 30 WA 70 No Ac 18 -0 -2 0. L- 30 t ti 50 7- 6- 00 MA 42 Av ve 10 20 20 0 RT 4 ai 70 08 08 la 1 PH bl M e 10 -1 51 0 ME 00 02 03 00 30 10 [...] 51 TA 0 BL ET TR 00 02 03 00 90 30 WA 67 No Ac AM 37 -0 -2 .0 L 05 t ti AD 84 6- 6- 00 MA 36 Av ve OL 15 20 20 RT 6 ai 10 08 08 la HC 1 PH bl L AR e 50 MA CY MG 10 TA -2 BL 96 ET 7 00 02 03 00 15 3 WA 14 No Ac 59 -0 -2 .0 LG 31 t ti 10 3- 6- 00 RE 83 Av ve 34 20 20 EN 0 ai 90 08 08 S la 5 19 bl 09 e HY 00 02 03 00 30 30 WA [address] 17 -0 -2 .0 L 05 t ti OC 22 6- 6- 00 MA 36 Av ve HL 08 20 20 RT 3 ai OR 98 08 08 la OT 0 PH bl HI AR e AZ MA ID CY E 50 10 -2 MG 96 7 TA B LI 68 02 03 00 30 30 WA 67 No Ac SI 18 -0 -2 .0 L 05 t ti NO 00 6- 6- 00 MA 36 Av ve NM 51 20 20 RT 2 ai IL 70 08 08 la 3 PH bl 40 AR e MA MG CY TA 10 BL -2 ET 96 7 NM 00 02 03 00 30 30 WA 67 No Ac EM 04 -0 -2 .0 L 05 t ti AR 61 6- 6- 00 MA 36 Av ve IN 10 20 20 RT 8 ai 28 08 08 la 0. 1 PH bl 62 AR e 5 MA MG CY TA 10 BL -2 ET 96 7 Immunization Name Date Rout CVX Reac Dose Comm Prov Is Faci e tion ent ider Refu lity Give sed n IIV3 01-1 141 MASH No COMM 7-20 BURN UNIT VACC 13 NERI Y INE DENNIS SPLI RGY T AND VIRU ASTH S MA 0.5 ML DOSA GE IM USE TDAP 08-0 115 MASSIEL No MASSIEL 9-20 SRINI SRINI VACC 12 MEM MEM INE 7 HOSP HOSP YRS/ INC INC > IM TDAP 12-2 115 GEIM No HEAL 8-20 AN TH VACC 10 LEANNA POIN INE T 7 FAMI YRS/ LY > IM CARE , IN IIV3 11-1 141 GEIM No HEAL 5-20 AN TH VACC 10 LEANNA POIN INE T SPLI FAMI T LY VIRU CARE S , IN 0.5 ML DOSA GE IM USE Vital Signs 10-06-2012 22:17 Name Value Interpretat [...] on Comprehensive metabolic panel (06-17-2017 14:25) Serum 06-17-2 = 1.0 1.1-1.8 complet or 017 ed plasma 14:25 albumin /globul in mass ra Serum 2 = 3.7 3.4-5.0 complet or 017 gm/dL ed plasma 14:25 albumin measure ment (mas Serum 2 = 55 46-116 complet or 017 U/L ed plasma 14:25 alkalin e phospha tase dk Serum 2 = 0.5 0.2-1.0 complet or 017 mg/dL ed plasma 14:25 total bilirub in measure m Serum 06-17-2 = 17 7-18 complet or 017 mg/dL ed plasma 14:25 urea nitroge n measure men Serum 06-17-2 = 9.6 8.5-10. complet or 017 mg/dL 1 ed plasma 14:25 calcium measure ment (mas Serum 2 = 99 98-107 complet or 017 mmoL/L ed plasma 14:25 chlorid e measure ment (mo Carbon 06-17-2 = 29 21.0-32 complet dioxide 017 mmoL/L .0 ed 14:25 measure ment Serum 06-17-2 = 0.9 0.55-1. complet or 017 mg/dL 02 ed plasma 14:25 creatin ine measure ment ( Estimat 06-17-2 = 68 59- complet ed 017 ML/MIN ed glomeru 14:25 lar filtrat ion rate (GF Comment: REFERENCE RANGE: >60 ML/MIN/1.73 SQUARE METERS Comment: If this patient is -[place], then multiply the Comment: result by 1.210. Serum 06-17-2 = 3.7 1.3-3.2 complet globuli 017 gm/dL ed n 14:25 measure ment (mass/v olume) Serum 06-17-2 = 199 74-106 complet or 017 mg/dL ed plasma 14:25 glucose measure ment (mas Serum 2 = 4.6 3.5-5.1 complet potassi 017 mmoL/L ed um 14:25 measure ment Serum 2 = 132 136-145 complet sodium 017 mmoL/L ed measure 14:25 ment Serum 06-17-2 = 15 15-37 complet or 017 U/L ed plasma 14:25 asparta te aminotr ansfera ALT 06-17-2 = 31 12-78 complet (SGPT) 017 U/L ed ser/alondra 14:25 s Protein 2 = 7.4 6.4-8.2 complet total 017 gm/dL ed ser/alondra 14:25 s CRP (06-17-2017 14:25) CRP 06-17-2 = 1.4 0.0-0.9 complet 017 MG/DL ed 14:25 CBC w auto diff (06-17-2017 14:25) Automat 06-17-2 = 0.0 0-0.2 complet ed 017 K/MM3 ed blood 14:25 basophi l count (count/ vo Baso % = 0.6 % 0.1-2.0 complet 017 ed 14:25 Automat 06-17-2 = 0.1 0.0-0.4 complet ed 017 K/mm3 ed blood 14:25 eosinop hil count Automat 2 = 1.4 % 0.1-12. complet ed 017 0 ed blood 14:25 eosinop hils/10 0 leukocy t Blood 06-17-2 = 4.3 1.8-7.8 complet granulo 017 K/mm3 ed cytes 14:25 automat ed count (numb Granulo 2 = 66.4 37.0-80 complet cyte 017 % .0 ed percent 14:25 age Blood = 44.2 37.0-47 complet hematoc 017 % .0 ed rit 14:25 (volume fractio n) Blood = 14.0 12.2-16 complet hemoglo 017 g/dL .2 ed bin 14:25 measure ment (mass/v olum Absolut = 1.8 0.7-4.5 complet e 017 K/mm3 ed lymphoc 14:25 yte count Lymphoc = 27.2 10-50.0 complet yte 017 % ed count, 14:25 blood, automat ed Mean = 28.8 27-31.2 complet corpusc 017 pg ed ular 14:25 hemoglo bin (MCH) determ Automat = 31.7 31.8-35 complet ed 017 g/dl .4 ed erythro 14:25 cyte mean corpusc ular h Automat = 90.9 82.2-97 complet ed 017 fl .8 ed erythro 14:25 cyte mean corpusc ular v Absolut = 0.3 0.1-1.0 complet e 017 K/mm3 ed monocyt 14:25 e count [place] % = 4.3 % 1.7-9.3 complet 017 ed 14:25 Automat 2 = 8.2 7.4-10. complet ed 017 fl 4 ed blood 14:25 platele t mean volume dk Blood = 333 142-424 complet platele 017 K/mm3 ed t count 14: Red = 4.86 4.2-5.4 complet blood 017 M/mm3 ed cell 14: count Automat = 14.6 11.5-17 complet ed 017 % .5 ed erythro 14:25 cyte distrib ution width Blood = 6.5 4.8-10. complet leukocy 017 K/MM3 8 ed lani 14:25 count (number /volume ) Erythrocyte sedimentation rate by kelsea (06-17-2017 14:25) Erythro = 31 0-20 complet cyte 017 mm/hr ed sedimen 14:25 tation rate by kelsea Serum DNA double strand antibody assay ( (06-17-2017 14:25) Serum 10-30-2 < 1 0-9 complet DNA 017 IU/mL ed double 14:25 strand antibod y assay ( Comment: Negative <5 Comment: Equivocal 5 - 9 Comment: Positive >9 Comment: Performed at: [facility] Comment: [id number], [place] [id number] Comment: Manager Implementation: Pepe Anderson PhD, Phone: [phone] Antinuclear Antibodies, IFA (06-17-2017 14:25) Serum 06-17-2 = . complet nuclear 017 Negativ ed 14:25 e antibod y titer by immunof l Comment: Negative <1:80 Comment: Borderline 1:80 Comment: Positive >1:80 Comment: Performed at: [facility] Comment: [id number], [place] [id number] Comment: Manager Implementation: Pepe Anderson PhD, Phone: [phone] CCP IgG + IgA serum LATOSHA (06-17-2017 14:25) CCP IgG 2 = 8 0-19 complet + IgA 017 units ed serum 14:25 LATOSHA Comment: Negative <20 Comment: Weak positive 20 - 39 Comment: Moderate positive 40 - 59 Comment: Strong positive >59 Comment: Performed at: [facility] Comment: [id number], [place] [id number] Comment: Manager Implementation: Tereso Rowe MD, Phone: [phone] Serum or plasma rheumatoid factor measur (06-17-2017 14:25) Serum 30-2 < 10.0 0.0-13. complet or 017 IU/mL 9 ed plasma 14:25 rheumat oid factor measur Comment: Performed at: [facility] Comment: [id number], [place] [id number] Comment: Manager Implementation: Pepe Anderson PhD, Phone: [phone] Procedures Procedure DOS Code Location Performer Comment SEDIMENTA 56404 ANDRY IWLDE TION RATE 7 [facility] RBC INC INC NON-AUTOM ATED CYCLIC 87267 ANDRY WILDE CITRULLIN 7 [facility] ATED INC INC PEPTIDE ANTIBODY ANTINUCLE 85380 ANDRY WILDE AR 7 [facility] ANTIBODIE INC INC S DA COMPREHEN 05013 ANDRY WILDE SIVE 7 [facility] METABOLIC INC INC PANEL C-REACTIV 33609 ANDRY WILDE E PROTEIN 7 [facility] INC INC DNA 33135 ANDRY WILDE ANTIBODY 7 [facility] ASA'CARSARMIUT/DO INC INC UBLE STRANDED RHEUMATOI 00527 ANDRY WILDE D FACTOR 7 [facility] QUANTITAT INC INC SAM BLOOD 03608 ANDRY WILDE COUNT 7 [facility] COMPLETE INC INC AUTO&AUTO DIFRNTL WBC MRI 73709 [place] SPINAL 7 MEDICAL CANAL IMAGING LUMBAR ASS W/O CONTRAST MATERIAL 3D 52113 [place] RENDERING 7 MEDICAL W/INTERP IMAGING & ASS POSTPROCE SS SUPERVISI ON OTHER 0309 [facility] EXPLORATI 4 N N ON&DECOMP [facility] CANAL RADEX 68483 [facility] SPINE 4 [place] LUMBOSACR ORTHOPAED AL 2/3 ICS PLC VIEWS RADIOLOGI 65018 ANDRY Neil EXAM 3 [facility] CHEST 2 INC INC VIEWS FRONTAL&L ATERAL IAADI 31031 ANDRY WILDE INFLUENZA 3 [facility] B VIRUS INC INC IAADI 01315 ANDRY WILDE INFFLUENZ 3 [facility] A A VIRUS INC INC ECG 01036 ANDRY WILDE ROUTINE 3 [facility] ECG INC INC W/LEAST 12 LDS TRCG ONLY W/O I&R CREATINE 42295 ANDRY WILDE KINASE 3 [facility] [place] [address] ANDRY WILDE THYROXINE 3 [facility] TOTAL INC INC RADIOLOGI 17579 ANDRY WILDE C 3 [facility] EXAMINATI INC INC ON CHEST [place] FRONTAL GENERAL 79452 ANDRY WILDE HEALTH 3 [facility] PANEL INC INC CREATINE 74602 ANDRY WILDE KINASE MB 3 [facility] FRACTION INC INC ONLY ECG 67413 CARMELINA VILMA ROUTINE 3 EMERGENCY DANIELLA ECG SERVICES W/LEAST 12 LDS I&R ONLY HEMOGLOBI 30086 ANDRY WILED N 3 [facility] GLYCOSYLA INC INC TYRESE A1C NATRIURET 33459 ANDRY WILDE IC 3 [facility] [place] [address] ANDRY WILDE TROPONIN 3 [facility] QUANTITAT INC INC SAM COLLECTIO [address] N VENOUS [facility] URE RADIOLOGI [address] C EXAM 3 [facility] CHEST 2 MEDICAL MEDICAL VIEWS [facility] FRONTAL&L ATERAL COMPREHEN [address] SIVE 3 [facility] MEDICAL PANEL [facility] BASIC [address] METABOLIC 3 [facility]CI[place] [address] THYROID 3 [facility] HORMONE TSH HEPATIC [address] FUNCTION 3 [facility] C[facility] COLLECTIO [address] N VENOUS 3 [facility] V[facility]CT [facility] URE BLOOD [address] COUNT 3 [facility] COMPLETE MEDICAL MEDICAL AUTO&AUTO CENTER CENTER DIFRNTL WBC RADEX 45451 [facility] SPINE 3 ARTHRITIS ARTHRITIS CERVICAL AND AND 2 OR 3 RHEUM RHEUM VIEWS PRESSURIZ 12979 ANDRY WILDE ED/NONPRE 3 [facility] SSURIZED INC INC INHALATIO N TREATMENT RADIOLOGI 15714 [place] JOSI C EXAM 3 MEDICAL ZEN CHEST 2 IMAGING VIEWS ASS FRONTAL&L ATERAL RADIOLOGI 57200 RADIOLOGY DOERGER C EXAM 3 KIR CHEST 2 ASSOCIATE VIEWS S OF NOTH FRONTAL&L ATERAL PRESSURIZ [address] ED/NONPRE 3 [facility] SSURIZED MEDICAL MEDICAL INHALATIO CENTER CENTER N TREATMENT COLLECTIO [address] N VENOUS 3 [facility] BLOOD [facility] MEDICAL VENIPUNCT CENTER CENTER URE ECG [address] ST HULLER ROUTINE 3 [facility] ECG MED CTR W/LEAST 12 LDS I&R ONLY BLOOD [address] COUNT 3 [facility] COMPLETE [facility] MEDICAL AUTO&AUTO CENTER CENTER DIFRNTL WBC CRITICAL [address]9464 ST TAMICA CARE 3 MARGARITA MAR ILL/INJUR MED CTR ED PATIENT INIT 30-[address] METABOLIC 3 [facility] PANEL [facility] MEDICAL CALCIUM CENTER CENTER TOTAL INJ J2930 ST ST METHYLPRD 3 [facility] NISOLONE [facility] SODIUM [facility] SUCCNAT TO [address] PROPH/DX 3 [facility] NJX IV MEDICAL MEDICAL PUSH CENTER [place] SINGLE/1S T SBST/DRUG ECG [address] ROUTINE 3 [facility] MEDICAL MEDICAL W/LEAST CENTER CENTER 12 LDS TRCG ONLY W/O I&R DEMO&/ELPIDIO [address] ST ST L OF PT 3 [facility] UTILIZ [facility] AERSL CENTER CENTER GEN/NEB/I NHLR/IP CUL BACT 64976 ANDRY WILDE XCPT 3 [facility] URINE INC INC BLOOD/STO OL AEROBIC ISOL BLOOD 98301 ANDRY WILDE COUNT 3 [facility] COMPLETE INC INC AUTO&AUTO DIFRNTL WBC SMR PRIM 49242 ANDRY WILDE SRC 3 [facility] GRAM/GIEM INC INC SA STAIN BCT FUNGI/ROSA L IIV3 89990 [facility] JAYSHREE VACCINE 3 ALLERGY NERI SPLIT AND VIRUS 0.5 ASTHMA ML DOSAGE IM USE BRNCDILAT 51454 [facility] RSPSE 3 ALLERGY NERI SPMTRY AND PRE&POST- [place] [address] ANDRY WILDE GAMMAGLOB 3 [facility] ULIN IGE INC INC RADIOLOGI 09383 ANDRY WILDE C EXAM 3 [facility] CHEST 2 INC INC VIEWS FRONTAL&L ATERAL SPACR A4627 [facility] MED BAG/RESRV 3 EQUIPMENT EQUIPMENT OR W/WO INC INC MASK W/METRD DOSE INHAL RADEX 20341 [facility] SPINE 3 ARTHRITIS ARTHRITIS LUMBOSACR AND AND AL 2/3 RHEUM RHEUM VIEWS SPMTRY 58038 [facility] JAYSHREE W/VC 2 ALLERGY NERI EXPIRATOR AND Y ROSALIA ASTHMA W/WO MXML VOL VNTJ RADIOLOGI 80546 ANDRY WILDE C EXAM 2 [facility] CHEST 2 INC INC VIEWS FRONTAL&L ATERAL PRESSURIZ 32205 ANDRY WILDE ED/NONPRE 2 [facility] SSURIZED INC INC INHALATIO N TREATMENT GROUND A0425 [facility] AM[facility]ULANCE AMBULANCE PER SERVICE SERVICE STATUTE MILE [facility] A0427 [facility] SERVICE 2 AMBULANCE AMBULANCE ALS SERVICE SERVICE EMERGENCY TRANSPORT LEVEL 1 THERAPEUT 45368 ANDRY WILDE IC 2 [facility] PROPHYLAC INC INC TIC/DX INJECTION SUBQ/IM RADIOLOGI 22694 ANDRY Neil EXAM 2 [facility] CHEST 2 INC INC VIEWS FRONTAL&L ATERAL ADMN SET A7005 [facility] MED W/SM VOL 2 EQUIPMENT EQUIPMENT NONFILTR INC INC NEBULIZR NON-DISPB L BRNCDILAT 54746 [facility] RSPSE 2 ALLERGY NERI SPMTRY AND PRE&POST- ASTHMA BRNCDILAT ADMN NEBULIZER E0570 [facility] MED WITH 2 EQUIPMENT EQUIPMENT COMPRESSO INC INC R PRESSURIZ 36504 ANDRY WILDE ED/NONPRE 2 [facility] SSURIZED INC INC INHALATIO N TREATMENT RADIOLOGI 73856 ANDRY WILDE C EXAM 2 [facility] CHEST 2 INC INC VIEWS FRONTAL&L ATERAL SUSCEPTIB 28685 ANDRY WILDE LTY STDY 2 [facility] ANTIMICRB INC INC IAL MICRO/AGA R DILUTJ URNLS DIP 01131 ANDRY WILDE 2 [facility] STICK/TAB INC INC LET REAGENT AUTO MICROSCOP Y CULTURE 89048 ANDRY WILDE BACTERIAL 2 [facility] INC INC QUANTTATI VE COLONY COUNT URINE CULTURE 85782 ANDRY WILDE BCT 2 [facility] ISOL&PRSM INC INC PTV ID ISOLATE EA URINE RADIOLOGI 65502 ANDRY WILDE C EXAM 2 [facility] CHEST 2 INC INC VIEWS FRONTAL&L ATERAL BLOOD 50130 ANDRY WILDE COUNT 2 [facility] COMPLETE INC INC AUTO&AUTO DIFRNTL WBC RADEX ABD 50607 [place]OSI COMPL 2 MEDICAL ZEN AQT ABD IMAGING W/S/E/D ASS VIEWS 1 VIEW CH COMPREHEN 51435 ANDRY ANDRY SIVE 2 [facility] METABOLIC INC INC PANEL [facility] G0378 ANDRY WILDE OBSERVATI 2 [facility] ON INC INC SERVICE [facility] G0378 ANDRY WILDE OBSERVATI 2 [facility] ON INC INC SERVICE PER HOUR COMPREHEN 39532 ANDRY ANDRY SIVE 2 [facility] [place] [address] [place]OSI ABDOMEN & 2 MEDICAL ZEN PELVIS IMAGING W/O ASS CONTRST 1/> BODY RE URINE 91005 ANDRY WILDE 2 [facility] TEST INC INC VISUAL COLOR CMPRSN METHS RADIOLOGI 92733 MARYEarl JOSI C 2 MEDICAL ZEN EXAMINATI IMAGING ON CHEST ASS SINGLE VIEW FRONTAL 3D 33799 ELIANAILYN JOSI RENDERING 2 MEDICAL ZEN IMAGING W/INTERP& ASS POSTPROC DIFF WORK STATION TDAP 66627 ANDRY WILDE VACCINE 7 2 [facility] YRS/> IM INC INC IM ADM 02205 ANDRY WILDE PRQ ID 2 [facility] SUBQ/IM INC INC NJXS 1 VACCINE LOCM Q9967 ANDRY WILDE 300-399 2 [facility] MG/ML INC INC IODINE CONCENTRA TION PER ML AMBULANCE A0429 RUIZ RUIZ SERVICE 2 CO CO BLS AMBULANCE AMBULANCE EMERGENCY TAXIN TAXIN TRANSPORT GROUND A0425 RUIZ RUIZ MILEAGE 2 CO CO PER AMBULANCE AMBULANCE STATUTE TAXIN TAXIN MILE SUSCEPTIB 48847 ANDRY WILDE LTY STDY 2 [facility] ANTIMICRB INC INC IAL MICRO/AGA R DILUTJ INCISION 92254 CARMELINA ANGELINA JOANNE & 2 EMERGENCY DRAINAGE SERVICES ABSCESS SIMPLE/SI NGLE CUL BACT 81141 ANDRY WILDE AEROBIC 2 [facility] ADDL INC INC METHS DEFINITIV E EA ISOL CUL BACT 92420 ANDRY WILDE XCPT 2 [facility] URINE INC INC BLOOD/STO OL AEROBIC ISOL INCISION 83093 CARMELINA CARMELINA & 2 EMERGENCY EMERGENCY DRAINAGE SERVICES SERVICES ABSCESS COMPLICAT ED/MULTIP LE BASIC 95094 ANDRY WILDE METABOLIC 2 [facility] PANEL INC INC CALCIUM TOTAL ECG 93396 ANDRY WILDE ROUTINE 2 [facility] ECG INC INC W/LEAST 12 LDS TRCG ONLY W/O I&R CREATINE 02404 ANDRY WILDE KINASE 2 [facility] TOTAL INC INC ECG 87519 ANDRY TAMAYO JR ROUTINE 2 [facility] W/LEAST P 12 LDS I&R ONLY RHYTHM 39684 ANDRY WILDE ECG 1-3 2 [facility] LEADS INC INC TRACING ONLY W/O I&R RADIOLOGI 98270 ANDRY WILDE C EXAM 2 [facility] CHEST 2 INC INC VIEWS FRONTAL&L ATERAL CREATINE 66630 ANDRY WILDE KINASE MB 2 [facility] FRACTION INC INC ONLY BLOOD 22405 ANDRY WILDE COUNT 2 [facility] COMPLETE INC INC AUTO&AUTO DIFRNTL WBC NATRIURET 01530 ANDRY WILDE IC 2 [facility] [place] [address] ANDRY WIDLE TROPONIN 2 [facility] QUANTITAT INC INC SAM RADIOLOGI 62602 ANDRY WILDE C EXAM 2 [facility] CHEST 2 INC INC VIEWS FRONTAL&L ATERAL PRESSURIZ 56298 ANDRY WILDE ED/NONPRE 2 [facility] SSURIZED INC INC INHALATIO N TREATMENT URNLS DIP 81338 ANDRY WILDE 2 [facility] STICK/TAB INC INC LET REAGENT AUTO MICROSCOP Y BLOOD 44702 ANDRY WILDE COUNT 2 [facility] COMPLETE INC INC AUTO&AUTO DIFRNTL WBC IAADI 44361 ANDRY WILDE INFFLUENZ 2 [facility] A A VIRUS INC INC IAADI 42559 ANDRY WILDE INFLUENZA 2 [facility] B VIRUS INC INC COMPREHEN 96379 ANDRY WILDE SIVE 2 [facility] METABOLIC INC INC PANEL CULTURE 58185 ANDRY WILDE BACTERIAL 2 [facility] BLOOD INC INC AEROBIC W/[place] [address] ANDRY WILDE STREPTOCO 2 [facility] CCUS INC INC GROUP A RADIOLOGI 46248 RADIOLOGY NEILS FEDERICO C 2 EXAMINATI ASSOCIATE ON TIBIA S OF NOTH & FIBULA 2 VIEWS RHYTHM 04592 ANDRY WILDE ECG 1-3 2 [facility] LEADS INC INC TRACING ONLY W/O I&R ECG 87441 CARMELINA ESPARZA ROUTINE 2 EMERGENCY DANIELLA ECG SERVICES W/LEAST 12 LDS I&R ONLY CREATINE 69179 ANDRY WILDE KINASE MB 2 [facility] FRACTION INC INC ONLY BLOOD 15301 ANDYR WILDE COUNT 2 [facility] COMPLETE INC INC AUTO&[place] [address] ANDRY WILDE TROPONIN 2 [facility] QUANTITAT INC INC SAM COMPREHEN 06461 ANDRY WILDE SIVE 2 [facility] METABOLIC INC INC PANEL ECG 65629 ANDRY WILDE ROUTINE 2 [facility] ECG INC INC W/LEAST 12 LDS TRCG ONLY W/O I&R CREATINE 81523 ANDRY WILDE KINASE 2 [place] [address] ANDRY WILDE ABDOMEN & 1 [facility] PELVIS INC INC W/O CONTRAST MATERIAL COMPREHEN 53716 ANDRY WILDE SIVE 1 [facility] METABOLIC INC INC PANEL CULTURE 78129 ANDRY WILDE BACTERIAL 1 [facility]OS[facility] INC INC QUANTTATI VE COLONY COUNT URINE 3D 91527 [place] JOSI RENDERING 1 MEDICAL ZEN IMAGING W/INTERP& ASS POSTPROC DIFF WORK STATION URNLS DIP 64454 ANDRY WILDE 1 [facility] STICK/TAB INC [place] [address] [place] JOSI ABDOMEN & 1 MEDICAL ZEN PELVIS IMAGING W/CONTRAS ASS T MATERIAL INJECTION J0595 ANDRY WILDE 1 [facility]OS[facility] BUTORPHAN INC INC OL TARTRATE 1 MG RADIOLOGI 51828 JOSI JOSI C EXAM 1 ZEN ZEN CHEST 2 VIEWS FRONTAL&L ATERAL PRESSURIZ 64979 ANDRY WILDE ED/NONPRE 1 [facility] SSURIZED INC INC INHALATIO N TREATMENT THERAPEUT [address] IC 1 MARGARITA MARGARITA PROPHYLAC TIC/DX MEDICALCE MEDICALCE INJECTION NTER NTER SUBQ/IM OPHTH 38059 DEL RIO DEL RIO MEDICAL 1 REJI REJI XM&EVAL COMPRHNSV ESTAB PT 1/> SCREENING G0202 RADIOLOGY LI 1 TOR MAMMOGRAP ASSOCIATE HY RAE S PSC INCL CAD WHEN PERFORMD COMPUTER- 42258 RADIOLOGY LI AIDED 1 TOR DETECTION ASSOCIATE S PSC SCREENING MAMMOGRAP HY SCREENING [address] 1 MARGARITA MARGARITA MAMMOGRAP HY MEDICALCE MEDICALCE BILATERAL NTER NTER DXA BONE 26040 RADIOLOGY DARDINGER DENSITY 1 TRINITY STUDY 1/> ASSOCIATE SITES S PSC AXIAL SKEL ECG [address] ROUTINE 1 MARGARITA MARGARITA ECG W/LEAST MEDICALCE MEDICALCE 12 LDS NTER NTER TRCG ONLY W/O I&R ECG 86675 [facility] ROUTINE 1 MARGARITA ZORA ECG MED CTR W/LEAST 12 LDS I&R ONLY ARTHROCEN 56352 DEVANTE DE LA ROSA 1 REED & R CHR ASPIR&/IN TEMMING J MAJOR JT/BUR[place] W/[place] [address] DEVANTE DE LA ROSA GUIDANCE 1 REED & R CHR NEEDLE TEMMING PLACEMENT IMG S&I INJECTION J3420 410 Labs VIT B-12 0 [facility], IN [place]AN[place] TO 1000 MCG COMPREHEN 07899 [facility] OF SIVE 0 [employer] METABOLIC PANEL CYTP C/V 26456 [facility] AUTO THIN 0 MARGARITA GORDILLOZABETH LYR PREPJ SCR MEDICALCE MEDICALCE MNL NTER NTER RESCR PHYS TDAP 88818 [employer] VACCINE 7 0 [facility] YRS/> IM FAMILY CARE, IN COLLECTIO 33893 [employer] N VENOUS 0 [facility] BLOOD FAMILY VENIPUNCT CARE, IN URE LIPID 53991 [facility] OF PANEL 0 [employer] BLOOD 51470 [facility] OF COUNT 0 [employer] COMPLETE AUTO&AUTO DIFRNTL WBC AMBULANCE A0429 [facility] SERVICE 0 FIRE FIRE BLS PROTECT PROTECT EMERGENCY DISTR DISTR TRANSPORT GROUND A0425 [facility] MILEAGE 0 FIRE FIRE PER PROTECT PROTECT STATUTE DISTR DISTR MILE RADIOLOGI 24170 [facility] C EXAM 0 MARGARITA AVILA KNEE JUDITH WONG COMPLETE 4/MORE VIEWS KNEE L1830 [facility] 0 TECHNOLOG TECHNOLOG IMMOBLIZE IES INC IES INC R CANVAS LONGTUDNL PREFAB APPLICATI 00860 [facility] ON LONG 0 MARGARITA AVILA LEG JUDITH WONG SPLINT THIGH ANKLE/TOE S ECHO 95574 CARDIOLOG GRODECKI TTHRC R-T 0 Y PAT 2D ASSOCIATE W/WOM-MOD S E COMPL SPEC&COLR D IIV3 02102 [facility] VACCINE 0 [facility] SPLIT FAMILY VIRUS 0.5 CARE, IN ML DOSAGE IM USE INJECTION J3420 Audanika JUNAIDN VIT B-12 0 [facility], IN [place] TO [address] SIVE 0 MARGARITA MARGARITA METABOLIC PANEL MEDICALCE MEDICALCE NTER NTER CYANOCOBA [address] [place] 0 MARGARITA MARGARITA VITAMIN B-12 MEDICALCE MEDICALCE NTER NTER LIPID [address] PANEL 0 MARGARITA MARGARITA MEDICALCE MEDICALCE NTER NTER COLLECTIO [address] N VENOUS 0 [facility] VENIPUNCT MEDICAL[place] [address] THYROID 0 [facility] STIMULATI NG MEDICALCE MEDICALCE HORMONE NTER NTER TSH BLOOD [address] COUNT [facility] COM[facility] AUTO&AUTO MEDICALCE MEDICALCE DIFRNTL NTER NTER WBC RADEX 16593 RADIOLOGY BRANDSER WRIST 0 [employer] COMPLETE ASSOCIATE MINIMUM 3 S PSC VIEWS L HRT 93100 CARDIOLOG RODRIGUEZ LARRY CATHETERI 0 Y ZATION ASSOCIATE [place] [address] CARDIOLOG RODRIGUEZ LARRY C-CATHJ 0 Y F/SLCTV C ASSOCIATE ANGRPH S I SI&R 17844 CARDIOLOG RODRIGUEZ LARRY F/NJX PX 0 Y DURING ASSOCIATE C-CATHJ S VENTR&/AT R ANGRPH I SI&R 44313 CARDIOLOG RODRIGUEZ LARRY F/NJX PX 0 Y DURING ASSOCIATE C-CATHJ S PULM&/OR SELECT INJECTION 94852 CARDIOLOG RODRIGUEZ LARRY CARDIAC 0 Y CATHJ L ASSOCIATE VENTR/L S ATR ANGIOGRAP H BASIC [address] METABOLIC 0 MARGARITA MARGARITA PANEL CALCIUM MEDICALCE MEDICALCE TOTAL NTER NTER ECG 22788 CARDIOLOG RODRIGUEZ LARRY ROUTINE 0 Y ECG ASSOCIATE W/LEAST S 12 LDS W/I&R GONADOTRO [address] PIN 0 MARGARITA MARGARITA CHORIONIC MEDICALCE MEDICALCE QUALITATI NTER NTER VE BLOOD [address] COUNT 0 MARGARITA MARGARITA COMPLETE AUTOMATED MEDICALCE MEDICALCE NTER NTER COLLECTIO [address] N VENOUS 0 MARGARITA MARGARITA BLOOD VENIPUNCT MEDICALCE MEDICALCE URE NTER NTER MYOCARDIA 98697 CARDIOLOG GRODECKI L SPECT 0 Y PAT MULTIPLE ASSOCIATE STUDIES S MYOCARDIA [address] L SPECT 0 MARGARITA MARGARITA MULTIPLE [facility] STUDIES CV STRS 88692 CARDIOLOG GRODECKI TST 0 Y PAT XERS&/OR ASSOCIATE RX CONT S ECG I&R ONLY XTRNL ECG 94205 [facility] 0 [place] HEART DORENE CONTINUOU PSC S RHYTHM W/I&R UP TO [address] ECG 0 MARGARITA MARGARITA SCANNING [facility] ANALYSIS REPORT CV STRS 65016 CARDIOLOG GRODECKI TST 0 Y PAT XERS&/OR ASSOCIATE RX CONT S ECG W/O I&R CV STRS [address] [facility] [facility]ST [facility] X[facility]&/OR [facility] RX CONT ECG TRCG ONLY RADEX HIP [address] 0 MARGARITA MARGARITA UNILATERA [facility] L COMPLETE MINIMUM 2 VIEWS XTRNL ECG [address] & 48 HR 0 MARGARITA MARGARITA RECORDING [facility] ECG 19965 [facility] ROUTINE 0 [facility] ECG FAMILY W/LEAST CARE, IN 12 LDS W/I&R INJECTION [id number] [facility] VIT B-12 0 [facility] CYANOCOBA CARE, IN DANIS TO 1000 MCG COMPREHEN 57622 [facility] METABOLIC PANEL CYANOCOBA 86776 [facility] DAN[place] 0 [facility] VITAMIN B-12 LIPID 04103 [facility] PANEL 0 [facility] BLOOD 16054 [facility] COUNT 0 [facility] COMPLETE AUTO&AUTO DIFRNTL WBC INJECTION J3420 [facility], VIT B-12 0 POINT [facility], DANIS TO INC. 1000 MCG INJECTION J3420 [facility], VIT B-12 0 POINT [facility], DANIS TO INC. 1000 MCG INJECTION J3420 [facility], VIT B-12 0 POINT [facility] CYANOCOBA CARE, DANIS TO INC. 1000 MCG INJECTION J3420 [facility], VIT B-12 0 POINT [facility], DANIS TO INC. 1000 MCG INJECTION J3420 [facility], VIT B-12 0 POINT [facility] CYANOC[facility] CARE, DANIS TO INC. 1000 MCG ANES 89789 INDEPENDE OSEI INTRAPERI 0 NT N, TONEAL ANESTHESI VIDA UPPER OLOGIST ABDOMEN W/LAPS NOS LAPAROSCO 53807 ST YELICH, PY SURG 0 MARGARITAKATEY Lazar CHOLECYST ECTOMY PHYSICIAN S LEVEL III [address] [facility] SURG 0 [facility]&DANIELLA ROSCOPIC EXAM LIPID 49099 [facility] PANEL 0 [facility] COLLECTIO 22791 [facility], N VENOUS 0 [facility] VENIPUN[facility]ARE, URE INC. COMPREHEN 01675 [facility] SIVE 0 [facility] METABOLIC PANEL CYANOCOBA 90569 [facility] DANIS 0 [facility] VITAMIN B-12 BLOOD 49881 [facility] COUNT 0 [facility] COMPLETE AUTO&AUTO DIFRNTL WBC BLOOD 05527 [facility] [facility] [place] COUNT 0 [facility] COMPLETE [facility] [place] AUTO&AUTO DIFRNTL WBC URNLS DIP [address] STICK/TAB [facility] LET REAGENT AUTO MICROSCOP Y URNLS DIP [address] STICK/TAB [facility] LET RGNT NON-AUTO W/O MICRSCP THERAPEUT 41410 [facility] IC [address] [place] [address] INJECTION [facility] IV PUSH EACH NEW DRUG THER 18631 [facility] PROPH/DX [address] [place] [address] NJX IV [facility] PUSH SINGLE/1S T SBST/DRUG INJECTION [id number] [address] ONDANSETR [facility] ON HCL PER 1 MG BASIC 27726 [facility] METABOLIC [address] [place] [address] PANEL [facility] CALCIUM TOTAL SERVICES 23995 JUDITH GENTILE, PROVIDED 0 URGENT MOHAMED OFFICE CARE OTH/THN REG SCHED HOURS RADIOLOGI 92305 RADIOLOGY Rashaad KEITH EXAM 0 GRISELDA Zita CHEST 2 ASSOCIATE VIEWS S PSC FRONTAL&[place] [address] RADIOLOGY GRIFFITHS, ABDOMINAL 0 PEDRITO L REAL ASSOCIATE TIME S PSC W/IMAGE LIMITED COLLECTIO 06095 [facility], N VENOUS 9 POINT CHRISTI M BLOOD FAMILY VENIPUNCT CARE, URE INC. SIMPLE 88909 EMERGENCY [place], REPAIR 9 CARE NAVEEN P SCALP/NEC PHYS K/AX/JAYLEN [facility] T/TRUNK [place] 2.5CM/< CLOSURE 8659 [facility] SKIN&SUBC [address] [place] [address] UTANEOUS [facility] TISSUE OTHER SITES RADEX 03686 DEVANTE DE LA ROSA SPINE 9 REED & R, LUMBOSACR TEMKRISTYN TENORIO AL 2/3 ER L VIEWS RHEUMATOI 72025 [facility] D FACTOR 9 DIAGNOSTI DIAGNOSTI [place] [address] [facility] THYROID 9 [facility] STIMULATI NG HORMONE TSH CREATINE 91144 [facility] KINASE 9 [facility] TOTAL RADEX 51244 DEVANTE DE LA ROSA HAND 2 9 REED & R, VIEWS TEMMING COBY ER L CYCLIC 66785 [facility]ST CITRULLIN 9 DIAGNOSTI DIAGNOSTI ATED CS IN CS IN PEPTIDE ANTIBODY COLLECTIO 82815 [facility] N VENOUS 9 [facility] BLOOD VENIPUNCT URE SEDIMENTA 90472 [facility] TION RATE 9 [facility] RBC AUTOMATED RADIOLOGI 82244 DEVANTE DE LA ROSA C 9 REED & R, [facility]AMINATI [facility] COBY ON KNEE ER L 1/2 [place] [address] [facility] BLOOD/URI 9 [facility] C ACID RADEX 40971 RADIOLOGY JAIR, FOOT 9 COMPLETE ASSOCIATE MARGARITA MINIMUM 3 S PSC A VIEWS URNLS DIP [address] STICK/TAB [facility] LET REAGENT AUTO MICROSCOP Y RADEX 55729 RADIOLOGY [place], SPINE 9 JV L CERVICAL ASSOCIATE 4 OR 5 S PSC VIEWS RADEX 31069 RADIOLOGY [place], SPINE 9 JV L LUMBOSACR ASSOCIATE AL 2/3 S PSC VIEWS BLOOD [address] AUTO&AUTO DIFRNTL WBC OPHTH 77584 PREZAY, PREZAY, MEDICAL 8 ZACKARY Lazar XM&EVAL COMPRE NEW PT 1/> [place] [id number] [facility] NON-IMMUN 8 [facility] OLOGIC OTH/THN CYTOPATHI C CULTURE 30937 [facility] BCT 8 [facility] ISOL&PRSM PTV ID ISOLATE EA URINE CULTURE 05483 [facility] BACTERIAL 8 [facility] QUANTTATI VE COLONY COUNT URINE URNLS DIP 27095 [facility] MC 8 POINT LVAREZ, STICK/TAB FAMILY MELVA J LET RGNT CARE, AUTO W/O INC. MICROSCOP Y BASIC 63271 [facility] METABOLIC 8 [facility] PANEL CALCIUM TOTAL COLLECTIO 97173 [facility]ALTH LAURENO-A N VENOUS 8 POINT LVREBECCA, BLOOD FAMILY MELVA J VENIPUNCT [place] [address] [facility] BLOOD/URI 8 [facility] C ACID RADEX [address] COMPLETE [facility]ST [facility]ST MINIMUM 3 VIEWS RHEUMATOI 64239 [facility] D FACTOR 8 [facility] QUANTITAT SAM BLOOD 17260 [facility] COUNT [address] [facility] INC COMPLETE AUTOMATED LIPID 03785 [facility] PANEL 8 [facility] INC COLLECTIO 00175 [facility]ALTH LAURENO-A N VENOUS 8 POINT LVAREZ, BLOOD FAMILY MELVA J VENIPUNCT [place], [place] [address] [facility] BLOOD/URI 8 [facility] C ACID COMPREHEN 41972 [facility] SIVE 8 [facility] METABOLIC PANEL APPLICATI 9354 [facility] ON OF [address] [place] [address] HOSPITAL SPLINT [facility] RADEX 19971 RADIOLOGY HURST, ANKLE 8 IAN R COMPLETE ASSOCIATE MINIMUM 3 S PSC VIEWS Encounters Encounter Start End Date Code Location Performer Type Date [facility] - 7 7 [facility] 7 7 [facility] 7 7 [facility] UK - [facility] 7 [facility] OFF[facility] 42291 [facility] 7 PHYSICIAN T VISIT S GROUP 25 MINUTES HOSPITAL ANDRY - 7 7 [facility] 7 7 [facility] AND[facility] - 7 7 [facility] 7 [facility] - 7 7 [facility] ANDRY [facility] 7 7 [facility] - [facility] 7 [facility] - 7 7 [facility] AND[facility] - 7 7 [facility] - 7 7 [facility] - 7 7 [facility] ANDRY - 7 7 [facility] ANDRY - 7 7 [facility] ANDRY - 7 7 [facility] - 7 7 [facility] UK - 7 7 [facility] UK - 7 7 [facility] AND[facility] 7 7 [facility] - [facility] 7 [facility] AND[facility] - 6 6 [facility] - 6 6 [facility] AND[facility] - 6 6 [facility] AND[facility] - 6 6 [facility] - 6 6 [facility] - 6 6 [facility] - 6 6 [facility] - 6 6 [facility]PITAL ANDRY [facility] 6 6 [facility] ANDRY - 6 6 [facility] ANDRY - 6 6 [facility]PITAL ANDRY [facility] 6 6 [facility] - 6 6 [facility] - 6 6 [facility] - 6 6 [facility] AND[facility] - 6 6 [facility] - 6 6 [facility] - 6 6 [facility] - 6 6 [facility] - 6 6 [facility] - 5 5 [facility] - 5 5 [facility] - 5 5 [facility] - 5 5 [facility] - 5 5 [facility] - 5 5 [facility] AND[facility] - 5 5 [facility] OUTPATIEN [facility] HOSPITAL ANDRY [facility] 5 5 [facility] OUTPATIEN [facility] HOSPITAL ANDRY [facility] 4 4 [facility] ANDRY - 4 4 [facility] N [facility] ANDRY [facility] 4 4 [facility] OUTPATIEN [facility] OFFICE 42177 [facility] CONSULT[facility] 4 4 [place] ION ORTHOPAED NEW/ESTAB ICS PLC PATIENT 40 MIN [facility] ANDRY - 4 4 [facility] OFFICE 28900 BRIGITTE NORMAN 4 4 DORENE DORENE T VISIT 15 MINUTES OFFICE 60081 BRIGITTE NORMAN 3 3 DORENE DORENE T VISIT 15 MINUTES OFFICE 16974 BRIGITTE NORMAN 3 3 DORENE DORENE T VISIT 15 MINUTES EMERGENCY 46517 ANDRY 3 3 [facility] T VISIT LIMITED/M INOR [facility] ANDRY - 3 3 [facility] EMERGENCY 77237 CARMELINA JARAMILLO 3 3 EMERGENCY III [facility] DEPARTMEN SERVICES T VISIT HIGH/URGE NT SEVERITY EMERGENCY 48439 CARMELINA BARBOSA ZEN 3 3 EMERGENCY DEPARTMEN SERVICES T VISIT HIGH/URGE NT SEVERITY OFFICE 56327 BRIGITTE NORMAN 3 3 DORENE DORENE T VISIT 15 MINUTES OFFICE 25126 CARMELINA NORMAN 3 3 GRE GRE T NEW 45 MINUTES EMERGENCY 30371 CARMELINA ESPARZA DEPT 3 3 EMERGENCY DANIELLA VISIT SERVICES HIGH SEVERITY& THREAT [facility] ANDRY - 3 3 [facility] OUTPATIEN INC T EMERGENCY 52797 [facility] 3 3 [facility]ISIT [facility]OW/MODER SEVERITY EMERGENCY 46933 [facility] 3 3 [facility] MED CTR T VISIT MODERATE SEVERITY [facility]PITAL ST - 3 3 [facility] [address] ST 3 3 [facility] HIGH/URGE NT SEVERITY [facility] OFF[facility] 94034 [facility] 3 3 ARTHRITIS T VISIT AND 25 RHEUM MINUTES OFFICE 66606 [facility] 3 3 ARTHRITIS T VISIT AND 25 RHEUM MINUTES Emergency PIPPA Lazar (ER) 3 20:42 3 22:18 [facility] EMERGENCY 09615 CARMELINA 3 3 EMERGENCY [facility] SERVICES T VISIT MODERATE SEVERITY HOSPITAL ANDRY - 3 3 [facility] OUTPATIEN [facility] EMERGENCY 30104 ANDRY 3 [address] [facility] T VISIT LOW/MODER SEVERITY EMERGENCY 77442 CARMELINA RUBIO DEPT 3 3 EMERGENCY VISIT SERVICES HIGH SEVERITY& THREAT [facility] ANDRY - 3 3 [facility] OUTPATIEN [facility] HOSP[facility] ST - 3 3 [facility] EMERGENCY [address] ST DEPT 3 3 MARGARITA VISIT MEDICAL [facility] SEVERITY& THREAT [facility] ANDRY - 3 3 [facility] OUTPATIEN INC OFFICE 83442 [facility] 3 3 ALLERGY NERI T VISIT AND 40 ASTHMA MINUTES OFFICE 55876 [facility] 3 3 ARTHRITIS T VISIT AND 25 RHEUM MINUTES OFFICE 27119 [facility] OUTPATIEN 2 2 ALLERGY NERI T VISIT AND 25 ASTHMA MINUTES HOSPITAL ANDRY - 2 2 [facility] OUTPATIEN INC T EMERGENCY 33654 ANDRY 2 2 [facility] DEPARTMEN INC T VISIT MODERATE SEVERITY EMERGENCY 40037 CARMELINA CASSIDY 2 2 [facility]Y [facility] SERVICES T VISIT HIGH/URGE NT SEVERITY OFFICE 95662 [facility] 2 2 ARTHRITIS T VISIT AND 25 RHEUM MINUTES HOSPITAL ANDRY - 2 2 [facility] OUTPATIEN [facility] T OFFICE 86586 [facility] JAYSHREE CONSULTAT 2 2 ALLERGY NERI ION AND NEW/ESTAB ASTHMA PATIENT 80 MIN OFFICE 21562 BRIGITTE BRIGSG OUTPATIEN 2 2 DORENE DORENE T NEW 30 MINUTES EMERGENCY 60124 CARMELINA JARAMILLO 2 2 EMERGENCY III [facility] SERVICES T VISIT HIGH/URGE NT SEVERITY HOSPITAL ANDRY - 2 2 [facility] OUTPATIEN [facility] T EMERGENCY 05190 ANDRY 2 2 [facility] T VISIT MODERATE SEVERITY EMERGENCY 84033 ANDRY 2 2 [facility] INC T VISIT LOW/MODER SEVERITY HOSPITAL ANDRY - 2 2 [facility] OUTPATIEN INC T EMERGENCY 06189 CARMELINA ESPARZA 2 2 EMERGENCY [facility] SERVICES T VISIT HIGH/URGE NT SEVERITY EMERGENCY 69126 ANDRY DEPT 2 2 [facility] VISIT INC HIGH SEVERITY& THREAT [facility] ANDRY - 2 2 [facility] HOSPITAL ANDRY - 2 2 [facility] OUTPATIEN [facility] T EMERGENCY 04404 CARMELINA RUBIO 2 2 EMERGENCY DEPARTMEN SERVICES T VISIT HIGH/URGE NT SEVERITY EMERGENCY 63055 ANDRY 2 2 [facility] DEPARTMEN INC T VISIT MODERATE SEVERITY HOSPITAL ANDRY - 2 2 [facility] OUTPATIEN INC T EMERGENCY 90672 CARMELINA 2 2 EMERGENCY DEPARTMEN SERVICES T VISIT HIGH/URGE NT SEVERITY EMERGENCY 74411 ANDRY 2 2 [facility] DEPARTMEN INC T VISIT MODERATE SEVERITY OFFICE 13526 [facility] 2 2 ARTHRITIS T VISIT AND 25 RHEUM MINUTES EMERGENCY 09376 ANDRY 2 2 [facility] DEPARTMEN INC T VISIT MODERATE SEVERITY EMERGENCY 33759 CARMELINA JOLLEY DEPT 2 2 EMERGENCY RAGHAV VISIT SERVICES HIGH SEVERITY& THREAT [facility] ANDRY - 2 2 [facility] OUTPATIEN INC T EMERGENCY 66317 ANDRY 2 2 [facility] DEPARTMEN INC T VISIT MODERATE SEVERITY HOSPITAL ANDRY - 2 2 [facility] OUTPATIEN INC T EMERGENCY 72462 CARMELINA ESPARZA 2 2 EMERGENCY [place] [facility] SERVICES T VISIT HIGH/URGE NT SEVERITY EMERGENCY 79980 ANDRY 2 2 [facility] DEPARTMEN INC T VISIT MODERATE SEVERITY EMERGENCY 83682 CARMELINA JOLLEY 2 2 EMERGENCY RAGHAV DEPARTMEN SERVICES T VISIT HIGH/URGE NT SEVERITY HOSPITAL ANDRY - 2 2 [facility] OUTPATIEN INC T OFFICE 98471 [facility] 2 2 ARTHRITIS T VISIT AND 25 RHEUM MINUTES OFFICE 80785 [facility] 2 2 ARTHRITIS T VISIT AND 25 RHEUM MINUTES EMERGENCY 27675 [facility] 2 2 [facility] CTR T VISIT MODERATE SEVERITY HOSPITAL ANDRY - 2 2 [facility] OUTPATIEN INC T EMERGENCY 33357 CARMELINA ESPARZA DEPT 2 2 EMERGENCY DANIELLA VISIT SERVICES HIGH SEVERITY& THREAT FUNJ EMERGENCY 56096 ANDRY 2 2 [facility] DEPARTMEN INC T VISIT MODERATE SEVERITY HOSPITAL ANDRY - 1 1 [facility] OUTPATIEN INC T EMERGENCY 27767 ANDRY 1 1 [facility] DEPARTMEN INC T VISIT MODERATE SEVERITY EMERGENCY 32325 [facility] DEPT 1 1 III RAGHAV III RAGHAV VISIT HIGH SEVERITY& THREAT FUN EMERGENCY 95419 VILMA ESPARZA 1 1 DANIELLA [place] DEPARTMEN T VISIT HIGH/URGE NT SEVERITY HOSPITAL ANDRY - 1 1 [facility] OUTPATIEN INC T EMERGENCY 45156 ANDRY 1 1 [facility] DEPARTMEN INC T VISIT MODERATE SEVERITY EMERGENCY 35427 ANDRY 1 1 [facility] DEPARTMEN INC T VISIT LOW/MODER SEVERITY HOSPITAL ANDRY - 1 1 [facility] OUTPATIEN INC T EMERGENCY 00782 VILMA ESPARZA 1 1 [facility] DEPARTMEN T VISIT HIGH/URGE NT SEVERITY HOSPITAL ST - 1 1 [facility] OUTPATIEN T MEDICALCE NTER EMERGENCY 12197 ST 1 1 [facility] DEPARTMEN T VISIT MEDICALCE LOW/MODER NTER SEVERITY EMERGENCY 16127 ST [place] 1 1 [facility]ITA [facility] MED CTR T VISIT MODERATE SEVERITY EMERGENCY 97186 CARMELINA ESPARZA 1 1 EMERGENCY [place] [facility] T VISIT HIGH/URGE NT SEVERITY HOSPITAL ANDRY - 1 1 [facility] OUTPATIEN INC T EMERGENCY 09613 ANDRY 1 1 [facility] DEPARTMEN INC T VISIT MODERATE SEVERITY HOSPITAL ST - 1 1 [facility] OUTPATIEN T MEDICALCE NTER EMERGENCY 32607 SOW ARMINDA 1 1 [facility] DEPARTMEN MED CTR T VISIT MODERATE SEVERITY EMERGENCY 38880 ST 1 1 [facility] DEPARTMEN T VISIT MEDICALCE LOW/MODER NTER SEVERITY EMERGENCY 52363 CARMELINA ANGULO ALFRED 1 1 EMERGENCY DEPARTMEN SERVICES T VISIT MODERATE SEVERITY HOSPITAL ANDRY - 1 1 [facility] OUTPATIEN INC T EMERGENCY 26487 ANDRY 1 1 [facility] DEPARTMEN INC T VISIT LOW/MODER SEVERITY EMERGENCY 88070 [facility] 1 1 MARG[facility] DEPARTMEN MED CTR T VISIT MODERATE SEVERITY HOSPITAL ST - 1 1 [facility] OUTPATIEN T MEDICALCE NTER [facility] ST - 1 1 [facility] OUTPATIEN T MEDICALCE NTER EMERGENCY 83077 ST 1 1 M[facility] DEPARTMEN T VISIT MEDICALCE MODERATE NTER SEVERITY EMERGENCY 31545 [facility] 1 1 MARGARITA Mariam [facility] DEPARTMEN MED CTR T VISIT HIGH/URGE NT SEVERITY HOSPITAL ST - 1 1 [facility] OUTPATIEN T MEDICALCE NTER EMERGENCY 70860 [facility] ARMINDA DEPARTMEN MED CTR T VISIT MODERATE SEVERITY OFFICE 10290 DEVNATE DE LA ROSA OUTPATIEN 1 1 REED & R CHR T VISIT TEMMING 15 MINUTES PERIODIC 82996 [facility] 0 0 POINT LEANNA E MED EST FAMILY PATIENT CARE, IN 18-[address] - 0 0 [facility] OUTPATIEN T MEDICALCE NTER EMERGENCY 48598 [facility] 0 0 MARGARITA MARY DEPARTMEN MED CTR T VISIT MODERATE SEVERITY HOSPITAL ST. - 0 0 M[facility] OUTPATIEN JUDITH T EMERGENCY 30541 EMERGENCY LEIDY 0 0 CARE GIORGIO DEPARTMEN PHYS T VISIT [facility] HIGH/URGE NT SEVERITY OFFICE 72523 [facility] OUT[facility] 0 0 POINT LEANNA T VISIT 5 FAMILY MINUTES CARE, IN OFFICE 54799 CARDIOLOG RODRIGUEZ LARRY OUTPATIEN 0 0 Y T VISIT ASSOCIATE 25 S [facility] H[facility] ST - 0 0 M[facility] OUTPATIEN T MEDICALCE NTER EMERGENCY 78153 [facility] 0 0 MARGARITA VIOLET DEPARTMEN MED CTR T VISIT MODERATE SEVERITY HOSPITAL ST - 0 0 [facility] OUTPATIEN T MEDICALCE [facility] - 0 0 M[facility] OUTPATIEN T MEDICALCE NTER OFFICE 70748 CARDIOLOG RODRIGUEZ LARRY OUTPATIEN 0 0 Y T NEW 45 ASSOCIATE MINUTES [facility] ST. - 0 0 MARGARITA OUTPATIEN JUDITH T OFFICE 70797 [facility] OUTPAT[facility] 0 0 POINT LEANNA T VISIT FAMILY 25 CARE, IN MINUTES OFFICE 35946 [facility], OUTPATIEN 0 0 POINT CHHAYA T VISIT FAMILY 15 CARE, MINUTES INC. OFFICE 15419 [facility], OUTPATIEN 0 0 POINT CHHAYA T VISIT 5 FAMILY MINUTES CARE, INC. OFFICE 90488 [facility], OUTPATIEN 0 0 POINT CHHAYA T VISIT FAMILY 15 CARE, MINUTES INC. OFFICE 96227 [facility], OUTPATIEN 0 0 POINT CHHAYA T VISIT FAMILY 10 CARE, MINUTES INC. OFFICE 52660 [facility], OUTPATIEN 0 0 POINT [place]AY[place] T VISIT FAMILY 25 CARE, MINUTES INC. OFFICE 915[address] ST YELICH, CONSULTAT 0 0 MARGARITA FRAGA/KAREN PHYSICIAN PATIENT S 60 MIN OFFICE 01513 [facility] 0 0 POINT [place] T VISIT FAMILY 15 CARE, MINUTES INC. OFFICE 28501 [facility] 0 PO[place] T VISIT FAMILY 25 CARE, MINUTES INC. [facility] 0 0 [facility] EMERGENCY [address] [facility] 0 0 [facility] VISIT HIGH/URGE NT SEVERITY EMERGENCY [facility]25 [facility] 0 0 [facility] VISIT MODERATE SEVERITY [facility] - 0 0 [facility] [employer] EMERGENCY 97019 EMERGENCY LOVE, 0 0 CARE [facility] PHYS VISIT [facility] HIGH/URGE [place] NT SEVERITY OFFICE 07466 [facility] 0 0 URGENT MOHAMED T FLAKITO 30 CARE MINUTES EMERGENCY [address] [facility] 0 0 [facility] VISIT MODERATE SEVERITY EMERGENCY 97476 EMERGENCY EMERY, 0 0 CARE [facility] PHYS VISIT [facility] HIGH/URGE [place] NT SEVERITY [facility] 0 0 [facility] 0 0 [facility] OFFICE 75964 [facility] 0 0 POINT CH[place]AYA T VISIT FAMILY 15 CARE, MINUTES INC. OFFICE 64283 Audanika INDERJACKSONPATI 9 9 POINT CHRISTI M T VISIT FAMILY 15 CARE, MINUTES INC. [facility]OSPITAL [facility] - 9 9 HOSPITAL OUTPATIEN WEST T EMERGENCY 47520 EMERGENCY [place], 9 9 CARE NAVEEN P [facility] PHYS T VISIT [facility] [place]ATE [place] SEVERITY OFFICE 07704 [facility] 9 9 REED & R, T VISIT MIHAELA TENORIO 15 ER L MINUTES OFFICE 19399 DEVANTE DE [facility] CONSULTAT 9 9 REED & R, ION TEMKRISTYN TENORIO NEW/ESTAB ER L PATIENT 60 MIN OFFICE 78035 [facility] 9 9 [place] D T VISIT FAMILY 15 CARE, [facility]ES [facility] 9 9 [facility] 63783 [facility] 9 9 [place] D T VISIT FAMILY 25 CARE, MINUTES [facility] 9 9 [facility] EMERGENC[facility] 38362 EMERGENCY [place], 9 9 CARE [facility] CHERRY HILLMEN PHYS T VISIT [facility] [place] SEVERITY OFFICE 15203 [facility] 8 8 POINT [place], T VISIT FAMILY MELVA J 25 CARE, MINUTES INC. EMERGENCY 27229 EMERGENCY [place], 8 8 CARE LIZZIE Zuniga DEPARTMEN PHYS T VISIT [facility] [place] SE[facility] 99472 [facility] [address] [facility] T [facility]ISIT LIMITED/M INOR PROB HOSP[facility] - 8 8 [facility] OFFICE 83273 [facility] 8 8 PRIMARY EJIGNESH T NEW 45 CARE MINUTES OFFICE 76418 [facility] 8 8 NOE Zuniga T VISIT 15 MINUTES OFFICE 71321 [facility] 8 NOE De La O NEW 30 MINUTES OFFICE 50578 [facility] 8 8 [place], T VISIT FAMILY MELVA J 25 CARE, MINUTES INC. OFFICE 58569 [facility] 8 8 [place], T VISIT FAMILY MELVA J 15 CARE, [facility]ES [facility] [address] OFFICE [address]04 [facility] 8 8 POINT LV[place]CCA, T NEW 45 FAMILY MELVA J MINUTES CARE, INC. EMERGENCY [id number] VISIT [facility] [address] EMERGENCY [address]28 [facility]ERG[facility] [place] DE[facility] 8 8 CARE BRANDIE VISIT PHYS [facility]IGH [facility] [place] [place] [facility] [facility]
--- OUTSIDE RECORDS SUMMARY | 2017-07-28 02:22 | External Medical Summary Rpt | CCD ---
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 [facility]UNATH, JOINT, SITE REED & TEMMING UNSPECIFIED 22173 CALCANEAL 10-22-2008 [facility] PSC 82969 UNSPECIFIED 10-20-2008 [facility] VIRAL [facility] 05353 UNSPECIFIED 10-20-2008 [facility] ARTHROPATHY [facility] UNSPECIFIED 7140 RHEUMATOID 09-20-2008 [facility] ARTHRITIS [facility] 7231 CERVICALGIA 09-20-2008 [facility] 8472 LUMBAR 09-20-2008 [facility] SPRAIN AND HOSPITAL STRAIN WEST 07786 CONTUSION 09-20-2008 [facility] BACK [facility] 9599 INJURY 09-20-2008 [facility] OTHER [facility] UNSPECIFIED PSC UNSPECIFIED SITE 94699 UNSPECIFIED 02-05-2008 [facility] GENITAL [facility] 56069 HERPETIC 02-05-2008 [facility] [place] [facility] TIS 2749 GOUT, 01-09-2008 [facility]PEC[facility] 01893 UNSPECIFIED 01-01-2008 FANG, SITE OF NOE Zuniga ANKLE SPRAIN AND STRAIN 57431 PAIN IN 10-21-2007 [facility] ANKLE [...] BA 00 10 11 90 30 00 ME Ac CL 83 -2 -1 .0 00 L- ti OF 21 4- 7- 00 07 MA ve EN 02 20 20 51 RT 45 17 17 07 10 0 84 PH AR MG MA CY TA BL #5 ET 91 [place] 43 10 11 [address] 38 -2 -1 .0 00 L- ti AT 60 4- 7- 00 07 MA ve IN 53 20 20 51 RT 00 17 17 21 10 1 07 PH 0, AR 00 MA 0 CY UN IT #5 /G 91 M PO WD QU 16 10 11 30 30 00 ME Ac ET 72 -2 -1 .0 00 L- ti IA 90 4- 7- 00 07 MA ve PI 14 20 20 51 RT NE 60 17 17 07 1 69 PH FU AR MA MA RA CY TE #5 50 91 MG TA B NO 00 10 11 30 18 00 ME Ac VO 16 -2 -1 .0 00 L- ti LO 93 4- 7- 00 07 MA ve G 69 20 20 51 RT WV 61 17 17 73 X 9 32 PH 70 AR -3 MA 0 CY FL EX #5 PE 91 N SY RN BD 08 10 11 10 28 00 ME Ac 29 -2 -1 0. 00 L- ti UL 03 4- 7- 00 08 MA ve TR 20 20 20 0 84 RT A- 10 17 17 11 FI 9 42 PH NE AR MA PE CY N ND #5 L 91 8M MX 31 G 64 10 11 4. 28 00 ME Ac T 38 -2 -1 00 00 [...] AD 00 10 11 12 30 00 ME Ac VA 17 -2 -1 .0 00 [...] LO 68 10 11 30 30 00 ME Ac SA 64 -2 -1 .0 00 L- ti RT 50 4- 7- 00 07 MA ve AN 41 20 20 51 RT 15 17 17 07 PO 4 71 PH TA AR SS MA IU CY M 10 #5 0 91 MG TA B FA 68 10 11 60 30 00 ME Ac MO 64 -2 -1 .0 00 L- ti TI 50 4- 7- 00 07 MA ve DI 14 20 20 50 RT NE 05 17 17 80 9 72 PH 20 AR MA MG CY TA #5 BL 91 ET FR 99 10 11 10 34 00 ME Ac EE 07 -2 -1 0. 00 L- ti ST 30 4- 7- 00 08 MA ve YL 13 20 20 0 84 RT E 00 17 17 11 28 1 41 PH G AR LA MA NC CY ET S #5 91 OM 60 10 11 30 30 00 ME Ac EP 50 -2 -1 .0 00 L- ti RA 50 4- 7- 00 07 MA ve ZO 14 20 20 51 RT LE 60 17 17 [address] AR MA 40 CY MG #5 91 CA PS UL E MO 57 10 11 30 30 00 ME Ac NT 23 -2 -1 .0 00 L- ti EL 70 4- 7- 00 07 MA ve [place] 25 20 20 51 RT 53 17 17 07 T 0 70 PH SO AR D MA 10 CY MG #5 91 TA BL ET IN 50 10 11 30 30 00 ME Ac VO 45 -2 -1 .0 00 L- ti KA 80 4- 7- 00 07 MA ve NA 14 20 20 51 RT 13 17 17 07 30 0 65 PH 0 AR MG MA CY TA BL #5 ET 91 CI 54 10 11 30 30 00 ME Ac TA 45 -2 -1 .0 00 L- ti LO 80 4- 7- 00 07 MA ve [place] 88 20 20 51 RT AM 91 [...] SP 00 10 11 30 30 00 ME Ac IR 22 -2 -1 .0 00 L- ti ON 82 4- 7- 00 07 MA ve OL 80 20 20 51 RT AC 31 17 17 07 TO 1 72 PH NE AR MA 25 CY MG #5 91 TA BL ET HY 00 10 11 [address] 18 -2 -1 .0 00 L- ti OX 50 4- 7- 00 07 MA ve YZ 67 20 20 51 RT IN 40 17 17 07 E 1 76 PH PA AR M MA 25 CY MG #5 91 CA P ON 53 10 11 10 34 00 ME Ac ET 88 -1 -1 0. 00 L- ti OU 50 6- 0- 00 08 MA ve CH 24 20 20 0 84 RT 51 17 17 09 UL 0 14 PH TR AR A MA TE CY ST #5 ST 91 RI PS TR 59 10 11 1. 1 00 ME Ac IA 76 -1 -1 00 00 L- ti ZO 23 6- 0- 0 04 MA ve LA 71 20 20 53 RT M 80 17 17 26 0. 9 02 PH 25 AR MA MG CY TA #5 BL 91 ET NO 00 10 11 30 23 00 ME Ac VO 16 -0 -0 .0 00 L- ti LO 93 7- 3- 00 07 MA ve G 69 20 20 50 RT WV 61 17 17 99 X 9 16 PH 70 AR -3 MA 0 CY FL EX #5 PE 91 N SY RN 64 10 10 4. 28 00 ME Ac T 38 -0 -2 00 00 L- ti D2 00 3- 7- 0 07 MA ve 73 20 20 51 RT 1. 70 17 17 07 25 6 82 PH AR MG MA CY (5 0, #5 00 91 0 UN IT ) FR 99 09 10 10 34 00 ME Ac EE 07 -1 -1 0. 00 L- ti ST 30 5- 3- 00 08 MA ve YL 13 20 20 0 84 RT E 00 17 17 11 28 1 41 PH G AR LA MA NC CY ET S #5 91 NO 00 09 10 30 23 00 ME Ac VO 16 -1 -1 .0 00 L- ti LO 93 5- 3- 00 07 MA ve G 69 20 20 50 RT WV 61 17 17 99 X 9 16 PH 70 AR -3 MA 0 CY FL EX #5 PE 91 N SY RN FI 00 09 10 30 30 00 ME Ac SH 90 -1 -1 .0 00 L- ti 44 5- 3- 00 08 MA ve OI 04 20 20 84 RT L 36 17 17 11 1, 0 55 PH 00 AR 0 MA MG CY CA #5 PS 91 UL E GA 00 09 10 90 30 00 ME Ac BA 22 -2 -1 .0 00 L- ti PE 82 0- 3- 00 04 MA ve NT 63 20 20 53 RT IN 71 17 17 21 1 89 PH 80 AR 0 MA MG CY TA #5 BL 91 ET AZ 50 09 10 6. 5 00 ME Ac IT 11 -2 -1 00 00 L- ti HR 10 0- 3- 0 07 MA ve OM 78 20 20 51 RT YC 75 17 17 07 IN 1 80 PH AR 25 MA 0 CY MG #5 TA 91 BL ET BA 00 09 09 90 30 00 ME Ac CL 83 -0 -2 .0 00 L- ti OF 21 6- 9- 00 07 MA ve EN 02 20 20 50 RT 45 17 17 80 10 0 14 PH AR MG MA CY TA BL #5 ET 91 CI 54 09 30 30 00 ME Ac TA 45 -0 -2 .0 00 L- ti LO 80 6- 9- 00 07 MA ve [place] 88 20 20 50 RT AM 91 17 17 80 0 13 PH HB AR R MA 40 CY MG #5 91 TA BL ET QU 16 09 09 30 30 00 ME Ac ET 72 -0 -2 .0 00 L- ti IA 90 6- 9- 00 07 MA ve PI 14 20 20 50 RT NE 60 17 17 80 1 12 PH FU AR MA MA RA CY TE #5 50 91 MG TA B MO 57 09 09 30 30 00 ME Ac NT 23 -0 -2 .0 00 L- ti EL 70 6- 9- 00 07 MA ve [place] 25 20 20 50 RT 53 17 17 80 T 0 10 PH SO AR D MA 10 CY MG #5 91 TA BL ET HY 00 04 27 [address] 18 -0 -2 .0 00 L- ti OX 50 6 07 MA ve YZ 67 20 20 50 RT IN 40 17 17 80 E 1 09 PH PA AR M MA 25 CY MG #5 91 CA P SP 59 09 05 18 30 00 ME Ac IR 74 -0 -2 .0 00 L- ti ON 60 07 MA ve OL 21 20 20 48 RT AC 60 17 17 89 TO 1 24 PH NE AR MA 25 CY MG #5 91 TA BL ET LO 68 09 05 18 30 00 ME Ac SA 64 -0 -2 .0 00 L- ti RT 50 07 MA ve AN 41 20 20 48 RT 15 17 17 89 PO 4 08 PH TA AR SS MA IU CY M 10 #5 0 91 MG TA B FE 00 ME Ac NO 09 -0 -2 .0 00 L- ti FI 37 07 MA ve BR 75 20 20 48 RT AT 69 17 17 89 E 8 12 PH 14 AR 5 MA MG CY TA #5 BL 91 ET ON 53 08 09 10 34 00 ME Ac ET 88 -3 -2 0. 00 L- ti OU 50 08 MA ve CH 24 20 20 0 84 RT 51 17 17 09 UL 0 14 PH TR AR A MA TE CY ST #5 ST 91 RI PS FA 68 09 30 00 ME Ac MO 64 -0 -2 .0 00 [...] AT 68 09 05 18 30 00 ME Ac OR 64 -0 -2 .0 00 L- ti VA 50 6- 9- [address] 45 20 20 50 RT AT 85 17 17 80 IN 4 26 PH AR 10 MA CY MG #5 TA 91 BL ET 64 09 09 4. 28 00 ME Ac T 38 -0 -2 00 00 L- ti D2 00 6- 9- 0 07 MA ve 73 20 20 50 RT 1. 70 17 17 80 25 6 24 PH AR MG MA CY (5 0, #5 00 91 0 UN IT ) AD 00 09 09 12 30 00 ME Ac VA 17 -0 -2 .0 00 L- ti IR 30 6- 9- 00 07 MA ve 71 20 20 50 RT HF 72 17 17 80 A 0 22 PH 23 AR 0- MA 21 CY MC #5 G 91 IN VILLAVICENCIO LE R LI 68 04 27 30 30 00 [facility] SI 64 -0 -2 .0 00 L- ti NO 50 6- 9- 00 07 MA ve [place] 55 20 20 50 RT IL 25 17 17 80 4 21 PH 10 AR MA MG CY TA #5 BL 91 ET AM 68 04 27 30 30 00 ME Ac LO 64 -0 -2 .0 00 L- ti DI 50 6- 9- 00 07 MA ve PI 51 20 20 50 RT NE 65 17 17 80 4 20 PH BE AR SY MA LA CY TE #5 10 91 MG TA B BA 00 04 27 15 31 00 [facility] SA 00 -0 -2 .0 00 L- ti GL 27 5- 9- 00 07 MA ve AR 71 20 20 48 RT 55 17 17 95 10 9 02 PH 0 AR UN MA IT CY /M L #5 KW 91 IK PE N BD 08 08 09 10 30 00 ME Ac 29 -2 -2 0. 00 L- ti UL 03 4- 2- 00 08 MA ve TR 20 20 20 0 84 RT A- 10 17 17 08 FI 9 20 PH NE AR MA PE CY N ND #5 L 91 8M MX 31 G ON 53 08 09 10 30 00 ME Ac ET 88 -2 -1 0. 00 L- ti OU 50 3- 5- 00 08 MA ve CH 13 20 20 0 84 RT 61 17 17 08 DE 0 05 PH LI AR CA MA CY 33 G #5 LA 91 NC ET S AD 00 07 08 12 30 00 ME Ac VA 17 -1 -1 .0 00 L- ti IR 30 4- 1- 00 07 MA ve 71 20 20 49 RT HF 72 17 17 88 A 0 73 PH 23 AR 0- MA 21 CY MC #5 G 91 IN VILLAVICENCIO LE R 64 07 08 4. 28 00 ME Ac T 38 -1 -1 00 00 L- ti D2 00 3- 1- 0 07 MA ve 73 20 20 48 RT 1. 70 17 17 89 25 6 26 PH AR MG MA CY (5 0, #5 00 91 0 UN IT ) ON 53 07 08 10 30 00 ME Ac ET 88 -1 -1 0. 00 L- ti OU 50 3- 1- 00 08 MA ve CH 13 20 20 0 84 RT 61 17 17 00 DE 0 52 PH LI AR CA MA CY 33 G #5 LA 91 NC ET S [place] 43 07 08 60 20 [address] [facility] [address] 38 -1 -1 .0 00 L- ti AT 60 3- 1- 00 07 MA ve IN 53 20 20 49 RT 00 17 17 53 10 6 51 PH 0, AR 00 MA 0 CY UN IT #5 /G 91 M PO WD BA 00 07 08 15 31 00 ME Ac SA 00 -1 -1 .0 00 L- ti GL 27 3- 1- 00 07 MA ve AR 71 20 20 48 RT 55 17 17 95 10 9 02 PH 0 AR UN MA IT CY /M L #5 KW 91 IK PE N MO 31 07 08 30 30 00 [facility] NT 72 -1 -1 .0 00 L- ti EL 20 3- 1- 00 07 MA ve [place] 72 20 20 48 RT 61 17 17 89 T 0 17 PH SO AR D MA 10 CY MG #5 91 TA BL ET NO 00 07 08 15 25 00 [facility] VO 16 -1 -1 .0 00 L- ti LO 96 3- 1- 00 07 MA ve G 33 20 20 48 RT 10 91 17 17 89 0 0 19 PH UN AR IT MA S/ CY ML #5 FL 91 EX PE N BA 00 07 08 90 30 00 ME Ac CL 83 -1 -1 .0 00 L- ti OF 21 3- 1- 00 07 MA ve EN 02 20 20 48 RT 45 17 17 89 10 0 16 PH AR MG MA CY TA BL #5 ET 91 CI 54 07 08 30 30 00 ME Ac TA 45 -1 -1 .0 00 L- ti LO 80 3- 1- 00 07 MA ve [place] 88 20 20 48 RT AM 91 [...] IN 50 07 08 30 30 00 ME Ac VO 45 -1 -1 .0 00 L- ti KA 80 3- 1- 00 07 MA ve NA 14 20 20 48 RT 13 17 17 89 30 0 07 PH 0 AR MG MA CY TA BL #5 ET 91 LI 68 07 08 30 30 00 ME Ac SI 18 -1 -1 .0 00 L- ti NO 00 4- 1- 00 07 MA ve [place] 98 20 20 49 RT [place] 00 17 17 88 1 72 PH 10 AR MA MG CY TA #5 BL 91 ET AM 68 07 08 30 30 00 ME Ac LO 64 -1 -1 .0 00 [...] 1 17 PH CE AR TA MA WV CY NO PH #5 91 7. 5- 32 5 RE 08 05 06 10 30 00 ME Ac LI 39 -2 -2 0. 00 L- ti ON 69 08 MA ve 01 20 20 0 83 RT PE 63 17 17 95 N 4 42 PH NE AR ED MA LE CY 31 #5 GX 91 " BA 00 05 06 15 31 00 ME Ac SA 00 -2 -1 .0 00 L- ti GL 27 3 6 07 MA ve AR 71 20 20 48 RT 55 17 17 95 10 9 02 PH 0 AR UN MA IT CY /M L #5 KW 91 IK PE N FE 00 05 02 15 30 00 ME Ac NO 09 -1 -1 .0 00 L- ti FI 37 6 07 MA ve BR 75 20 20 48 RT AT 69 17 17 89 E 8 12 PH 14 AR 5 MA MG CY TA #5 BL 91 ET BA 00 05 06 30 00 ME Ac CL 83 -1 -1 .0 00 L- ti OF 21 07 MA ve EN 02 20 20 48 RT 45 17 17 89 10 0 16 PH AR MG MA CY TA BL #5 ET 91 MO 31 05 02 15 30 00 ME Ac NT 72 -1 -1 .0 00 L- ti EL 20 6 07 MA ve [place] 72 20 20 48 RT 61 17 17 89 T 0 17 PH SO AR D MA 10 CY MG #5 91 TA BL ET NO 00 05 15 00 ME Ac VO 16 -1 -1 .0 00 L- ti LO 96 9 6- 00 07 MA ve G 33 20 20 48 RT 10 91 17 17 89 0 0 19 PH UN AR IT MA S/ CY ML #5 FL 91 EX PE N OM 60 05 02 15 30 00 ME Ac EP 50 -1 -1 .0 00 L- ti RA 50 6 07 MA ve ZO 14 20 20 48 RT LE 60 17 17 [address] AR MA 40 CY MG #5 91 CA PS UL E QU 16 00 ME Ac ET 72 -1 -1 .0 00 L- ti IA 90 6 07 MA ve PI 14 20 20 48 RT NE 60 17 17 89 1 21 PH FU AR MA MA RA CY TE #5 50 91 MG TA B SP 59 05 02 15 30 00 ME Ac IR 74 -1 -1 .0 00 L- ti ON 60 8- 6- 00 07 MA ve OL 21 20 20 48 RT AC 60 17 17 06 TO 1 59 PH NE AR MA 25 CY MG #5 91 TA BL ET LO 68 05 30 30 00 ME Ac SA 64 -1 -1 .0 00 L- ti RT 50 8- 6- 00 07 MA ve AN 41 20 20 48 RT 17 17 17 06 PO 0 60 PH TA AR SS MA IU CY M 10 #5 0 91 MG TA B 64 05 06 4. 28 00 ME Ac T 38 -1 -1 00 00 L- ti D2 00 9- 6- 0 07 MA ve 73 20 20 48 RT 1. 70 17 17 89 25 6 26 PH AR MG MA CY (5 0, #5 00 91 0 UN IT ) LI 54 05 30 30 00 [facility] SI 45 -1 -1 .0 00 L- ti NO 80 9 6- 07 MA ve [place] 99 20 20 48 RT [place] 71 17 17 89 0 68 PH 10 AR MA MG CY TA #5 BL 91 ET AT 68 05 30 30 00 ME Ac OR 64 -1 -1 .0 00 L- ti VA 50 9- 6- [address] 45 20 20 48 RT AT 85 17 17 89 IN 4 69 PH AR 10 MA CY MG #5 TA 91 BL ET AM 68 05 30 30 00 ME Ac LO 64 -1 -1 .0 00 L- ti DI 50 9- 6- 00 07 MA ve PI 51 20 20 48 RT NE 65 17 17 89 4 71 PH BE AR SY MA LA CY TE #5 10 91 MG TA B HY 00 12 22 30 [address] 18 -1 -1 .0 00 L- ti OX 50 9 6- 00 07 MA ve YZ 67 20 20 48 RT IN 40 17 17 89 E 1 05 PH PA AR M MA 25 CY MG #5 91 CA P GA 00 05 90 30 00 ME Ac BA 22 -1 -1 .0 00 L- ti PE 82 9- 6- 00 07 MA ve NT 63 20 20 48 RT IN 71 17 17 89 1 06 PH 80 AR 0 MA MG CY TA #5 BL 91 ET IN 50 05 06 30 30 00 ME Ac VO 45 -1 -1 .0 00 [...] 80 9- 6- 00 07 MA ve [place] 88 20 20 48 RT AM 91 17 17 89 0 09 PH HB AR R MA 40 CY MG #5 91 TA BL ET FA 68 05 06 60 30 00 ME Ac MO 64 -1 -1 .0 00 L- ti TI 50 9- 6- 00 07 MA ve DI 14 20 20 48 RT NE 05 17 17 89 9 11 PH 20 AR MA MG CY TA #5 BL 91 ET AD 00 05 06 12 30 00 ME Ac VA 17 -2 -1 .0 00 [...] 5 83 PH CE AR TA MA WV CY NO PH OF CY 7. NT 5- HI 32 AN 5 A IN C IN 00 04 05 30 30 00 ME Ac CR 17 -1 -0 .0 00 L- ti US 30 0- 5- 00 07 MA ve E 87 20 20 48 RT EL 31 17 17 06 LI 0 61 PH PT AR A MA 62 CY .5 #5 MC 91 G IN H SI 00 03 04 50 25 00 ME Ac LV 59 -3 -2 .0 00 L- ti ER 10 0- 8- 00 07 MA ve 81 20 20 47 RT PARDO 05 17 17 96 LF 5 99 PH AD AR IA MA ZI CY NE #5 1% 91 CR EA M AM 00 04 04 20 10 00 ME Ac OX 78 -0 -2 .0 00 L- ti -C 11 3- 8- 00 07 MA ve LA 85 20 20 48 RT V 22 17 17 00 87 0 77 PH 5- AR 12 MA 5 CY MG #5 TA 91 BL ET BE 68 04 04 24 8 00 ME Ac NZ 38 -0 -2 .0 00 [...] 60 3- 8- 00 07 MA ve [place] 00 20 20 48 RT ED 10 17 17 00 NI 3 79 PH SO AR LO MA NE CY 4 #5 MG 91 DO SE PK AL 00 04 04 22 25 00 [facility] BU 48 -0 -2 5. 00 L- ti TE 79 5- 8- 00 07 MA ve RO 50 20 20 0 48 RT L 12 17 17 06 PARDO 5 57 PH L AR 2. MA 5 CY MG /3 #5 [address] SP 59 04 04 30 30 00 [facility] IR 74 -0 -2 .0 00 L- ti ON 60 5- 8- 00 07 MA ve OL 21 20 20 48 RT AC 60 17 17 06 TO 1 59 PH NE AR MA 25 CY MG #5 91 TA BL ET HY 00 03 04 30 [address] [facility] [address] 40 -3 -2 .0 00 L- ti OC 60 0- 8- 00 02 MA ve OD 12 20 20 23 RT ON 30 17 17 97 -A 1 50 PH CE AR TA MA WV CY NO PH #5 EN 91 5- 32 5 LO 68 04 04 30 30 00 [facility] SA 64 -0 -2 .0 00 L- [...] HY 00 03 04 7. [address] [facility] [address] 40 -2 -2 00 00 L- ti OC 60 9- 1- 0 02 MA ve OD 12 20 20 23 RT ON 30 17 17 97 -A 1 21 PH CE AR TA MA WV CY NO PH #5 EN 91 5- 32 5 HI 00 03 04 11 30 00 [facility] BI 23 -2 -1 8. 00 L- ti CL 40 1- 4- 00 08 MA ve EN 57 20 20 0 83 RT S 50 17 17 86 4% 4 20 PH AR LI MA QU CY ID #5 91 FL 55 03 04 2. 4 00 [facility] UC 11 -0 -0 00 00 [...] 20 4- 4- 00 03 IC ve [place] 00 20 20 61 IA AM 70 [...] LI P AN CE , IN C. [place] 13 02 03 14 7 00 WA [...] LO 68 02 03 30 30 00 ME Ac SA 64 -1 -1 .0 00 L- ti RT 50 6- 7- 00 07 MA ve AN 41 20 20 47 RT 17 17 17 11 PO 0 31 PH TA AR SS MA IU CY M 10 #5 0 91 MG TA B FA 68 02 03 60 30 00 ME Ac MO 64 -1 -1 .0 00 L- ti TI 50 6- 7- 00 07 MA ve DI 14 20 20 47 RT NE 05 17 17 11 9 33 PH 20 AR MA MG CY TA #5 BL 91 ET ES 00 02 03 30 30 00 ME Ac TR 55 -1 -1 .0 00 L- ti AD 50 7- 7- 00 07 MA ve IO 88 20 20 47 RT L 70 17 17 14 2 4 51 PH MG AR MA TA CY BL ET #5 91 LO 68 02 03 30 30 00 ME Ac SA 64 -1 -1 .0 00 L- ti RT 50 3- 0- 00 07 MA ve AN 40 20 20 47 RT 97 17 17 05 PO 0 21 PH TA AR SS MA IU CY M 50 #5 91 MG TA B SP 53 02 03 30 30 00 ME Ac IR 48 -1 -1 .0 00 L- ti ON 90 3- 0- 00 07 MA ve OL 14 20 20 47 RT AC 30 17 17 05 TO 1 18 PH NE AR MA 25 CY MG #5 91 TA BL ET BE 68 02 03 15 5 00 ME Ac [place] 38 -1 -1 .0 00 [...] AN LE CE R , IN C. [place] 51 01 02 60 30 00 PH [...] 20 6- 4- 00 03 IC ve [place] 00 20 20 61 IA AM 70 [...] BE 68 01 02 15 5 00 ME Ac [place] 38 -1 -0 .0 00 L- ti ON 20 0- 3- 00 07 MA ve AT 24 20 20 46 RT AT 70 17 17 36 E 1 94 PH 10 AR 0 MA MG CY CA #5 PS 91 UL E OS 47 01 02 10 5 00 ME Ac EL 78 -1 -0 .0 00 L- ti TA 10 0- 3- 00 07 MA ve WV 47 20 20 46 RT 01 17 17 36 R 3 95 PH PH AR OS MA CY 75 #5 MG 91 CA PS UL E CE 65 01 01 20 10 00 ME Ac FU 86 -0 -2 .0 00 [...] 70 9- 7- 00 03 IC ve [place] 35 20 20 60 IA IL 31 [...] 20 8- 0- 00 03 IC ve [place] 05 20 20 54 IA AM 45 [...] BL AN ET CE , IN C. [place] 51 12 01 60 30 00 PH [...] 50 8- 0- 00 03 IC ve WV 10 20 20 40 IA N 41 [...] 11 S AN E 6 #5 NA [place] 76 OP 3 # 50 57 63 [...] 4- 4- 00 RE 41 AN ve [place] 51 20 20 EN 5 IL 70 [...] 8- 1- 00 RE 42 EY ve [place] 00 20 20 EN 7 ED 10 11 11 S WV NI 3 #5 CH SO 76 AE [...] 11 S AN E 6 #5 NA [place] 76 OP 3 # 50 57 63 [...] 1- 2- 00 RE 52 AN ve [place] 51 20 20 EN 8 IL 70 [...] 11 S AN E 1 #5 NA [place] 76 OP 3 # 50 57 63 MC G SP RA Y LI 68 01 08 3 30 30 WA 37 GE Ac SI 18 -3 -0 .0 LG 15 IM ti NO 00 1- 9- 00 RE 52 AN ve [place] 51 20 20 EN 8 IL 70 [...] 1- 8- 00 RE 52 AN ve [place] 51 20 20 EN 8 IL 70 [...] 11 S SH E 1 #5 AR [place] 76 ON OP 3 E # 50 57 63 MC G SP RA Y CL 00 05 05 0 20 10 ME 37 RO Ac AR 09 -0 -0 [...] E 00 01 01 1 30 30 ME 37 GE Ac 09 -3 -3 .0 [...] ti NO 00 RE 52 AN ve [place] 51 20 20 EN 8 IL 70 [...] ti NO 00 RE 53 K ve [place] 51 20 20 EN 8 ER IL [...] 6- 5- 00 RE 53 K ve [place] 51 20 20 EN 8 ER IL [...] 6- 6- 00 RE 53 K ve [place] 51 20 20 EN 8 ER IL [...] ZI ZA 71 10 10 S ER [place] 0 #5 IN 76 CH E 3 RI 10 # ST 57 OP MG 63 HE R TA L BL ET AM 68 06 07 1 30 30 ME 35 GE Ac LO 18 -0 -1 .0 LG 90 IM ti DI 00 1- 5- 00 RE 14 AN ve PI 75 20 20 EN 8 NE 10 10 10 S AN 3 #5 NA BE 76 SY 3 LA # TE 57 5 63 MG TA B AM 00 06 06 0 20 10 ME 35 GE Ac OX 78 -1 -1 [...] B 00 05 06 0 30 2 ME 35 YE Ac 59 -2 -0 .0 [...] PARDO 53 04 04 0 20 10 ME 35 KI Ac LF 74 -2 -2 .0 LG 69 LL ti AM 60 4- 4- 00 RE 10 IN ve ET 27 20 20 EN 4 DE HO 20 10 10 S R XA 5 #5 ZO 76 HL LE 3 EY -T # E MP 57 63 DS TA BL ET [place] 00 04 04 0 6. 1 WA [...] EN 4 AZ 71 10 10 S WV HC 1 #5 L 76 50 3 # MG 57 63 TA BL ET ME 68 04 04 0 [address] Ac LO 18 -1 -1 .0 LG 65 AW ti XI 00 8 8- 00 RE 57 ve CA 50 20 20 EN 3 AZ M 10 10 10 S WV 7. 3 #5 5 76 MG 3 # TA 57 BL 63 ET AM 00 04 04 0 [address] Ac OX 78 -1 -1 .0 LG 65 AW ti -C 11 8- 8- 00 RE 57 ve LA 85 20 20 EN 2 AZ V 22 10 10 S WV 87 0 #5 5- 76 12 3 [...] 3- 3- 00 RE 38 K ve [place] 51 20 20 EN 5 ER IL [...] ZI ZA 71 10 10 S ER [place] 0 #5 IN 76 CH E 3 [...] ZI ZA 71 10 10 S ER [place] 0 57 IN 63 CH E RI 10 ST OP MG HE R TA L BL ET LI 68 11 02 02 30 30 WA 34 RA Ac SI 18 -1 -2 .0 LG 86 NC ti NO 00 3- 6- 00 RE 38 K ve [place] 51 20 20 EN 5 ER IL [...] S RY 0 57 L 63 L [place] 50 02 02 00 60 4 WA [...] ZI ZA 71 09 10 S ER [place] 0 57 IN 63 CH E RI [...] 3- 4- 00 RE 38 K ve [place] 51 20 20 EN 5 ER IL [...] 3- 7- 00 RE 38 K ve [place] 51 20 20 EN 5 ER IL 70 09 09 S IN 3 57 M 40 63 MG TA BL ET CY 59 11 11 00 60 30 WA 34 CO Ac CL 74 -0 -1 .0 LG 76 LG ti OB 60 9- 9- 00 RE 00 LA ve EN 17 20 20 EN 5 ZI ZA 71 09 09 S ER [place] 0 57 IN 63 CH E RI 10 ST OP MG HE R TA L BL ET LI 68 11 11 00 14 14 WA 34 LA Ac SI 18 -1 -1 .0 LG 77 UR ti NO 00 1- 9- 00 RE 26 EN ve [place] 51 20 20 EN 8 O- IL [...] PS OP UL HE E R L [place] 00 09 08 02 30 30 WA [...] 8- 3- 00 MA 91 EN ve [place] 99 20 20 RT 0 O- IL [...] BL 29 OP ET HE R L [place] 00 09 06 01 30 30 WA [...] 8- 4- 00 MA 91 EN ve [place] 99 20 20 RT 0 O- IL [...] ZI ZA 81 09 09 PH ER [place] 0 AR IN MA CH E CY [...] 00 14 7 WA 32 SP Ac [place] 25 -0 -1 .0 LG 00 EL [...] ai ZA 71 09 09 S la [place] 0 57 bl IN 63 e E 10 MG TA BL ET NA 68 02 02 00 20 10 WA 32 No Ac [place] 46 -0 -1 .0 LG 00 t [...] TA #1 J BL 51 ET 0 [place] 00 09 11 00 30 30 WA [...] 5- 0- 00 MA 25 EN ve [place] 99 20 20 RT 9 O- IL [...] 5- 1- 00 MA 25 EN ve [place] 99 20 20 RT 9 O- IL [...] AH 50 0 J MG TA B [place] 00 09 09 00 30 30 WA [...] -1 MG 51 0 TA BL ET [place] 00 02 06 02 30 30 WA [...] 5- 5- 00 MA 25 Av ve [place] 99 20 20 RT 9 ai IL [...] 6- 4- 00 MA 58 Av ve [place] 99 20 20 RT 6 ai IL [...] -1 MG 51 0 TA BL ET [place] 00 02 04 30 30 70 No [...] 6- 7- 00 MA 58 Av ve [place] 99 20 20 RT 6 ai IL [...] -1 MG 51 0 TA BL ET [place] 00 02 04 00 30 30 WA [...] 6- 6- 00 MA 36 Av ve [place] 51 20 20 RT 2 ai IL 70 08 08 la 3 PH bl 40 AR e MA MG CY TA 10 BL -2 ET 96 7 [place] 00 02 03 00 30 30 WA [...] SQUARE METERS Comment: If this patient is -L[place]ian, then multiply the Comment: result by 1.210. [...] 017 K/mm3 ed monocyt 14:25 e count [place] % = 4.3 % 1.7-9.3 complet 017 [...] 9 Comment: Positive >9 Comment: Performed at: [facility] Comment: [address], [place] [id number] Comment: Control Systems Specialist: Pepe Anderson PhD, Phone: [phone] Antinuclear Antibodies, IFA (06-17-2017 14:25) Serum 06-17-2 = . complet nuclear 017 Negativ ed 14:25 e antibod y titer by immunof l Comment: Negative <1:80 Comment: Borderline 1:80 Comment: Positive >1:80 Comment: Performed at: [facility] Comment: [address], [place] [id number] Comment: Control Systems Specialist: Pepe Anderson PhD, Phone: [phone] CCP IgG + IgA serum LATOSHA (06-17-2017 14:25) CCP IgG 2 = 8 0-19 complet + IgA 017 units ed serum 14:25 LATOSHA Comment: Negative <20 Comment: Weak positive 20 - 39 Comment: Moderate positive 40 - 59 Comment: Strong positive >59 Comment: Performed at: [facility] Comment: [address], [place] [id number] Comment: Control Systems Specialist: Tereso Rowe MD, Phone: [phone] Serum or plasma rheumatoid factor measur (06-17-2017 14:25) Serum 30-2 < 10.0 0.0-13. complet or 017 IU/mL 9 ed plasma 14:25 rheumat oid factor measur Comment: Performed at: [facility] Comment: [address], [place] [id number] Comment: Control Systems Specialist: Pepe Anderson PhD, Phone: [phone] Procedures Procedure DOS Code Location Performer Comment SEDIM[facility] 67745 [facility] TION RATE [facility] RBC INC INC NON-AUTOM ATED CYCLIC 36457 [facility] CITRULLIN 7 [facility] ATED INC INC PEPTIDE ANTIBODY ANTINUCLE 37573 [facility] AR [facility] ANTIBODIE INC INC S DA COMPREHEN 74530 [facility] SIVE 7 [facility] METABOLIC INC INC PANEL C-REACTIV 22951 [facility] E PROTEIN 7 [facility] INC INC DNA 54277 [facility] ANTIBODY 7 [facility] TAZLINA/DO INC INC UBLE STRANDED RHEUMATOI 44823 [facility] D FACTOR 7 [facility] QUANTITAT INC INC SAM BLOOD 73231 [facility] COUNT 7 [facility] COMPLETE INC INC AUTO&AUTO DIFRNTL WBC MRI 91536 WISCONSIN GARY SPINAL 7 MEDICAL CANAL IMAGING LUMBAR ASS W/O CONTRAST MATERIAL 3D 13197 [place] [facility] [facility] 7 MEDICAL W/INTERP IMAGING & ASS POSTPROCE SS SUPERVISI ON OTHER 0309 [facility] EXPLORATI 4 N N ON&DECOMP [facility] R[facility] HOSPITA OF SPINAL CANAL RADEX 91709 [facility] SP[facility] 4 [place] LUMBOSACR ORTHOPAED AL 2/3 ICS PLC VIEWS RADIOLOGI 44278 ANDRY Neil EXAM 3 [facility] CHEST 2 INC INC VIEWS FRONTAL&L ATERAL IAADI 90490 ANDRY WILDE INFLUENZA 3 [facility] B VIRUS INC INC IAADI 77086 ANDRY WILDE INFFLUENZ 3 [facility] A A VIRUS INC INC ECG 49730 ANDRY WILDE ROUTINE 3 [facility] ECG INC INC W/LEAST 12 LDS TRCG ONLY W/O I&R CREATINE 71718 ANDRY WILDE KINASE 3 [facility] [place] [address] ANDRY WILDE THYROXINE 3 [facility] TOTAL INC INC RADIOLOGI 65442 ANDRY WILDE C 3 [facility] EXAMINATI INC INC ON CHEST SINGLE VIEW FRONTAL GENERAL 11690 ANDRY WILDE HEALTH 3 [facility] PANEL INC INC CREATINE 60354 ANDRY WILDE KINASE MB 3 [facility] FRACTION INC INC ONLY ECG 99976 CARMELINA VILMA ROUTINE 3 EMERGENCY DANIELLA ECG SERVICES W/LEAST 12 LDS I&R ONLY HEMOGLOBI 67210 ANDRY WILDE N 3 [facility] GLYCOSYLA INC INC TYRESE A1C NATRIURET 57252 ANDRY WILDE IC 3 [facility] [place] [address] ANDRY WILDE TROPONIN 3 [facility] QUANTITAT INC INC SAM COLLECTIO [address] ST N VENOUS 3 [facility] VENIPUNCT [facility] URE RADIOLOGI [address] C EXAM 3 [facility] CHEST 2 MEDICAL MEDICAL VIEWS [facility] FRONTAL&L ATERAL COMPREHEN [address] SIVE 3 [facility] MEDICAL PANEL [facility] BASIC [address] METABOLIC 3 [facility] [place] [address] THYROID 3 [facility] TSH HEPATIC [address] FUNCTION 3 [facility] COLLECTIO [address] N VENOUS 3 [facility] VENIPUNCT [facility] URE BLOOD [address] COUNT 3 [facility] COMPLETE MEDICAL MEDICAL AUTO&AUTO CENTER CENTER DIFRNTL WBC RADEX 58528 [facility] 3 ARTHRITIS ARTHRITIS CERVICAL AND AND 2 OR 3 RHEUM RHEUM VIEWS PRESSURIZ 98908 ANDRY WILDE ED/NONPRE 3 [facility] SSURIZED INC INC INHALATIO N TREATMENT RADIOLOGI 99752 [place] C EXAM 3 MEDICAL ZEN CHEST 2 IMAGING VIEWS ASS FRONTAL&L ATERAL RADIOLOGI 38647 RADIOLOGY DOERGER C EXAM 3 KIR CHEST 2 ASSOCIATE VIEWS S OF NOTH FRONTAL&L ATERAL PRESSURIZ [address] ED/NONPRE 3 [facility] SSURIZED MEDICAL MEDICAL INHALATIO CENTER CENTER N TREATMENT COLLECTIO [address] N VENOUS 3 [facility] BLOOD [facility] MEDICAL VENIPUNCT CENTER CENTER URE ECG [address] ST [facility] ROUTINE 3 [facility] ECG MED CTR W/LEAST 12 LDS I&R ONLY BLOOD [address] COUNT 3 [facility] COMPLETE [facility] MEDICAL AUTO&AUTO CENTER CENTER DIFRNTL WBC CRITICAL 17164 ST TAMICA CARE 3 MARGARITA MAR ILL/INJUR MED CTR ED PATIENT INIT 30-[address] METABOLIC 3 [facility] PANEL [facility] MEDICAL CALCIUM CENTER CENTER TOTAL INJ J2930 ST ST METHYLPRD 3 [facility] SODIUM [facility] SUCCNAT TO [address] PROPH/DX 3 [facility] NJX IV MEDICAL MEDICAL PUSH CENTER [place] SINGLE/1S T SBST/DRUG ECG [address] ROUTINE 3 [facility] MEDICAL MEDICAL W/LEAST CENTER CENTER 12 LDS TRCG ONLY W/O I&R DEMO&/ELPIDIO 69[address] ST ST L OF PT 3 [facility] UTILIZ [facility] AERSL CENTER CENTER GEN/NEB/I NHLR/IP CUL BACT 44682 ANDRY WILDE XCPT 3 [facility] URINE INC INC BLOOD/STO OL AEROBIC ISOL BLOOD 31502 ANDRY WILDE COUNT 3 [facility] COMPLETE INC INC AUTO&AUTO DIFRNTL WBC SMR PRIM 81390 ANDRY WILDE SRC 3 [facility] GRAM/GIEM INC INC SA STAIN BCT FUNGI/ROSA L IIV3 67612 [facility] JAYSHREE VACCINE 3 ALLERGY NERI SPLIT AND VIRUS 0.5 ASTHMA ML DOSAGE IM USE BRNCDILAT 83009 [facility] RSPSE 3 ALLERGY NERI SPMTRY AND PRE&POST- [place] [address] ANDRY WILDE GAMMAGLOB 3 [facility] ULIN IGE INC INC RADIOLOGI 76768 ANDRY WILDE C EXAM 3 [facility] CHEST 2 INC INC VIEWS FRONTAL&L ATERAL SPACR A4627 [facility] MED BAG/RESRV 3 EQUIPMENT EQUIPMENT OR W/WO INC INC MASK W/METRD DOSE INHAL RADEX 02120 [facility] SPINE 3 ARTHRITIS ARTHRITIS LUMBOSACR AND AND AL 2/3 RHEUM RHEUM VIEWS SPMTRY 64586 [facility] JAYSHREE W/VC 2 ALLERGY NERI EXPIRATOR AND Y ROSALIA ASTHMA W/WO MXML VOL VNTJ RADIOLOGI 77222 ANDRY WILDE C EXAM 2 [facility] CHEST 2 INC INC VIEWS FRONTAL&L ATERAL PRESSURIZ 01384 ANDRY WILDE ED/NONPRE 2 [facility] SSURIZED INC INC INHALATIO N TREATMENT GROUND A0425 [facility] AMBULANCE PER SERVICE SERVICE STATUTE MILE [facility] A0427 [facility] SERVICE 2 AMBULANCE AMBULANCE ALS SERVICE SERVICE EMERGENCY TRANSPORT LEVEL 1 THERAPEUT 99506 ANDRY WILDE IC 2 [facility] PROPHYLAC INC INC TIC/DX INJECTION SUBQ/IM RADIOLOGI 77329 ANDRY Neil EXAM 2 [facility] CHEST 2 INC INC VIEWS FRONTAL&L ATERAL ADMN SET A7005 [facility] MED W/SM VOL 2 EQUIPMENT EQUIPMENT NONFILTR INC INC NEBULIZR NON-DISPB L BRNCDILAT 35818 [facility] RSPSE 2 ALLERGY NERI SPMTRY AND PRE&POST- ASTHMA BRNCDILAT ADMN NEBULIZER E0570 [facility] MED WITH 2 EQUIPMENT EQUIPMENT COMPRESSO INC INC R PRESSURIZ 83309 ANDRY WILDE ED/NONPRE 2 [facility] SSURIZED INC INC INHALATIO N TREATMENT RADIOLOGI 72378 ANDRY WILDE C EXAM 2 [facility] CHEST 2 INC INC VIEWS FRONTAL&L ATERAL SUSCEPTIB 66222 ANDRY WILDE LTY STDY 2 [facility] ANTIMICRB INC INC IAL MICRO/AGA R DILUTJ URNLS DIP 30840 ANDRY WILDE 2 [facility] STICK/TAB INC INC LET REAGENT AUTO MICROSCOP Y CULTURE 00232 ANDRY WILDE BACTERIAL 2 [facility] INC INC QUANTTATI VE COLONY COUNT URINE CULTURE 74828 ANDRY WILDE BCT 2 [facility] ISOL&PRSM INC INC PTV ID ISOLATE EA URINE RADIOLOGI 29993 ANDRY WILDE C EXAM 2 [facility] CHEST 2 INC INC VIEWS FRONTAL&L ATERAL BLOOD 14719 ANDRY WILDE COUNT 2 [facility] COMPLETE INC INC AUTO&AUTO DIFRNTL WBC RADEX ABD 94946 [place] [facility] COMPL 2 MEDICAL ZEN AQT ABD IMAGING W/S/E/D ASS VIEWS 1 VIEW CH COMPREHEN 59656 ANDRY ANDRY SIVE 2 [facility] METABOLIC INC INC [facility] G0378 ANDRY WILDE OBSERVATI 2 [facility] ON INC INC [facility] G0378 ANDRY WILDE OBSERVATI 2 [facility] ON INC INC SERVICE PER HOUR COMPREHEN 35506 ANDRY ANDRY SIVE 2 [facility] [place] [address] [place] [facility]OSI ABDOMEN & 2 MEDICAL ZEN PELVIS IMAGING W/O ASS CONTRST 1/> BODY RE URINE 74156 ANDRY WILDE 2 [facility] TEST INC INC VISUAL COLOR CMPRSN METHS RADIOLOGI 47254 MARYEarl JOSI C 2 MEDICAL ZEN EXAMINATI IMAGING ON CHEST ASS SINGLE VIEW FRONTAL 3D 87440 ELIANAILYN JOSI RENDERING 2 MEDICAL ZEN IMAGING W/INTERP& ASS POSTPROC DIFF WORK STATION TDAP 37072 ANDRY WILDE VACCINE 7 2 [facility] YRS/> IM INC INC IM ADM 49473 ANDRY WILDE PRQ ID 2 [facility] [...] AMBULANCE AMBULANCE STATUTE TAXIN TAXIN MILE SUSCEPTIB 45886 ANDRY WILDE LTY STDY 2 [facility] ANTIMICRB INC INC IAL MICRO/AGA R DILUTJ INCISION 83211 CARMELINA ANGELINA JOANNE & 2 EMERGENCY DRAINAGE SERVICES ABSCESS SIMPLE/SI NGLE CUL BACT 22084 ANDRY WILDE AEROBIC 2 [facility] ADDL INC INC METHS DEFINITIV E EA ISOL CUL BACT 13212 ANDRY WILDE XCPT 2 [facility] URINE INC INC BLOOD/STO OL AEROBIC ISOL INCISION 14983 CARMELINA CARMELINA & 2 EMERGENCY EMERGENCY DRAINAGE SERVICES SERVICES ABSCESS COMPLICAT ED/MULTIP LE BASIC 64509 ANDRY WILDE METABOLIC 2 [facility] PANEL INC INC CALCIUM TOTAL ECG 84698 ANDRY WILDE ROUTINE 2 [facility] ECG INC INC W/LEAST 12 LDS TRCG ONLY W/O I&R CREATINE 98192 ANDRY WILDE KINASE 2 [facility] TOTAL INC INC ECG 58854 ANDRY TAMAYO JR ROUTINE [address] [facility] W/LEAST P 12 LDS I&R ONLY RHYTHM 78196 ANDRY WILDE ECG 1-3 2 [facility] LEADS INC INC TRACING ONLY W/O I&R RADIOLOGI 49584 ANDRY WILDE C EXAM 2 [facility] CHEST 2 INC INC VIEWS FRONTAL&L ATERAL CREATINE 33519 ANDRY WILDE KINASE MB 2 [facility] FRACTION INC INC ONLY BLOOD 91669 ANDRY WILDE COUNT 2 [facility] COMPLETE INC INC AUTO&AUTO DIFRNTL WBC NATRIURET 44445 ANDRY WILDE IC 2 [facility] [place] [address] ANDRY WILDE TROPONIN 2 [facility] QUANTITAT INC INC SAM RADIOLOGI 09085 ANDRY WILDE C EXAM 2 [facility] CHEST 2 INC INC VIEWS FRONTAL&L ATERAL PRESSURIZ 09746 ANDRY WILDE ED/NONPRE 2 [facility] SSURIZED INC INC INHALATIO N TREATMENT URNLS DIP 60217 ANDRY WILDE 2 [facility] STICK/TAB INC INC LET REAGENT AUTO MICROSCOP Y BLOOD 78447 ANDRY WILDE COUNT 2 [facility] COMPLETE INC INC AUTO&AUTO DIFRNTL WBC IAADI 06159 ANDRY WILDE INFFLUENZ 2 [facility] A A VIRUS INC INC IAADI 43905 ANDRY WILDE INFLUENZA 2 [facility] B VIRUS INC INC COMPREHEN 57549 ANDRY WILDE SIVE 2 [facility] METABOLIC INC INC PANEL CULTURE 97792 ANDRY WILDE BACTERIAL 2 [facility] BLOOD INC INC AEROBIC W/[place] [address] ANDRY WILDE STREPTOCO 2 [facility] CCUS INC INC GROUP A RADIOLOGI 99419 RADIOLOGY NEILS FEDERICO C 2 EXAMINATI ASSOCIATE ON TIBIA S OF NOTH & FIBULA 2 VIEWS RHYTHM 30514 ANDRY WILDE ECG 1-3 2 [facility] LEADS INC INC TRACING ONLY W/O I&R ECG 50582 CARMELINA ESPARZA ROUTINE 2 EMERGENCY DANIELLA ECG SERVICES W/LEAST 12 LDS I&R ONLY CREATINE 68043 ANDRY WILDE KINASE MB 2 [facility] FRACTION INC INC ONLY BLOOD 86933 ANDRY WILDE COUNT 2 [facility] COMPLETE INC INC AUTO&[place] [address] ANDRY WILDE TROPONIN 2 [facility] QUANTITAT INC INC SAM COMPREHEN 44219 ANDRY WILDE SIVE 2 [facility] METABOLIC INC INC PANEL ECG 34693 ANDRY WILDE ROUTINE 2 [facility] ECG INC INC W/LEAST 12 LDS TRCG ONLY W/O I&R CREATINE 68109 ANDRY WILDE KINASE 2 [place] [address] ANDRY WILDE ABDOMEN & 1 [facility] PELVIS INC INC W/O CONTRAST MATERIAL COMPREHEN 89928 ANDRY WILDE SIVE 1 [facility] METABOLIC INC INC PANEL CULTURE 44613 ANDRY WILDE BACTERIAL 1 [facility] INC INC QUANTTATI VE COLONY COUNT URINE 3D 53765 [place] RENDERING 1 MEDICAL ZEN IMAGING W/INTERP& ASS POSTPROC DIFF WORK STATION URNLS DIP 65801 ANDRY WILDE 1 [facility] STICK/TAB INC [place] [address] [place] ABDOMEN & 1 MEDICAL ZEN PELVIS IMAGING W/CONTRAS ASS T MATERIAL INJECTION J0595 ANDRY WILDE 1 [facility] BUTORPHAN INC INC OL TARTRATE 1 MG RADIOLOGI 82579 JOSI JOSI C EXAM 1 ZEN ZEN CHEST 2 VIEWS FRONTAL&L ATERAL PRESSURIZ 95854 ANDRY WILDE ED/NONPRE 1 [facility] SSURIZED INC INC INHALATIO N TREATMENT THERAPEUT [address] IC 1 MARGARITA MARGARITA PROPHYLAC TIC/DX MEDICALCE MEDICALCE INJECTION NTER NTER SUBQ/IM OPHTH 86266 DEL RIO DEL RIO MEDICAL 1 REJI REJI XM&EVAL COMPRHNSV ESTAB PT 1/> SCREENING G0202 RADIOLOGY LI 1 TOR MAMMOGRAP ASSOCIATE HY RAE S PSC INCL CAD WHEN PERFORMD COMPUTER- 52392 RADIOLOGY LI AIDED 1 TOR DETECTION ASSOCIATE S PSC SCREENING MAMMOGRAP HY SCREENING [address] 1 MARGARITA MARGARITA MAMMOGRAP HY MEDICALCE MEDICALCE BILATERAL NTER NTER DXA BONE 32469 RADIOLOGY DARDINGER DENSITY 1 TRINITY STUDY 1/> ASSOCIATE SITES S PSC AXIAL SKEL ECG [address] ROUTINE 1 MARGARITA MARGARITA ECG W/LEAST MEDICALCE MEDICALCE 12 LDS NTER NTER TRCG ONLY W/O I&R ECG 44722 [facility] ROUTINE 1 MARGARITA ZORA ECG MED CTR W/LEAST 12 LDS I&R ONLY ARTHROCEN 10950 DEVANTE DE LA ROSA 1 REED & R CHR ASPIR&/IN TEMMING J MAJOR JT/BUR[place] W/[place] [address] DEVANTE DE LA ROSA GUIDANCE 1 REED & R CHR NEEDLE TEMMING PLACEMENT IMG S&I INJECTION J3420 [employer] Solution VIT B-12 0 [facility] CYANOCOBA CARE, IN DANIS TO 1000 MCG COMPREHEN 13166 [facility] SIVE 0 AVST METABOLIC PANEL CYTP C/V 32835 [facility] AUTO THIN 0 MARGARITA GORDILLOZABETH LYR PREPJ SCR MEDICALCE MEDICALCE MNL NTER NTER RESCR PHYS TDAP 51982 BriggoN VACCINE 7 0 POINT [facility] YRS/> IM FAMILY CARE, IN COLLECTIO 05789 BriggoN N VENOUS 0 POINT [facility] BLOOD FAMILY VENIPUNCT CARE, IN URE LIPID 01806 [facility] PANEL 0 AVST BLOOD 95666 [facility] COUNT 0 AVST COMPLETE AUTO&AUTO DIFRNTL WBC AMBULANCE A0429 [facility] SERVICE 0 FIRE FIRE BLS PROTECT PROTECT EMERGENCY DISTR DISTR TRANSPORT GROUND A0425 [facility] MILEAGE 0 FIRE FIRE PER PROTECT PROTECT STATUTE DISTR DISTR MILE RADIOLOGI 35744 [facility] C EXAM 0 MARGARITA AVILA KNEE JUDITH WONG COMPLETE 4/MORE VIEWS KNEE L1830 [facility] 0 TECHNOLOG TECHNOLOG IMMOBLIZE IES INC IES INC R CANVAS LONGTUDNL PREFAB APPLICATI 90447 [facility] ON LONG 0 MARGARITA AVILA LEG JUDITH WONG SPLINT THIGH ANKLE/TOE S ECHO 05773 CARDIOLOG GRODECKI TTHRC R-T 0 Y PAT 2D ASSOCIATE W/WOM-MOD S E COMPL SPEC&COLR D IIV3 04105 [facility] VACCINE 0 [facility] SPLIT FAMILY VIRUS 0.5 CARE, IN ML DOSAGE IM USE INJECTION J3420 Freeze Tag JUNAIDN VIT B-12 0 [facility], IN DANIS TO [address] SIVE 0 MARGARITA MARGARITA METABOLIC PANEL MEDICALCE MEDICALCE NTER NTER CYANOCOBA [address] DANIS 0 MARGARITA MARGARITA VITAMIN B-12 MEDICALCE MEDICALCE NTER NTER LIPID [address] PANEL 0 MARGARITA MARGARITA MEDICALCE MEDICALCE NTER NTER COLLECTIO [address] N [facility]OUS 0 [facility] [address] THYROID 0 [facility] STIMULATI NG MEDICALCE MEDICALCE HORMONE NTER NTER TSH BLOOD [address] COUNT 0 [facility] COMPLETE AUTO&AUTO MEDICALCE MEDICALCE DIFRNTL NTER NTER WBC RADEX 30213 RADIOLOGY BRANDSER WRIST 0 [place] COMPLETE ASSOCIATE MINIMUM 3 S PSC VIEWS L HRT 10209 CARDIOLOG RODRIGUEZ LARRY CATHETERI 0 Y ZATION ASSOCIATE [place] [address] CARDIOLOG RODRIGUEZ LARRY C-CATHJ 0 Y F/SLCTV C ASSOCIATE ANGRPH S I SI&R 18003 CARDIOLOG RODRIGUEZ LARRY F/NJX PX 0 Y DURING ASSOCIATE C-CATHJ S VENTR&/AT R ANGRPH I SI&R 43407 CARDIOLOG RODRIGUEZ LARRY F/NJX PX 0 Y DURING ASSOCIATE C-CATHJ S PULM&/OR SELECT INJECTION 34083 CARDIOLOG RODRIGUEZ LARRY CARDIAC 0 Y CATHJ L ASSOCIATE VENTR/L S ATR ANGIOGRAP H BASIC [address] METABOLIC 0 MARGARITA MARGARITA PANEL CALCIUM MEDICALCE MEDICALCE TOTAL NTER NTER ECG 68534 CARDIOLOG RODRIGUEZ LARRY ROUTINE 0 Y ECG ASSOCIATE W/LEAST S 12 LDS W/I&R GONADOTRO [address] PIN 0 MARGARITA MARGARITA CHORIONIC MEDICALCE MEDICALCE QUALITATI NTER NTER VE BLOOD [address] COUNT 0 MARGARITA MARGARITA COMPLETE AUTOMATED MEDICALCE MEDICALCE NTER NTER COLLECTIO 7[address] ST ST N VENOUS 0 MARGARITA MARGARITA BLOOD VENIPUNCT MEDICALCE MEDICALCE URE NTER NTER MYOCARDIA 02865 CARDIOLOG GRODECKI L SPECT 0 Y PAT MULTIPLE ASSOCIATE STUDIES S MYOCARDIA [address]. L SPECT 0 MARGARITA MARGARITA MULTIPLE [facility] STUDIES CV STRS 05226 CARDIOLOG GRODECKI TST 0 Y PAT XERS&/OR ASSOCIATE RX CONT S ECG I&R ONLY XTRNL ECG 44226 [facility] 0 [place] HEART DORENE CONTINUOU PSC S RHYTHM W/I&R UP TO [address] ECG 0 MARGARITA MARGARITA SCANNING [facility] ANALYSIS REPORT CV STRS 03448 CARDIOLOG GRODECKI TST 0 Y PAT XERS&/OR ASSOCIATE RX CONT S ECG W/O I&R CV STRS [address] [facility] [facility]ST 0 [facility]&/OR [facility] RX CONT ECG TRCG ONLY RADEX HIP [address] 0 MARGARITA MARGARITA UNILATERA [facility] L COMPLETE MINIMUM 2 VIEWS XTRNL ECG [address] & 48 HR 0 MARGARITA MARGARITA RECORDING [facility] ECG 79732 [facility] ROUTINE 0 [facility] ECG FAMILY W/LEAST CARE, IN 12 LDS W/I&R INJECTION J3420 [facility] VIT B-12 0 [facility], IN DANIS TO 1000 MCG COMPREHEN 74982 [facility] SIVE 0 [facility] METABOLIC PANEL CYANOCOBA 82769 [facility] DANIS 0 [facility] VITAMIN B-12 LIPID 45225 [facility] PANEL 0 [facility] BLOOD 88112 [facility] COUNT 0 [facility] COMPLETE AUTO&AUTO DIFRNTL WBC INJECTION J3420 [facility], VIT B-12 0 POINT [facility], DANIS TO INC. 1000 MCG INJECTION J3420 [facility], VIT B-12 0 POINT [facility], DANIS TO INC. 1000 MCG INJECTION J3420 [facility], VIT B-12 0 POINT [facility] CYANOCOBA CARE, DANIS TO INC. 1000 MCG INJECTION J3420 [facility], VIT B-12 0 POINT [facility] CYANOCOBA CARE, DANIS TO INC. 1000 MCG INJECTION J3420 [facility], VIT B-12 0 POINT [facility] CYANOCOBA CARE, DANIS TO INC. 1000 MCG ANES 13775 INDEPENDE OSEI INTRAPERI 0 NT N, TONEAL ANESTHESI VIDA UPPER OLOGIST ABDOMEN W/LAPS NOS LAPAROSCO 63535 ST YELICH, PY SURG 0 MARGARITAKATEY Lazar CHOLECYST ECTOMY PHYSICIAN S LEVEL III [address] ST OSTERHAGE SURG 0 [facility] PATHOLOGY MED CTR GROSS&DANIELLA ROSCOPIC EXAM LIPID 25262 [facility] PANEL 0 [facility] COLLECTIO 72588 [facility], N VENOUS 0 POINT [facility] VENIPUNCT CARE, URE INC. COMPREHEN 66933 [facility] SIVE 0 [facility] METABOLIC PANEL CYANOCOBA 94742 [facility] DANIS 0 [facility] VITAMIN B-12 BLOOD 92032 [facility] COUNT 0 [facility] COMPLETE AUTO&AUTO DIFRNTL WBC BLOOD 79779 [facility] COUNT [address] [facility] COMPLETE [facility] [place] AUTO&AUTO DIFRNTL WBC URNLS DIP [address] STICK/TAB [facility] LET REAGENT AUTO MICROSCOP Y URNLS DIP [address] STICK/TAB [facility] LET RGNT NON-AUTO W/O MICRSCP THERAPEUT 96539 [facility] IC [address] [place] [address] INJECTION [facility] IV PUSH EACH NEW DRUG THER 68718 [facility] PROPH/DX [address] [place] [address] NJX IV [facility] PUSH SINGLE/1S T SBST/DRUG INJECTION J2405 [address] ONDANSETR [facility] ON HCL PER 1 MG BASIC 55467 [facility] METABOLIC [address] [place] [address] PANEL [facility] CALCIUM TOTAL SERVICES 49017 JUDITH GENTILE, PROVIDED 0 URGENT MOHAMED OFFICE CARE OTH/THN REG SCHED HOURS RADIOLOGI 25198 RADIOLOGY Rashaad KEITH EXAM 0 GRISELDA Zita CHEST 2 ASSOCIATE VIEWS S PSC FRONTAL&[place] [address] RADIOLOGY GRIFFITHS, ABDOMINAL 0 PEDRITO L REAL ASSOCIATE TIME S PSC W/IMAGE LIMITED COLLECTIO 31710 [facility], N VENOUS 9 POINT CHRISTI M BLOOD FAMILY VENIPUNCT CARE, URE INC. SIMPLE 66593 [facility], REPAIR 9 CARE NAVEEN P SCALP/NEC PHYS K/AX/JAYLEN [place] T/TRUNK [place] 2.5CM/< CLOSURE 8659 [facility] SKIN&SUBC [address] [place] [address] UTANEOUS [facility] TISSUE OTHER SITES RADEX 32001 DEVANTE DE LA ROSA SPINE 9 REED & R, LUMBOSACR TEMKRISTYN TENORIO AL 2/3 ER L VIEWS RHEUMATOI 20843 [facility] D FACTOR 9 DIAGNOSTI DIAGNOSTI [place] [address] [facility] THYROID 9 [facility] STIMULATI NG HORMONE TSH CREATINE 63207 [facility] KINASE 9 [facility] INC TOTAL RADEX 08477 DEVANTE DE LA ROSA HAND 2 9 REED & R, VIEWS TEMMING COBY ER L CYCLIC 04083 [facility] QUEST CITRULLIN 9 DIAGNOSTI DIAGNOSTI ATED CS IN CS IN PEPTIDE ANTIBODY COLLECTIO 66215 [facility] N VENOUS 9 [facility] BLOOD VENIPUNCT URE SEDIMENTA 19686 [facility] TION RATE 9 [facility] RBC AUTOMATED RADIOLOGI 58590 DEVANTE DE [place] ROSA C 9 REED & R, [facility]ATI [facility] COBY ON KNEE ER L 1/2 [place] [address] [facility] BLOOD/URI 9 [facility] C ACID RADEX 12002 RADIOLOGY JAIR, FOOT 9 COMPLETE ASSOCIATE MARGARITA MINIMUM 3 S PSC A VIEWS URNLS DIP [address] STICK/TAB [facility] LET REAGENT AUTO MICROSCOP Y RADEX 66238 RADIOLOGY [place], SPINE 9 JV L CERVICAL ASSOCIATE 4 OR 5 S PSC VIEWS RADEX 38756 RADIOLOGY [place], SPINE 9 JV L LUMBOSACR ASSOCIATE AL 2/3 S PSC VIEWS BLOOD [address] AUTO&AUTO DIFRNTL WBC OPHTH 51830 PREZAY, PREZAY, MEDICAL 8 ZACKARY Lazar XM&EVAL COMPRE NEW PT 1/> [place] V[place] [id number] [facility] NON-IMMUN 8 [facility] OLOGIC OTH/THN CYTOPATHI C CULTURE 68161 [facility] BCT 8 [facility] ISOL&PRSM PTV ID ISOLATE EA URINE CULTURE 27504 [facility] BACTERIAL 8 [facility] QUANTTATI VE COLONY COUNT URINE URNLS DIP 59959 [facility] MC 8 POINT LVAREZ, STICK/TAB FAMILY MELVA J LET RGNT CARE, AUTO W/O INC. MICROSCOP Y BASIC 74496 [facility] METABOLIC 8 [facility] PANEL CALCIUM TOTAL COLLECTIO 56024 [facility]-A N VENOUS 8 POINT LVREBECCA, BLOOD FAMILY MELVA J VENIPUNCT [place], [place] [address] [facility] BLOOD/URI 8 [facility] C ACID RADEX [address] COMPLETE [place] MINIMUM 3 VIEWS RHEUMATOI 73264 [facility] D FACTOR 8 [facility] INC QUANTITAT SAM BLOOD 81846 [facility] COUNT 8 [facility] COMPLETE AUTOMATED LIPID 78546 [facility] PANEL 8 [facility] INC COLLECTIO 77760 [facility] N VENOUS 8 POINT LVAREZ, BLOOD FAMILY MELVA J VENIPUNCT [place], [place] [address] [facility] BLOOD/URI 8 [facility] C ACID COMPREHEN 37393 [facility] SIVE 8 [facility] INC METABOLIC PANEL APPLICATI 9354 [facility] ON OF [address] [place] [address] HOSPITAL S[facility]INT [facility] RADEX 90227 RADIOLOGY HURST, ANKLE 8 IAN R COMPLETE ASSOCIATE MINIMUM 3 S PSC VIEWS Encounters Encounter Start End Date Code Location Performer Type Date [facility] - 7 7 [facility] 7 [facility] 7 [facility] 25 [facility] - 7 7 [facility] 7 [facility] 7 7 [facility] [facility] COUNT INCLUDES [facility] AND[facility] 7 7 [facility] - 7 7 [facility] - 7 7 [facility] 7 7 [facility] - [address] [facility] [address] [facility] AND[facility] 7 7 [facility] 6 6 [facility] - 6 6 [facility] 6 6 [facility] - 6 6 [facility] - 6 6 [facility] 6 6 [facility] - 6 6 [facility] - 6 6 [facility] COUNT [facility]CLUDES [facility] HOSP[facility] ANDRY [facility] 6 6 [facility] - 6 6 [facility] - 6 6 [facility] COUNT [facility]CLUDES [facility] HOSPITAL ANDRY - 6 6 [facility] 6 6 [facility] - 6 6 [facility] 6 6 [facility] - 6 6 [facility] 6 6 [facility] - 6 6 [facility] 6 6 [facility] 6 6 [facility] 5 5 [facility] - 5 5 Y [facility] 5 5 [facility] - 5 5 [facility] 5 [facility] - 5 5 [facility]IEN COUNT [facility]CLUDES THE [facility] HOSPITAL ANDRY - 5 5 [facility] OUTPATIEN COUNT [facility]CLUDES THE [facility] HOSPITAL ANDRY - 4 4 [facility] - 4 4 [facility] ANDRY - 4 4 [facility] OUTPATIEN COUNT [facility]CLUDES THE [facility] OFFICE 65659 [facility] TRA CONSULTAT 4 4 [place] ION ORTHOPAED NEW/ESTAB ICS PLC PATIENT 40 MIN [facility] ANDRY - 4 4 [facility] OFFICE 28437 BRIGITTE NORMAN 4 4 DORENE DORENE T VISIT 15 MINUTES OFFICE 42767 BRIGITTE NORMAN 3 3 DORENE DORENE T VISIT 15 MINUTES OFFICE 47297 BRIGITTE NORMAN 3 3 DORENE DORENE T VISIT 15 MINUTES EMERGENCY 75454 ANDRY 3 3 [facility] T VISIT LIMITED/M INOR [facility] ANDRY - 3 3 [facility] IN[facility] EMERGENCY 40872 CARMELINA JARAMILLO 3 3 EMERGENCY III [facility] DEPARTMEN SERVICES T VISIT HIGH/URGE NT SEVERITY EMERGENCY 86675 CARMELINA BARBOSA ZEN 3 3 EMERGENCY DEPARTMEN SERVICES T VISIT HIGH/URGE NT SEVERITY OFFICE 72972 BRIGITTE NORMAN 3 3 DORENE DORENE T VISIT 15 MINUTES OFFICE 93601 CARMELINA NORMAN 3 3 GRE GRE T NEW 45 MINUTES EMERGENCY 11410 CARMELINA ESPARZA DEPT 3 3 EMERGENCY DANIELLA VISIT SERVICES HIGH SEVERITY& THREAT [facility] ANDRY - 3 3 [facility] OUTPATIEN INC T EMERGENCY 51617 [facility] 3 [facility] LOW/MODER SEVERITY EMERGENCY [address] [facility] 3 3 [place]ARGAR[place] [facility] MED CTR T VISIT MODERATE SEVERITY HOSPITAL ST - 3 3 [facility] [address] [facility] HIGH/URGE NT SEVERITY [facility] 06815 [facility] 3 3 ARTHRITIS T VISIT AND 25 RHEUM MINUTES OFFICE 96686 [facility] 3 3 ARTHRITIS T VISIT AND 25 RHEUM MINUTES Emergency PIPPA Lazar (ER) 3 20:42 3 22:18 [facility] EMERGENCY 47938 CARMELINA 3 3 EMERGENCY [facility] SERVICES T VISIT MODERATE SEVERITY [facility]OSPITAL ANDRY - 3 3 [facility] OUTPATIEN COUNT INCLUDES THE [facility] EMERGENCY 12184 [facility] 3 3 [facility] T VISIT LOW/MODER SEVERITY EMERGENCY 77079 CARMELINA RUBIO DEPT 3 3 EMERGENCY VISIT SERVICES HIGH SEVERITY& THREAT [facility] ANDRY - 3 3 [facility] OUTPATIEN COUNT INCLUDES THE [facility] HOSPITAL ST - 3 3 [facility] EMERGENCY [address] ST DEPT 3 3 MARGARITA VISIT MEDICAL [facility] CENTER SEVERITY& THREAT [facility] ANDRY - 3 3 [facility] OUTPATIEN INC OFFICE 64309 [facility] ALLERGY NERI T VISIT AND 40 ASTHMA MINUTES OFFICE 88137 [facility] 3 3 ARTHRITIS T VISIT AND 25 RHEUM MINUTES OFFICE 19340 [facility] OUTPATIEN 2 2 ALLERGY NERI T VISIT AND 25 ASTHMA MINUTES HOSPITAL ANDRY - 2 2 [facility] OUTPATIEN INC T EMERGENCY 14960 ANDRY 2 2 [facility] DEPARTMEN INC T VISIT MODERATE SEVERITY EMERGENCY 57343 CARMELINA CASSIDY 2 2 EMERGENCY [facility] SERVICES T VISIT HIGH/URGE NT SEVERITY OFFICE 53312 [facility] 2 2 ARTHRITIS T VISIT AND 25 RHEUM MINUTES HOSPITAL ANDRY - 2 2 [facility] OUT[facility]IEN [facility] T OFFICE 87150 [facility] JAY[facility]REE CONSULTAT 2 2 ALLERGY NERI ION AND NEW/ESTAB ASTHMA PATIENT 80 MIN OFFICE 83871 BRIGITTE BRIGGS OUTPATIEN 2 2 DORENE DORENE T NEW 30 MINUTES EMERGENCY 06440 CARMELINA JARAMILLO 2 2 EMERGENCY III [facility] T VISIT HIGH/URGE NT SEVERITY HOSPITAL ANDRY - 2 2 [facility] OUTPATIEN [facility] T EMERGENCY 65878 ANDRY 2 2 [facility] T VISIT MODERATE SEVERITY EMERGENCY 12467 ANDRY 2 2 [facility] INC T VISIT LOW/MODER SEVERITY HOSPITAL ANDRY - 2 2 [facility] OUTPATIEN INC T EMERGENCY 47393 CARMELINA ESPARZA 2 2 EMERGENCY [facility] SERVICES T VISIT HIGH/URGE NT SEVERITY EMERGENCY 65093 ANDRY DEPT 2 2 [facility] VISIT INC HIGH SEVERITY& THREAT [facility] - 2 2 [facility] OUTPATIEN COUNT INCLUDES [facility] HOSPITAL ANDRY - 2 2 [facility] OUTPATIEN [facility] T EMERGENCY 00053 CARMELINA RUBIO 2 2 EMERGENCY DEPARTMEN SERVICES T VISIT HIGH/URGE NT SEVERITY EMERGENCY 06403 ANDRY 2 2 [facility] DEPARTMEN INC T VISIT MODERATE SEVERITY HOSPITAL ANDRY - 2 2 [facility] OUTPATIEN INC T EMERGENCY 54856 CARMELINA 2 2 EMERGENCY DEPARTMEN SERVICES T VISIT HIGH/URGE NT SEVERITY EMERGENCY 33357 ANDRY 2 2 [facility] DEPARTMEN INC T VISIT MODERATE SEVERITY OFFICE 03942 [facility] 2 2 ARTHRITIS T VISIT AND 25 RHEUM MINUTES EMERGENCY 22903 ANDRY 2 2 [facility] DEPARTMEN INC T VISIT MODERATE SEVERITY EMERGENCY 23945 CARMELINA JOLLEY DEPT 2 2 EMERGENCY RAGHAV VISIT SERVICES HIGH SEVERITY& THREAT [facility] ANDRY - 2 2 [facility] OUTPATIEN INC T EMERGENCY 95647 ANDRY 2 2 [facility] DEPARTMEN INC T VISIT MODERATE SEVERITY HOSPITAL ANDRY - 2 2 [facility] OUTPATIEN INC T EMERGENCY 80116 CARMELINA ESPARZA 2 2 EMERGENCY [facility] DEPARTMEN SERVICES T VISIT HIGH/URGE NT SEVERITY EMERGENCY 64270 ANDRY 2 2 [facility] DEPARTMEN INC T VISIT MODERATE SEVERITY EMERGENCY 78708 CARMELINA JOLLEY 2 2 EMERGENCY [facility] DEPARTMEN SERVICES T VISIT HIGH/URGE NT SEVERITY HOSPITAL ANDRY - 2 2 [facility] OUTPATI[facility] INC T OFFICE 68056 [facility] 2 2 ARTHRITIS T VISIT AND 25 RHEUM MINUTES OFFICE 16182 [facility] 2 2 ARTHRITIS T VISIT AND 25 RHEUM MINUTES EMERGENCY 54070 [facility] 2 2 [facility] CTR T VISIT MODERATE SEVERITY HOSPITAL ANDRY - 2 2 [facility] OUTPATIEN INC T EMERGENCY 31584 CARMELINA ESPARZA DEPT 2 2 EMERGENCY DANIELLA VISIT SERVICES HIGH SEVERITY& THREAT [facility]J EMERGENCY 87471 ANDRY 2 2 [facility] DEPARTMEN INC T VISIT MODERATE SEVERITY HOSPITAL ANDRY - 1 1 [facility] OUTPATIEN INC T EMERGENCY 25759 ANDRY 1 1 [facility] DEPARTMEN INC T VISIT MODERATE SEVERITY EMERGENCY 24257 [facility] DEPT 1 1 III RAGHAV III RAGHAV VISIT HIGH SEVERITY& THREAT FUN EMERGENCY 43830 VILMA ESPARZA 1 1 DANIELLA [facility] DEPARTMEN T VISIT HIGH/URGE NT SEVERITY HOSPITAL ANDRY - 1 1 [facility] OUTPATIEN INC T EMERGENCY 16952 ANDRY 1 1 [facility] DEPARTMEN INC T VISIT MODERATE SEVERITY EMERGENCY 78133 ANDRY 1 1 [facility] DEPARTMEN INC T VISIT LOW/MODER SEVERITY HOSPITAL ANDRY - 1 1 [facility] OUTPATIEN INC T EMERGENCY 64338 VILMA ESPARZA 1 1 [facility] DEPARTMEN T VISIT HIGH/URGE NT SEVERITY [facility]PITAL ST - 1 1 [facility] OUTPATIEN T MEDICALCE NTER EMERGENCY 37704 ST 1 1 [place] DEPARTMEN T VISIT MEDICALCE LOW/MODER NTER SEVERITY EMERGENCY 20809 ST [place] 1 1 [place] MAR [facility] MED CTR T VISIT MODERATE SEVERITY EMERGENCY 13104 CARMELINA ESPARZA 1 1 EMERGENCY [facility] DEPARTMEN SERVICES T VISIT HIGH/URGE NT SEVERITY HOSPITAL ANDRY - 1 1 [facility] OUTPATIEN INC T EMERGENCY 29333 ANDRY 1 1 [facility] DEPARTMEN INC T VISIT MODERATE SEVERITY HOSPITAL ST - 1 1 [place] OUTPATIEN T MEDICALCE NTER EMERGENCY 48674 SOW ARMINDA 1 1 [place] DEPARTMEN MED CTR T VISIT MODERATE SEVERITY EMERGENCY 75517 ST 1 1 [place] DEPARTMEN T VISIT MEDICALCE LOW/MODER NTER SEVERITY EMERGENCY 47652 CARMELINA ANGULO ALFRED 1 1 EMERGENCY DEPARTMEN SERVICES T VISIT MODERATE SEVERITY HOSPITAL ANDRY - 1 1 [facility] OUTPATIEN INC T EMERGENCY 73312 ANDRY 1 1 [facility] DEPARTMEN INC T VISIT LOW/MODER SEVERITY EMERGENCY 99926 [facility] 1 1 [place] DEPARTMEN MED CTR T VISIT MODERATE SEVERITY HOSPITAL ST - 1 1 [place] OUTPATIEN T MEDICALCE NTER [facility] ST - 1 1 [place] OUTPATIEN T MEDICALCE NTER EMERGENCY 37267 ST 1 1 [place] DEPARTMEN T VISIT MEDICALCE MODERATE NTER SEVERITY EMERGENCY 49474 [facility] 1 1 [place]ITA Mariam FEDERICO DEPARTMEN MED CTR T VISIT HIGH/URGE NT SEVERITY [facility]OSPITAL ST - 1 1 [place] OUTPATIEN T MEDICALCE NTER EMERGENCY 94578 [facility] [place] ARMINDA DEPARTMEN MED CTR T VISIT MODERATE SEVERITY OFFICE 47513 DEVANTE DE LA ROS[facility] OUTPATIEN 1 1 REED & R CHR T VISIT TEMMING 15 MINUTES PERIODIC 08713 [facility] 0 0 POINT LEANNA E MED EST FAMILY PATIENT CARE, IN 18-[address] - 0 0 [place] OUTPATIEN T MEDICALCE NTER EMERGENCY 67396 [facility] 0 0 [place] MARY DEPARTMEN MED CTR T VISIT MODERATE SEVERITY HOSPITAL ST. - 0 0 [place] OUTPATIEN JUDITH T EMERGENCY 91166 EMERGENCY LEIDY 0 0 CARE GIORGIO DEPARTMEN PHYS T VISIT [facility] HIGH/URGE NT SEVERITY OFFICE 86268 [facility] OUT[facility] 0 0 POINT LEANNA T VISIT 5 FAMILY MINUTES CARE, IN OFFICE 78451 CARDIOLOG RODRIGUEZ LARRY OUTPATIEN 0 0 Y T VISIT ASSOCIATE 25 [address] [facility] H[facility]PITAL ST - 0 0 [place] OUTPATIEN T MEDICALCE NTER EMERGENCY 94607 [facility] 0 0 [place] VIOLET DEPARTMEN MED CTR T VISIT MODERATE SEVERITY HOSPITAL ST - 0 0 [place] OUTPATIEN T MEDICALCE [facility] ST - 0 0 [place] OUTPATIEN T MEDICALCE NTER OFFICE 51990 CARDIOLOG RODRIGUEZ LARRY OUTPATIEN 0 0 Y T NEW 45 ASSOCIATE MINUTES [facility] ST. - 0 0 [place] OUTPATIEN JUDITH T OFFICE 33014 [facility] OUT[facility] 0 0 POINT LEANNA T VISIT FAMILY 25 CARE, IN MINUTES OFFICE 65783 [facility], OUTPATIEN 0 0 POINT CHHAYA T VISIT FAMILY 15 CARE, MINUTES INC. OFFICE 90536 [facility], OUTPATIEN 0 0 POINT CH[place]AY[place] T VISIT 5 FAMILY MINUTES CARE, INC. OFFICE 04178 [facility], OUTPATIEN 0 0 PO[place] T VISIT FAMILY 15 CARE, MINUTES INC. OFFICE 68454 [facility], OUTPATIEN 0 0 [place] T VISIT FAMILY 10 CARE, MINUTES INC. OFFICE 31552 [facility], OUT[facility]EN 0 0 [place] T VISIT FAMILY 25 CARE, MINUTES INC. OFFICE [address]73 ST YELICH, CONSULTAT 0 0 MARG[place]ITA FRAGA/KAREN PHYSICIAN PATIENT S 60 MIN OFFICE 97280 [facility] 0 0 [place] T VISIT FAMILY 15 CARE, MINUTES INC. OFFICE 23324 [facility] 0 0 [place] T VISIT FAMILY 25 CARE, MINUTES INC. [facility] 0 0 [facility] VISIT HIGH/URGE NT SEVERITY EMERGENCY 14747 [facility] 0 [facility] V[facility]IT MODERATE SEVERITY [facility] 76558 EMERGENCY LOVE, 0 0 CARE WILMAN A [facility] PHYS VISIT [facility] [place] SE[place] OFFICE 82959 [facility] 0 0 URGENT MOHAMED T FLAKITO 30 CARE MINUTES EMERGENCY 85764 [facility] 0 [facility] VISIT MODERATE SEVERITY EMERGENCY 33229 EMERGENCY EMERY, 0 0 CARE BYRON L [facility] PHYS VISIT [facility] [place] NT SEVERITY [facility] 40733 [facility] [place] T VISIT FAMILY 15 CARE, MINUTES INC. OFFICE 83076 Freeze Tag INDERJACKSONPATI 9 9 POINT CHRISTI M T VISIT FAMILY 15 CARE, MINUTES INC. [facility] - 9 9 [facility]ITAL OUTPATIEN [facility] T EMERGENCY 63292 EMERGENCY [place], 9 9 CARE [facility] V[facility] SE[place] OFFICE 07639 [facility]TE [facility] 9 9 REED & R, T VISIT MIHAELA TENORIO 15 ER L MINUTES OFFICE 85767 DEVANTE [facility] CONSULTAT 9 9 REED & R, ION TEMKRISTYN TENORIO NEW/ESTAB ER L PATIENT 60 MIN OFFICE 57232 [facility] 9 9 POINT MIRACLE D T VISIT FAMILY 15 CARE, MINUTES INC. HOSPITAL [facility] 9 9 [facility] OFF[facility] 67490 [facility] 9 9 POINT MIRACLE D T VISIT FAMILY 25 CARE, MINUTES INC. HOSPITAL [facility] 9 9 [facility] EMERGENCY 40309 EMERGENCY MISTI, 9 9 CARE [facility] T [facility]IT [facility] [place] SE[place] OFFICE 67124 [facility] 8 8 POINT LVAREZ, T VISIT FAMILY MELVA J 25 CARE, MINUTES INC. EMERGENCY 19398 EMERGENCY LEIDY, 8 8 CARE LIZZIE Zuniga DEPARTMEN PHYS T VISIT [facility] [place] SE[place] EMERGENCY 03795 [facility] 8 8 [facility] T VISIT LIMITED/M INOR PROB HOSPITAL [facility] - 8 8 [facility] OFFICE 93967 [place] [facility] 8 8 PRIMARY EJIGNESH T NEW 45 CARE MINUTES OFFICE 92137 LEONCIO FANG [facility] 8 8 NOE Zuniga T VISIT 15 MINUTES OFFICE 13515 [facility] 8 8 NOE De La O NEW 30 MINUTES OFFICE 15317 [facility] 8 8 POINT LVAREZ, T VISIT FAMILY MELVA J 25 CARE, MINUTES INC. OFFICE 46866 [facility] 8 8 POINT LVAREZ, T VISIT FAMILY MELVA J 15 CARE, MINUTES INC. HOSPITAL [address] OFFICE 63469 [facility] 8 8 POINT LVREBECCA, T NEW 45 FAMILY MELVA J MINUTES CARE, INC. EMERGENCY [address] VISIT MODERATE SEVERITY HOSPITAL [address] EMERGENCY [address]26 EMERGENCY [facility]ECK [facility]OH[facility] DEPT 8 8 CARE BRANDIE VISIT PHYS HIGH [place] SE[place]& [place] THREAT FUNCJ
--- OUTSIDE RECORDS SUMMARY | 2017-07-28 02:48 | External Medical Summary Rpt | CCD ---
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 04-28-2010 [facility] HEART PSC TACHYCARDIA 2669 UNSPECIFIED 04-11-2010 HEALTH VITAMIN [place] [address] UNSPECIFIED 03-09-2010 [facility] CONSTIPATIO [facility] N [facility] INC. 7821 RASH AND 03-09-2010 HEALTH OTHER POINT NONSPECIFIC FAMILY SKIN CARE, INC. ERUPTION 39825 CALCU 01-02-2010 ST GALLBLADD [place] W/OTH PHYSICIANS CHOLECYST W/O MENTION OBST 47858 CALCU 01-02-2010 INDEPENDENT GALLBLADD W/O MENTION ANESTHESIOL OGIST CHOLECYST/O BST 02239 CALCU BD 01-02-2010 ST WITHOUT [place] MENTION MED CTR CHOLECYST/O BSTRUCTION 5756 CHOLESTEROL 01-02-2010 [facility] GALLBLADDER PHYSICIANS 50694 NAUSEA WITH 12-10-2009 [facility] VOMIT[facility] 37765 VOMITING 12-10-2009 EMERGENCY ALONE CARE PHYS [facility] V8801 ACQUIRED 12-05-2009 [facility] BOTH CERVIX WEST AND UTERUS 7847 EPISTAXIS 09-12-2009 [facility] 2562 POSTABLATIV 07-01-2009 HEALTH E OVARIAN POINT FAILURE [facility] 8930 OPEN WOUND 04-09-2009 EMERGENCY TOE WITHOUT CARE PHYS MENTION [facility] COMPLICATIO N 8931 OPEN WOUND 04-09-2009 [facility] COMPLICATED MILO E9209 ACC CAUSED 04-09-2009 [facility] CUT&PIERCIN MILO G INSTRUMENT/ OBJ 55716 PAIN IN 11-12-2008 KUNATH, JOINT, SITE REED & MIHAELA UNSPECIFIED 73201 CALCANEAL 10-22-2008 [facility] PSC 32667 UNSPECIFIED 10-20-2008 HEALTH VIRAL POINT [facility] 98141 UNSPECIFIED 10-20-2008 [facility] UNSPECIFIED 7140 RHEUMATOID 09-20-2008 [facility] ARTHRITIS [facility] 7231 CERVICALGIA 09-20-2008 [facility] 8472 LUMBAR 09-20-2008 [facility] STRAIN WEST 39446 CONTUSION 09-20-2008 [facility] BACK [facility] 9599 INJURY 09-20-2008 RADIOLOGY OTHER AND ASSOCIATES UNSPECIFIED PSC UNSPECIFIED SITE 37435 UNSPECIFIED 02-05-2008 HEALTH GENITAL POINT [facility] [employer]. 60604 HERPETIC 02-05-2008 [facility] TIS 2749 GOUT, 01-09-2008 [facility]PEC[facility] 61150 UNSPECIFIED 01-01-2008 FANG, SITE OF NOE [employer] ANKLE SPRAIN AND STRAIN 49211 PAIN IN 10-21-2007 [facility]INT, [facility] ANKLE [...] ME 54 10 11 30 30 00 MD Ac LO 45 -3 -2 .0 00 L- ti XI 80 0- 4- 00 07 MA ve CA 96 20 20 51 RT M 51 17 17 84 7. 6 31 PH 5 AR MG MA CY TA BL #5 ET 91 AM 68 10 11 30 30 00 MD Ac LO 64 -2 -1 .0 00 L- ti DI 50 4- 7- 00 07 MA ve PI 51 20 20 51 RT NE 65 17 17 07 4 73 PH BE AR SY MA LA CY TE #5 10 91 MG TA B SP 00 10 11 30 30 00 MD Ac IR 22 -2 -1 .0 00 L- ti ON 82 4- 7- 00 07 MA ve OL 80 20 20 51 RT AC 31 17 17 07 TO 1 72 PH NE AR MA 25 CY MG #5 91 TA BL ET FE 00 10 11 30 30 00 MD Ac NO 09 -2 -1 .0 00 L- ti FI 37 4- 7- 00 07 MA ve BR 75 20 20 51 RT AT 69 17 17 07 E 8 74 PH 14 AR 5 MA MG CY TA #5 BL 91 ET CI 54 10 11 30 30 00 MD Ac TA 45 -2 -1 .0 00 L- ti LO 80 4- 7- 00 07 MA ve WV 88 20 20 51 RT AM 91 17 17 07 0 79 PH HB AR R MA 40 CY MG #5 91 TA BL ET IN 50 10 11 30 30 00 MD Ac VO 45 -2 -1 .0 00 L- ti KA 80 4- 7- 00 07 MA ve NA 14 20 20 51 RT 13 17 17 07 30 0 65 PH 0 AR MG MA CY TA BL #5 ET 91 HY 00 10 11 30 [address] 18 -2 -1 .0 00 L- ti OX 50 4- 7- 00 07 MA ve YZ 67 20 20 51 RT IN 40 17 17 07 E 1 76 PH PA AR M MA 25 CY MG #5 91 CA P QU 16 10 11 30 30 00 MD Ac ET 72 -2 -1 .0 00 L- ti IA 90 4- 7- 00 07 MA ve PI 14 20 20 51 RT NE 60 17 17 07 1 69 PH FU AR MA MA RA CY TE #5 50 91 MG TA B MO 57 10 11 30 30 00 MD Ac NT 23 -2 -1 .0 00 L- ti EL 70 4- 7- 00 07 MA ve UK 25 20 20 51 RT 53 17 17 07 T 0 70 PH SO AR D MA 10 CY MG #5 91 TA BL ET OM 60 10 11 30 30 00 MD Ac EP 50 -2 -1 .0 00 L- ti RA 50 4- 7- 00 07 MA ve ZO 14 20 20 51 RT LE 60 17 17 [address] AR MA 40 CY MG #5 91 CA PS UL E FR 99 10 11 10 34 00 MD Ac EE 07 -2 -1 0. 00 L- ti ST 30 4- 7- 00 08 MA ve YL 13 20 20 0 84 RT E 00 17 17 11 28 1 41 PH G AR LA MA NC CY ET S #5 91 FA 68 10 11 60 30 00 MD Ac MO 64 -2 -1 .0 00 L- ti TI 50 4- 7- 00 07 MA ve DI 14 20 20 50 RT NE 05 17 17 80 9 72 PH 20 AR MA MG CY TA #5 BL 91 ET LO 68 10 11 30 30 00 MD Ac SA 64 -2 -1 .0 00 L- ti RT 50 4- 7- 00 07 MA ve AN 41 20 20 51 RT 15 17 17 07 PO 4 71 PH TA AR SS MA IU CY M 10 #5 0 91 MG TA B BA 00 10 11 90 30 00 MD Ac CL 83 -2 -1 .0 00 L- ti OF 21 4- 7- 00 07 MA ve EN 02 20 20 51 RT 45 17 17 07 10 0 84 PH AR MG MA CY TA BL #5 ET 91 AD 00 10 11 12 30 00 MD Ac VA 17 -2 -1 .0 00 L- ti IR 30 4- 7- 00 07 MA ve 71 20 20 51 RT HF 72 17 17 07 A 0 67 PH 23 AR 0- MA 21 CY MC #5 G 91 IN VILLAVICENCIO LE R AT 68 10 11 30 30 00 MD Ac OR 64 -2 -1 .0 00 L- ti VA 50 4- 7- [address] 45 20 20 51 RT AT 85 17 17 07 IN 4 75 PH AR 10 MA CY MG #5 TA 91 BL ET 64 10 11 4. 28 00 WA Ac T 38 -2 -1 00 00 L- ti D2 00 4- 7- 0 07 MA ve 73 20 20 51 RT 1. 70 17 17 27 25 6 15 PH AR MG MA CY (5 0, #5 00 91 0 UN IT ) BD 08 10 11 10 28 00 MD Ac 29 -2 -1 0. 00 L- ti UL 03 4- 7- 00 08 MA ve TR 20 20 20 0 84 RT A- 10 17 17 11 FI 9 42 PH NE AR MA PE CY N ND #5 L 91 8M MX 31 G NO 00 10 11 30 18 00 MD Ac VO 16 -2 -1 .0 00 L- ti LO 93 4- 7- 00 07 MA ve G 69 20 20 51 RT MN 61 17 17 73 X 9 32 PH 70 AR -3 MA 0 CY FL EX #5 PE 91 N SY RN FI 00 10 11 30 30 00 MD Ac SH 90 -2 -1 .0 00 L- ti 44 5- 7- 00 08 MA ve OI 04 20 20 84 RT L 36 17 17 12 1, 0 27 PH 00 AR 0 MA MG CY CA #5 PS 91 UL E GA 00 10 11 90 30 00 MD Ac BA 22 -1 -1 .0 00 L- ti PE 82 9- 7- 00 04 MA ve NT 63 20 20 53 RT IN 71 17 17 21 1 89 PH 80 AR 0 MA MG CY TA #5 BL 91 ET NY 43 10 11 [address] 38 -2 -1 .0 00 L- ti AT 60 4- 7- 00 07 MA ve IN 53 20 20 51 RT 00 17 17 21 10 1 07 PH 0, AR 00 MA 0 CY UN IT #5 /G 91 M PO WD TR 59 10 11 1. 1 00 MD Ac IA 76 -1 -1 00 00 L- ti ZO 23 6- 0- 0 04 MA ve LA 71 20 20 53 RT M 80 17 17 26 0. 9 02 PH 25 AR MA MG CY TA #5 BL 91 ET ON 53 10 11 10 34 00 MD Ac ET 88 -1 -1 0. 00 L- ti OU 50 6- 0- 00 08 MA ve CH 24 20 20 0 84 RT 51 17 17 09 UL 0 14 PH TR AR A MA TE CY ST #5 ST 91 RI PS NO 00 10 11 30 23 00 MD Ac VO 16 -0 -0 .0 00 L- ti LO 93 7- 3- 00 07 MA ve G 69 20 20 50 RT MN 61 17 17 99 X 9 16 PH 70 AR -3 MA 0 CY FL EX #5 PE 91 N SY RN 64 10 10 4. 28 00 MD Ac T 38 -0 -2 00 00 L- ti D2 00 3- 7- 0 07 MA ve 73 20 20 51 RT 1. 70 17 17 07 25 6 82 PH AR MG MA CY (5 0, #5 00 91 0 UN IT ) FR 99 09 10 10 34 00 MD Ac EE 07 -1 -1 0. 00 L- ti ST 30 5- 3- 00 08 MA ve YL 13 20 20 0 84 RT E 00 17 17 11 28 1 41 PH G AR LA MA NC CY ET S #5 91 NO 00 09 10 30 23 00 MD Ac VO 16 -1 -1 .0 00 L- ti LO 93 5- 3- 00 07 MA ve G 69 20 20 50 RT MN 61 17 17 99 X 9 16 PH 70 AR -3 MA 0 CY FL EX #5 PE 91 N SY RN FI 00 09 10 30 30 00 MD Ac SH 90 -1 -1 .0 00 L- ti 44 5- 3- 00 08 MA ve OI 04 20 20 84 RT L 36 17 17 11 1, 0 55 PH 00 AR 0 MA MG CY CA #5 PS 91 UL E AZ 50 09 10 6. 5 00 MD Ac IT 11 -2 -1 00 00 L- ti HR 10 0- 3- 0 07 MA ve OM 78 20 20 51 RT YC 75 17 17 07 IN 1 80 PH AR 25 MA 0 CY MG #5 TA 91 BL ET GA 00 09 10 90 30 00 MD Ac BA 22 -2 -1 .0 00 L- ti PE 82 0- 3- 00 04 MA ve NT 63 20 20 53 RT IN 71 17 17 21 1 89 PH 80 AR 0 MA MG CY TA #5 BL 91 ET BA 00 09 09 90 30 00 MD Ac CL 83 -0 -2 .0 00 L- ti OF 21 6- 9- 00 07 MA ve EN 02 20 20 50 RT 45 17 17 80 10 0 14 PH AR MG MA CY TA BL #5 ET 91 AM 68 09 09 30 30 00 MD Ac LO 64 -0 -2 .0 00 L- ti DI 50 6- 9- 00 07 MA ve PI 51 20 20 50 RT NE 65 17 17 80 4 20 PH BE AR SY MA LA CY TE #5 10 91 MG TA B LI 68 09 05 18 30 00 WA Ac SI 64 -0 -2 .0 00 L- ti NO 50 07 MA ve WV 55 20 20 50 RT IL 25 17 17 80 4 21 PH 10 AR MA MG CY TA #5 BL 91 ET AD 00 09 09 12 30 00 WA Ac VA 17 -0 -2 .0 00 L- ti IR 30 07 MA ve 71 20 20 50 [...] 0 UN IT ) AT 68 09 05 18 30 00 WA Ac OR 64 -0 [...] 0 91 MG TA B SP 59 09 05 18 30 00 WA Ac IR 74 -0 -2 .0 00 L- ti ON 60 07 MA ve OL 21 20 20 48 RT AC 60 17 17 89 TO 1 24 PH NE AR MA 25 CY MG #5 91 TA BL ET HY 00 04 27 30 [address] 18 -0 -2 .0 00 L- ti OX 50 6 9 00 07 MA ve YZ 67 20 20 50 RT IN 40 17 17 80 E 1 09 PH PA AR M MA 25 CY MG #5 91 CA P MO 57 09 05 18 30 00 WA Ac NT 23 -0 -2 .0 00 L- ti EL 70 6 00 07 MA ve UK 25 20 20 50 RT 53 17 17 80 T 0 10 PH SO AR D MA 10 CY MG #5 91 TA BL ET QU 16 09 09 30 30 00 WA Ac ET 72 -0 -2 .0 00 L- ti IA 90 6- 9- 00 07 MA ve PI 14 20 20 50 RT NE 60 17 17 80 1 12 PH FU AR MA MA RA CY TE #5 50 91 MG TA B CI 54 09 30 30 00 MD Ac TA 45 -0 -2 .0 00 L- ti LO 80 6- 9- 00 07 MA ve WV 88 20 20 50 RT AM 91 17 17 80 0 13 PH HB AR R MA 40 CY MG #5 91 TA BL ET ON 53 08 09 10 34 00 MD Ac ET 88 -3 -2 0. 00 L- ti OU 50 9 08 MA ve CH 24 20 20 0 84 RT 51 17 17 09 UL 0 14 PH TR AR A MA TE CY ST #5 ST 91 RI PS IN 50 09 30 30 00 MD Ac VO 45 -0 -2 .0 00 L- ti KA 80 07 MA ve NA 14 20 20 48 RT 13 17 17 89 30 0 07 PH 0 AR MG MA CY TA BL #5 ET 91 OM 60 09 30 30 00 MD Ac EP 50 -0 -2 .0 00 L- ti RA 50 9 00 07 MA ve ZO 14 20 20 48 RT LE 60 17 17 [address] AR MA 40 CY MG #5 91 CA PS UL E BA 00 04 27 15 31 00 MD Ac SA 00 -0 -2 .0 00 L- ti GL 27 9 07 MA ve AR 71 20 20 48 RT 55 17 17 95 10 9 02 PH 0 AR UN MA IT CY /M L #5 KW 91 IK PE N FE 00 04 27 30 30 MD Ac NO 09 -0 -2 .0 00 L- ti FI 37 - 9- 07 MA ve BR 75 20 20 48 RT AT 69 17 17 89 E 8 12 PH 14 AR 5 MA MG CY TA #5 BL 91 ET FA 68 09 09 60 30 00 MD Ac MO 64 -0 -2 .0 00 L- ti TI 50 6- 9- 00 07 MA ve DI 14 20 20 50 RT NE 05 17 17 80 9 72 PH 20 AR MA MG CY TA #5 BL 91 ET BD 08 08 09 10 30 00 MD Ac 29 -2 -2 0. 00 L- ti UL 03 4- 2- 00 08 MA ve TR 20 20 20 0 84 RT A- 10 17 17 08 FI 9 20 PH NE AR MA PE CY N ND #5 L 91 8M MX 31 G ON 53 08 09 10 30 00 MD Ac ET 88 -2 -1 0. 00 L- ti OU 50 3- 5- 00 08 MA ve CH 13 20 20 0 84 RT 61 17 17 08 DE 0 05 PH LI AR CA MA CY 33 G #5 LA 91 NC ET S IN 50 07 08 30 30 00 MD Ac VO 45 -1 -1 .0 00 L- ti KA 80 3- 1- 00 07 MA ve NA 14 20 20 48 RT 13 17 17 89 30 0 07 PH 0 AR MG MA CY TA BL #5 ET 91 LO 68 07 08 30 30 00 MD Ac SA 64 -1 -1 .0 00 L- ti RT 50 3- 1- 00 07 MA ve AN 41 20 20 48 RT 15 17 17 89 PO 4 08 PH TA AR SS MA IU CY M 10 #5 0 91 MG TA B NO 00 07 08 15 25 00 MD Ac VO 16 -1 -1 .0 00 L- ti LO 96 3- 1- 00 07 MA ve G 33 20 20 48 RT 10 91 17 17 89 0 0 19 PH UN AR IT MA S/ CY ML #5 FL 91 EX PE N MO 31 07 08 30 30 00 MD Ac NT 72 -1 -1 .0 00 L- ti EL 20 3- 1- 00 07 MA ve UK 72 20 20 48 RT 61 17 17 89 T 0 17 PH SO AR D MA 10 CY MG #5 91 TA BL ET OM 60 07 08 30 30 00 MD Ac EP 50 -1 -1 .0 00 L- ti RA 50 3- 1- 00 07 MA ve ZO 14 20 20 48 RT LE 60 17 17 [address] AR MA 40 CY MG #5 91 CA PS UL E QU 16 07 08 30 30 00 MD Ac ET 72 -1 -1 .0 00 L- ti IA 90 3- 1- 00 07 MA ve PI 14 20 20 48 RT NE 60 17 17 89 1 21 PH FU AR MA MA RA CY TE #5 50 91 MG TA B BA 00 07 08 15 31 00 MD Ac SA 00 -1 -1 .0 00 L- ti GL 27 3- 1- 00 07 MA ve AR 71 20 20 48 RT 55 17 17 95 10 9 02 PH 0 AR UN MA IT CY /M L #5 KW 91 IK PE N BA 00 07 08 90 30 00 [facility] CL 83 -1 -1 .0 00 L- ti OF 21 3- 1- 00 07 MA ve EN 02 20 20 48 RT 45 17 17 89 10 0 16 PH AR MG MA CY TA BL #5 ET 91 CI 54 07 08 30 30 00 MD Ac TA 45 -1 -1 .0 00 L- ti LO 80 3- 1- 00 07 MA ve WV 88 20 20 48 RT AM 91 17 17 89 0 09 PH HB AR R MA 40 CY MG #5 91 TA BL ET FA 68 07 08 60 30 00 [facility] MO 64 -1 -1 .0 00 L- ti TI 50 3- 1- 00 07 MA ve DI 14 20 20 48 RT NE 05 17 17 89 9 11 PH 20 AR MA MG CY TA #5 BL 91 ET FE 00 07 08 30 30 00 MD Ac NO 09 -1 -1 .0 00 L- ti FI 37 3- 1- 00 07 MA ve BR 75 20 20 48 RT AT 69 17 17 89 E 8 12 PH 14 AR 5 MA MG CY TA #5 BL 91 ET HY 00 07 08 30 [address] [facility] [address] 18 -1 -1 .0 00 L- ti OX 50 3- 1- 00 07 MA ve YZ 67 20 20 48 RT IN 40 17 17 89 E 1 05 PH PA AR M MA 25 CY MG #5 91 CA P 64 07 08 4. 28 00 [facility] T 38 -1 -1 00 00 L- ti D2 00 3- 1- 0 07 MA ve 73 20 20 48 RT 1. 70 17 17 89 25 6 26 PH AR MG MA CY (5 0, #5 00 91 0 UN IT ) ON 53 07 08 10 30 00 [facility] ET 88 -1 -1 0. 00 L- ti OU 50 3- 1- 00 08 MA ve CH 13 20 20 0 84 RT 61 17 17 00 DE 0 52 PH LI AR CA MA CY 33 G #5 LA 91 NC ET S [place] 43 07 08 60 [address] [facility] [address] 38 -1 -1 .0 00 L- ti AT 60 3- 1- 00 07 MA ve IN 53 20 20 49 RT 00 17 17 53 10 6 51 PH 0, AR 00 MA 0 CY UN IT #5 /G 91 M PO WD SP 59 07 08 30 30 00 [facility] IR 74 -1 -1 .0 00 [...] LI 68 07 08 30 30 00 WA Ac SI 18 -1 -1 .0 00 L- ti NO 00 4- 1- 00 07 MA ve WV 98 20 20 49 RT [place] 00 17 17 88 1 72 PH 10 AR MA MG CY TA #5 BL 91 ET AD 00 07 08 12 30 00 MD Ac VA 17 -1 -1 .0 00 [...] [place] 43 06 07 60 [address] 38 -2 -2 .0 00 L- ti AT 60 3- 1- 00 07 MA ve IN 53 20 20 49 RT 00 17 17 53 10 6 51 PH 0, AR 00 MA 0 CY UN IT #5 /G 91 M PO WD ON 06 06 10 34 00 WA Ac ET 88 -0 -3 0. 00 L- ti OU 50 2- 0- 00 08 MA ve CH 13 20 20 0 83 RT 61 17 17 97 DE 0 46 PH LI AR CA MA CY 33 G #5 LA 91 NC ET S ON 06 06 10 34 00 WA Ac ET 88 -0 -3 0. 00 L- ti OU 50 3- 0- 00 08 MA ve CH 24 20 20 0 83 RT 51 17 17 97 UL 0 45 PH TR AR A MA TE CY ST #5 ST 91 RI PS ON 06 06 1. 1 00 WA Ac ET 88 -0 -3 00 00 L- ti OU 50 5- 0- 0 08 MA ve CH 44 20 20 83 RT 80 17 17 97 UL 1 76 PH TR AR A2 MA CY GL UC #5 OS [address] HY 00 06 06 14 [address] [facility] [address] 40 -0 -3 .0 00 L- ti OC 60 5- 0- 00 02 MA ve OD 12 20 20 24 RT ON 40 17 17 06 -A 1 17 PH CE AR TA MA MN CY NO PH #5 91 7. 5- 32 5 RE 08 05 06 10 30 00 [facility] LI 39 -2 -2 0. 00 L- ti ON 69 9- 3- 00 08 MA ve 01 20 20 0 83 RT PE 63 17 17 95 N 4 42 PH NE AR ED MA LE CY 31 #5 GX 91 5/ 16 " AD 00 05 06 12 30 00 [facility] VA 17 -2 -1 .0 00 L- ti IR 30 2- 6- 00 07 MA ve 71 20 20 48 RT HF 72 17 17 89 A 0 70 PH 23 AR 0- MA 21 CY MC #5 G 91 IN VILLAVICENCIO LE R BA 00 05 06 15 31 00 [facility] SA 00 -2 -1 .0 00 L- ti GL 27 3- 6- 00 07 MA ve AR 71 20 20 48 RT 55 17 17 95 10 9 02 PH 0 AR UN MA IT CY /M L #5 KW 91 IK PE N OM 60 05 06 30 30 00 [facility] EP 50 -1 -1 .0 00 L- ti RA 50 9- 6- 00 07 MA ve ZO 14 20 20 48 RT LE 60 17 17 [address] AR MA 40 CY MG #5 91 CA PS UL E QU 16 05 06 30 30 00 [facility] ET 72 -1 -1 .0 00 L- ti IA 90 9- 6- 00 07 MA ve PI 14 20 20 48 RT NE 60 17 17 89 1 21 PH FU AR MA MA RA CY TE #5 50 91 MG TA B 64 05 06 4. 28 00 [facility] T 38 -1 -1 00 00 L- ti D2 00 9- 6- 0 07 MA ve 73 20 20 48 RT 1. 70 17 17 89 25 6 26 PH AR MG MA CY (5 0, #5 00 91 0 UN IT ) LI 54 05 06 30 30 00 [facility] SI 45 -1 -1 .0 00 L- ti NO 80 9- 6- 00 07 MA ve WV 99 20 20 48 RT [place] 71 17 17 89 0 68 PH 10 AR MA MG CY TA #5 BL 91 ET AT 68 05 06 30 30 00 MD Ac OR 64 -1 -1 .0 00 L- ti VA 50 9- 6- [address] 45 20 20 48 RT AT 85 17 17 89 IN 4 69 PH AR 10 MA CY MG #5 TA 91 BL ET AM 68 05 06 30 30 00 MD Ac LO 64 -1 -1 .0 00 L- ti DI 50 9- 6- 00 07 MA ve PI 51 20 20 48 RT NE 65 17 17 89 4 71 PH BE AR SY MA LA CY TE #5 10 91 MG TA B CI 54 05 30 30 00 MD Ac TA 45 -1 -1 .0 00 L- ti LO 80 9- 6- 00 07 MA ve WV 88 20 20 48 RT AM 91 17 17 89 0 09 PH HB AR R MA 40 CY MG #5 91 TA BL ET FA 68 05 06 60 30 00 MD Ac MO 64 -1 -1 .0 00 L- ti TI 50 9 6- 07 MA ve DI 14 20 20 48 RT NE 05 17 17 89 9 11 PH 20 AR MA MG CY TA #5 BL 91 ET FE 00 05 06 30 30 00 MD Ac NO 09 -1 -1 .0 00 L- ti FI 37 9- 6- 00 07 MA ve BR 75 20 20 48 RT AT 69 17 17 89 E 8 12 PH 14 AR 5 MA MG CY TA #5 BL 91 ET BA 00 05 06 90 30 00 MD Ac CL 83 -1 -1 .0 00 L- ti OF 21 6 07 MA ve EN 02 20 20 48 RT 45 17 17 89 10 0 16 PH AR MG MA CY TA BL #5 ET 91 MO 31 05 06 30 30 00 MD Ac NT 72 -1 -1 .0 00 L- ti EL 20 9- 6- 00 07 MA ve [place] 72 20 20 48 RT 61 17 17 89 T 0 17 PH SO AR D MA 10 CY MG #5 91 TA BL ET NO 00 05 06 15 25 00 MD Ac VO 16 -1 -1 .0 00 L- ti LO 96 9- 6- 00 07 MA ve G 33 20 20 48 RT 10 91 17 17 89 0 0 19 PH UN AR IT MA S/ CY ML #5 FL 91 EX PE N SP 59 05 06 30 30 00 [facility] IR 74 -1 -1 .0 00 L- ti ON 60 8- 6- 00 07 MA ve OL 21 20 20 48 RT AC 60 17 17 06 TO 1 59 PH NE AR MA 25 CY MG #5 91 TA BL ET LO 68 05 06 30 30 00 [facility] SA 64 -1 -1 .0 00 L- ti RT 50 8- 6- 00 07 MA ve AN 41 20 20 48 RT 17 17 17 06 PO 0 60 PH TA AR SS MA IU CY M 10 #5 0 91 MG TA B HY 00 05 06 30 [address] [facility] [address] 18 -1 -1 .0 00 L- ti OX 50 9- 6- 00 07 MA ve YZ 67 20 20 48 RT IN 40 17 17 89 E 1 05 PH PA AR M MA 25 CY MG #5 91 CA P GA 00 05 06 90 30 00 [facility] BA 22 -1 -1 .0 00 L- ti PE 82 9- 6- 00 07 MA ve NT 63 20 20 48 RT IN 71 17 17 89 1 06 PH 80 AR 0 MA MG CY TA #5 BL 91 ET IN 50 05 06 30 30 00 [facility] VO 45 -1 -1 .0 00 L- ti KA 80 9- 6- 00 07 MA ve NA 14 20 20 48 RT 13 17 17 89 30 0 07 PH 0 AR MG MA CY TA BL #5 ET 91 HY 00 05 06 [address] 40 -1 -[address] ti OC 60 5- 9- 00 00 SI ve OD 12 20 20 48 DE ON 40 17 17 75 -A 5 83 PH CE AR TA MA MN CY NO PH OF CY 7. NT 5- HI 32 AN 5 A IN C IN 00 04 05 30 30 00 [facility] CR 17 -1 -0 .0 00 L- ti US 30 0- 5- 00 07 MA ve E 87 20 20 48 RT EL 31 17 17 06 LI 0 61 PH PT AR A MA 62 CY .5 #5 MC 91 G IN H HY 00 03 04 30 [address] [facility] [address] 40 -3 -2 .0 00 L- ti OC 60 0- 8- 00 02 MA ve OD 12 20 20 23 RT ON 30 17 17 97 -A 1 50 PH CE AR TA MA MN CY NO PH #5 EN 91 5- 32 5 SI 00 03 04 50 25 00 [facility] LV 59 -3 -2 .0 00 L- ti ER 10 0- 8- 00 07 MA ve 81 20 20 47 RT PARDO 05 17 17 96 LF 5 99 PH AD AR IA MA ZI CY NE #5 1% 91 CR EA M AM 00 04 04 20 10 00 MD Ac OX 78 -0 -2 .0 00 L- ti -C 11 3- 8- 00 07 MA ve LA 85 20 20 48 RT V 22 17 17 00 87 0 77 PH 5- AR 12 MA 5 CY MG #5 TA 91 BL ET BE 68 04 04 24 8 00 MD Ac NZ 38 -0 -2 .0 00 L- ti ON 20 3 8 07 MA ve AT 24 20 20 48 RT AT 70 17 17 00 E 1 78 PH 10 AR 0 MA MG CY CA #5 PS 91 UL E ME 59 04 04 21 6 00 [facility] TH 74 -0 -2 .0 00 L- ti YL 60 3- 8- 00 07 MA ve WV 00 20 20 48 RT ED 10 17 17 00 NI 3 79 PH SO AR LO MA NE CY 4 #5 MG 91 DO SE PK AL 00 04 04 22 25 00 [facility] BU 48 -0 -2 5. 00 L- ti TE 79 5- 8- 00 07 MA ve RO 50 20 20 0 48 RT L 12 17 17 06 PARDO 5 57 PH L AR 2. MA 5 CY MG /3 #5 [address] SP 59 04 04 30 30 00 [facility] IR 74 -0 -2 .0 00 L- ti ON 60 5- 8 00 07 MA ve OL 21 20 20 48 RT AC 60 17 17 06 TO 1 59 PH NE AR MA 25 CY MG #5 91 TA BL ET LO 68 04 04 30 30 00 [facility] SA 64 -0 -2 .0 00 L- ti RT 50 5- 8- 00 07 MA ve AN 41 20 20 48 RT 17 17 17 06 PO 0 60 PH TA AR SS MA IU CY M 10 #5 0 91 MG TA B HY 00 03 04 7. [address] 40 -2 -2 00 00 L- ti OC 60 9- 1- 0 02 MA ve OD 12 20 20 23 RT ON 30 17 17 97 -A 1 21 PH CE AR TA MA MN CY NO PH #5 EN 91 5- 32 5 AC 00 03 04 20 3 00 CL Ac ET 09 -2 -2 .0 00 IN ti AM 30 7 00 00 IC ve IN 15 20 20 42 OP 01 17 17 63 PH HE 0 23 AR N- MA CO CY D #3 TA BL ET HI 00 03 04 11 30 00 WA Ac BI 23 -2 -1 8. 00 [...] AL LI AN CE , IN C. CI 65 02 03 30 30 00 PH Ac TA 86 -2 -2 .0 00 YS ti LO 20 4- 4- 00 03 IC ve WV 00 20 20 61 IA AM 70 [...] LI E AN CE , IN C. HY 64 02 03 [address] 98 -2 -2 .0 00 YS ti OX 00 4- 4- 03 IC ve YZ 16 20 20 61 IA IN 90 17 17 43 NS E 5 67 PA PH M AR 25 MA CY MG AL CA LI P AN CE , IN C. LO 68 02 03 30 30 00 MD Ac SA 64 -1 -1 .0 00 L- ti RT 50 6- 7- 00 07 MA ve AN 41 20 20 47 RT 17 17 17 11 PO 0 31 PH TA AR SS MA IU CY M 10 #5 0 91 MG TA B FA 68 02 03 60 30 00 MD Ac MO 64 -1 -1 .0 00 L- ti TI 50 6- 7- 00 07 MA ve DI 14 20 20 47 RT NE 05 17 17 11 9 33 PH 20 AR MA MG CY TA #5 BL 91 ET ES 00 02 03 30 30 00 MD Ac TR 55 -1 -1 .0 00 L- ti AD 50 7- 7- 00 07 MA ve IO 88 20 20 47 RT L 70 17 17 14 2 4 51 PH MG AR MA TA CY BL ET #5 91 MN 13 02 03 14 7 00 MD Ac NO 66 -2 -1 .0 00 L- ti CY 80 1- 7- 00 07 MA ve CL 48 20 20 47 RT IN 45 17 17 19 E 0 59 PH 10 AR 0 MA MG CY CA #5 PS 91 UL E MU 68 02 03 22 7 00 MD Ac PI 46 -2 -1 .0 00 L- ti RO 20 1- 7- 00 07 MA ve CI 18 20 20 47 RT N 02 17 17 19 2% 2 62 PH AR OI MA NT CY ME NT #5 91 LO 68 02 03 30 30 00 MD Ac SA 64 -1 -1 .0 00 L- ti RT 50 3- 0- 00 07 MA ve AN 40 20 20 47 RT 97 17 17 05 PO 0 21 PH TA AR SS MA IU CY M 50 #5 91 MG TA B BE 68 02 03 15 5 00 MD Ac NZ 38 -1 -1 .0 00 L- ti ON 20 1- 0- 00 07 MA ve AT 24 20 20 47 RT AT 70 17 17 01 E 1 23 PH 10 AR 0 MA MG CY CA #5 PS 91 UL E SP 53 02 03 30 30 00 MD Ac IR 48 -1 -1 .0 00 L- ti ON 90 3- 0- 00 07 MA ve OL 14 20 20 47 RT AC 30 17 17 05 TO 1 18 PH NE AR MA 25 CY MG #5 91 TA BL ET AC 50 01 02 10 30 00 [...] 20 6- 4- 00 03 IC ve WV 00 20 20 61 IA AM 70 17 17 43 NS 5 66 HB PH R AR 40 MA CY MG AL TA LI BL AN ET CE , IN C. AT 55 01 02 30 [...] N CE , IN C. IN 50 08 20 30 30 00 PH Ac VO 45 -2 -2 .0 00 YS ti KA 80 6- 4- 03 IC ve NA 14 20 20 60 IA 13 17 17 61 NS 30 0 40 0 PH MG AR MA TA CY BL ET AL LI AN CE , IN C. AC 65 01 02 10 30 00 PH Ac CU 70 -2 -2 0. 00 YS ti -C 20 6- 4- 03 IC ve HE 40 20 20 0 61 IA K 71 17 17 09 NS AV 0 70 IV PH A AR PL MA US CY TE AL ST LI AN ST CE RP , IN C. HY 64 02 30 [address] 98 -2 -2 .0 00 YS ti OX 00 6- 4- 03 IC ve YZ 16 20 20 [...] AN LE CE R , IN C. WV 51 01 02 60 30 00 PH [...] AN CE TA , B IN C. GA 68 01 02 90 [...] 47 01 02 10 5 00 WA EL 78 -1 -0 .0 00 L- ti TA 10 0- 3- 00 07 MA ve MN 47 20 20 46 RT 01 17 [...] 70 9- 7- 00 03 IC ve WV 35 20 20 60 IA IL 31 [...] 20 8- 0- 00 03 IC ve WV 05 20 20 54 IA AM 45 [...] AN CE , IN C. CE 69 07 19 30 30 00 PH Ac LE 09 -2 -2 .0 00 YS ti CO 70 8- 0- 00 03 IC ve XI 42 20 20 40 IA B 11 16 17 21 NS 20 2 20 0 PH MG AR MA CA CY PS UL AL E LI AN CE , IN C. QU 67 07 19 30 30 00 PH Ac ET 87 -2 -2 .0 00 YS ti IA 70 8- 0- 00 03 IC ve PI 24 20 20 54 IA NE 91 16 17 81 NS 0 94 FU PH MA AR RA MA TE CY 50 AL LI MG AN CE TA , B IN C. BA 00 07 19 90 30 00 PH Ac CL 52 -2 -2 .0 00 YS ti OF 71 8- 0- 00 03 IC ve EN 33 20 20 54 IA 01 16 17 82 NS 10 0 06 PH MG AR MA TA CY BL ET AL LI AN CE , IN C. HY 64 12 [address] 98 -2 -2 .0 00 YS ti OX 00 8- 0- 00 03 IC ve YZ 16 20 20 54 IA IN 90 16 17 82 NS E 5 33 PA PH M AR 25 MA CY MG AL CA LI P AN CE , IN C. AL 00 07 19 27 30 00 PH Ac BU 48 [...] BL AN ET CE , IN C. WV 51 12 01 60 30 00 PH [...] 50 8- 0- 00 03 IC ve MN 10 20 20 40 IA N 41 16 17 21 NS HC 0 11 L PH 1, AR 00 MA 0 CY MG AL TA LI BL AN ET CE , IN C. AM 68 10 10 0 30 30 [...] 11 S AN E 6 #5 NA WV 76 OP 3 # 50 57 63 [...] 50 63 MG TA B LI 68 10 10 0 30 30 WA 38 GE Ac SI 18 -2 -2 .0 LG 56 IM ti NO 00 4- 4- 00 RE 41 AN ve WV 51 20 20 EN 5 IL 70 11 11 S AN 3 #5 NA 40 76 3 MG # 57 TA 63 BL ET CR 00 10 10 0 30 30 WA 38 GE Ac ES 31 -2 -2 .0 LG 56 IM ti TO 00 4 4- 00 RE 41 AN ve R 75 20 20 EN 6 20 29 11 11 S AN 0 #5 NA MG 76 3 TA # BL 57 ET 63 NE 00 01 10 6 30 30 WA 37 GE Ac XI 18 -3 -2 .0 LG 15 IM ti UM 65 1- - 00 RE 53 AN ve 04 [address] 03 11 11 S AN 1 #5 NA 40 76 3 MG # 57 CA 63 PS UL E ME 59 10 10 0 21 6 WA 38 GA Ac TH 74 -1 -2 .0 LG 56 IN ti YL 60 8- 1- 00 RE 42 EY ve WV 00 20 20 EN 7 ED 10 11 11 S MN NI 3 #5 CH SO 76 AE [...] 11 S AN E 6 #5 NA WV 76 OP 3 # 50 57 63 [...] 1- 2- 00 RE 52 AN ve WV 51 20 20 EN 8 IL 70 [...] TE 57 63 10 MG TA B AM 68 04 08 3 30 30 [...] 63 HE TA R BL L ET 49 08 08 0 2. 30 WA [...] 11 S AN E 1 #5 NA WV 76 OP 3 # 50 57 63 MC G SP RA Y LI 68 01 08 3 30 30 WA 37 GE Ac SI 18 -3 -0 .0 LG 15 IM ti NO 00 9 00 RE 52 AN ve WV 51 20 20 EN 8 IL 70 11 11 S AN 3 #5 NA 40 76 3 MG # 57 TA 63 BL ET HY 00 01 08 3 30 30 WA [address] 17 -3 -0 .0 LG 15 IM ti OC 22 9 00 RE 52 AN ve HL 08 20 20 EN 9 OR 98 11 11 S AN OT 0 #5 NA HI 76 AZ 3 ID # E 57 50 63 MG TA B NE 00 01 08 6 30 30 WA 37 GE Ac XI 18 -3 -0 .0 LG 15 IM ti UM 65 9 RE 53 AN ve 04 20 20 [...] # BL 57 ET 63 FL 00 08 08 0 30 30 WA 38 GE Ac UO 78 -0 -0 .0 LG 17 IM ti XE 12 9 9 RE 19 AN ve TI 82 20 20 EN 1 NE 43 11 11 S AN 1 #5 NA HC 76 L 3 40 # 57 MG 63 CA PS UL E CL 63 07 07 0 28 7 38 SO Ac IN 30 -2 -2 .0 LG 09 WE ti DA 40 4- 4- 00 RE 23 R ve MY 69 20 20 EN 7 DA CI 30 11 11 S N 1 #5 D HC 76 L 3 30 # 0 57 MG 63 CA PS UL E 00 07 07 0 20 3 38 SO Ac 59 -2 -2 .0 LG 09 WE ti 10 4- 4- 00 RE 23 R ve 34 20 20 EN 8 DA 90 11 11 S 5 #5 D 76 3 # 57 63 00 07 07 0 12 2 38 GR Ac 59 -2 -2 .0 [...] CA PS UL E LI 68 01 06 3 30 30 WA 37 GE Ac SI 18 -3 -0 .0 LG 15 IM ti NO 00 1- 8- 00 RE 52 AN ve WV 51 20 20 EN 8 IL 70 [...] LG 31 IM ti XE 12 8- 8 00 RE 53 AN ve TI 82 20 20 EN 6 NE 43 11 11 S AN 1 #5 NA HC 76 L 3 40 # 57 MG 63 CA PS UL E CR 00 02 06 3 30 30 MD 37 GE Ac ES 31 -2 -0 .0 LG 31 IM ti TO 00 RE 53 AN ve R 75 20 20 EN 8 20 29 11 11 S AN 0 #5 NA MG 76 3 TA # BL 57 ET 63 49 02 06 1 2. 30 MD 37 GE Ac 88 -2 -0 29 LG 31 IM ti 40 8- 8- 9 RE 53 AN ve 27 20 20 EN 9 01 11 11 S AN 4 #5 NA 76 3 # 57 63 TI 55 01 06 2 60 30 MD 37 CO Ac ZA 11 -2 -0 .0 LG 86 LG ti NI 10 0- 8- 00 RE 05 LA ve DI 17 20 20 EN 1 ZI NE 91 11 11 S ER 5 #5 HC 76 CH L 3 RI 2 # ST MG 57 OP 63 HE TA R BL L ET AM 68 04 06 3 30 30 MD 37 CO Ac LO 18 -0 -0 .0 LG 51 TT ti DI 00 8 RE 18 ON ve PI 75 20 20 EN 8 NE 20 11 11 S RO 3 #5 BI BE 76 N SY 3 T LA # TE 57 63 10 MG TA B 00 05 05 0 15 3 MD 37 RO Ac 59 -0 -0 .0 LG 68 GE ti 10 5- 6- 00 RE 08 RS ve 34 20 20 EN 3 90 11 11 S SH 5 #5 AR 76 ON 3 E # 57 63 FL 60 05 05 0 16 30 MD 37 RO Ac UT 50 -0 -0 .0 LG 68 GE ti IC 50 6- 6- 00 RE 08 RS ve 82 20 20 EN 4 ON 90 11 11 S SH E 1 #5 AR WV 76 ON OP 3 E # 50 57 63 MC G SP RA Y CL 00 05 05 0 20 10 37 RO Ac AR 09 -0 -0 .0 LG 68 GE ti IT 37 5- 6- 00 RE 08 RS ve HR 15 20 20 EN 5 OM 80 11 11 S SH YC 6 #5 AR IN 76 ON 3 E 50 # 0 57 MG 63 TA BL ET AM 68 04 04 3 30 30 MD 37 CO Ac LO 18 -0 -0 .0 LG 51 TT ti DI 00 4- 4 00 RE 18 ON ve PI 75 [...] ti NO 00 RE 52 AN ve WV 51 20 20 EN 8 IL 70 [...] LG 15 IM ti UM 65 1- - 00 RE 53 AN ve 04 [address] 03 11 11 S AN 1 #5 NA 40 76 3 MG # 57 CA 63 PS UL E 00 01 01 1 30 30 WA 37 GE Ac 09 -3 -3 .0 LG 15 IM ti 34 1- 00 RE 52 AN ve 35 [...] 54 D 8 L # 55 48 TI 55 01 01 3 60 30 WA 82 CO Ac ZA 11 -2 -2 .0 LG 96 LG ti NI 10 0- 1- 00 RE 06 LA ve DI 17 20 20 EN ZI NE 91 11 11 S ER 5 #5 HC 54 CH L 8 RI 2 # ST MG 55 OP 48 HE TA R BL L ET LY 00 01 01 3 60 30 WA 82 CO Ac RI 07 -2 -2 .0 LG 96 LG ti CA 11 1- - RE 05 LA ve 01 20 20 [...] .0 LG 65 IM ti TO 00 9- 9- 00 RE 83 AN ve R 75 20 20 EN 3 10 19 10 10 S AN 0 #5 NA MG 76 3 TA # BL 57 ET 63 NE 00 08 10 4 30 30 WA 36 GE Ac XI 18 -2 -2 .0 LG 47 IM ti UM 65 4- 8- 00 RE 74 AN ve 04 [address] 03 10 10 S AN 1 #5 NA 40 76 3 MG # 57 CA 63 PS UL E AM 68 09 10 5 30 30 WA 36 GE Ac LO 18 -2 -2 .0 LG 47 IM ti DI 00 7- 8- 00 RE 74 AN ve PI 75 20 20 EN 9 NE 10 10 10 S AN 3 #5 NA BE 76 SY 3 LA # TE 57 5 63 MG TA B LI 68 07 10 3 30 30 WA 36 RA Ac SI 18 -1 -2 .0 LG 11 NC ti NO 00 6- 8- 00 RE 53 K ve WV 51 20 20 EN 8 ER IL [...] LG 43 LG ti NI 10 7- 8- 00 RE 94 LA ve DI 17 20 20 EN 2 ZI NE 91 10 10 S ER 5 #5 HC 76 CH L 3 RI 2 # ST MG 57 OP 63 HE TA R BL L ET HY 00 10 10 0 30 [...] LG 47 IM ti DI 00 7- 7- 00 RE 74 AN ve PI 75 20 20 EN 9 NE 10 10 10 S AN 3 #5 NA BE 76 SY 3 LA # TE 57 5 63 MG TA B NE 00 08 09 4 30 30 [...] BL 57 ET 63 LI 68 07 09 3 30 30 WA 36 RA Ac SI 18 -1 -2 .0 LG 11 NC ti NO 00 6- 5- 00 RE 53 K ve WV 51 20 20 EN 8 ER IL 70 10 10 S IN 3 #5 M 40 76 3 MG # 57 TA 63 BL ET LY 00 09 09 5 60 [...] 6- 6- 00 RE 53 K ve WV 51 20 20 EN 8 ER IL [...] ZI ZA 71 10 10 S ER WV 0 #5 IN 76 CH E 3 [...] AM 00 06 06 0 20 10 WA 35 GE Ac OX 78 -1 -1 .0 LG 97 IM ti -C 11 5- 7- 00 RE 33 AN ve LA 85 20 20 EN 4 V 22 10 10 S AN 87 0 #5 NA 5- 76 12 3 5 # MG 57 63 TA BL ET 00 05 06 0 30 2 WA 35 YE Ac 59 -2 -0 .0 LG 90 LI ti 10 5- 3- 00 RE 14 CH ve 74 20 20 EN 9 90 10 10 S PARDO 5 #5 SA 76 N 3 M # 57 63 AM 68 06 06 1 30 30 WA 35 GE Ac LO 18 -0 -0 .0 LG 90 IM ti DI 00 1- 3- 00 RE 14 AN ve PI 75 20 20 EN 8 NE 10 10 10 S AN 3 #5 NA BE 76 SY 3 LA # TE 57 5 63 MG TA B 00 05 05 0 40 3 WA 35 YE Ac 59 -1 -1 .0 LG 81 LI ti 10 7- 8- 00 RE 56 CH ve 74 20 20 EN 1 90 10 10 S PARDO 5 #5 SA 76 N 3 M # 57 63 WV 00 04 04 0 6. 1 WA [...] PARDO 53 04 04 0 20 10 35 KI Ac LF 74 -2 -2 .0 LG 69 LL ti AM 60 4- 4- 00 RE 10 IN ve ET 27 20 20 EN 4 DE HO 20 10 10 S R XA 5 #5 ZO 76 HL LE 3 EY -T # E MP 57 63 DS TA BL ET NE 00 04 04 0 30 30 35 RA Ac XI 18 -1 -1 .0 LG 63 NC ti UM 65 9- 9- 00 RE 18 K ve 04 20 [address] 03 10 10 S IN 1 #5 M 40 76 3 MG # 57 CA 63 PS UL E PE 00 04 04 0 40 10 35 LO Ac NI 09 -1 -1 .0 LG 66 VE ti CI 31 9- 9- 00 RE 20 ve LL 17 20 20 EN 9 TI IN 41 10 10 S MO 0 #5 TH VK 76 Y 3 A 50 # 0 57 MG 63 TA BL ET 00 04 04 0 20 3 35 LO Ac 59 -1 -1 .0 LG 66 VE ti 10 9- 9- 00 RE 30 ve 74 20 20 EN 7 TI 90 10 10 S MO 5 #5 TH 76 Y 3 A # 57 63 AM 00 04 04 [address] Ac OX 78 -1 -1 .0 LG 65 AW ti -C 11 8- 8- 00 RE 57 ve LA 85 20 20 EN 2 AZ V 22 10 10 S MN 87 0 #5 5- 76 12 3 5 # MG 57 63 TA BL ET ME 68 04 04 0 [address] Ac LO 18 -1 -1 .0 LG 65 AW ti XI 00 8- 8- 00 RE 57 ve CA 50 20 20 EN 3 AZ M 10 10 10 S MN 7. 3 #5 5 76 MG 3 # TA 57 BL 63 ET TR 65 04 04 0 [address] Ac AM 16 -1 -1 .0 LG 65 AW ti AD 20 8- 8- 00 RE 57 ve OL 62 20 20 EN 4 AZ 71 10 10 S MN HC 1 #5 L 76 50 3 # MG 57 63 TA BL ET LI 68 11 04 3 30 30 WA 34 RA Ac SI 18 -1 -1 .0 LG 86 NC ti NO 00 3- 3- 00 RE 38 K ve WV 51 20 20 EN 5 ER IL [...] CY 59 02 03 0 60 30 MD 35 CO Ac CL 74 -1 -2 .0 LG 51 LG ti OB 60 5- 1- 00 RE 01 LA ve EN 17 20 20 EN 1 ZI ZA 71 10 10 S ER WV 0 #5 IN 76 CH E 3 [...] # 57 CA 63 PS UL E LI 68 11 02 02 30 30 WA 34 RA Ac SI 18 -1 -2 .0 LG 86 NC ti NO 00 3- 6- 00 RE 38 K ve WV 51 20 20 EN 5 ER IL [...] L 0 MG CA PS UL E WV 50 02 02 00 60 4 WA 35 EM Ac OM 38 -1 -2 .0 LG 32 ER ti ET 30 2- 6- 00 RE 13 Y ve VILLAVICENCIO 80 20 20 EN 2 DA ZI 41 10 10 S RY NE 6 57 L -C 63 L OD EI NE SY RU P LY 00 10 02 01 60 30 [...] ZI ZA 71 10 10 S ER WV 0 57 IN 63 CH E RI 10 ST OP MG HE R TA L BL ET NE 00 01 02 00 30 30 [...] ZI ZA 71 09 10 S ER WV 0 57 IN 63 CH E RI [...] 3- 4- 00 RE 38 K ve WV 51 20 20 EN 5 ER IL [...] .0 LG 86 NC ti NO 00 00 RE 38 K ve WV 51 20 20 EN 5 ER IL 70 09 09 S IN 3 57 M 40 63 MG TA BL ET CY 59 11 11 00 60 30 WA 34 CO Ac CL 74 -0 -1 .0 LG 76 LG ti OB 60 9 9 00 RE 00 LA ve EN 17 20 20 EN 5 ZI ZA 71 09 09 S ER WV 0 57 IN 63 CH E RI 10 ST OP MG HE R TA L BL ET HY 00 11 11 00 30 30 WA [address] 17 -0 -1 .0 LG 76 UR ti OC 22 9 9 00 RE 00 EN ve HL 08 20 20 EN 6 O- OR 98 09 09 S AL OT 0 57 VA HI 63 RE AZ Z ID LI E AH 50 J MG TA B LI 68 11 11 00 14 14 WA 34 LA Ac SI 18 -1 -1 .0 LG 77 UR ti NO 00 RE 26 EN ve WV 51 20 20 EN 8 O- IL [...] PS OP UL HE E R L 00 03 08 01 60 30 WA 71 CO Ac 37 -2 -1 .0 L- 17 LG ti 80 7- 3- 00 MA 74 LA ve 75 20 20 RT 0 ZI 19 09 09 ER 3 PH AR CH MA RI CY ST OP #1 HE 51 R 0 L WV 00 09 08 02 30 30 WA 70 LA Ac EM 04 -1 -1 .0 L- 70 UR ti AR 61 0- 3- 00 MA 31 EN ve IN 10 20 20 RT 8 O- 28 08 09 AL 0. 1 PH VA 62 AR RE 5 MA Z MG CY LUIZA TA #1 J BL 51 ET 0 LI 54 05 08 01 30 30 WA 71 LA Ac SI 45 -2 -1 .0 L- 17 UR ti NO 80 8- 3- 00 MA 91 EN ve WV 99 20 20 RT 0 O- IL 41 09 09 AL 0 PH VA 40 AR RE MA Z MG CY LUIZA TA #1 J BL 51 ET 0 54 05 08 01 30 30 WA 71 LA Ac 45 -2 -1 .0 L- 17 UR ti 80 8- 3- 00 MA 90 EN ve 96 20 20 RT 9 O- 91 09 09 AL 0 PH VA AR RE MA Z CY [facility] #1 J 51 0 SA 00 05 07 00 60 30 KM 68 CO Ac VE 45 -2 -0 .0 AR 05 LG ti LL 61 7- 2- 00 T 77 LA ve A 55 20 20 PH 7 ZI 50 06 09 09 AR ER 0 MA MG CY CH RI TA 30 ST BL 29 OP ET HE R L 54 05 06 00 30 30 WA 71 LA Ac 45 -2 -0 .0 L- 17 UR ti 80 8- 4- 00 MA 90 EN ve 96 20 20 RT 9 O- 91 09 09 AL 0 PH VA AR RE MA Z CY [facility] #1 J 51 0 00 03 06 00 60 30 WA 71 CO Ac 37 -2 -0 .0 L- 17 LG ti 80 7- 4- 00 MA 74 LA ve 75 20 20 RT 0 ZI 19 09 09 ER 3 PH AR CH MA RI CY ST OP #1 HE 51 R 0 L WV 00 09 06 01 30 30 WA 70 LA Ac EM 04 -1 -0 .0 L- 70 UR ti AR 61 0- 4- 00 MA 31 EN ve IN 10 20 20 RT 8 O- 28 08 09 AL 0. 1 PH VA 62 AR RE 5 MA Z MG CY LUIZA TA #1 J BL 51 ET 0 LI 54 05 06 00 30 30 WA 71 LA Ac SI 45 -2 -0 .0 L- 17 UR ti NO 80 8- 4- 00 MA 91 EN ve WV 99 20 20 RT 0 O- IL [...] ZI ZA 81 09 09 PH ER WV 0 AR IN MA CH E CY RI 10 ST #9 OP MG 01 HE R TA L BL ET NA 68 02 02 00 20 10 WA 32 No Ac WV 46 -0 -1 .0 LG 00 t [...] ai ZA 71 09 09 S la WV 0 57 bl IN 63 e E 10 MG TA BL ET CI 16 02 02 00 14 7 WA 32 SP Ac WV 25 -0 -1 .0 LG 00 EL [...] TA #1 J BL 51 ET 0 DI 00 11 11 00 60 30 WA 70 LA Ac CL 78 -1 -2 .0 L- 82 UR ti OF 11 4- 0- 00 MA 63 EN ve EN 78 20 20 RT 6 O- AC 90 08 08 AL 1 PH VA SO AR RE D MA Z EC CY LI AH 75 #1 J 51 MG 0 TA B HY 00 05 11 02 30 30 [...] #1 J 51 MG 0 TA B WV 00 09 11 00 30 30 WA [...] 5- 0- 00 MA 25 EN ve WV 99 20 20 RT 9 O- IL [...] UL AR MA CY #1 51 0 TR 00 05 11 02 90 30 [...] PH UL M 10 -1 51 0 HY 00 05 09 01 30 [...] AH 50 0 J MG TA B LI 54 05 09 01 30 30 WA 70 LA Ac SI 45 -2 -1 .0 L- 51 UR ti NO 80 5- 1- 00 MA 25 EN ve WV 99 20 20 RT 9 O- IL [...] AH 75 0 J MG TA B WV 00 09 09 00 30 30 WA [...] 08 S AN 5 57 NA 63 00 06 07 00 15 10 KR [...] MG CY TA #9 BL 01 ET PE 00 06 07 00 21 7 WA 30 WA Ac NI 09 -0 -0 .0 LG 76 RR ti CI 31 9- 3- 00 RE 34 EN ve LL 17 20 20 EN 0 IN 41 08 08 S BR 0 57 EN VK 63 TO N 50 D 0 MG TA BL ET TR 00 05 06 00 90 30 WA 70 No Ac AM 37 -2 -0 .0 L- 52 t ti AD 84 9- 5- 00 MA 02 Av ve OL 15 20 20 RT 8 ai 10 08 08 la HC 1 PH bl L M e 50 10 -1 MG 51 0 TA BL ET WV 00 02 06 02 30 30 WA [...] 5- 5- 00 MA 25 Av ve WV 99 20 20 RT 9 ai IL 41 08 08 la 0 PH bl 40 M e 10 MG -1 51 TA 0 BL ET ME 00 05 06 00 [...] MG -1 51 TA 0 BL ET WV 00 02 04 01 30 30 70 No Ac EM 04 [...] 6- 4- 00 MA 58 Av ve WV 99 20 20 RT 6 ai IL [...] BL ET GA 59 04 04 00 12 30 70 No Ac BA 76 [...] -1 51 75 0 MG TA B HY 00 02 04 30 [address] 17 -0 -1 .0 L- 38 t ti OC 22 6- 7- 00 MA 58 Av ve HL 08 20 20 RT 7 ai OR 98 08 08 la OT 0 PH bl HI M e AZ 10 ID -1 E 51 50 0 MG TA B ME 00 02 04 00 30 10 70 No Ac TH 60 -0 -1 .0 L- 38 t ti OC 34 6- 7- 00 MA 58 Av ve AR 48 20 20 RT 9 ai BA 62 08 08 la MO 1 PH bl L M e 75 10 0 -1 MG 51 0 TA BL ET LI 54 02 04 30 70 No Ac SI 45 -0 -1 .0 L- 38 t ti NO 80 6- 7- 00 MA 58 Av ve WV 99 20 20 RT 6 ai IL 41 08 08 la 0 PH bl 40 M e 10 MG -1 51 TA 0 BL ET WV 00 02 04 30 30 70 No Ac EM 04 -0 -1 .0 L- 38 t ti AR 61 6- 7- 00 MA 58 Av ve IN 10 20 20 RT 8 ai 28 08 08 la 0. 1 PH bl 62 M e 5 10 MG -1 51 TA 0 BL ET AL 00 02 04 30 30 70 No Ac LO 59 -2 -1 .0 L- 33 t ti PU 15 0- 7- 00 MA 06 Av ve RI 54 20 20 RT 3 ai NO 30 08 08 la L 1 PH bl 10 M e 0 10 MG -1 51 TA 0 BL ET 00 02 04 01 30 70 No Ac 18 -0 -1 0. L- 30 t ti 50 7- 7- 00 MA 42 Av ve 10 20 20 0 RT 4 ai 70 08 08 la 1 PH bl M e 10 -1 51 0 DI 00 03 04 60 30 70 No Ac CL 78 -0 -0 .0 L- 35 t ti OF 11 4- 7- 00 MA 78 Av ve EN 78 20 20 RT 7 ai AC 90 08 08 la 1 PH bl SO M e D 10 EC -1 51 75 0 MG TA B 00 02 03 00 30 70 No Ac 18 -0 -2 0. [...] 6- 6- 00 MA 36 Av ve WV 51 20 20 RT 2 ai IL 70 08 08 la 3 PH bl 40 AR e MA MG CY TA 10 BL -2 ET 96 7 WV 00 02 03 00 30 30 WA [...] 51 TA 0 BL ET 00 02 03 00 15 3 WA 14 No Ac 59 -0 -2 .0 LG 31 t ti 10 3- 6- 00 RE 83 Av ve 34 20 20 EN 0 ai 90 08 08 S la 5 19 bl 09 e TR 00 02 03 00 90 30 [...] 10 -2 MG 96 7 TA B Immunization Name Date Rout CVX Reac Dose [...] IN 0.5 ML DOSA GE IM USE Procedures Procedure DOS Code Location Performer Comment COMPREHEN 90583 [facility] METABOLIC INC INC PANEL C-REACTIV 29687 [facility] E PROTEIN [facility] INC INC DNA 13702 [facility] ANTIBODY 7 [facility] P[place]QU[place]/DO INC INC UBLE STRANDED SEDIMENTA 41537 [facility] W[facility] TION RATE 7 [facility] RBC INC INC NON-AUTOM ATED CYCLIC 84778 [facility] CITRULLIN 7 [facility] ATED INC INC PEPTIDE ANTIBODY BLOOD 73714 [facility] COUNT [facility] COMPLETE INC INC AUTO&AUTO DIFRNTL WBC RHEUMATOI 56872 [facility] D FACTOR 7 [facility] QUANTITAT INC INC SAM ANTINUCLE 91260 [facility] AR 7 [facility] ANTIBODIE INC INC S DA MRI 50949 [place] [facility] SPINAL 7 MEDICAL CANAL IMAGING LUMBAR ASS W/O CONTRAST MATERIAL 3D 11456 [place] [facility] RENDERING 7 MEDICAL W/INTERP IMAGING & ASS POSTPROCE SS SUPERVISI ON OTHER 0309 [facility] EXPLORATI 4 N N ON&DECOMP [facility] CANAL RADEX 05959 [facility] TRA SPINE 4 [place] LUMBOSACR ORTHOPAED AL 2/3 ICS PLC VIEWS RADIOLOGI 10377 [facility] C EXAM 3 [facility] CHEST 2 INC INC VIEWS FRONTAL&L ATERAL IAADI 27947 AND[facility] INFFLUENZ 3 [facility] A A VIRUS INC INC IAADI 17428 [facility] INFLUENZA 3 [facility] [place] [address] [facility] THYROXINE 3 [facility] TOTAL INC INC HEMOGLOBI 06107 [facility] W[facility] N 3 [facility] GLYCOSYLA INC INC TYRESE A1C NATRIURET 45308 [facility] W[facility] IC 3 [facility] [place] [address] [facility] W[facility] TROPONIN 3 [facility] QUANTITAT INC INC SAM GENERAL 39811 [facility] HEALTH 3 [facility] PANEL INC INC CREATINE 17208 [facility] KINASE 3 [facility] TOTAL INC INC RADIOLOGI 73065 [facility] W[facility] C 3 [facility] EXAMINATI INC INC ON CHEST [place] FRONTAL ECG 84879 CARMELINA ESPARZA ROUTINE 3 EMERGENCY DANIELLA ECG SERVICES W/LEAST 12 LDS I&R ONLY ECG 33610 [facility] ROUTINE 3 [facility] ECG INC INC W/LEAST 12 LDS TRCG ONLY W/O I&R CREATINE 07735 [facility] KINASE MB 3 [facility] FRACTION INC INC ONLY COMPREHEN [address] SIVE 3 [facility] MEDICAL MED[facility] PANEL C[facility] CENTER COLLECTIO [address] N VENOUS 3 [facility] MEDICAL VENIPUNCT [facility] URE RADIOLOGI [address] C EXAM 3 [facility] CHEST 2 MEDICAL MEDICAL VIEWS CENTER CENTER FRONTAL&L ATERAL COLLECTIO [address] N VENOUS 3 [facility] MEDICAL V[place]IPUNCT [place] [address] THYROID 3 [facility] MEDICAL NG CENTER CENTER HORMONE TSH BASIC [address] METABOLIC 3 [facility] PANEL MEDICAL MEDICAL CALCIUM CENTER CENTER TOTAL BLOOD [address] COUNT 3 [facility] AUTO&AUTO CENTER [place] DIFRNTL WBC HEPATIC [address] FUNCTION 3 [facility] RADEX 59737 [facility] SPINE 3 ARTHRITIS ARTHRITIS CERVICAL AND AND 2 OR 3 RHEUM RHEUM VIEWS RADIOLOGI 13525 [place] JOSI C EXAM 3 MEDICAL ZEN CHEST 2 IMAGING VIEWS ASS FRONTAL&L ATERAL PRESSURIZ 03424 [facility] ED/NONPRE 3 [facility] SSURIZED INC INC INHALATIO N TREATMENT PRESSURIZ [address] ED/NONPRE 3 [facility] MEDICAL INHALATIO CENTER COPA[place] N TREATMENT INJ J2930 ST ST METHYLPRD 3 [facility] SODIUM [place] CENTER SUCCNAT TO [address] B[address] COUNT 3 [facility] AUTO&AUTO [facility] DIFRNTL WBC BASIC [address] METABOLIC 3 [facility] CENTER TOTAL CRITICAL [address]646 ST TAMICA CARE 3 [place] MAR ILL/INJUR MED CTR ED PATIENT INIT 30-74 MIN RADIOLOGI 61169 RADIOLOGY DOERGER C EXAM 3 KIR CHEST 2 ASSOCIATE VIEWS S OF NOTH FRONTAL&L ATERAL COLLECTIO [address] N VENOUS 3 [facility] VENIPUNCT [facility] CENTER URE ECG [address] ST HULLER ROUTINE 3 [place] RAL ECG MED CTR W/LEAST 12 LDS I&R ONLY THER [address] PROPH/DX 3 [facility] NJX IV MEDICAL MEDICAL PUSH [facility] SINGLE/1S T SBST/DRUG ECG [address] ROUTINE 3 [facility] ECG MEDICAL MEDICAL W/LEAST CENTER CENTER 12 LDS TRCG ONLY W/O I&R DEMO&/ELPIDIO [address] L OF PT 3 [place] [facility] AERS[facility] CENTER CENTER GEN/NEB/I NHLR/[place] [address] [facility] GAMMAGLOB 3 [facility] ULIN IGE INC INC SPACR A4627 MT MED MT MED BAG/RESRV 3 EQUIPMENT EQUIPMENT OR W/WO INC INC MASK W/METRD DOSE INHAL RADIOLOGI 18276 ANDRY Neil EXAM 3 [facility] CHEST 2 INC INC VIEWS FRONTAL&L ATERAL IIV3 07506 PENDING SALE TO [facility] VACCINE 3 ALLERGY NERI SPLIT AND VIRUS 0.5 ASTHMA ML DOSAGE IM USE CUL BACT 24850 [facility] XCPT 3 [facility] URINE INC INC BLOOD/STO OL AEROBIC ISOL SMR PRIM 86084 [facility] SRC 3 [facility] GRAM/GIEM INC INC SA STAIN BCT FUNGI/ROSA L BLOOD 72302 [facility] COUNT 3 [facility] COMPLETE INC INC AUTO&AUTO DIFRNTL WBC BRNCDILAT 12242 PENDING [facility]ALE TO [facility] RSPSE 3 ALLERGY NERI SPMTRY AND PRE&POST- ASTHMA BRNCDILAT ADMN RADEX 61582 [facility] SPINE 3 ARTHRITIS ARTHRITIS LUMBOSACR AND AND AL 2/3 RHEUM RHEUM VIEWS SPMTRY 49201 PENDING SALE TO [facility] W/VC 2 ALLERGY NERI EXPIRATOR AND Y ROSALIA ASTHMA W/WO MXML VOL VNTJ RADIOLOGI 22945 [facility] C EXAM 2 [facility] CHEST 2 INC INC VIEWS FRONTAL&L ATERAL THERAPEUT 41805 [facility] IC 2 [facility] PROPHYLAC INC INC TIC/DX INJECTION SUBQ/IM PRESSURIZ 48856 [facility] ED/NONPRE 2 [facility] SSURIZED INC INC INHALATIO N TREATMENT GROUND A0425 [facility] MILEAGE 2 AMBULANCE AMBULANCE PER SERVICE SERVICE STATUTE MILE AMB A0427 [facility] SERVICE 2 AMBULANCE AMBULANCE ALS SERVICE SERVICE EMERGENCY TRANSPORT LEVEL 1 RADIOLOGI 26379 [facility] C EXAM 2 [facility] CHEST 2 INC INC VIEWS FRONTAL&L ATERAL ADMN SET A7005 MT MED MT MED W/SM VOL 2 EQUIPMENT EQUIPMENT NONFILTR INC INC NEBULIZR NON-DISPB L NEBULIZER E0570 MT MED MT MED WITH 2 EQUIPMENT EQUIPMENT COMPRESSO INC INC R BRNCDILAT 61080 [facility] RSPSE 2 ALLERGY NERI SPMTRY AND PRE&POST- ASTHMA BRNCDILAT ADMN PRESSURIZ 37892 [facility] ED/NONPRE 2 [facility] SSURIZED INC INC INHALATIO N TREATMENT URNLS DIP [address] [facility] STICK/TAB INC INC LET REAGENT AUTO MICROSCOP Y SUSCEPTIB 90452 ANDRY WILDE LTY STDY [address] [facility] ANTIMICRB INC INC IAL MICRO/AGA R DILUTJ CULTURE 63976 ANDRY WILDE BACTERIAL 2 [facility] INC INC QUANTTATI VE COLONY COUNT URINE CULTURE 15225 [address] [facility] ISOL&PRSM INC INC PTV ID ISOLATE EA URINE RADIOLOGI 83551 ANDRY Neil EXAM 2 [facility] CHEST 2 INC INC VIEWS FRONTAL&L ATERAL RADIOLOGI 93660 ANDRY WILDE C EXAM 2 [facility] CHEST 2 INC INC VIEWS FRONTAL&L ATERAL [facility] G0378 ANDRY WILDE OBSERVATI 2 [facility] ON INC INC SERVICE PER HOUR COMPREHEN 09749 ANDRY WILDE SIVE 2 [facility] METABOLIC INC INC PANEL BLOOD 34999 ANDRY WILDE COUNT 2 [facility] COMPLETE INC INC AUTO&AUTO DIFRNTL WBC RADEX ABD 43655 [place] JOSI COMPL 2 MEDICAL ZEN AQT ABD IMAGING W/S/E/D ASS V[place] [address] [place] [address] [facility] TOBINUTCHER ABDOMEN & 2 MEDICAL ZEN PELVIS IMAGING W/O ASS CONTRST 1/> BODY RE URINE 25763 ANDRY WILDE 2 [facility] TEST INC INC VISUAL COLOR CMPRSN METHS 3D 64861 [place] PRATER RENDERING 2 MEDICAL ZEN IMAGING W/INTERP& ASS POSTPROC DIFF WORK STATION GROUND A0425 RUIZ MELCHOR MILEAGE 2 CO CO PER AMBULANCE AMBULANCE STATUTE TAXIN TAXIN MILE AMBULANCE A0429 RUIZ RUIZ SERVICE 2 CO CO BLS AMBULANCE AMBULANCE EMERGENCY TAXIN TAXIN TRANSPORT COMPREHEN 84148 ANDRY WILDE SIVE 2 [facility] METABOLIC INC INC PANEL TDAP 08977 ANDRY WILDE VACCINE [address] [facility] YRS/> IM INC INC RADIOLOGI 83447 [place] PRATER C 2 MEDICAL ZEN EXAMINATI IMAGING ON CHEST ASS SINGLE VIEW FRONTAL IM ADM 41645 ANDRY WILDE PRQ ID 2 [facility] SUBQ/IM INC INC NJXS 1 [facility] G0378 ANDRY WILDE OBSERVATI 2 [facility] ON INC INC SERVICE PER HOUR LOCM Q9967 ANDRY WILDE [phone] [facility] MG/ML INC INC IODINE CONCENTRA TION PER ML INCISION 31632 CARMELINA RUBIO & 2 [facility] ABSCESS SIMPLE/SI NGLE SUSCEPTIB 57170 ANDRY WILDE LTY STDY [address] [facility] ANTIMICRB INC INC IAL MICRO/AGA R DILUTJ CUL BACT 98012 ANDRY WILDE AEROBIC 2 [facility] ADDL INC INC METHS DEFINITIV E EA ISOL CUL BACT 14565 [address] WIL[address] XCPT [address] [facility] URINE INC INC BLOOD/STO OL AEROBIC ISOL INCISION 18697 CARMELINA COSME & 2 EMERGENCY EMERGENCY DRAINAGE SERVICES SERVICES ABSCESS COMPLICAT ED/MULTIP LE CREATINE 44698 ANDRY WILDE KIN[address] [facility] TOTAL INC INC RADIOLOGI 91172 ANDRY WILDE C EXAM 2 [facility] CHEST 2 INC INC VIEWS FRONTAL&L ATERAL ECG 27069 ANDRY TAMAYO JR ROUTINE 2 [facility] W/LEAST P 12 LDS I&R ONLY RHYTHM 52381 ANDRY WILDE ECG 1-3 2 [facility] LEADS INC INC TRACING ONLY W/O I&R ECG 18844 [facility]OUTINE 2 [facility] ECG INC INC W/LEAST 12 LDS TRCG ONLY W/O I&R CREATINE 48997 ANDRY WILDE KINASE MB 2 [facility] FRACTION INC INC ONLY BASIC 43007 ANDRY WILDE METABOLIC 2 [facility] [place] [address] ANDRY WILDE TROPONIN 2 [facility] QUANTITAT INC INC SAM BLOOD 37478 ANDRY WILDE COUNT 2 [facility] COMPLETE INC INC AUTO&AUTO DIFRNTL WBC NATRIURET 00873 [facility] W[facility] IC 2 [facility] PEPTIDE INC INC PRESSURIZ 63246 ANDRY WILDE ED/NONPRE 2 [facility] SSURIZED INC INC INHALATIO N TREATMENT RADIOLOGI 13425 ANDRY Neil EXAM 2 [facility] CHEST 2 INC INC VIEWS FRONTAL&[place] [address] ANDRY WILDE STREPTOCO 2 [facility] CCUS INC INC GROUP A COMPREHEN 19218 [facility]IL[facility] SIVE 2 [facility] METABOLIC INC INC PANEL URNLS DIP 49576 ANDRY WILDE 2 [facility] STICK/TAB INC INC LET REAGENT AUTO MICROSCOP Y IAADI 03347 ANDRY WIL[facility] INFLUENZA 2 [facility] B VIRUS INC INC BLOOD 48312 ANDRY ANDRY COUNT 2 [facility] COMPLETE INC INC AUTO&AUTO DIFRNTL WBC CULTURE 87387 AND[facility] WIL[facility] BACTERIAL 2 [facility] BLOOD INC INC AEROBIC W/ID ISOLATES IAADI 60735 ANDRY [facility]RY INFFLUENZ 2 [facility] A A VIRUS INC INC RADIOLOGI 96548 RADIOLOGY NEILS FEDERICO C 2 EXAMINATI ASSOCIATE ON TIBIA S OF NOTH & FIBULA 2 VIEWS RHYTHM 94128 ADNRY WILDE ECG 1-3 2 [facility] LEADS INC INC TRACING ONLY W/O I&R ECG 99722 CARMELINA ESPARZA ROUTINE 2 EMERGENCY DANIELLA ECG SERVICES W/LEAST 12 LDS I&R ONLY CREATINE 65816 ANDRY WILDE KINASE 2 [facility] TOTAL INC INC COMPREHEN 87187 ANDRY WILDE SIVE 2 [facility] METABOLIC INC INC PANEL CREATINE 70361 ANDRY WILDE KINASE MB 2 [facility] FRACTION INC INC ONLY ECG 69928 ANDRY WILDE ROUTINE 2 [facility] ECG INC INC W/LEAST 12 LDS TRCG ONLY W/O I&R BLOOD 79167 ANDRY WILDE COUNT 2 [facility] COMPLETE INC INC AUTO&[place] [address] ANDRY WILDE TROPONIN 2 [facility] QUANTITAT INC INC SAM URNLS DIP 77468 ANDRY WILDE 1 [facility] STICK/TAB INC INC LET REAGENT AUTO MICROSCOP Y 3D 37632 [place] JOS[place] RENDERING 1 MEDICAL ZEN IMAGING W/INTERP& ASS POSTPROC DIFF WORK STATION CULTURE 08194 ANDRY WILDE BACTERIAL 1 [facility] INC [place] [address] ANDRY WILDE ABDOMEN & 1 [facility] PELVIS INC INC W/O CONTRAST MATERIAL COMPREHEN 83746 ANDRY WILDE SIVE 1 [facility] [place] [address] [place] JOSI ABDOMEN & 1 MEDICAL ZEN PELVIS IMAGING W/CONTRAS ASS T MATERIAL INJECTION J0595 ANDRY WILDE 1 [facility] BUTORPHAN INC INC OL TARTRATE 1 MG RADIOLOGI 51126 JOSI TOBINUTCHER C EXAM 1 ZEN ZEN CHEST 2 VIEWS FRONTAL&L ATERAL PRESSURIZ 75009 ANDRY NICOLASON ED/NONPRE 1 [facility] SSURIZED INC INC INHALATIO N TREATMENT THERAPEUT [address] IC 1 MARGARITA MARGARITA PROPHYLAC TIC/DX MEDICALCE MEDICALCE INJECTION NTER NTER SUBQ/IM OPHTH 12850 DEL RIO DEL RIO MEDICAL 1 REJI REJI XM&EVAL COMPRHNSV ESTAB PT 1/> SCREENING [address] 1 MARGARITA MARGARITA MAMMOGRAP HY MEDICALCE MEDICALCE BILATERAL NTER NTER DXA BONE 92153 RADIOLOGY DARDINGER DENSITY 1 TRINITY STUDY 1/> ASSOCIATE SITES S PSC AXIAL SKEL COMPUTER- 67704 RADIOLOGY LI AIDED 1 TOR DETECTION ASSOCIATE S PSC SCREENING MAMMOGRAP HY SCREENING G0202 RADIOLOGY LI 1 TOR MAMMOGRAP ASSOCIATE HY RAE S PSC INCL CAD WHEN PERFORMD ECG [address] [facility] [address] ECG MED CTR W/LEAST 12 LDS I&R ONLY ECG [address] ST ROUTINE 1 MARGARITA MARGARITA ECG W/LEAST MEDICALCE MEDICALCE 12 LDS NTER NTER TRCG ONLY W/O I&R ARTHROCEN 46933 DEVANTE DE LA ROSAIS 1 REED & R CHR ASPIR&/IN TEMMING J MAJOR JT/[place] [address] DEVANTE DE LA ROSA GUIDANCE 1 REED & R CHR NEEDLE TEMMING PLACEMENT IMG S&I INJECTION J3420 [facility] VIT B-12 0 [facility] CYANOCOBA CARE, IN DANIS TO 1000 MCG COLLECTIO 56246 [facility] N VENOUS 0 [facility] VENIPUNCT CARE, IN URE COMPREHEN 78678 [facility] SIVE 0 [facility] METABOLIC PANEL TDAP 96082 [facility] VACC[facility] 7 0 [facility]INT LEANNA YRS/> IM FAMILY CARE, IN CYTP C/V [address] AUTO THIN 0 MARGARITA MARGARITA LYR PREPJ SCR MEDICALCE MEDICALCE MNL NTER NTER RESCR PHYS LIPID 04428 [facility] PANEL 0 [facility] INC BLOOD 13478 [facility] COUNT 0 [facility] COMPLETE AUTO&AUTO DIFRNTL WBC GROUND A0425 [facility] NEW[facility] MILEAGE 0 FIRE FIRE PER PROTECT PROTECT STATUTE DISTR DISTR MILE KNEE L1830 [facility] 0 TECHNOLOG TECHNOLOG IMMOBLIZE IES INC IES INC R CANVAS LONGTUDNL PREFAB AMBULANCE A0429 [facility] SERVICE 0 FIRE FIRE BLS PROTECT PROTECT EMERGENCY DISTR DISTR TRANSPORT RADIOLOGI 18860 [facility]. C EXAM 0 MARGARITA MARGARITA KNEE JUDITH JUDITH COMPLETE 4/MORE VIEWS APPLICATI 06993 [facility] ON LONG 0 MARGARITA MARGARITA LEG JUDITH JUDITH SPLINT THIGH ANKLE/TOE S ECHO 54627 [facility]OLOG [facility] TTC R-T 0 Y PAT 2D ASSOCIATE W/WOM-MOD S E COMPL SPEC&COLR D IIV3 54286 [facility] VACCINE 0 [facility] LEANNA SPLIT FAMILY VIRUS 0.5 CARE, IN ML DOSAGE IM USE INJECTION J3420 [facility] VIT B-12 0 [facility] FAMILY CYANOCOBA CARE, IN DANIS TO 1000 MCG CYANOCOBA 33523 [facility] DANIS 0 [facility] VITAMIN B-12 MEDICALCE MEDICALCE NTER NTER COLLECTIO 54237 [facility] N VENOUS 0 [facility] BLOOD VENIPUNCT MEDICAL[place] [address] [facility] THYROID 0 [facility] STIMULATI NG MEDICALCE MEDICALCE HORMONE NTER NTER TSH COMPREHEN 13851 [facility] SIVE 0 MARGARITA MARGARITA METABOLIC PANEL MEDICALCE MEDICALCE NTER NTER LIPID 11837 [facility] PANEL 0 MARGARITA MARGARITA MEDICALCE MEDICALCE NTER NTER BLOOD 55920 [facility] COUNT 0 MARGARITA MARGARITA COMPLETE AUTO&AUTO MEDICALCE MEDICALCE DIFRNTL NTER NTER WBC RADEX 30281 RADIOLOGY BRANDSER WRIST 0 [place] COMPLETE ASSOCIATE MINIMUM 3 S PSC VIEWS L HRT 49800 CARDIOLOG RODRIGUEZ LARRY CATHETERI 0 Y ZATION ASSOCIATE [place] [address] CARDIOLOG RODRIGUEZ LARRY C-CATHJ 0 Y F/SLCTV C ASSOCIATE ANGRPH S I SI&R 27630 CARDIOLOG RODRIGUEZ LARRY F/NJX PX 0 Y DURING ASSOCIATE C-CATHJ S VENTR&/AT R ANGRPH I SI&R 10299 CARDIOLOG RODRIGUEZ LARRY F/NJX PX 0 Y DURING ASSOCIATE C-CATHJ S PULM&/OR SELECT INJECTION 07855 CARDIOLOG RODRIGUEZ LARRY CARDIAC 0 Y CATHJ L ASSOCIATE VENTR/L S ATR ANGIOGRAP H GONADOTRO [address] PIN 0 [facility] CHORIONIC MEDICALCE MEDICALCE QUALITATI NTER NTER VE BLOOD [address] COUNT 0 [facility] COMPLETE AUTOMATED MEDICALCE MEDICALCE NTER NTER BASIC [address] METABOLIC 0 [facility] PANEL CALCIUM MEDICALCE MEDICALCE TOTAL NTER NTER ECG 04396 CARDIOLOG RODRIGUEZ LARRY ROUTINE 0 Y ECG ASSOCIATE W/LEAST S 12 LDS W/I&R COLLECTIO [address] N VENOUS 0 [facility] BLOOD VENIPUNCT MEDICALCE MEDICALCE URE NTER NTER MYOCARDIA 90900 CARDIOLOG GRODECKI L SPECT 0 Y PAT MULTIPLE ASSOCIATE STUDIES S MYOCARDIA [address] L SPECT 0 [facility] MULTIPLE [facility] STUDIES EXTERNAL [address] ECG 0 [facility] ANALYSIS REPORT XTRNL ECG [address] & 48 HR 0 [facility] RECORDING [facility] RADEX [facility]IP [address] 0 [facility] L COMPLETE MINIMUM 2 VIEWS CV STRS 21452 CARDIOLOG GRODECKI TST 0 Y PAT XERS&/OR ASSOCIATE RX CONT S ECG W/O I&R CV STRS [address] TST 0 MARGARITA AVILA XERS&/OR JUDITH WONG RX CONT ECG TRCG ONLY CV STRS 67572 CARDIOLOG GRODECKI TST 0 Y PAT XERS&/OR ASSOCIATE RX CONT S ECG I&R ONLY XTRNL ECG 77952 [facility] SHILO 0 [place] HEART DORENE CONTINUOU PSC S RHYTHM W/I&R UP TO 48 HRS ECG 91917 [facility] ROUTINE 0 [facility]INT LEANNA [facility] FAMILY W/LEAST CARE, IN 12 LDS W/I&R INJECTION J3420 [facility] VIT B-12 0 [facility]INT [facility] CYANOCOBA CARE, IN DANIS TO 1000 MCG CYANOCOBA 24535 [facility] DANIS 0 [facility] VITAMIN B-12 COMPREHEN 59196 [facility] SIVE 0 [facility] METABOLIC PANEL LIPID 84470 [facility] PANEL 0 [facility] BLOOD 83397 [facility] COUNT 0 [facility] COMPLETE AUTO&AUTO DIFRNTL WBC INJECTION J3420 [facility]12 0 [facility] [place] [facility] CYANOCOBA CARE, DANIS TO INC. 1000 MCG INJECTION J3420 [facility], [facility]IT B-12 0 [facility] [place] [facility] CYANOCOBA CARE, DANIS TO INC. 1000 MCG INJECTION J3420 [facility], VIT B-12 0 [facility]INT [facility] CYANOCOBA CARE, DANIS TO INC. 1000 MCG INJECTION J3420 [facility], VIT B-12 0 [facility] CYANOCOBA CARE, DANIS TO INC. 1000 MCG INJECTION J3420 [facility], VIT B-12 0 [facility] CYANOCOBA CARE, DANIS TO INC. 1000 [address] OSTERHAGE SURG 0 [facility] GROSS&DANIELLA ROSCOPIC EXAM LAPAROSCO [address] ST YELICH, PY SURG 0 MARGARITA Lazar CHOLECYST ECTOMY PHYSICIAN S ANES 26934 WENDY OSEI INTRAPERI 0 NT N, TONEAL ANESTHESI VIDA UPPER OLOGIST ABDOMEN W/LAPS NOS LIPID 65122 [facility] PANEL 0 [facility] BLOOD 71069 [facility] COUNT 0 [facility] COMPLETE AUTO&AUTO DIFRNTL WBC COLLECTIO 80454 [facility]ALTH [facility], N VENOUS 0 [facility] VENIPUNCT [facility]. CYANOCOBA 51729 [facility] DANIS 0 [facility] VITAMIN B-12 COMPREHEN 96286 [facility] SIVE 0 [facility] METABOLIC PANEL INJECTION J2405 [address] [facility] ON HCL PER 1 MG URNLS DIP [address] STICK/TAB [facility] LET RGNT NON-AUTO W/O MICRSCP THER [address] [facility] PROPH/DX [address] [place] [address] NJX IV [facility] PUSH SINGLE/1S T SBST/DRUG BLOOD [address] [facility] COUNT [address] [place] [address] COMPLETE [facility] AUTO&AUTO DIFRNTL WBC THERAPEUT [address] [facility] IC [address] [place] [address] INJECTION [facility] IV PUSH EACH NEW DRUG URNLS DIP [address] STICK/TAB [facility] LET REAGENT AUTO MICROSCOP Y BASIC [address] [facility] METABOLIC [address] [place] [address] PANEL [facility] CALCIUM TOTAL SERVICES 25964 JUDITH GENTILE, SHIKHA 0 URGENT MOHAMED OFFICE CARE OTH/THN REG SCHED HOURS RADIOLOGI 33407 RADIOLOGY Rashaad KEITH EXAM 0 GRISELDA A CHEST 2 ASSOCIATE VIEWS S PSC FRONTAL&[place] [address] RADIOLOGY GRIFFITHS, ABDOMINAL 0 PEDRITO L REAL ASSOCIATE TIME S PSC W/IMAGE LIMITED COLLECTIO 18781 [facility], N VENOUS 9 POINT CHRISTI M BLOOD FAMILY VENIPUNCT CARE, URE INC. SIMPLE 52417 EMERGENCY [place], REPAIR 9 CARE NAVEEN P SCALP/NEC PHYS K/AX/JAYLEN [facility] T/TRUNK [place] 2.5CM/< CLOSURE [address] [facility] SKIN&SUBC [address] [place] [address] UTANEOUS [facility] TISSUE OTHER SITES RADEX 23234 DEVANTE DE LA ROSA SPINE 9 REED & R, LUMBOSACR TEMMING COBY AL 2/3 ER L VIEWS RADEX 98945 DEVANTE DE LA ROSA HAND 2 9 REED & R, [place] [address] [facility] THYROID 9 [facility] STIMULATI NG HORMONE TSH RADIOLOGI 56694 DEVANTE DE LA ROSA C 9 REED & R, EXAMINATI TEMKRISTYN COBY ON KNEE ER L 1/2 VIEWS COLLECTIO 07595 [facility] N VENOUS 9 [facility] BLOOD VENIPUNCT URE CREATINE 68506 [facility] KINASE 9 [facility] INC TOTAL SEDIMENTA 09459 [facility] TION RATE 9 [facility] INC RBC AUTOMATED RHEUMATOI 97575 [facility] FACTOR 9 DIAGNOSTI DIAGNOSTI [place] [address] [facility] BLOOD/URI 9 [facility] INC C ACID CYCLIC 13231 [facility] CITRULLIN 9 DIAGNOSTI DIAGNOSTI ATED CS IN CS IN PEPTIDE ANTIBODY RADEX 50197 RADIOLOGY JAIR, FOOT 9 COMPLETE ASSOCIATE MARGARITA MINIMUM 3 S PSC A VIEWS RADEX 14803 RADIOLOGY [place], SPINE 9 JV L LUMBOSACR ASSOCIATE AL 2/3 S PSC VIEWS RADEX 77308 RADIOLOGY [place], SPINE 9 JV L CERVICAL ASSOCIATE 4 OR 5 S PSC VIEWS URNLS DIP [address] STICK/TAB [facility] LET REAGENT AUTO MICROSCOP Y BLOOD [address] COMPLETE [facility] AUTO&AUTO DIFRNTL WBC OPHTH 27700 PREZAY, PREZAY, MEDICAL 8 ZACKARY M ZACKARY M XM&EVAL GINAE NEW PT 1/> VST URNLS DIP 17598 [facility]ALTH LU[facility]NEENO-A 8 POINT LVAREZ, STICK/TAB FAMILY MELVA J LET RGNT CARE, AUTO W/[place] [address] [facility] NON-IMMUN 8 [facility] OLOGIC OTH/THN CYTOPATHI C CULTURE 76464 [facility] BACTERIAL 8 [facility] INC QUANTTATI VE COLONY COUNT URINE CULTURE 07135 [facility] BCT 8 [facility] INC ISOL&PRSM [place] [address] [facility] BLOOD/URI 8 [facility] INC C ACID BASIC 36772 [facility] METABOLIC 8 [facility] PANEL CALCIUM TOTAL COLLECTIO 04685 HEALTH LUANNEENO-A N VENOUS 8 POINT [place], BLOOD FAMILY MELVA J VENIPUNCT CARE, URE INC. RADEX [address] MINIMUM 3 VIEWS COMPREHEN 44224 [facility] SIVE 8 [facility] INC METABOLIC PANEL COLLECTIO 54056 [facility]ALTH LUANNEENO-A N VENOUS 8 POINT [place], BLOOD FAMILY MELVA J VENIPUNCT CARE, URE INC. LIPID 33643 [facility] PANEL 8 [facility] BLOOD 20565 [facility] COUNT 8 [facility] [place] [address] [facility] BLOOD/URI 8 [facility] INC C ACID RHEUMATOI 94539 [facility] D FACTOR 8 [facility] INC QUANTITAT SAM APPLICATI [address] [facility] ON OF [address] [place] [address] [facility] RADEX 04232 RADIOLOGY HURST, ANKLE 8 IAN R COMPLETE ASSOCIATE MINIMUM 3 S PSC VIEWS Encounters Encounter Start End Date Code Location Performer Type Date HOSPITAL [facility] - 7 7 [facility] ANDRY - 7 7 [facility] ANDRY [facility] 7 7 [facility] - 7 7 [facility] OFF[facility] 90018 [facility] 7 PHYSICIAN T VISIT S GROUP 25 MINUTES HOSPITAL ANDRY - 7 7 [facility] ANDRY - 7 7 [facility] ANDRY - 7 7 [facility] ANDRY - 7 7 [facility] ANDRY - 7 7 [facility] ANDRY - 7 7 [facility]PATI[facility] ANDRY - 7 7 [facility]PATIEN [facility] ANDRY - 7 7 [facility]PATI[facility] ANDRY - 7 7 [facility] ANDRY - 7 7 [facility]PATI[facility] ANDRY - 7 7 [facility]PATI[facility] ANDRY - 7 7 [facility]PATIEN [facility] ANDRY - 7 7 [facility]PATIEN [facility] ANDRY - 7 7 [facility]PATI[facility] ANDRY - 7 7 [facility]PATI[facility] UK - 7 7 [facility] OUTPATIEN [facility] UK - 7 7 [facility] - 7 7 [facility] ANDRY - 7 7 [facility]PATI[facility] ANDRY - 6 6 [facility]PATIEN [facility] UK - 6 6 [facility] AND[facility] - 6 6 [facility]PATIEN [facility] ANDRY - 6 6 [facility] OUTPATIEN [facility] ANDRY - 6 6 [facility]PATIEN [facility] ANDRY - 6 6 [facility]PATIEN [facility] UNIVERSIT - 6 6 [facility] ANDRY - 6 6 [facility] OUTPATIEN [facility] ANDRY - 6 6 [facility] OUTPATIEN [facility] ANDRY - 6 6 [facility] OUTPATIEN [facility] ANDRY - 6 6 [facility]PATIEN [facility] ANDRY - 6 6 [facility]PATIEN [facility] ANDRY - 6 6 [facility]PATIEN [facility] UNIVERSIT - 6 6 Y [facility] ANDRY - 6 6 [facility]PATIEN [facility] ANDRY - 6 6 [facility]PATIEN [facility] ANDRY - 6 6 [facility]PATIEN [facility] ANDRY - 6 6 [facility]PATI[facility] ANDRY - 6 6 [facility]PATI[facility] ANDRY - 6 6 [facility]PATI[facility] ANDRY - 6 6 [facility]PATIEN [facility] ANDRY - 6 6 [facility]PATIEN [facility] ANDRY - [address] [facility] OUTPATIEN [facility] UNIVERSIT - 5 5 Y [facility] ANDRY - [address] [facility] UNIVERSIT - 5 5 Y [facility] ANDRY - 5 5 [facility]PATIEN [facility] ANDRY - [address] [facility] OUTPATIEN [facility] ANDRY - 5 5 [facility] OUTPATIEN [facility] ANDRY - 5 5 [facility] OUTPATIEN [facility] ANDRY - 4 4 [facility] ANDRY - 4 4 [facility] OUTPATIEN [facility] [place] - 4 4 N [facility] ANDRY - 4 4 [facility] OUTPATIEN [facility] OFFICE 77090 [facility] TRA CONSULTAT 4 4 [place] ION ORTHOPAED NEW/ESTAB [facility] PATIENT 40 MIN HOSPITAL ANDRY - 4 4 [facility]IEN [facility] OFFICE 19971 BRIGITTE NORMAN 4 4 DORENE DORENE T VISIT 15 MINUTES OFFICE 42383 BRIGITTE NORMAN 3 3 DORENE DORENE T VISIT 15 MINUTES OFFICE 14769 BRIGITTE NORMAN 3 3 DORENE DORENE T VISIT 15 MINUTES HOSPITAL ANDRY - 3 3 [facility] OUTPATIEN INC T EMERGENCY 41106 CARMELINA JARAMILLO 3 3 EMERGENCY III [facility]ISIT HIGH/URGE NT SEVERITY EMERGENCY 85612 ANDRY 3 3 [facility] INC T VISIT LIMITED/M INOR PROB EMERGENCY 63603 CARMELINASHILO BARBOSA ZEN 3 3 EMERGENCY [facility] SERVICES T VISIT HIGH/URGE NT SEVERITY OFFICE 88716 BRIGITTE BRIGGS OUTPATIEN 3 3 DORENE DORENE T VISIT 15 MINUTES OFFICE 14630 CAR[facility]ELINA [facility] GRE GRE T NEW 45 MINUTES HOSPITAL ANDRY - [address] [facility] T EMERGENCY 99639 ANDRY 3 3 [facility] T VISIT LOW/MODER SEVERITY EMERGENCY 36942 CARMELINA ESPARZA DEPT 3 3 EMERGENCY DANIELLA VISIT SERVICES HIGH SEVERITY& THREAT [facility] ST - 3 3 [facility] T COPAKE EMERGENCY 7[address] [facility] 3 3 [facility] T VISIT MODERATE SEVERITY [facility]OSPITAL ST - 3 3 [facility] T COPAKE EMERGENCY 87603 3 3 [facility] MEDICAL T VISIT CENTER HIGH/URGE NT SEVERITY OFFICE 67046 [facility] 3 3 ARTHRITIS T VISIT AND 25 RHEUM MINUTES OFFICE 67102 [facility] 3 3 ARTHRITIS T VISIT AND 25 RHEUM MINUTES EMERGENCY 72396 CARMELINA 3 3 EMERGENCY [facility] SERVICES T VISIT MODERATE SEVERITY HOSPITAL ANDRY - [address] [facility] OUTPATIEN INC T EMERGENCY 55303 ANDRY 3 3 [facility] T VISIT LOW/MODER SEVERITY EMERGENCY 32235 CARMELINA ALFARO JOANNE DEPT 3 3 EMERGENCY VISIT SERVICES HIGH SEVERITY& THREAT [facility] ANDRY - 3 3 [facility] T EMERGENCY [facility]76 [facility] DEPT 3 3 MARGARITA VISIT [facility] 3] SEVERITY& THREAT [facility] - 3 3 MARGARITA OUTPATIEN [facility] ANDRY - 3 3 [facility] T OFFICE 10973 [facility] 3 3 ALLERGY NERI T VISIT AND 40 ASTHMA MINUTES OFFICE 44555 [facility] 3 3 ARTHRITIS T VISIT AND 25 RHEUM MINUTES OFFICE 47550 [facility] JAYSHREE OUTPATIEN 2 2 ALLERGY NERI T VISIT AND 25 ASTHMA MINUTES EMERGENCY 96748 CARMELINA CASSIDY 2 2 EMERGENCY [facility] SERVICES T VISIT HIGH/URGE NT SEVERITY HOSPITAL ANDRY - 2 2 [facility] OUTPATIEN INC T EMERGENCY 45379 ANDRY 2 2 [facility] DEPARTMEN INC T VISIT MODERATE SEVERITY OFFICE 54488 [facility] 2 2 ARTHRITIS T VISIT AND 25 RHEUM MINUTES HOSPITAL ANDRY - 2 2 [facility] OUTPATIEN INC T OFFICE 68282 [facility] JAYSHREE CONSULTAT 2 2 ALLERGY NERI ION AND NEW/ESTAB ASTHMA PATIENT 80 MIN OFFICE 55452 ARNCAREN BRIGGS OUTPATIEN 2 2 DORENE DORENE T NEW 30 MINUTES EMERGENCY 60058 ANDRY 2 2 [facility] DEPARTMEN INC T VISIT MODERATE SEVERITY EMERGENCY 55984 CARMELINA JARAMILLO 2 2 EMERGENCY III [facility] SERVICES T VISIT HIGH/URGE NT SEVERITY HOSPITAL ANDRY - 2 2 [facility] T [facility]OSPITAL ANDRY - 2 2 [facility] INC T EMERGENCY 02769 CARMELINA ESPARZA 2 2 EMERGENCY D[facility]IELLA DEPARTMEN SERVICES T VISIT HIGH/URGE NT SEVERITY EMERGENCY 23627 ANDRY 2 2 [facility] INC T VISIT LOW/MODER SEVERITY [facility]OSPITAL ANDRY - 2 2 [facility] OUT[facility] INC T EMERGENCY 74269 ANDRY DEPT 2 2 [facility] VISIT INC HIGH SEVERITY& THREAT [facility] EMERGENCY 41883 ANDRY 2 2 [facility] DEPARTMEN INC T VISIT MODERATE SEVERITY EMERGENCY 56998 CARMELINA RUBIO 2 2 EMERGENCY DEPARTMEN SERVICES T VISIT HIGH/URGE NT SEVERITY HOSPITAL ANDRY - 2 2 [facility] T [facility]OSPITAL ANDRY - 2 2 [facility] INC T EMERGENCY 61251 CARMELINA 2 2 EMERGENCY [facility] SERVICES T VISIT HIGH/URGE NT SEVERITY EMERGENCY 79112 ANDRY 2 2 [facility] INC T VISIT MODERATE SEVERITY OFFICE 27902 [facility] 2 2 ARTHRITIS T VISIT AND 25 RHEUM MINUTES EMERGENCY 74608 ANDRY 2 2 [facility] DEPART[facility] INC T VISIT MODERATE SEVERITY HOSPITAL ANDRY - 2 2 [facility] INC T EMERGENCY 87080 CARMELINA BAEZ 2 2 EMERGENCY [facility] VISIT SERVICES HIGH SEVERITY& THREAT [facility] ANDRY - 2 2 [facility] OUT[facility] INC T EMERGENCY 55981 ANDRY 2 2 [facility] DEPARTMEN INC T VISIT MODERATE SEVERITY EMERGENCY 48340 CARMELINA ESPARZA 2 2 EMERGENCY [facility] DEPARTMEN SERVICES T VISIT HIGH/URGE NT SEVERITY HOSPITAL ANDRY - 2 2 [facility] OUT[facility] INC T EMERGENCY 26521 CARMELINA JOLLEY 2 2 [facility] VISIT HIGH/URGE NT SEVERITY EMERGENCY 70712 [facility] 2 2 [facility] VISIT MODERATE SEVERITY OFFICE 71570 [facility] 2 ARTHRITIS T VISIT AND 25 RHEUM MINUTES OFFICE 73257 [facility] 2 2 ARTHRITIS T VISIT AND 25 RHEUM MINUTES EMERGENCY 81873 [facility] 2 2 [facility] T VISIT MODERATE SEVERITY EMERGENCY 56979 ANDRY 2 2 [facility] T VISIT MODERATE SEVERITY EMERGENCY 82382 CARMELINA ESPARZA DEPT 2 2 EMERGENCY DANIELLA VISIT SERVICES HIGH SEVERITY& THREAT [facility] ANDRY - 2 2 [facility] INC T EMERGENCY 30736 [facility] 1 1 III RAGHAV III RAGHAV VISIT HIGH SEVERITY& THREAT [facility] ANDRY - 1 1 [facility] OUTPATIEN INC T EMERGENCY 02810 ANDRY 1 1 [facility]ISIT MODERATE SEVERITY EMERGENCY 30190 ANDRY 1 1 [facility] T VISIT MODERATE SEVERITY EMERGENCY 75731 VILMA ESPARZA 1 1 [facility] DEPARTMEN T VISIT HIGH/URGE NT SEVERITY [facility]OSP[facility] - [facility] 1 [facility] - [facility] 1 [facility] T EMERGENCY 24725 VILMA ESPARZA 1 1 [facility] DEPARTMEN T VISIT HIGH/URGE NT SEVERITY EMERGENCY 43723 ANDRY 1 1 [facility] T VISIT LOW/MODER SEVERITY EMERGENCY 03090 ST 1 1 [facility] DEPARTMEN T VISIT MEDICALCE LOW/MODER NTER SEVERITY [facility]PITAL ST - 1 1 [facility] OUTPATIEN T MEDICALCE NTER EMERGENCY 74530 ST [place] 1 1 [facility] MAR DEPARTMEN MED CTR T VISIT MODERATE SEVERITY EMERGENCY 73104 ANDRY 1 1 [facility] T VISIT MODERATE SEVERITY [facility]OSPITAL ANDRY - 1 1 [facility] T EMERGENCY 15480 CARMELINA ESPARZA 1 1 EMERGENCY [facility]ANIELLA DEPARTMEN SERVICES T VISIT HIGH/URGE NT SEVERITY EMERGENCY 51916 ST 1 1 [facility] DEPARTMEN T VISIT MEDICALCE LOW/MODER NTER SEVERITY EMERGENCY 23033 [facility] ARMINDA 1 1 [facility] DEPARTMEN MED CTR T VISIT MODERATE SEVERITY [facility]OSPITAL ST - 1 1 [facility] OUTPATIEN T MEDICALCE NTER EMERGENCY 96844 ANRDY 1 1 [facility] T VISIT LOW/MODER SEVERITY [facility]OSPITAL ANDRY - 1 1 [facility] INC T EMERGENCY 83130 CARMELINA SIMON 1 1 EMERGENCY DEPARTMEN SERVICES T VISIT MODERATE SEVERITY [facility] ST - 1 1 [facility] OUTPATIEN T MEDICALCE NTER EMERGENCY 51225 [facility] ELIDIA 1 1 [facility] DEPARTMEN MED CTR T VISIT MODERATE SEVERITY [facility]PITAL ST - 1 1 [facility] OUTPATIEN T MEDICALCE NTER [facility] - 1 1 [facility] OUTPATIEN T MEDICALCE NTER EMERGENCY 40541 [facility] 1 1 [facility] N FEDERICO DEPARTMEN MED CTR T VISIT HIGH/URGE NT SEVERITY EMERGENCY 92645 ST 1 1 [facility] DEPARTMEN T VISIT MEDICALCE MODERATE NTER SEVERITY EMERGENCY 46933 ST BRACKEN 1 1 [facility] ARMINDA DEPARTMEN MED CTR T VISIT MODERATE SEVERITY OFFICE 71933 [facility]GE[facility] OUTPATIEN 1 1 REED & R CHR T VISIT [facility] [address] - 0 0 [place] OUTPATIEN T MEDICALCE NTER PERIODIC 94410 [facility] PREVENTIV 0 0 [facility] LEANNA E MED EST FAMILY PATIENT CARE, [place] 18-39 YRS EMERGENCY [address]24 ST VINAYLENOREOGALLALA 0 0 [facility] MARY DEPARTMEN MED CTR T VISIT MODERATE SEVERITY EMERGENCY 62775 EMERGENCY LEIDY 0 0 CARE GIORGIO DEPARTMEN PHYS T VISIT [facility] - 0 0 [facility] OUTPATIEN JUDITH T OFFICE 48716 [facility] 0 0 PO[facility] LEANNA T VISIT 5 FAMILY MINUTES CARE, IN OFFICE 17961 CARDIOLOG RODRIGUEZ LARRY OUTPATIEN 0 0 Y T VISIT ASSOCIATE [address] - 0 0 [facility] OUTPATIEN T MEDICALCE NTER EMERGENCY 438[address] ST MAGDALENASRAVAN 0 0 [facility] VIOLET DEPARTMEN MED CTR T VISIT MODERATE SEVERITY HOSPITAL ST - 0 0 [facility] OUTPATIEN T MEDICALCE NTER OFFICE 28763 CARDIOLOG RODRIGUEZ LARRY OUTPATIEN 0 0 Y T NEW 45 ASSOCIATE MINUTES [facility] ST - 0 0 [facility] OUTPATIEN T MEDICALCE NTER [facility] ST[facility] - 0 0 [facility] OUTPATIEN JUDITH T OFFICE 59978 [facility] 0 0 [place] LEANNA T VISIT FAMILY 25 CARE, IN MINUTES OFFICE 33297 [facility], OUTPATI[facility] 0 0 POINT CHHAYA T VISIT FAMILY 15 CARE, MINUTES INC. OFFICE 68934 [facility], OUTPATIEN 0 0 [place] T VISIT 5 FAMILY MINUTES CARE, INC. OFFICE 50015 [facility], OUTPAT[facility] 0 0 [place] T VISIT FAMILY 15 CARE, MINUTES INC. OFFICE 49665 [facility] OUT[facility] 0 0 [place] T VISIT FAMILY 10 CARE, MINUTES INC. OFFICE 11308 [facility], OUT[facility] 0 0 [place] T VISIT FAMILY 25 CARE, MINUTES INC. OFFICE 27298 ST YELICH, CONSULTAT 0 0 MARG[facility]ITA FRAGA/KAREN PHYSICIAN PATIENT S 60 MIN OFFICE 68659 [facility] OUTPAT[facility] 0 0 [place] T VISIT FAMILY 15 CARE, MINUTES INC. OFFICE 89485 [facility], OUT[facility] 0 0 [place] T VISIT FAMILY 25 CARE, MINUTES INC. EMERGENCY 81623 [facility] 0 0 [facility] T VISIT HIGH/URGE NT SEVERITY [facility] - 0 0 [facility] EMERGENCY 65151 EMERGENCY LOVE, 0 0 CARE WILMAN A [facility] T VISIT [facility] [place] NT SEVER[facility] 0 0 [facility] T VISIT MODERATE SEVERITY OFFICE 07231 JUDITH GENTILE OUTPATIEN 0 0 URGENT MOHAMED T NEW 30 CARE MINUTES EMERGENCY 75[address] [facility] 0 0 [facility] T VISIT MODERATE SEVERITY [facility] 94756 EMERGENCY EMERY, 0 0 CARE BYRON L DEPARTMEN PHYS T VISIT [facility] [place] NT [facility] 0 0 [facility] OFFICE 86533 [facility] 0 0 PO[place] T VISIT FAMILY 15 CARE, MINUTES INC. OFFICE 25777 [facility] 9 9 POINT CHRISTI M T VISIT FAMILY 15 CARE, MINUTES INC. EMERGENCY 83582 EMERGENCY [place], 9 9 CARE NAVEEN P DEPARTMEN PHYS T VISIT [facility] [place] SEVERITY [facility] 9 9 [facility] OFFICE 57348 DEVANTE [facility] OUTPATI 9 9 REED & R, T VISIT MIHAELA TENORIO 15 ER L MINUTES OFFICE 93883 DEVANTE [facility] CONSULTAT 9 9 REED & R, ION TEMKRISTYN TENORIO NEW/ESTAB ER L PATIENT 60 MIN OFFICE 83016 [facility] 9 9 POINT MIRACLE D T VISIT FAMILY 15 CARE, MINUTES INC[facility] 9 9 [facility] OFFICE 13940 [facility] 9 9 POINT MIR[place]LE D T VISIT FAMILY 25 CARE, MINUTES INC[facility] [place] [address] 9 [facility] EMERGENCY 52349 EMERGENCY MISTI, 9 9 CARE RICK DEPARTMEN PHYS T VISIT [facility] [place] SE[place] [facility] 64967 [facility] 8 8 POINT LVREBECCA, T VISIT FAMILY MELVA J 25 CARE, MINUTES INC[facility] - 8 8 [facility] EMERGENCY 09509 EMERGENCY [place], 8 8 CARE LIZZIE D [facility] T VISIT [facility] [place] SE[place] 57525 [facility] 8 8 [facility] VISIT LIMITED/M INOR PROB OFFICE 57518 [facility] 8 8 PRIMARY E, JIGNESH T NEW 45 CARE MINUTES OFFICE 31596 FANGLAUREN GOLDSTEINER, [facility] 8 8 NOE Nadia Zuniga T VISIT 15 MINUTES OFFICE 33591 FANG, FANG, [facility] 8 8 NOE Nadia Zuniga T NEW 30 MINUTES OFFICE 12391 [facility] 8 8 POINT LVAREZ, T VISIT FAMILY MELVA J 25 CARE, MINUTES INC. OFFICE 21842 [facility] 8 8 POINT LVAREZ, T VISIT FAMILY MELVA J 15 CARE, MINUTES INC. [facility] [place] [address] 8 [facility] OFFICE 83367 [facility] 8 8 POINT LVAREZ, T NEW 45 FAMILY MELVA J MINUTES CARE, INC. EMERGENCY 67129 [facility] 8 8 [facility] T VISIT MODERATE SEVERITY [facility] 8 8 [facility] EMERGENCY 50519 EMERGENCY [facility] DE[facility] 8 8 CARE BRANDIE VISIT PHYS HIGH [facility] [place] TH[facility] [facility]
--- OUTSIDE RECORDS SUMMARY | 2017-07-28 02:48 | External Medical Summary Rpt | CCD ---
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 HEALTH VIRAL POINT WARTS [facility] 64775 UNSPECIFIED 10-20-2008 [facility]INT ARTHROPATHY [facility] C[facility] UNSPECIFIED 7140 RHEUMATOID 09-20-2008 [facility] ARTHRITIS [facility] 7231 CERVICALGIA 09-20-2008 [facility] 8472 LUMBAR 09-20-2008 [facility] SPRAIN AND HOSPITAL STRAIN WEST 55752 CONTUSION 09-20-2008 [facility] BACK [facility] 9599 INJURY 09-20-2008 RADIOLOGY OTHER AND ASSOCIATES UNSPECIFIED PSC UNSPECIFIED SITE 46055 UNSPECIFIED 02-05-2008 HEALTH GENITAL POINT HERPES [facility] [employer] 56303 HERPETIC 02-05-2008 [facility] TIS 2749 GOUT, 01-09-2008 [facility] UNSPECIF[facility]IMARY CARE 46551 UNSPECIFIED 01-01-2008 FANG, SITE OF NOE [employer]un[facility] ANKLE SPRAIN AND STRAIN 55838 PAIN IN 10-21-2007 [facility] ANKLE [...] ME 54 10 11 30 30 00 DC Ac LO 45 -3 -2 .0 00 L- ti XI 80 0- 4- 00 07 MA ve CA 96 20 20 51 RT M 51 17 17 84 7. 6 31 PH 5 AR MG MA CY TA BL #5 ET 91 AM 68 10 11 30 30 00 DC Ac LO 64 -2 -1 .0 00 L- ti DI 50 4- 7- 00 07 MA ve PI 51 20 20 51 RT NE 65 17 17 07 4 73 PH BE AR SY MA LA CY TE #5 10 91 MG TA B SP 00 10 11 30 30 00 DC Ac IR 22 -2 -1 .0 00 L- ti ON 82 4- 7- 00 07 MA ve OL 80 20 20 51 RT AC 31 17 17 07 TO 1 72 PH NE AR MA 25 CY MG #5 91 TA BL ET FE 00 10 11 30 30 00 DC Ac NO 09 -2 -1 .0 00 L- ti FI 37 4- 7- 00 07 MA ve BR 75 20 20 51 RT AT 69 17 17 07 E 8 74 PH 14 AR 5 MA MG CY TA #5 BL 91 ET CI 54 10 11 30 30 00 DC Ac TA 45 -2 -1 .0 00 L- ti LO 80 4- 7- 00 07 MA ve DC 88 20 20 51 RT AM 91 17 17 07 0 79 PH HB AR R MA 40 CY MG #5 91 TA BL ET IN 50 10 11 30 30 00 DC Ac VO 45 -2 -1 .0 00 L- ti KA 80 4- 7- 00 07 MA ve NA 14 20 20 51 RT 13 17 17 07 30 0 65 PH 0 AR MG MA CY TA BL #5 ET 91 HY 00 10 11 [address] 18 -2 -1 .0 00 L- ti OX 50 4- 7- 00 07 MA ve YZ 67 20 20 51 RT IN 40 17 17 07 E 1 76 PH PA AR M MA 25 CY MG #5 91 CA P QU 16 10 11 30 30 00 DC Ac ET 72 -2 -1 .0 00 L- ti IA 90 4- 7- 00 07 MA ve PI 14 20 20 51 RT NE 60 17 17 07 1 69 PH FU AR MA MA RA CY TE #5 50 91 MG TA B MO 57 10 11 30 30 00 DC Ac NT 23 -2 -1 .0 00 L- ti EL 70 4- 7- 00 07 MA ve UK 25 20 20 51 RT 53 17 17 07 T 0 70 PH SO AR D MA 10 CY MG #5 91 TA BL ET OM 60 10 11 30 30 00 DC Ac EP 50 -2 -1 .0 00 L- ti RA 50 4- 7- 00 07 MA ve ZO 14 20 20 51 RT LE 60 17 17 [address] AR MA 40 CY MG #5 91 CA PS UL E FR 99 10 11 10 34 00 DC Ac EE 07 -2 -1 0. 00 L- ti ST 30 4- 7- 00 08 MA ve YL 13 20 20 0 84 RT E 00 17 17 11 28 1 41 PH G AR LA MA NC CY ET S #5 91 FA 68 10 11 60 30 00 DC Ac MO 64 -2 -1 .0 00 L- ti TI 50 4- 7- 00 07 MA ve DI 14 20 20 50 RT NE 05 17 17 80 9 72 PH 20 AR MA MG CY TA #5 BL 91 ET LO 68 10 11 30 30 00 DC Ac SA 64 -2 -1 .0 00 L- ti RT 50 4- 7- 00 07 MA ve AN 41 20 20 51 RT 15 17 17 07 PO 4 71 PH TA AR SS MA IU CY M 10 #5 0 91 MG TA B BA 00 10 11 90 30 00 DC Ac CL 83 -2 -1 .0 00 L- ti OF 21 4- 7- 00 07 MA ve EN 02 20 20 51 RT 45 17 17 07 10 0 84 PH AR MG MA CY TA BL #5 ET 91 AD 00 10 11 12 30 00 DC Ac VA 17 -2 -1 .0 00 L- ti IR 30 4- 7- 00 07 MA ve 71 20 20 51 RT HF 72 17 17 07 A 0 67 PH 23 AR 0- MA 21 CY MC #5 G 91 IN VILLAVICENCIO LE R AT 68 10 11 30 30 00 DC Ac OR 64 -2 -1 .0 00 [...] BD 08 10 11 10 28 00 DC Ac 29 -2 -1 0. 00 L- ti UL 03 4- 7- 00 08 MA ve TR 20 20 20 0 84 RT A- 10 17 17 11 FI 9 42 PH NE AR MA PE CY N ND #5 L 91 8M MX 31 G NO 00 10 11 30 18 00 DC Ac VO 16 -2 -1 .0 00 L- ti LO 93 4- 7- 00 07 MA ve G 69 20 20 51 RT MS 61 17 17 73 X 9 32 PH 70 AR -3 MA 0 CY FL EX #5 PE 91 N SY RN FI 00 10 11 30 30 00 DC Ac SH 90 -2 -1 .0 00 L- ti 44 5- 7- 00 08 MA ve OI 04 20 20 84 RT L 36 17 17 12 1, 0 27 PH 00 AR 0 MA MG CY CA #5 PS 91 UL E GA 00 10 11 90 30 00 DC Ac BA 22 -1 -1 .0 00 L- ti PE 82 9- 7- 00 04 MA ve NT 63 20 20 53 RT IN 71 17 17 21 1 89 PH 80 AR 0 MA MG CY TA #5 BL 91 ET [place] 43 10 11 [address] 38 -2 -1 .0 00 L- ti AT 60 4- 7- 00 07 MA ve IN 53 20 20 51 RT 00 17 17 21 10 1 07 PH 0, AR 00 MA 0 CY UN IT #5 /G 91 M PO WD TR 59 10 11 1. 1 00 DC Ac IA 76 -1 -1 00 00 L- ti ZO 23 6- 0- 0 04 MA ve LA 71 20 20 53 RT M 80 17 17 26 0. 9 02 PH 25 AR MA MG CY TA #5 BL 91 ET ON 53 10 11 10 34 00 DC Ac ET 88 -1 -1 0. 00 L- ti OU 50 6- 0- 00 08 MA ve CH 24 20 20 0 84 RT 51 17 17 09 UL 0 14 PH TR AR A MA TE CY ST #5 ST 91 RI PS NO 00 10 11 30 23 00 DC Ac VO 16 -0 -0 .0 00 L- ti LO 93 7- 3- 00 07 MA ve G 69 20 20 50 RT MS 61 17 17 99 X 9 16 PH 70 AR -3 MA 0 CY FL EX #5 PE 91 N SY RN 64 10 10 4. 28 00 DC Ac T 38 -0 -2 00 00 L- ti D2 00 3- 7- 0 07 MA ve 73 20 20 51 RT 1. 70 17 17 07 25 6 82 PH AR MG MA CY (5 0, #5 00 91 0 UN IT ) FR 99 09 10 10 34 00 DC Ac EE 07 -1 -1 0. 00 L- ti ST 30 5- 3- 00 08 MA ve YL 13 20 20 0 84 RT E 00 17 17 11 28 1 41 PH G AR LA MA NC CY ET S #5 91 NO 00 09 10 30 23 00 DC Ac VO 16 -1 -1 .0 00 L- ti LO 93 5- 3- 00 07 MA ve G 69 20 20 50 RT MS 61 17 17 99 X 9 16 PH 70 AR -3 MA 0 CY FL EX #5 PE 91 N SY RN FI 00 09 10 30 30 00 DC Ac SH 90 -1 -1 .0 00 L- ti 44 5- 3- 00 08 MA ve OI 04 20 20 84 RT L 36 17 17 11 1, 0 55 PH 00 AR 0 MA MG CY CA #5 PS 91 UL E AZ 50 09 10 6. 5 00 DC Ac IT 11 -2 -1 00 00 L- ti HR 10 0- 3- 0 07 MA ve OM 78 20 20 51 RT YC 75 17 17 07 IN 1 80 PH AR 25 MA 0 CY MG #5 TA 91 BL ET GA 00 09 10 90 30 00 DC Ac BA 22 -2 -1 .0 00 L- ti PE 82 0- 3- 00 04 MA ve NT 63 20 20 53 RT IN 71 17 17 21 1 89 PH 80 AR 0 MA MG CY TA #5 BL 91 ET BA 00 09 09 90 30 00 DC Ac CL 83 -0 -2 .0 00 L- ti OF 21 6- 9- 00 07 MA ve EN 02 20 20 50 RT 45 17 17 80 10 0 14 PH AR MG MA CY TA BL #5 ET 91 AM 68 09 09 30 30 00 DC Ac LO 64 -0 -2 .0 00 [...] L- ti NO 50 07 MA ve DC 55 20 20 50 RT IL 25 [...] B CI 54 09 30 30 00 DC Ac TA 45 -0 -2 .0 00 L- ti LO 80 6- 9- 00 07 MA ve DC 88 20 20 50 RT AM 91 17 17 80 0 13 PH HB AR R MA 40 CY MG #5 91 TA BL ET ON 53 08 09 10 34 00 DC Ac ET 88 -3 -2 0. 00 L- ti OU 50 9 08 MA ve CH 24 20 20 0 84 RT 51 17 17 09 UL 0 14 PH TR AR A MA TE CY ST #5 ST 91 RI PS IN 50 09 30 30 00 DC Ac VO 45 -0 -2 .0 00 L- ti KA 80 07 MA ve NA 14 20 20 48 RT 13 17 17 89 30 0 07 PH 0 AR MG MA CY TA BL #5 ET 91 OM 60 09 30 30 00 DC Ac EP 50 -0 -2 .0 00 L- ti RA 50 9 00 07 MA ve ZO 14 20 20 48 RT LE 60 17 [address] AR MA 40 CY MG #5 91 CA PS UL E BA 00 04 27 15 31 00 DC Ac SA 00 -0 -2 .0 00 L- ti GL 27 9 07 MA ve AR 71 20 20 48 RT 55 17 17 95 10 9 02 PH 0 AR UN MA IT CY /M L #5 KW 91 IK PE N FE 00 04 27 30 30 DC Ac NO 09 -0 -2 .0 00 L- ti FI 37 - 9- 07 MA ve BR 75 20 20 48 RT AT 69 17 17 89 E 8 12 PH 14 AR 5 MA MG CY TA #5 BL 91 ET FA 68 09 09 60 30 00 DC Ac MO 64 -0 -2 .0 00 L- ti TI 50 6- 9- 00 07 MA ve DI 14 20 20 50 RT NE 05 17 17 80 9 72 PH 20 AR MA MG CY TA #5 BL 91 ET BD 08 08 09 10 30 00 DC Ac 29 -2 -2 0. 00 L- ti UL 03 4- 2- 00 08 MA ve TR 20 20 20 0 84 RT A- 10 17 17 08 FI 9 20 PH NE AR MA PE CY N ND #5 L 91 8M MX 31 G ON 53 08 09 10 30 00 DC Ac ET 88 -2 -1 0. 00 L- ti OU 50 3- 5- 00 08 MA ve CH 13 20 20 0 84 RT 61 17 17 08 DE 0 05 PH LI AR CA MA CY 33 G #5 LA 91 NC ET S IN 50 07 08 30 30 00 DC Ac VO 45 -1 -1 .0 00 L- ti KA 80 3- 1- 00 07 MA ve NA 14 20 20 48 RT 13 17 17 89 30 0 07 PH 0 AR MG MA CY TA BL #5 ET 91 LO 68 07 08 30 30 00 DC Ac SA 64 -1 -1 .0 00 L- ti RT 50 3- 1- 00 07 MA ve AN 41 20 20 48 RT 15 17 17 89 PO 4 08 PH TA AR SS MA IU CY M 10 #5 0 91 MG TA B NO 00 07 08 15 25 00 DC Ac VO 16 -1 -1 .0 00 L- ti LO 96 3- 1- 00 07 MA ve G 33 20 20 48 RT 10 91 17 17 89 0 0 19 PH UN AR IT MA S/ CY ML #5 FL 91 EX PE N MO 31 07 08 30 30 00 DC Ac NT 72 -1 -1 .0 00 L- ti EL 20 3- 1- 00 07 MA ve UK 72 20 20 48 RT 61 17 17 89 T 0 17 PH SO AR D MA 10 CY MG #5 91 TA BL ET OM 60 07 08 30 30 00 DC Ac EP 50 -1 -1 .0 00 L- ti RA 50 3- 1- 00 07 MA ve ZO 14 20 20 48 RT LE 60 17 [address] AR MA 40 CY MG #5 91 CA PS UL E QU 16 07 08 30 30 00 DC Ac ET 72 -1 -1 .0 00 L- ti IA 90 3- 1- 00 07 MA ve PI 14 20 20 48 RT NE 60 17 17 89 1 21 PH FU AR MA MA RA CY TE #5 50 91 MG TA B BA 00 07 08 15 31 00 DC Ac SA 00 -1 -1 .0 00 L- ti GL 27 3- 1- 00 07 MA ve AR 71 20 20 48 RT 55 17 17 95 10 9 02 PH 0 AR UN MA IT CY /M L #5 KW 91 IK PE N BA 00 07 08 90 30 00 [facility] CL 83 -1 -1 .0 00 L- ti OF 21 3- 1- 00 07 MA ve EN 02 20 20 48 RT 45 17 17 89 10 0 16 PH AR MG MA CY TA BL #5 ET 91 CI 54 07 08 30 30 00 DC Ac TA 45 -1 -1 .0 00 L- ti LO 80 3- 1- 00 07 MA ve DC 88 20 20 48 RT AM 91 17 17 89 0 09 PH HB AR R MA 40 CY MG #5 91 TA BL ET FA 68 07 08 60 30 00 [facility] MO 64 -1 -1 .0 00 L- ti TI 50 3- 1- 00 07 MA ve DI 14 20 20 48 RT NE 05 17 17 89 9 11 PH 20 AR MA MG CY TA #5 BL 91 ET FE 00 07 08 30 30 00 DC Ac NO 09 -1 -1 .0 00 L- ti FI 37 3- 1- 00 07 MA ve BR 75 20 20 48 RT AT 69 17 17 89 E 8 12 PH 14 AR 5 MA MG CY TA #5 BL 91 ET HY 00 07 08 30 30 [address] [facility] [address] 18 -1 -1 .0 00 L- ti OX 50 3- 1- 00 07 MA ve YZ 67 20 20 48 RT IN 40 17 17 89 E 1 05 PH PA AR M MA 25 CY MG #5 91 CA P 64 07 08 4. 28 00 [facility] T 38 -1 -1 00 00 L- ti D2 00 3- 1- 0 07 MA ve 73 20 20 48 RT 1. 70 17 17 89 25 6 26 PH AR MG MA CY (5 0, #5 00 91 0 UN IT ) ON 53 07 08 10 30 00 [facility] ET 88 -1 -1 0. 00 L- ti OU 50 3- 1- 00 08 MA ve CH 13 20 20 0 84 RT 61 17 17 00 DE 0 52 PH LI AR CA MA CY 33 G #5 LA 91 NC ET S [place] 43 07 08 60 20 [address] [facility] [address] 38 -1 -1 .0 00 L- ti AT 60 3- 1- 00 07 MA ve IN 53 20 20 49 RT 00 17 17 53 10 6 51 PH 0, AR 00 MA 0 CY UN IT #5 /G 91 M PO WD SP 59 07 08 30 30 00 [facility] IR 74 -1 -1 .0 00 [...] 00 4- 1- 00 07 MA ve DC 98 20 20 49 RT [place] 00 17 17 88 1 72 PH 10 AR MA MG CY TA #5 BL 91 ET AD 00 07 08 12 30 00 DC Ac VA 17 -1 -1 .0 00 [...] [place] 43 06 07 60 [address] 38 -2 -2 .0 00 [...] HY 00 06 06 14 7 [address] [facility] [address] 40 -0 -3 .0 00 L- ti OC 60 5- 0- 00 02 MA ve OD 12 20 20 24 RT ON 40 17 17 06 -A 1 17 PH CE AR TA MA MS CY NO PH #5 91 7. 5- 32 5 RE 08 05 06 10 30 00 [facility] LI 39 -2 -2 0. 00 L- ti ON 69 9- 3- 00 08 MA ve 01 20 20 0 83 RT PE 63 17 17 95 N 4 42 PH NE AR ED MA LE CY 31 #5 GX 91 5/ 16 " AD 00 05 06 12 30 00 [facility] VA 17 -2 -1 .0 00 L- ti IR 30 2- 6- 00 07 MA ve 71 20 20 48 RT HF 72 17 17 89 A 0 70 PH 23 AR 0- MA 21 CY MC #5 G 91 IN VILLAVICENCIO LE R BA 00 05 06 15 31 00 [facility] SA 00 -2 -1 .0 00 L- ti GL 27 3- 6- 00 07 MA ve AR 71 20 20 48 RT 55 17 17 95 10 9 02 PH 0 AR UN MA IT CY /M L #5 KW 91 IK PE N OM 60 05 06 30 30 00 [facility] EP 50 -1 -1 .0 00 L- ti RA 50 9- 6- 00 07 MA ve ZO 14 20 20 48 RT LE 60 17 [address] AR MA 40 CY MG #5 91 CA PS UL E QU 16 05 06 30 30 00 [facility] ET 72 -1 -1 .0 00 L- ti IA 90 9- 6- 00 07 MA ve PI 14 20 20 48 RT NE 60 17 17 89 1 21 PH FU AR MA MA RA CY TE #5 50 91 MG TA B 64 05 06 4. 28 00 [facility] T 38 -1 -1 00 00 L- ti D2 00 9- 6- 0 07 MA ve 73 20 20 48 RT 1. 70 17 17 89 25 6 26 PH AR MG MA CY (5 0, #5 00 91 0 UN IT ) LI 54 05 06 30 30 00 [facility] SI 45 -1 -1 .0 00 L- ti NO 80 9- 6- 00 07 MA ve DC 99 20 20 48 RT [place] 71 17 17 89 0 68 PH 10 AR MA MG CY TA #5 BL 91 ET AT 68 05 06 30 30 00 DC Ac OR 64 -1 -1 .0 00 L- ti VA 50 9- 6- [address] 45 20 20 48 RT AT 85 17 17 89 IN 4 69 PH AR 10 MA CY MG #5 TA 91 BL ET AM 68 05 06 30 30 00 DC Ac LO 64 -1 -1 .0 00 L- ti DI 50 9- 6- 00 07 MA ve PI 51 20 20 48 RT NE 65 17 17 89 4 71 PH BE AR SY MA LA CY TE #5 10 91 MG TA B CI 54 05 30 30 00 DC Ac TA 45 -1 -1 .0 00 L- ti LO 80 9- 6- 00 07 MA ve DC 88 20 20 48 RT AM 91 17 17 89 0 09 PH HB AR R MA 40 CY MG #5 91 TA BL ET FA 68 05 06 60 30 00 DC Ac MO 64 -1 -1 .0 00 L- ti TI 50 9 6- 07 MA ve DI 14 20 20 48 RT NE 05 17 17 89 9 11 PH 20 AR MA MG CY TA #5 BL 91 ET FE 00 05 06 30 30 00 DC Ac NO 09 -1 -1 .0 00 L- ti FI 37 9- 6- 00 07 MA ve BR 75 20 20 48 RT AT 69 17 17 89 E 8 12 PH 14 AR 5 MA MG CY TA #5 BL 91 ET BA 00 05 06 90 30 00 DC Ac CL 83 -1 -1 .0 00 L- ti OF 21 6 07 MA ve EN 02 20 20 48 RT 45 17 17 89 10 0 16 PH AR MG MA CY TA BL #5 ET 91 MO 31 05 06 30 30 00 DC Ac NT 72 -1 -1 .0 00 L- ti EL 20 9- 6- 00 07 MA ve UK 72 20 20 48 RT 61 17 17 89 T 0 17 PH SO AR D MA 10 CY MG #5 91 TA BL ET NO 00 05 06 15 25 00 DC Ac VO 16 -1 -1 .0 00 L- ti LO 96 9- 6- 00 07 MA ve G 33 20 20 48 RT 10 91 17 17 89 0 0 19 PH UN AR IT MA S/ CY ML #5 FL 91 EX PE N SP 59 05 06 30 30 00 [facility] IR 74 -1 -1 .0 00 L- ti ON 60 8- 6- 00 07 MA ve OL 21 20 20 48 RT AC 60 17 17 06 TO 1 59 PH NE AR MA 25 CY MG #5 91 TA BL ET LO 68 05 06 30 30 00 [facility] SA 64 -1 -1 .0 00 L- ti RT 50 8- 6- 00 07 MA ve AN 41 20 20 48 RT 17 17 17 06 PO 0 60 PH TA AR SS MA IU CY M 10 #5 0 91 MG TA B HY 00 05 06 30 30 [address] [facility] [address] 18 -1 -1 .0 00 L- ti OX 50 9- 6- 00 07 MA ve YZ 67 20 20 48 RT IN 40 17 17 89 E 1 05 PH PA AR M MA 25 CY MG #5 91 CA P GA 00 05 06 90 30 00 [facility] BA 22 -1 -1 .0 00 L- ti PE 82 9- 6- 00 07 MA ve NT 63 20 20 48 RT IN 71 17 17 89 1 06 PH 80 AR 0 MA MG CY TA #5 BL 91 ET IN 50 05 06 30 30 00 [facility] VO 45 -1 -1 .0 00 [...] 5 83 PH CE AR TA MA MS CY NO PH OF CY 7. NT 5- HI 32 AN 5 A IN C IN 00 04 05 30 30 00 [facility] CR 17 -1 -0 .0 00 L- ti US 30 0- 5- 00 07 MA ve E 87 20 20 48 RT EL 31 17 17 06 LI 0 61 PH PT AR A MA 62 CY .5 #5 MC 91 G IN H HY 00 03 04 30 5 [address] [facility] [address] 40 -3 -2 .0 00 L- ti OC 60 0- 8- 00 02 MA ve OD 12 20 20 23 RT ON 30 17 17 97 -A 1 50 PH CE AR TA MA MS CY NO PH #5 EN 91 5- 32 5 SI 00 03 04 50 25 00 [facility] LV 59 -3 -2 .0 00 L- ti ER 10 0- 8- 00 07 MA ve 81 20 20 47 RT PARDO 05 17 17 96 LF 5 99 PH AD AR IA MA ZI CY NE #5 1% 91 CR EA M AM 00 04 04 20 10 00 DC Ac OX 78 -0 -2 .0 00 L- ti -C 11 3- 8- 00 07 MA ve LA 85 20 20 48 RT V 22 17 17 00 87 0 77 PH 5- AR 12 MA 5 CY MG #5 TA 91 BL ET BE 68 04 04 24 8 00 DC Ac NZ 38 -0 -2 .0 00 L- ti ON 20 3 8 07 MA ve AT 24 20 20 48 RT AT 70 17 17 00 E 1 78 PH 10 AR 0 MA MG CY CA #5 PS 91 UL E ME 59 04 04 21 6 00 [facility] TH 74 -0 -2 .0 00 L- ti YL 60 3- 8- 00 07 MA ve DC 00 20 20 48 RT ED 10 17 17 00 NI 3 79 PH SO AR LO MA NE CY 4 #5 MG 91 DO SE PK AL 00 04 04 22 25 00 [facility] BU 48 -0 -2 5. 00 L- ti TE 79 5- 8- 00 07 MA ve RO 50 20 20 0 48 RT L 12 17 17 06 PARDO 5 57 PH L AR 2. MA 5 CY MG /3 #[address] SP 59 04 04 30 30 00 [facility] IR 74 -0 -2 .0 00 L- ti ON 60 5- 8 00 07 MA ve OL 21 20 20 48 RT AC 60 17 17 06 TO 1 59 PH NE AR MA 25 CY MG #5 91 TA BL ET LO 68 04 04 30 30 00 [facility] SA 64 -0 -2 .0 00 L- ti RT 50 5- 8- 00 07 MA ve AN 41 20 20 48 RT 17 17 17 06 PO 0 60 PH TA AR SS MA IU CY M 10 #5 0 91 MG TA B HY 00 03 04 7. [address] 40 -2 -2 00 00 L- ti OC 60 9- 1- 0 02 MA ve OD 12 20 20 23 RT ON 30 17 17 97 -A 1 21 PH CE AR TA MA MS CY NO PH #5 EN 91 5- [...] 20 4- 4- 00 03 IC ve DC 00 20 20 61 IA AM 70 [...] LO 68 02 03 30 30 00 DC Ac SA 64 -1 -1 .0 00 L- ti RT 50 6- 7- 00 07 MA ve AN 41 20 20 47 RT 17 17 17 11 PO 0 31 PH TA AR SS MA IU CY M 10 #5 0 91 MG TA B FA 68 02 03 60 30 00 DC Ac MO 64 -1 -1 .0 00 L- ti TI 50 6- 7- 00 07 MA ve DI 14 20 20 47 RT NE 05 17 17 11 9 33 PH 20 AR MA MG CY TA #5 BL 91 ET ES 00 02 03 30 30 00 DC Ac TR 55 -1 -1 .0 00 L- ti AD 50 7- 7- 00 07 MA ve IO 88 20 20 47 RT L 70 17 17 14 2 4 51 PH MG AR MA TA CY BL ET #5 91 MS 13 02 03 14 7 00 DC Ac NO 66 -2 -1 .0 00 L- ti CY 80 1- 7- 00 07 MA ve CL 48 20 20 47 RT IN 45 17 17 19 E 0 59 PH 10 AR 0 MA MG CY CA #5 PS 91 UL E MU 68 02 03 22 7 00 DC Ac PI 46 -2 -1 .0 00 L- ti RO 20 1- 7- 00 07 MA ve CI 18 20 20 47 RT N 02 17 17 19 2% 2 62 PH AR OI MA NT CY ME NT #5 91 LO 68 02 03 30 30 00 DC Ac SA 64 -1 -1 .0 00 L- ti RT 50 3- 0- 00 07 MA ve AN 40 20 20 47 RT 97 17 17 05 PO 0 21 PH TA AR SS MA IU CY M 50 #5 91 MG TA B BE 68 02 03 15 5 00 DC Ac NZ 38 -1 -1 .0 00 L- ti ON 20 1- 0- 00 07 MA ve AT 24 20 20 47 RT AT 70 17 17 01 E 1 23 PH 10 AR 0 MA MG CY CA #5 PS 91 UL E SP 53 02 03 30 30 00 DC Ac IR 48 -1 -1 .0 00 [...] 20 6- 4- 00 03 IC ve DC 00 20 20 61 IA AM 70 [...] AN LE CE R , IN C. DC 51 01 02 60 30 00 PH [...] 10 0- 3- 00 07 MA ve MS 47 20 20 46 RT 01 17 [...] 70 9- 7- 00 03 IC ve DC 35 20 20 60 IA IL 31 [...] 20 8- 0- 00 03 IC ve DC 05 20 20 54 IA AM 45 [...] BL AN ET CE , IN C. DC 51 12 01 60 30 00 PH [...] 50 8- 0- 00 03 IC ve MS 10 20 20 40 IA N 41 [...] 11 S AN E 6 #5 NA DC 76 OP 3 # 50 57 63 [...] 4- 4- 00 RE 41 AN ve DC 51 20 20 EN 5 IL 70 [...] 8- 1- 00 RE 42 EY ve DC 00 20 20 EN 7 ED 10 11 11 S MS NI 3 #5 CH SO 76 AE [...] 11 S AN E 6 #5 NA DC 76 OP 3 # 50 57 63 [...] 1- 2- 00 RE 52 AN ve DC 51 20 20 EN 8 IL 70 [...] 11 S AN E 1 #5 NA DC 76 OP 3 # 50 57 63 MC G SP RA Y LI 68 01 08 3 30 30 WA 37 GE Ac SI 18 -3 -0 .0 LG 15 IM ti NO 00 9 00 RE 52 AN ve DC 51 20 20 EN 8 IL 70 [...] 1- 8- 00 RE 52 AN ve DC 51 20 20 EN 8 IL 70 [...] CR 00 02 06 3 30 30 DC 37 GE Ac ES 31 -2 -0 .0 LG 31 IM ti TO 00 RE 53 AN ve R 75 20 20 EN 8 20 29 11 11 S AN 0 #5 NA MG 76 3 TA # BL 57 ET 63 49 02 06 1 2. 30 DC 37 GE Ac 88 -2 -0 29 LG 31 IM ti 40 8- 8- 9 RE 53 AN ve 27 20 20 EN 9 01 11 11 S AN 4 #5 NA 76 3 # 57 63 TI 55 01 06 2 60 30 DC 37 CO Ac ZA 11 -2 -0 .0 LG 86 LG ti NI 10 0- 8- 00 RE 05 LA ve DI 17 20 20 EN 1 ZI NE 91 11 11 S ER 5 #5 HC 76 CH L 3 RI 2 # ST MG 57 OP 63 HE TA R BL L ET AM 68 04 06 3 30 30 DC 37 CO Ac LO 18 -0 -0 .0 LG 51 TT ti DI 00 8 RE 18 ON ve PI 75 20 20 EN 8 NE 20 11 11 S RO 3 #5 BI BE 76 N SY 3 T LA # TE 57 63 10 MG TA B 00 05 05 0 15 3 DC 37 RO Ac 59 -0 -0 .0 LG 68 GE ti 10 5- 6- 00 RE 08 RS ve 34 20 20 EN 3 90 11 11 S SH 5 #5 AR 76 ON 3 E # 57 63 FL 60 05 05 0 16 30 DC 37 RO Ac UT 50 -0 -0 .0 LG 68 GE ti IC 50 6- 6- 00 RE 08 RS ve 82 20 20 EN 4 ON 90 11 11 S SH E 1 #5 AR DC 76 ON OP 3 E # 50 [...] AM 68 04 04 3 30 30 DC 37 CO Ac LO 18 -0 -0 [...] ti NO 00 RE 52 AN ve DC 51 20 20 EN 8 IL 70 [...] 6- 8- 00 RE 53 K ve DC 51 20 20 EN 8 ER IL [...] 6- 5- 00 RE 53 K ve DC 51 20 20 EN 8 ER IL [...] 6- 6- 00 RE 53 K ve DC 51 20 20 EN 8 ER IL [...] ZI ZA 71 10 10 S ER DC 0 #5 IN 76 CH E 3 [...] 76 N 3 M # 57 63 DC 00 04 04 0 6. 1 WA [...] 2 AZ V 22 10 10 S MS 87 0 #5 5- 76 12 3 5 # MG 57 63 TA BL ET ME 68 04 04 0 [address] Ac LO 18 -1 -1 .0 LG 65 AW ti XI 00 8- 8- 00 RE 57 ve CA 50 20 20 EN 3 AZ M 10 10 10 S MS 7. 3 #5 5 76 MG 3 # TA 57 BL 63 ET TR 65 04 04 0 [address] Ac AM 16 -1 -1 .0 LG 65 AW ti AD 20 8- 8- 00 RE 57 ve OL 62 20 20 EN 4 AZ 71 10 10 S MS HC 1 #5 L 76 50 3 # MG 57 63 TA BL ET LI 68 11 04 3 30 30 WA 34 RA Ac SI 18 -1 -1 .0 LG 86 NC ti NO 00 3- 3- 00 RE 38 K ve DC 51 20 20 EN 5 ER IL [...] CY 59 02 03 0 60 30 DC 35 CO Ac CL 74 -1 -2 .0 LG 51 LG ti OB 60 5- 1- 00 RE 01 LA ve EN 17 20 20 EN 1 ZI ZA 71 10 10 S ER DC 0 #5 IN 76 CH E 3 [...] 3- 6- 00 RE 38 K ve DC 51 20 20 EN 5 ER IL [...] L 0 MG CA PS UL E DC 50 02 02 00 60 4 WA [...] ZI ZA 71 10 10 S ER DC 0 57 IN 63 CH E RI [...] ZI ZA 71 09 10 S ER DC 0 57 IN 63 CH E RI [...] 3- 4- 00 RE 38 K ve DC 51 20 20 EN 5 ER IL [...] NO 00 00 RE 38 K ve DC 51 20 20 EN 5 ER IL 70 09 09 S IN 3 57 M 40 63 MG TA BL ET CY 59 11 11 00 60 30 WA 34 CO Ac CL 74 -0 -1 .0 LG 76 LG ti OB 60 9 9 00 RE 00 LA ve EN 17 20 20 EN 5 ZI ZA 71 09 09 S ER DC 0 57 IN 63 CH E RI [...] ti NO 00 RE 26 EN ve DC 51 20 20 EN 8 O- IL [...] OP #1 HE 51 R 0 L DC 00 09 08 02 30 30 WA [...] 8- 3- 00 MA 91 EN ve DC 99 20 20 RT 0 O- IL [...] PH VA AR RE MA Z CY [facility] #1 J 51 0 SA 00 05 [...] PH VA AR RE MA Z CY [facility] #1 J 51 0 00 03 06 00 60 30 WA 71 CO Ac 37 -2 -0 .0 L- 17 LG ti 80 7- 4- 00 MA 74 LA ve 75 20 20 RT 0 ZI 19 09 09 ER 3 PH AR CH MA RI CY ST OP #1 HE 51 R 0 L DC 00 09 06 01 30 30 WA [...] 8- 4- 00 MA 91 EN ve DC 99 20 20 RT 0 O- IL [...] ZI ZA 81 09 09 PH ER DC 0 AR IN MA CH E CY RI 10 ST #9 OP MG 01 HE R TA L BL ET NA 68 02 02 00 20 10 WA 32 No Ac DC 46 -0 -1 .0 LG 00 t [...] ai ZA 71 09 09 S la DC 0 57 bl IN 63 e E 10 MG TA BL ET CI 16 02 02 00 14 7 WA 32 SP Ac DC 25 -0 -1 .0 LG 00 EL [...] #1 J 51 MG 0 TA B DC 00 09 11 00 30 30 WA [...] 5- 0- 00 MA 25 EN ve DC 99 20 20 RT 9 O- IL [...] 5- 1- 00 MA 25 EN ve DC 99 20 20 RT 9 O- IL [...] AH 75 0 J MG TA B DC 00 09 09 00 30 30 WA [...] -1 MG 51 0 TA BL ET DC 00 02 06 02 30 30 WA [...] 5- 5- 00 MA 25 Av ve DC 99 20 20 RT 9 ai IL [...] MG -1 51 TA 0 BL ET DC 00 02 04 01 30 30 70 [...] 6- 4- 00 MA 58 Av ve DC 99 20 20 RT 6 ai IL [...] 6- 7- 00 MA 58 Av ve DC 99 20 20 RT 6 ai IL 41 08 08 la 0 PH bl 40 M e 10 MG -1 51 TA 0 BL ET DC 00 02 04 30 30 70 No [...] 6- 6- 00 MA 36 Av ve DC 51 20 20 RT 2 ai IL 70 08 08 la 3 PH bl 40 AR e MA MG CY TA 10 BL -2 ET 96 7 DC 00 02 03 00 30 30 WA [...] Procedure DOS Code Location Performer Comment COMPREHEN 61760 [facility] WILDE [facility] 7 [facility] METABOLIC INC INC PANEL C-REACTIV 59246 ANDRY WILDE E PROTEIN 7 [facility] INC INC DNA 45029 ANDRY WILDE ANTIBODY [address] [facility] DIOMEDE/DO INC INC UBLE STRANDED SEDIMENTA 91819 ANDRY WILDE TION RATE [address] [facility] RBC INC INC NON-AUTOM ATED CYCLIC 86860 ANDRY WILDE CITRULLIN 7 [facility] ATED INC INC PEPTIDE ANTIBODY BLOOD 40699 ANDRY WILDE COUNT 7 [facility] COMPLETE INC INC AUTO&AUTO DIFRNTL WBC RHEUMATOI 88486 ANDRY WILDE D FACTOR [address] [facility] QUANTITAT INC INC SAM ANTINUCLE 89442 ANDRY WILDE AR [address] [facility] ANTIBODIE INC INC S DA MRI 18674 [place] SPINAL 7 MEDICAL CANAL IMAGING LUMBAR ASS W/O CONTRAST MATERIAL 3D 19708 [place] RENDERING 7 MEDICAL W/INTERP IMAGING & ASS POSTPROCE SS SUPERVISI ON OTHER 0309 [facility] EXPLORATI 4 N N ON&DECOMP [facility] SPINAL CANAL RADEX 16536 [facility] TRA SPINE 4 [place] LUMBOSACR ORTHOPAED AL 2/3 ICS PLC VIEWS RADIOLOGI 95740 ANDRY WILDE C EXAM 3 [facility] CHEST 2 INC INC VIEWS FRONTAL&L ATERAL IAADI 25132 ANDRY ANDRY INFFLUENZ 3 [facility] A A VIRUS INC INC IAADI 44141 ANDRY WILDE INFLUENZA 3 [facility] [place] [address] ANDRY WILDE THYROXINE 3 [facility] TOTAL INC INC HEMOGLOBI 08387 ANDRY WILDE N 3 [facility] GLYCOSYLA INC INC TYRESE A1C NATRIURET 18414 ANDRY WILDE IC 3 [facility] [place] [address] ANDRY WILDE TROPONIN 3 [facility] QUANTITAT INC INC SAM GENERAL 90736 ANDRY WILDE HEALTH 3 [facility] PANEL INC INC CREATINE 68191 ANDRY WILDE KINASE 3 [facility] TOTAL INC INC RADIOLOGI 18481 ANDRY WILDE C 3 [facility] EXAMINATI INC INC ON CHEST [place] FRONTAL ECG 23826 CARMELINA ESPARZA ROUTINE 3 EMERGENCY DANIELLA ECG SERVICES W/LEAST 12 LDS I&R ONLY ECG 27035 ANDRY WILDE ROUTINE 3 [facility] ECG INC INC W/LEAST 12 LDS TRCG ONLY W/O I&R CREATINE 71712 ANDRY WILDE KINASE MB 3 [facility] FRACTION INC INC ONLY COMPREHEN [address] SIVE 3 [facility] MEDICAL MEDICAL PANEL CENTER CENTER COLLECTIO [address] N VENOUS 3 [facility] MEDICAL VENIPUNCT [facility] URE RADIOLOGI [address] C EXAM 3 [facility] CHEST 2 MEDICAL MEDICAL VIEWS CENTER CENTER FRONTAL&L ATERAL COLLECTIO [address] N VENOUS 3 [facility] MEDICAL VENIPUNCT [place] [address] THYROID 3 [facility] MEDICAL NG CENTER CENTER HORMONE TSH BASIC [address] METABOLIC 3 MARGARITA MARGARITA PANEL MEDICAL MEDICAL CALCIUM CENTER CENTER TOTAL BLOOD [address] COUNT 3 [facility] AUTO&AUTO CENTER [place] DIFRNTL WBC HEPATIC [address] FUNCTION 3 [facility] RADEX 38509 [facility] SPINE 3 ARTHRITIS ARTHRITIS CERVICAL AND AND 2 OR 3 RHEUM RHEUM VIEWS RADIOLOGI 64615 [place] J[place] C EXAM 3 MEDICAL ZEN CHEST 2 IMAGING VIEWS ASS FRONTAL&L ATERAL PRESSURIZ 54891 ANDRY WILDE ED/NONPRE 3 [facility] SSURIZED INC INC INHALATIO N TREATMENT PRESSURIZ [address] ED/NONPRE 3 [facility] [place] N TREATMENT INJ J2930 ST ST METHYLPRD 3 [facility] SODIUM [place] C[facility] SUCCNAT TO [address] B[address] COUNT 3 [facility] AUTO&AUTO [facility] DIFRNTL WBC BASIC [address] METABOLIC 3 [facility] CENTER TOTAL CRITICAL [address] ST TAMICA CARE 3 MARGARITA MAR ILL/INJUR MED CTR ED PATIENT INIT 30-74 MIN RADIOLOGI 60041 RADIOLOGY DOERGER C EXAM 3 KIR CHEST 2 ASSOCIATE VIEWS S OF NOTH FRONTAL&L ATERAL COLLECTIO [address] N VENOUS 3 [facility] VENIPUNCT [place] CENTER URE ECG [address] ST HULLER ROUTINE 3 MARGARITA RAL ECG MED CTR W/LEAST 12 LDS I&R ONLY THER [address] PROPH/DX 3 [facility] NJX IV MEDICAL MEDICAL PUSH [facility] SINGLE/1S T SBST/DRUG ECG [address] ROUTINE 3 [facility] ECG MEDICAL MEDICAL W/LEAST CENTER CENTER 12 LDS TRCG ONLY W/O I&R DEMO&/ELPIDIO [address] L OF PT 3 MARGARITA AVILA [facility] CENTER GEN/NEB/I NHLR/[place] [address] ANDRY WILDE GAMMAGLOB 3 [facility] ULIN IGE INC INC SPACR A4627 MT MED MT MED BAG/RESRV 3 EQUIPMENT EQUIPMENT OR W/WO INC INC MASK W/METRD DOSE INHAL RADIOLOGI 77764 ANDRY Neil EXAM 3 [facility] CHEST 2 INC INC VIEWS FRONTAL&L ATERAL IIV3 45260 [facility] VACCINE 3 ALLERGY NERI SPLIT AND VIRUS 0.5 ASTHMA ML DOSAGE IM USE CUL BACT 95174 ANDRY WILDE XCPT [address] [facility] URINE INC INC BLOOD/STO OL AEROBIC ISOL SMR PRIM 80815 ANDRY WILDE SRC [address] [facility] GRAM/GIEM INC INC SA STAIN BCT FUNGI/ROSA L BLOOD 08939 ANDRY WILDE COUNT 3 [facility] COMPLETE INC INC AUTO&AUTO DIFRNTL WBC BRNCDILAT 26303 [facility] RSPSE 3 ALLERGY NERI SPMTRY AND PRE&POST- ASTHMA BRNCDILAT ADMN RADEX 97478 [facility] SPINE 3 ARTHRITIS ARTHRITIS LUMBOSACR AND AND AL 2/3 RHEUM RHEUM VIEWS SPMTRY 29937 [facility] W/VC 2 ALLERGY NERI EXPIRATOR AND Y ROSALIA ASTHMA W/WO MXML VOL VNTJ RADIOLOGI 06323 ANDRY WILDE C EXAM 2 [facility] CHEST 2 INC INC VIEWS FRONTAL&L ATERAL THERAPEUT 61835 ANDRY WILDE IC [address] [facility] PROPHYLAC INC INC TIC/DX INJECTION SUBQ/IM PRESSURIZ 11580 ANDRY WILDE ED/NONPRE [address] [facility] SSURIZED INC INC INHALATIO N TREATMENT GROUND A0425 [facility] MILEAGE 2 AMBULANCE AMBULANCE PER SERVICE SERVICE STATUTE MILE AMB A0427 [facility] SERVICE 2 AMBULANCE AMBULANCE ALS SERVICE SERVICE EMERGENCY TRANSPORT LEVEL 1 RADIOLOGI 48146 ANDRY WILDE C EXAM 2 [facility] CHEST 2 INC INC VIEWS FRONTAL&L ATERAL ADMN SET A7005 MT MED MT MED W/SM VOL 2 EQUIPMENT EQUIPMENT NONFILTR INC INC NEBULIZR NON-DISPB L NEBULIZER E0570 MT MED MT MED WITH 2 EQUIPMENT EQUIPMENT COMPRESSO INC INC R BRNCDILAT 78291 [facility] RSPSE 2 ALLERGY NERI SPMTRY AND PRE&POST- ASTHMA BRNCDILAT ADMN PRESSURIZ 26956 ANDRY WILDE ED/NONPRE 2 [facility] SSURIZED INC INC INHALATIO N TREATMENT URNLS DIP 97490 ANDRY WILDE 2 [facility] STICK/TAB INC INC LET REAGENT AUTO MICROSCOP Y SUSCEPTIB 38360 ANDRY WILDE LTY STDY 2 [facility] ANTIMICRB INC INC IAL MICRO/AGA R DILUTJ CULTURE 63887 ANDRY WILDE BACTERIAL 2 [facility] INC INC QUANTTATI VE COLONY COUNT URINE CULTURE 29679 ANDRY WILDE BCT 2 [facility] ISOL&PRSM INC INC PTV ID ISOLATE EA URINE RADIOLOGI 215[address]AM [address] [facility] CHEST 2 INC INC VIEWS FRONTAL&L ATERAL RADIOLOGI 31777 ANDRY WILDE C EXAM 2 [facility] CHEST 2 INC INC VIEWS FRONTAL&L ATERAL HOSPITAL G0378 ANDRY WILDE OBSERVATI 2 [facility] ON INC INC SERVICE PER HOUR COMPREHEN 57291 [address] S[address] [facility] METABOLIC INC INC PANEL BLOOD 51689 ANDRY WILDE COUNT [address] [facility] COMPLETE INC INC AUTO&AUTO DIFRNTL WBC RADEX ABD 04832 [place] JOSI COMPL 2 MEDICAL ZEN AQT ABD IMAGING W/S/E/D ASS V[place] [address] [place] [address] [facility] TBOINUTCHER ABDOMEN & 2 MEDICAL ZEN PELVIS IMAGING W/O ASS CONTRST 1/> BODY RE URINE 92788 ANDRY WILDE [address] [facility] TEST INC INC VISUAL COLOR CMPRSN METHS 3D 32193 [facility] PRATER RENDERING 2 MEDICAL ZEN IMAGING W/INTERP& ASS POSTPROC DIFF WORK STATION GROUND A0425 RUIZ MELCHOR MILEAGE 2 CO CO PER AMBULANCE AMBULANCE STATUTE TAXIN TAXIN MILE AMBULANCE A0429 RUIZ RUIZ SERVICE 2 CO CO BLS AMBULANCE AMBULANCE EMERGENCY TAXIN TAXIN TRANSPORT COMPREHEN 91944 ANDRY WILDE SIVE [address] [facility] METABOLIC INC INC PANEL TDAP 43771 ANDRY WILDE VACCINE 7 2 [facility] YRS/> IM INC INC RADIOLOGI 17367 [facility] PRATER C 2 MEDICAL ZEN EXAMINATI IMAGING ON CHEST ASS [place] FRONTAL IM ADM 00405 ANDRY WILDE PRQ ID 2 [facility] SUBQ/IM INC INC NJXS 1 V[facility]INE H[facility]PITAL G0378 ANDRY WILDE OBSERVATI 2 [facility] ON INC INC SERVICE PER HOUR LOCM Q9967 ANDRY WILDE 300-399 2 [facility] MG/ML INC INC IODINE CONCENTRA TION PER ML INCISION 04951 CARMELINA RUBIO & 2 EMERGENCY DRAINAGE SERVICES ABSCESS SIMPLE/SI NGLE SUSCEPTIB 39896 ANDRY WILDE LTY STDY 2 [facility] ANTIMICRB INC INC IAL MICRO/AGA R DILUTJ CUL BACT 67094 ANDRY WILDE AEROBIC 2 [facility] ADDL INC INC METHS DEFINITIV E EA ISOL CUL BACT 25550 ANDRY WILDE XCPT 2 [facility] URINE INC INC BLOOD/STO OL AEROBIC ISOL INCISION 75670 CARMELINA COSME & 2 EMERGENCY EMERGENCY DRAINAGE SERVICES SERVICES ABSCESS COMPLICAT ED/MULTIP LE CREATINE 63808 ANDRY WILDE KINASE 2 [facility] TOTAL INC INC RADIOLOGI 67390 ANDRY WILDE C EXAM 2 [facility] CHEST 2 INC INC VIEWS FRONTAL&L ATERAL ECG 48988 ANDRY TAMAYO JR ROUTINE 2 [facility] W/LEAST P 12 LDS I&R ONLY RHYTHM 75751 ANDRY WILDE ECG 1-3 2 [facility] LEADS INC INC TRACING ONLY W/O I&R ECG 82418 ANDRY WILDE ROUTINE 2 [facility] ECG INC INC W/LEAST 12 LDS TRCG ONLY W/O I&R CREATINE 72749 ANDRY WILDE KINASE MB 2 [facility] FRACTION INC INC ONLY BASIC 10785 ANDRY WILDE METABOLIC 2 [facility] [place] [address] ANDRY WILDE TROPONIN 2 [facility] QUANTITAT INC INC SAM BLOOD 47373 ANDRY WILDE COUNT 2 [facility] COMPLETE INC INC AUTO&AUTO DIFRNTL WBC NATRIURET 35761 ANDRY WILDE IC 2 [facility] PEPTIDE INC INC PRESSURIZ 67717 ANDRY WILDE ED/NONPRE 2 [facility] SSURIZED INC INC INHALATIO N TREATMENT RADIOLOGI 59630 ANDRY Neil EXAM 2 [facility] CHEST 2 INC INC VIEWS FRONTAL&[place] [address] ANDRY WILDE STREPTOCO 2 [facility] CCUS INC INC GROUP A COMPREHEN 06626 ANDRY WILDE SIVE 2 [facility] METABOLIC INC INC PANEL URNLS DIP 06109 ANDRY WILDE 2 [facility] STICK/TAB INC INC LET REAGENT AUTO MICROSCOP Y IAADI 57224 ANDRY WILDE INFLUENZA 2 [facility] B VIRUS INC INC BLOOD 01180 ANDRY ANDRY COUNT 2 [facility] COMPLETE INC INC AUTO&AUTO DIFRNTL WBC CULTURE 04340 ANDRY WILDE BACTERIAL 2 [facility] BLOOD INC INC AEROBIC W/ID ISOLATES IAADI 59828 ANDRY ANDRY INFFLUENZ 2 [facility] A A VIRUS INC INC RADIOLOGI 85109 RADIOLOGY NEILS FEDERICO C 2 EXAMINATI ASSOCIATE ON TIBIA S OF NOTH & FIBULA 2 VIEWS RHYTHM 96976 ANDRY WILDE ECG 1-3 2 [facility] LEADS INC INC TRACING ONLY W/O I&R ECG 72780 CARMELINA ESPARZA ROUTINE 2 EMERGENCY DANIELLA ECG SERVICES W/LEAST 12 LDS I&R ONLY CREATINE 47577 ANDRY WILDE KINASE 2 [facility] TOTAL INC INC COMPREHEN 57974 ANDRY WILDE SIVE 2 [facility] METABOLIC INC INC PANEL CREATINE 93661 ANDRY WILDE KINASE MB 2 [facility] FRACTION INC INC ONLY ECG 84947 ANDRY WILDE ROUTINE 2 [facility] ECG INC INC W/LEAST 12 LDS TRCG ONLY W/O I&R BLOOD 12941 ANDRY WILDE COUNT 2 [facility] COMPLETE INC INC AUTO&[place] [address] [address] [facility] [facility] QUANTITAT INC INC SAM URNLS DIP [address] [facility] STICK/TAB INC INC LET REAGENT AUTO MICROSCOP Y 3D 70996 [place] RENDERING 1 MEDICAL ZEN IMAGING W/INTERP& ASS POSTPROC DIFF WORK STATION CULTURE 48549 ANDRY WILDE BACTERIAL 1 [facility] INC [place] [address] ANDRY WILDE ABDOMEN & 1 [facility] PELVIS INC INC W/O CONTRAST MATERIAL COMPREHEN 07419 ANDRY WILDE SIVE 1 [facility] [place] [address] [place] ABDOMEN & 1 MEDICAL ZEN PELVIS IMAGING W/CONTRAS ASS T MATERIAL INJECTION J0595 ANDRY WILDE 1 [facility] BUTORPHAN INC INC OL TARTRATE 1 MG RADIOLOGI 67993 JOSI TOBINUTCHER C EXAM 1 ZEN ZEN CHEST 2 VIEWS FRONTAL&L ATERAL PRESSURIZ 58505 ANDRY NICOLASON ED/NONPRE 1 [facility] SSURIZED INC INC INHALATIO N TREATMENT THERAPEUT [address] IC 1 MARGARITA MARGARITA PROPHYLAC TIC/DX MEDICALCE MEDICALCE INJECTION NTER NTER SUBQ/IM OPHTH 38265 DEL RIO DEL RIO MEDICAL 1 REJI REJI XM&EVAL COMPRHNSV ESTAB PT 1/> SCREENING [address] 1 MARGARITA MARGARITA MAMMOGRAP HY MEDICALCE MEDICALCE BILATERAL NTER NTER DXA BONE 96366 RADIOLOGY DARDINGER DENSITY 1 TRINITY STUDY 1/> ASSOCIATE SITES S PSC AXIAL SKEL COMPUTER- 05515 RADIOLOGY LI AIDED 1 TOR DETECTION ASSOCIATE S PSC SCREENING MAMMOGRAP HY SCREENING G0202 RADIOLOGY LI 1 TOR MAMMOGRAP ASSOCIATE HY RAE S PSC INCL CAD WHEN PERFORMD ECG [facility] [address] ECG MED CTR W/LEAST 12 LDS I&R ONLY ECG [address] ST ROUTINE 1 MARGARITA MARGARITA ECG W/LEAST MEDICALCE MEDICALCE 12 LDS NTER NTER TRCG ONLY W/O I&R ARTHROCEN 00764 DEVANTE DE LA ROSAIS 1 REED & R CHR ASPIR&/IN TEMMING J MAJOR JT/[place] [address] DEVANTE DE LA ROSA GUIDANCE 1 REED & R CHR NEEDLE TEMMING PLACEMENT IMG S&I INJECTION J3420 [facility] VIT B-12 0 [facility] CYANOCOBA CARE, IN DANIS TO 1000 MCG COLLECTIO 63249 [facility] N VENOUS 0 [facility] VENIPUNCT CARE, IN URE COMPREHEN 98269 [facility] SIVE 0 [facility] METABOLIC PANEL TDAP 51244 [facility] V[facility] 7 0 [facility] YRS/> IM FAMILY CARE, IN CYTP C/V [address] AUTO THIN 0 MARGARITA MARGARITA LYR PREPJ SCR MEDICALCE MEDICALCE MNL NTER NTER RESCR PHYS LIPID 13631 [facility] PANEL 0 [facility] INC BLOOD 03395 [facility] COUNT 0 [place] [facility] [place] INC COMPLETE AUTO&AUTO DIFRNTL WBC GROUND A0425 [facility] MILEAGE 0 FIRE FIRE PER PROTECT PROTECT STATUTE DISTR DISTR MILE KNEE L1830 [facility] 0 TECHNOLOG TECHNOLOG IMMOBLIZE IES INC IES INC R CANVAS LONGTUDNL PREFAB AMBULANCE A0429 [facility] SERVICE 0 FIRE FIRE BLS PROTECT PROTECT EMERGENCY DISTR DISTR TRANSPORT RADIOLOGI 13051 [facility]. C EXAM 0 MARGARITA MARGARITA KNEE JUDITH JUDITH COMPLETE 4/MORE VIEWS APPLICATI [address] [facility] ON LONG 0 MARGARITA MARGARITA LEG JUDITH JUDITH SPLINT THIGH ANKLE/TOE S ECHO 40618 [facility] T[facility]-T 0 Y PAT 2D ASSOCIATE W/WOM-MOD S E COMPL SPEC&COLR D IIV3 99957 [facility] VACCINE 0 [facility] SPLIT FAMILY VIRUS 0.5 CARE, IN ML DOSAGE IM USE INJECTION J3420 [facility] VIT B-12 0 [facility] CYANOCOBA CARE, IN DANIS TO 1000 MCG CYANOCOBA 22667 [facility] VINELAND DANIS 0 [facility] VITAMIN B-12 MEDICALCE MEDICALCE NTER NTER COLLECTIO 63935 [facility] VIN[facility] N VENOUS 0 [facility] BLOOD VENIPUNCT MEDICAL[place] [address] [facility] VINELAND THYROID 0 [facility] STIMULATI NG MEDICALCE MEDICALCE HORMONE NTER NTER TSH COMPREHEN 22079 [facility] SIVE 0 MARGARITA MARGARITA METABOLIC PANEL MEDICALCE MEDICALCE NTER NTER LIPID 90413 [facility] PANEL 0 MARGARITA MARGARITA MEDICALCE MEDICALCE NTER NTER BLOOD 81975 [facility] VIN[facility] COUNT 0 MARGARITA MARGARITA COMPLETE AUTO&AUTO MEDICALCE MEDICALCE DIFRNTL NTER NTER WBC RADEX 94112 RADIOLOGY BRANDSER WRIST 0 [place] COMPLETE ASSOCIATE MINIMUM 3 S PSC VIEWS L HRT 25786 CARDIOLOG RODRIGUEZ LARRY CATHETERI 0 Y ZATION ASSOCIATE [place] [address] CARDIOLOG RODRIGUEZ LARRY C-CATHJ 0 Y F/SLCTV C ASSOCIATE ANGRPH S I SI&R 24445 [facility]OLOG RODRIGUEZ LARRY F/NJX PX 0 Y DURING ASSOCIATE C-CATHJ S VENTR&/AT R ANGRPH I SI&R 23183 CARDIOLOG RODRIGUEZ LARRY F/NJX PX 0 Y DURING ASSOCIATE C-CATHJ S PULM&/OR SELECT INJECTION 98037 CARDIOLOG RODRIGUEZ LARRY CARDIAC 0 Y CATHJ L ASSOCIATE VENTR/L S ATR ANGIOGRAP H GONADOTRO [address] PIN 0 [facility] CHORIONIC MEDICALCE MEDICALCE QUALITATI NTER NTER VE BLOOD [address] COUNT 0 [facility] COMPLETE AUTOMATED MEDICALCE MEDICALCE NTER NTER BASIC [address] METABOLIC 0 [facility] PANEL CALCIUM MEDICALCE MEDICALCE TOTAL NTER NTER ECG 21118 CARDIOLOG RODRIGUEZ LARRY ROUTINE 0 Y ECG ASSOCIATE W/LEAST S 12 LDS W/I&R COLLECTIO [address] N VENOUS 0 [facility] BLOOD VENIPUNCT MEDICALCE MEDICALCE URE NTER NTER MYOCARDIA 22733 CARDIOLOG GRODECKI L SPECT 0 Y PAT MULTIPLE ASSOCIATE STUDIES S MYOCARDIA [address] L SPECT 0 [facility] MULTIPLE [facility] STUDIES EXTERNAL [address] ECG 0 [facility] ANALYSIS REPORT XTRNL ECG [address] & 48 HR 0 [facility] RECORDING [facility] RADEX HIP [address] 0 [facility] L COMPLETE MINIMUM 2 VIEWS CV STRS 12302 CARDIOLOG GRODECKI TST 0 Y PAT XERS&/OR ASSOCIATE RX CONT S ECG W/O I&R CV STRS [address] TST 0 MARGARITA AVILA XERS&/OR JUDITH WONG RX CONT ECG TRCG ONLY CV STRS 25177 CARDIOLOG GRODECKI TST 0 Y PAT XERS&/OR ASSOCIATE RX CONT S ECG I&R ONLY XTRNL ECG 62[address] [facility] SHILO 0 [place] HEART DORENE CONTINUOU PSC S RHYTHM W/I&R UP TO 48 HRS ECG 13498 [facility] ROUTINE 0 [facility] W/LEAST CARE, IN 12 LDS W/I&R INJECTION J3420 [facility] VIT B-12 0 [facility] CYANOCOBA CARE, IN DANIS TO 1000 MCG CYANOCOBA 74678 [facility] DANIS 0 [facility] VITAMIN B-12 COMPREHEN 84748 [facility] SIVE 0 [facility] METABOLIC PANEL LIPID 87155 [facility] PANEL 0 [facility] BLOOD 40286 [facility] COUNT 0 [facility] COMPLETE AUTO&AUTO DIFRNTL WBC INJECTION J3420 [facility], DANIS TO INC. 1000 MCG INJECTION J3420 [facility], [facility] C[facility], DANIS TO INC. 1000 MCG INJECTION J3420 [facility], VIT B-12 0 [facility] CYANOCOBA CARE, DANIS TO INC. 1000 MCG INJECTION J3420 [facility] CYANOCOBA CARE, DANIS TO INC. 1000 MCG INJECTION J3420 [facility], VIT B-12 0 [facility] CYANOCOBA CARE, DANIS TO INC. [address] OSTERHAGE SURG 0 [facility] PATHOLOGY MED CTR GROSS&DANIELLA ROSCOPIC EXAM LAPAROSCO [address] ST YELICH, PY SURG 0 MARGARITA Lazar CHOLECYST ECTOMY PHYSICIAN S ANES 62706 WENDY OSEI INTRAPERI 0 NT N, TONEAL ANESTHESI VIDA UPPER OLOGIST ABDOMEN W/LAPS NOS LIPID 58797 [facility] PANEL [facility] BLOOD 28328 [facility] COUNT 0 [facility] COMPLETE AUTO&AUTO DIFRNTL WBC COLLECTIO 48058 HEALTH LOAN, N VENOUS 0 POINT [facility] VENIPUNCT [facility], [facility] CYANOCOBA 96910 [facility] DANIS 0 [facility] VITAMIN B-12 COMPREHEN 38034 [facility] SIVE 0 [facility] METABOLIC PANEL INJECTION [id number] [address] [facility] ON HCL PER 1 MG URNLS DIP [address] STICK/TAB [facility] LET RGNT NON-AUTO W/O MICRSCP THER 10813 [facility] PROPH/DX [address] [place] [address] [facility] PUSH SINGLE/1S T SBST/DRUG BLOOD 64985 [facility] COUNT [address] [place] [address] [facility] AUTO&AUTO DIFRNTL WBC THERAPEUT 79113 [facility] IC [address] [place] [address] [facility] IV PUSH EACH NEW DRUG URNLS DIP [address] STICK/TAB [facility] LET REAGENT AUTO MICROSCOP Y BASIC 46807 [facility] METABOLIC [address] [place] [address] [facility] CALCIUM TOTAL SERVICES 22923 JUDITH GENTILE, SHIKHA 0 URGENT MOHAMED OFFICE CARE OTH/THN REG SCHED HOURS RADIOLOGI 75951 RADIOLOGY Rashaad KEITH EXAM 0 GRISELDA A CHEST 2 ASSOCIATE VIEWS S [place] FRONTAL&[place] [address] RADIOLOGY GRIFFITHS, ABDOMINAL 0 PEDRITO L REAL ASSOCIATE TIME S PSC W/IMAGE LIMITED COLLECTIO 86492 [facility] JE[facility], N VENOUS 9 POINT CHRISTI M BLOOD FAMILY VENIPUNCT CARE, URE INC. SIMPLE 25862 [facility]ER[facility] [place], REPAIR 9 CARE NAVEEN P SCALP/NEC PHYS K/AX/JAYLEN [facility] T/TRUNK [place] 2.5CM/< CLOSURE 8659 [facility] SKIN&SUBC [address] [place] [address] [facility] TISSUE OTHER SITES RADEX 85847 [facility] SPINE 9 REED & R, LUMBOSACR TEMMING COBY AL 2/3 ER L VIEWS RADEX 03838 [facility] HAND 2 9 REED & R, [place] [address] [facility] THYROID 9 [facility] STIMULATI NG HORMONE TSH RADIOLOGI 64030 [facility] C 9 REED & R, EXAMINATI TEMKRISTYN COBY ON KNEE ER L 1/2 VIEWS COLLECTIO 26543 [facility] N VENOUS 9 [facility] BLOOD VENIPUNCT URE CREATINE 96953 [facility] KINASE 9 [facility] TOTAL SEDIMENTA 18317 [facility] TION RATE 9 [facility] RBC AUTOMATED RHEUMATOI 34254 [facility] D FACTOR 9 DIAGNOSTI DIAGNOSTI [place] [address] [facility] BLOOD/URI 9 [facility] C ACID CYCLIC 20974 [facility] CITRULLIN 9 DIAGNOSTI DIAGNOSTI ATED CS IN CS IN PEPTIDE ANTIBODY RADEX 07210 RADIOLOGY JAIR, FOOT 9 COMPLETE ASSOCIATE MARGARITA MINIMUM 3 S PSC A VIEWS RADEX 79971 RADIOLOGY [place], SPINE 9 JV L LUMBOSACR ASSOCIATE AL 2/3 S PSC VIEWS RADEX 49024 RADIOLOGY [place], SPINE 9 JV L CERVICAL ASSOCIATE 4 OR 5 S PSC VIEWS URNLS DIP [address] STICK/TAB [facility] LET REAGENT AUTO MICROSCOP Y BLOOD [address] COMPLETE [facility] AUTO&AUTO DIFRNTL WBC OPHTH 00482 PREZAY, PREZAY, MEDICAL 8 ZACKARY M ZACKARY M XM&EVAL GINAE NEW PT 1/> VST URNLS DIP 26566 [facility]ALTH LUANNEENO-A 8 POINT LVAREZ, STICK/TAB FAMILY MELVA J LET RGNT CARE, AUTO W/[place] [address] [facility] NON-IMMUN 8 [facility] OLOGIC OTH/THN CYTOPATHI C CULTURE 24246 [facility] BACTERIAL 8 [facility] QUANTTATI VE COLONY COUNT URINE CULTURE 63764 [facility] BCT 8 [facility] ISOL&PR[place] [address] [facility] BLOOD/URI 8 [facility] C ACID BASIC 40128 [facility] METABOLIC 8 [facility] PANEL CALCIUM TOTAL COLLECTIO 72985 HEALTH LUANNEENO-A N VENOUS 8 POINT LVREBECCA, BLOOD FAMILY MELVA J VENIPUNCT CARE, URE INC. RADEX [id number] MINIMUM 3 VIEWS COMPREHEN 37501 [facility] OF SIVE 8 [facility] INC METABOLIC PANEL COLLECTIO 00618 HEALTH LUANNEENO-A N VENOUS 8 POINT JEROME, BLOOD FAMILY MELVA J VENIPUNCT CARE, URE INC. LIPID 82145 [facility] PANEL 8 [facility] BLO[facility] 25132 [facility] COUNT 8 [facility] [place] [place] [address] [facility] OF BLOOD/URI 8 [facility] C ACID RHEUMATOI 35297 [facility] D FACTOR 8 [facility] INC QUANTITAT SAM APPLICATI 9[address] [facility] ON OF [address] [place] [address] [facility] RADEX 87024 RADIOLOGY HURST, ANKLE 8 IAN R COMPLETE ASSOCIATE MINIMUM 3 S PSC VIEWS Encounters Encounter Start End Date Code Location Performer Type Date [facility]OSPITAL [facility] - 7 7 [facility] ANDRY [facility] 7 7 [facility] ANDRY - 7 7 [facility] UK - 7 7 [facility] OUTPATIEN [facility] OFFICE 93111 [facility] JACKSONPATIEN 7 7 PHYSICIAN T VISIT S GROUP 25 MINUTES HOSPITAL ANDRY - 7 7 [facility] ANDRY - 7 7 [facility] ANDRY - 7 7 [facility] ANDRY - 7 7 [facility] ANDRY - 7 7 [facility] ANDRY - 7 7 [facility]PITAL ANDRY - 7 7 [facility] H[facility]PITAL ANDRY [facility] 7 7 [facility] ANDRY - 7 7 [facility] ANDRY - 7 7 [facility] ANDRY - 7 7 [facility] ANDRY - 7 7 [facility] HOSPITAL ANDRY - 7 7 [facility] H[facility]PITAL ANDRY [facility] 7 7 [facility] ANDRY - 7 7 [facility] UK - 7 7 [facility] OUTPATIEN [facility] UK - 7 7 [facility] ANDRY [facility] 7 7 [facility] ANDRY - 6 6 [facility] UK - 6 6 [facility] ANDRY - 6 6 [facility] ANDRY - 6 6 [facility] ANDRY [facility] 6 6 [facility] UNIVERSIT - 6 6 [facility] ANDRY - 6 6 [facility] ANDRY - 6 6 [facility] ANDRY - 6 6 [facility] ANDRY - 6 6 [facility] ANDRY - 6 6 [facility] ANDRY - 6 6 [facility] OUTPATIEN [facility] UNIVERSIT - 6 6 [facility] ANDRY - 6 6 [facility] HOSPITAL ANDRY [facility] 6 6 [facility] ANDRY - 6 6 [facility] ANDRY - 6 6 [facility] ANDRY - 6 6 [facility] ANRDY - 6 6 [facility] ANDRY [facility] 6 6 [facility] ANDRY - [address] [facility] OUTPATIEN [facility] ANDRY - 5 5 [facility] OUTPATIEN [facility] UNIVERSIT - 5 5 Y [facility] ANDRY [facility] 5 5 [facility] - 5 5 Y [facility] ANDRY - [address] [facility] OUTPATIEN [facility] ANDRY [facility] 5 5 [facility] OUTPATIEN [facility] ANDRY - [address] [facility] OUTPATIEN [facility] ANDRY [facility] 5 5 [facility] ANDRY - 4 4 [facility] ANDRY - [address] [facility] OUTPATIEN [facility] [place] - [address] [facility] ANDRY - [address] [facility] OUTPATIEN [facility] OFFICE 56191 [facility] CONSULTAT 4 4 [place] ION ORTHOPAED NEW/ESTAB ICS PLC PATIENT 40 MIN HOSPITAL ANDRY - 4 4 [facility] OUTPATIEN [facility] OFFICE 15617 BRIGITTE NORMAN 4 4 DORENE DORENE T VISIT 15 MINUTES OFFICE 58441 BRIGITTE NORMAN 3 3 DORENE DORENE T VISIT 15 MINUTES OFFICE 11117 BRIGITTE NORMAN 3 3 DORENE DORENE T VISIT 15 MINUTES HOSPITAL ANDRY - 3 3 [facility] OUTPATIEN INC T EMERGENCY 74119 CARMELINA JARAMILLO 3 3 EMERGENCY III [facility] T VISIT HIGH/URGE NT SEVERITY EMERGENCY [address] [facility] INC T VISIT LIMITED/M INOR PROB EMERGENCY 55242 CARMELINASHILO BARBOSA ZEN 3 3 EMERGENCY [facility] SERVICES T VISIT HIGH/URGE NT SEVERITY OFFICE 65848 BRIGITTE BRIGGS OUTPATIEN 3 3 DORENE DORENE T VISIT 15 MINUTES OFFICE 98155 CARMELINA COSME OUTPSYCHIATRICEN 3 3 GRE GRE T NEW 45 MINUTES HOSPITAL ANDRY - 3 3 [facility] OUTPSYCHIATRICEN INC T EMERGENCY 67688 ANDRY 3 3 [facility] T VISIT LOW/MODER SEVERITY EMERGENCY 27116 CARMELINA ESPARZA DEPT 3 3 EMERGENCY DANIELLA VISIT SERVICES HIGH SEVERITY& THREAT [facility]UST ST - 3 3 [facility] [place] [facility] 50975 [facility] 3 3 [facility] T VISIT MODERATE SEVERITY [facility]PITAL ST - 3 3 [facility] [place] [facility] [address] [facility] MED[facility] T VISIT CENTER HIGH/URGE NT SEVERITY OFFICE 60788 [facility] 3 3 ARTHRITIS T VISIT AND 25 RHEUM MINUTES OFFICE 37923 [facility] OUT[facility] 3 3 ARTHRITIS T VISIT AND 25 RHEUM MINUTES EMERGENCY 95093 CARMELINA 3 3 EMERGENCY [facility] SERVICES T VISIT MODERATE SEVERITY HOSPITAL ANDRY - 3 3 [facility] OUTPATIEN INC T EMERGENCY [address] [facility] INC T VISIT LOW/MODER SEVERITY EMERGENCY 94828 CARMELINA ALFARO JOANNE DEPT 3 3 EMERGENCY VISIT SERVICES HIGH SEVERITY& THREAT RUST ANDRY - 3 3 [facility] OUTPATIEN INC T EMERGENCY 40008 ST DEPT 3 3 MARGARITA VISIT [facility] SE[facility]& THREAT RUST ST - 3 3 [facility]ARGARITA OUTPATIEN [facility] - 3 3 [facility] OUTPATIEN INC T OFFICE 95978 [facility] J[facility] OUTPATIEN 3 3 ALLERGY NERI T VISIT AND 40 ASTHMA MINUTES OFFICE 02724 [facility] OUT[facility] 3 3 ARTHRITIS T VISIT AND 25 RHEUM MINUTES OFFICE 02449 [facility] JAYSHREE OUTPATIEN 2 2 ALLERGY NERI T VISIT AND 25 ASTHMA MINUTES EMERGENCY 62018 CARMELINA CASSIDY [address] [facility] SERVICES T VISIT HIGH/URGE NT SEVERITY HOSPITAL ANDRY - [address] [facility] OUTPATIEN INC T EMERGENCY [address] [facility] DEPARTMEN INC T VISIT MODERATE SEVERITY OFFICE 44761 [facility] OUT[facility] 2 2 ARTHRITIS T VISIT AND 25 RHEUM MINUTES HOSPITAL ANDRY - [address] [facility] OUTPATIEN INC T OFFICE 07961 [facility] JAYSHREE CONSULTAT 2 2 ALLERGY NERI ION AND NEW/ESTAB ASTHMA PATIENT 80 MIN OFFICE 39418 ARNCAREN BRIGGS OUTPATIEN 2 2 DORENE DORENE T NEW 30 MINUTES EMERGENCY [address] [facility] DEPARTMEN INC T VISIT MODERATE SEVERITY EMERGENCY 55455 CARMELINA JARAMILLO 2 2 EMERGENCY III [facility] SERVICES T VISIT HIGH/URGE NT SEVERITY HOSPITAL ANDRY - 2 2 [facility] OUTPATIEN INC T HOSPITAL ANDRY - 2 2 [facility] OUTPATIEN INC T EMERGENCY 19697 CARMELINA ESPARZA 2 2 EMERGENCY DANIELLA DEPARTMEN SERVICES T VISIT HIGH/URGE NT SEVERITY EMERGENCY 58425 ANDRY 2 2 [facility] DEPARTMEN INC T VISIT LOW/MODER SEVERITY HOSPITAL ANDRY - 2 2 [facility] OUTPATIEN INC T EMERGENCY 89022 ANDRY DEPT 2 2 [facility] VISIT INC HIGH SEVERITY& THREAT FUNCJ EMERGENCY 30756 ANDRY 2 2 [facility] DEPARTMEN INC T VISIT MODERATE SEVERITY EMERGENCY 20835 CARMELINA RUBIO 2 2 EMERGENCY DEPARTMEN SERVICES T VISIT HIGH/URGE NT SEVERITY HOSPITAL ANDRY - 2 2 [facility]PATIEN INC T HOSPITAL ANDRY - 2 2 [facility] OUTPATIEN INC T EMERGENCY 50885 CARMELINA 2 2 EMERGENCY DEPARTMEN SERVICES T VISIT HIGH/URGE NT SEVERITY EMERGENCY 38061 ANDRY 2 2 [facility] DEPARTMEN INC T VISIT MODERATE SEVERITY OFFICE 44800 [facility] 2 2 ARTHRITIS T VISIT AND 25 RHEUM MINUTES EMERGENCY 38511 ANDRY 2 2 [facility] DEPARTMEN INC T VISIT MODERATE SEVERITY HOSPITAL ANDRY - 2 2 [facility] OUTPATIEN INC T EMERGENCY 26691 CARMELINA BAEZ 2 2 EMERGENCY RAGHAV VISIT SERVICES HIGH SEVERITY& THREAT FUNC HOSPITAL ANDRY - 2 2 [facility] OUTPATIEN INC T EMERGENCY 05836 ANDRY 2 2 [facility] DEPARTMEN INC T VISIT MODERATE SEVERITY EMERGENCY 18828 CARMELINA ESPARZA [address] [facility] DEPARTMEN SERVICES T VISIT HIGH/URGE NT SEVERITY HOSPITAL ANDRY - 2 2 [facility] OUTPATIEN INC T EMERGENCY 40400 CARMELINA JOLLEY 2 2 [facility]ERGENCY [facility] T VISIT HIGH/URGE NT SEVERITY EMERGENCY 41317 [facility] 2 2 [facility]ISIT MODERATE SEVERITY OFFICE 40261 [facility] OUT[facility] 2 2 ARTHRITIS T VISIT AND 25 RHEUM MINUTES OFFICE 73838 [facility] OUT[facility] 2 2 ARTHRITIS T VISIT AND 25 RHEUM MINUTES EMERGENCY 52092 [facility] 2 2 [facility] T VISIT MODERATE SEVERITY EMERGENCY [address] [facility] INC T VISIT MODERATE SEVERITY EMERGENCY 06132 CARMELINA ESPARZA DEPT 2 2 EMERGENCY DANIELLA VISIT SERVICES HIGH SEVERITY& THREAT RUST ANDRY - [address] [facility] OUTPATIEN INC T EMERGENCY 30522 [place] JARAM[facility] DEPT 1 1 III RAGHAV III RAGHAV VISIT HIGH SEVERITY& THREAT RUST ANDRY - [address] [facility] OUTPATIEN INC T EMERGENCY 24626 [facility] VIS[facility] MODERATE SEVERITY EMERGENCY 05843 [facility] T VISIT MODERATE SEVERITY EMERGENCY 22405 VILMA ESPARZA 1 1 [facility] DEPARTMEN T VISIT HIGH/URGE NT SEVERITY HOSPITAL ANDRY - 1 1 [facility] OUTPATIEN INC T HOSPITAL ANDRY - 1 1 [facility] OUTPATIEN INC T EMERGENCY 41443 VILMA ESPARZA 1 1 [facility] DEPARTMEN T VISIT HIGH/URGE NT SEVERITY EMERGENCY 94835 ANDRY 1 1 [facility] DEPARTMEN INC T VISIT LOW/MODER SEVERITY EMERGENCY 90170 ST 1 1 MARGARITA DEPARTMEN T VISIT MEDICALCE LOW/MODER NTER SEVERITY HOSPITAL ST - 1 1 [facility] OUTPATIEN T MEDICALCE NTER EMERGENCY 79702 ST TAM[place] 1 1 MARGARITA MAR DEPARTMEN MED CTR T VISIT MODERATE SEVERITY EMERGENCY 25672 ANDRY 1 1 [facility] DEPARTMEN INC T VISIT MODERATE SEVERITY HOSPITAL ANDRY - 1 1 [facility] OUTPATIEN INC T EMERGENCY 22390 CARMELINA ESPARZA 1 1 EMERGENCY DANIELLA DEPARTMEN SERVICES T VISIT HIGH/URGE NT SEVERITY EMERGENCY 31791 ST 1 1 MARGARITA DEPARTMEN T VISIT MEDICALCE LOW/MODER NTER SEVERITY EMERGENCY 14170 [facility] ARMINDA 1 1 MARGARITA DEPARTMEN MED CTR T VISIT MODERATE SEVERITY HOSPITAL ST - 1 1 MARGARITA OUTPATIEN T MEDICALCE NTER EMERGENCY 08150 ANDRY 1 1 [facility] DEPARTMEN INC T VISIT LOW/MODER SEVERITY HOSPITAL ANDRY - 1 1 [facility] OUTPATIEN INC T EMERGENCY 37996 CARMELINA SIMON 1 1 EMERGENCY DEPARTMEN SERVICES T VISIT MODERATE SEVERITY HOSPITAL ST - 1 1 MARGARITA OUTPATIEN T MEDICALCE NTER EMERGENCY 40902 [facility] ELIDIA 1 1 MARGARITA DEPARTMEN MED CTR T VISIT MODERATE SEVERITY HOSPITAL ST - 1 1 [facility] OUTPATIEN T MEDICALCE NTER [facility] ST - 1 1 [facility] OUTPATIEN T MEDICALCE NTER EMERGENCY 91509 [facility] MARG[facility]ITA N FEDERICO DEPARTMEN MED CTR T VISIT HIGH/URGE NT SEVERITY EMERGENCY 30247 ST 1 1 MARGARITA DEPARTMEN T VISIT MEDICALCE MODERATE NTER SEVERITY EMERGENCY 17454 ST BRACKEN 1 1 MARGARITA ARMINDA DEPARTMEN MED CTR T VISIT MODERATE SEVERITY OFFICE 10080 KIMBERLEEGEOVANYDEVANTE OUTPATIEN 1 1 REED & R CHR T VISIT [facility] [address] - 0 0 MARG[facility] OUTPATIEN T MEDICALCE NTER PERIODIC 84692 [facility] PREVENTIV 0 0 POINT LEANNA E MED EST FAMILY PATIENT CARE, IN 18-39 YRS [address]ENCY [address] VINAYLENOREPEPIN 0 0 MARGARITA MARY DEPARTMEN MED CTR T VISIT MODERATE SEVERITY EMERGENCY 03534 EMERGENCY LEIDY 0 0 CARE GIORGIO DEPARTMEN PHYS T VISIT [facility] - 0 0 MARG[facility]ITA OUTPATIEN JUDITH T OFFICE 39887 [facility] OUT[facility] 0 0 POINT LEANNA T VISIT 5 FAMILY MINUTES CARE, IN OFFICE 11567 CARDIOLOG RODRIGUEZ LARRY OUTPATIEN 0 0 Y T VISIT ASSOCIATE [address] - 0 0 M[facility]ITA OUTPATIEN T MEDICALCE NTER EMERGENCY 57878 ST MAGDALENASRAVAN 0 0 MARGARITA VIOLET DEPARTMEN MED CTR T VISIT MODERATE SEVERITY HOSPITAL ST - 0 0 M[facility]ITA OUTPATIEN T MEDICALCE NTER OFFICE 04173 CARDIOLOG RODRIGUEZ LARRY OUTPATIEN 0 0 Y T NEW 45 ASSOCIATE MINUTES [facility] - 0 0 MARGARITA OUTPATIEN T MEDICALCE NTER [facility] ST. - 0 0 M[facility] OUTPATIEN JUDITH T OFFICE 97424 [facility] OUT[facility] 0 0 POINT LEANNA T VISIT FAMILY 25 CARE, IN MINUTES OFFICE 52411 [facility], OUTPATIEN 0 0 POINT CHHAYA T VISIT FAMILY 15 CARE, MINUTES INC. OFFICE 40572 [facility], OUTPATIEN 0 0 POINT CHHAYA T VISIT 5 FAMILY MINUTES CARE, INC. OFFICE 17705 [facility], OUTPAT[facility] 0 0 POINT [place]AYA T VISIT FAMILY 15 CARE, MINUTES INC. OFFICE 97067 [facility], OUTPATIEN 0 0 POINT [place]AYA T VISIT FAMILY 10 CARE, MINUTES INC. OFFICE 61449 [facility], OUT[facility] 0 0 POINT [place]AY[place] T VISIT FAMILY 25 CARE, MINUTES INC. OFFICE 84838 ST YELICH, CONSULTAT 0 0 MARGARITA FRAGA/KAREN PHYSICIAN PATIENT S 60 MIN OFFICE 44466 [facility], OUT[facility] 0 0 POINT CHHAYA T VISIT FAMILY 15 CARE, MINUTES INC. OFFICE 93138 [facility], OUT[facility] 0 0 POINT [place]AYA T VISIT FAMILY 25 CARE, MINUTES INC. EMERGENCY 34333 [facility] 0 0 [facility] T VISIT HIGH/URGE NT SEVERITY [facility] - 0 0 [facility] EMERGENCY 83672 EMERGENCY LOVE, 0 0 CARE [facility] T VISIT [facility] NT SEVERITY [facility] - 0 0 [facility] EMERGENC[facility] [address] [facility] 0 0 [facility] T VISIT MODERATE SEVERITY OFFICE 62487 JUDITH GENTILE OUTPATIEN 0 0 URGENT MOHAMED T NEW 30 CARE MINUTES EMERGENCY [address]29 [facility] 0 0 [facility] T VISIT MODERATE SEVERITY HOSPITAL ST KE - 0 0 [facility] EMERGENCY 98264 EMERGENCY EMERY, 0 0 CARE BYRON L DEPARTMEN PHYS T VISIT [facility] [place] NT SEVERITY [facility] - 0 0 [facility] OFFICE 86418 [facility] 0 0 POINT CHHAYA T VISIT FAMILY 15 CARE, MINUTES INC. OFFICE 33556 [facility] 9 9 POINT CHRISTI M T VISIT FAMILY 15 CARE, MINUTES INC. EMERGENCY 40432 EMERGENCY [place], 9 9 CARE NAVEEN P DEPARTMEN PHYS T VISIT [facility] [place] SE[facility] 9 9 [facility] OFF[facility] 82756 DEVANTE [facility] OUTPATI 9 9 REED & R, T VISIT MIHAELA TENORIO 15 ER L MINUTES OFFICE 36169 DEVANTE [facility] CONSULTAT 9 9 REED & R, ION TEMKRISTYN TENORIO NEW/ESTAB ER L PATIENT 60 MIN OFFICE 60230 [facility] 9 9 POINT MIRACLE D T VISIT FAMILY 15 CARE, MINUTES INC. HOSPITAL [facility] 9 9 [facility] OFFICE 09848 [facility] 9 9 POINT MIRACLE D T VISIT FAMILY 25 CARE, MINUTES INC. HOSP[facility] [place] [address] 9 [facility] EMERGENCY 95261 EMERGENCY MISTI, 9 9 CARE RICK DEPARTMEN PHYS T VISIT [facility] [place] SE[place] OFF[place] 55541 [facility] 8 8 POINT LVREBECCA, T VISIT FAMILY MELVA J 25 CARE, MINUTES INC. [facility] - 8 8 [facility] EMERGENCY 52011 EMERGENCY LEIDY, 8 8 CARE LIZZIE D [facility] T VISIT [facility] [place] SE[facility] EMERGENCY 33318 [facility] 8 8 [facility] VISIT LIMITED/M INOR PROB OFFICE 32712 [facility] 8 8 PRIMARY E, JIGNESH T NEW 45 CARE MINUTES OFFICE 91840 FANGLAUREN GOLDSTEINER, [facility] 8 8 NOE Nadia Zuniga T VISIT 15 MINUTES OFFICE 68360 FANG, FANG, [facility] 8 8 NOE Nadia Zuniga T NEW 30 MINUTES OFFICE 02101 [facility] 8 8 POINT LVAREZ, T VISIT FAMILY MELVA J 25 CARE, MINUTES INC. OFFICE 29980 [facility] 8 8 POINT LVAREZ, T VISIT FAMILY MELVA J 15 CARE, MINUTES INC. [facility] [place] [address] 8 [facility] OFF[facility] 97412 [facility] 8 8 POINT LVAREZ, T NEW 45 FAMILY MELVA J MINUTES CARE, INC. EMERGENCY 01418 [facility] 8 8 [facility] T VISIT MODERATE SEVERITY HOSPITAL [facility] 8 8 [facility] EM[facility] 65708 EMERGENCY [facility] [place] DEPT 8 8 CARE BRANDIE VISIT PHYS HIGH [facility] SE[place]& [place] THREAT FUNCJ
--- NOTE | 2017-07-28 02:54 | Emergency Room Report ---
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 Y Clinical Suspician of Infection? Y Mental Status: 1 - Regular (Normal Baseline) Sepsis Risk:Low Sepsis Risk Have you (or family members/close friends) recently traveled outside the [place]? N If Yes, where/when: Have you had exposure to infectious disease within the past month? N TB? Other? 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 Cardiac Chest Pain Chest pain indicative of cardiac No Timing/Duration this evening Severity moderate ALLERGIES Coded Allergies: erythromycin base (Intermediate, I-HIVES, SEVERE VOMITING 11/12/16) prochlorperazine (Intermediate, PARANOIA 11/12/16) Home Medications Active Scripts CEFDINIR (Cefdinir) 300 MG PO BID #20 CAP Prov: 07/20/17 Fluticasone Propionate (Flonase 50 Mcg Nasal [place]) 2 SPRAY NA DAILY #1 BOT Prov: 07/20/17 Dextromethorphan Polistirex (Delsym) 10 TSP PO Q12H #150 ML Prov: 07/20/17 Guaifenesin (Mucinex) 1,200 MG PO BID #20 TER Prov: 07/20/17 Fluconazole (Diflucan 150MG) 150 MG PO ONCE #1 TAB Prov: 02/08/17 Nystatin (Nystatin Topical Powder; 15GM Bottle) 1 BIBIANA TP TID #1 BOTTLE Ref 1 Prov: 02/08/17 Reported Medications AMLODIPINE BESYLATE (Norvasc) 1 TAB PO DAILY FLUTICASONE/SALMETEROL (Advair 500-50 Diskus) 2 PUFF IN BID Omeprazole (Omeprazole 40MG) 40 MG PO DAILY Montelukast Sodium (Singulair 10MG) 10 MG PO DAILY Albuterol/Ipratropiu (Duoneb) 3 ML IH QIDP PRN BREATHING #120 NEB Canagliflozin (Invokana) 300 MG PO DAILY Spironolactone (Aldactone) 25 MG PO DAILY Estradiol 2 MG PO DAILY Losartan Potassium (Losartan 100MG) 100 MG PO DAILY Famotidine (Pepcid 20MG) 20 MG PO BID Gabapentin (Gabapentin 600MG) 800 MG PO TID Insulin Aspart (Novolog) (Insulin Aspart Flexpen 3ML) 30 UNITS SC BID #15 CITALOPRAM HYDROBROMIDE (Citalopram HBr) 40 MG PO DAILY OMEGA-3 FATTY ACIDS/FISH OIL (Fish Oil 1,000 MG Capsule) 1,000 MG PO DAILY Atorvastatin Calcium (Lipitor 10MG) 10 MG PO QHS Quetiapine Fumarate (Seroquel 50MG) 50 MG PO QHS FENOFIBRATE NANOCRYSTALLIZED (Tricor) 145 MG PO DAILY BACLOFEN (Baclofen) 10 MG PO TID Hydroxyzine Pamoate (Vistaril) 25 MG PO QHS History Medical History General CAD? No Angina: No [place]: No Hypertension? Yes Hyperlipidemia? Yes CHF? No DVT? No PE? No COPD? No Asthma? Yes Anemia? No GERD? Yes Gastric ulcers? No GI Bleed? No Hernia? No Thyroid Problems? No Hypothyroidism? No CVA? No Seizures? No Diabetes? Yes Insulin Dependent: Yes Insulin Pump: No Home FSBS? Yes Renal Insuffiency? No End Stage Renal Disease? No UTI? No Stones? No BPH? No GB Disease: Yes Nephritic Syndrome? No Asplenia? No Hepatitis? No Sickle Cell Disease? No Arthritis? Yes Migraines? No Cataracts? No Glaucoma? No MRSA? No HIV? No TB? No Anxiety? No Depression? No Cancer? Yes Site: SKIN CA CHIN More? 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 Respiratory cough, denies shortness of breath, denies wheezing Cardiovascular denies chest pain, denies syncope Gastrointestinal denies abdominal pain, denies diarrhea, denies vomiting Genitourinary denies: dysuria, frequency, hesitancy, hematuria. Musculoskeletal see HPI, back pain, denies joint pain, denies neck pain Skin denies rash Psychiatric/Neurological denies headache, denies seizure Physical Exam Vital Signs Vital Signs Date Time Temp Pulse Resp B/P Pulse O2 O2 Flow FiO2 Ox Delivery Rate 07/28 0150 18 93 07/28 0118 99.2 90 18 142/82 93 - WBC >12,000 or <4,000 or 10% bands? 2 or more SIRS Criteria Met? B/P:142/82 MAP:102 Creatinine >2.0? UA output<0.5ml/kg/hr for 2 hrs? Platelet count >100,000? Lactate >2.0mmol/1? INR >1.2 or PTT > than 60 sec? Evidence of Organ Dysfunction? Provider documented clinical suspician of infection? Y Sepsis Criteria Count: 1 Sepsis Risk: Low Sepsis Risk General Appearance no apparent distress Eye Exam - bilateral eye PERRL, bilateral eye EOMI Ear, Nose, Throat normal ENT inspection Neck non-tender Respiratory Status No: respiratory distress. Lung Sounds bilateral: rhonchi. 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 No Results/Orders Laboratory Tests 07/28/17 0139: Influenza Type A Ag NOT DETECTED, Influenza Type B Ag NOT DETECTED 07/28/17124: Lactic Acid 1.6 07/28/17124: Creatine Kinase 144, CK-MB (CK-2) Rel Index 0.4, CK and CKMB Interp 0.6, Troponin I < 0.02 07/28/17 0125: Sodium 138, Potassium 3.6, Chloride 101, Carbon Dioxide 29, BUN 18, Creatinine 1.0, Estimated Creat Clear 151, Estimated GFR (MDRD) 60, Glucose 284 H, Calcium 8.6, Total Bilirubin 0.5, AST 20, ALT 31, Alkaline Phosphatase 66, Total Protein 7.0, Albumin 3.3 L, Globulin 3.7 H, Albumin/Globulin Ratio 0.9 L, WBC 8.4, RBC 4.69, Hgb 13.8, Hct 42.3, MCV 90.1, RDW 15.2, Plt Count 255, MPV 7.6, Gran % 59.2, Gran # 5.0, Lymphocytes % 30.8, Monocytes % 4.4, Eosinophils % 5.2, Basophils % 0.4, Lymphocytes # 2.6, Monocytes # 0.4, Eosinophils # 0.4, Basophils # 0.0, PUBS MCHC 32.7, MCH 29.5 Current Medication Orders Sig/Safia Start time Last Medication Dose Route Stop Time Status Admin Albuterol/Ipratropium 3 ML ONCE ONE 07/28 230 DC INH 07/28 231 Albuterol/Ipratropium 0 .STK-MED ONE 07/28 229 DC INH Orders Procedure Date/time Status RT REQUEST DUONEB 07/28 222 Active ELECTROCARDIOGRAM REQUEST 07/28 141 Active CARDIAC ENZYMES 07/28 141 Complete CHEST-PORTABLE 07/28 139 Active CULTURE, BLOOD 07/28 139 Active LACTIC ACID 07/28 139 Complete INFLUENZA A&B ANTIGENS 07/28 139 Complete CBC WITH AUTO DIFF 07/28 139 Complete CHEM 12 PROFILE 07/28 139 Complete 12 LEAD EKG-RONI (INITIAL) 07/28 UNK Active 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 ST/Twave chgs XRAY/CT/US XRAY/CT/US XRAY chest XR interpretation by reviewed by me Xray Results abnormal (cm) Departure Departure Time of Disposition 0253 Disposition DC Home or Self Care(routine) Clinical Impression Primary Impression: Prolonged Q-T interval on ECG Condition STABLE Patient Instructions DI for Cough -- Adult Additional Instructions use meds and see pcp for follow up Discharge Counseling Counseled pt/family regarding diagnosis, test results, medications/RX, follow up needs Prescriptions Current Visit Scripts BENZONATATE (Benzonatate) 100 MG PO TID #15 CAP ED Critical Care Critical Care No at 0307
--- NOTE | 2017-07-28 02:54 | Emergency Room Report ---
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 Y Clinical Suspician of Infection? Y Mental Status: 1 - Regular (Normal Baseline) Sepsis Risk:Low Sepsis Risk Have you (or family members/close friends) recently traveled outside the [place]? N If Yes, where/when: Have you had exposure to infectious disease within the past month? N TB? Other? 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 Cardiac Chest Pain Chest pain indicative of cardiac No Timing/Duration this evening Severity moderate ALLERGIES Coded Allergies: erythromycin base (Intermediate, I-HIVES, SEVERE VOMITING 11/12/16) prochlorperazine (Intermediate, PARANOIA 11/12/16) Home Medications Active Scripts CEFDINIR (Cefdinir) 300 MG PO BID #20 CAP Prov: 07/20/17 Fluticasone Propionate (Flonase 50 Mcg Nasal [place]) 2 SPRAY NA DAILY #1 BOT Prov: 07/20/17 Dextromethorphan Polistirex (Delsym) 10 TSP PO Q12H #150 ML Prov: 07/20/17 Guaifenesin (Mucinex) 1,200 MG PO BID #20 TER Prov: 07/20/17 Fluconazole (Diflucan 150MG) 150 MG PO ONCE #1 TAB Prov: 02/08/17 Nystatin (Nystatin Topical Powder; 15GM Bottle) 1 BIBIANA TP TID #1 BOTTLE Ref 1 Prov: 02/08/17 Reported Medications AMLODIPINE BESYLATE (Norvasc) 1 TAB PO DAILY FLUTICASONE/SALMETEROL (Advair 500-50 Diskus) 2 PUFF IN BID Omeprazole (Omeprazole 40MG) 40 MG PO DAILY Montelukast Sodium (Singulair 10MG) 10 MG PO DAILY Albuterol/Ipratropiu (Duoneb) 3 ML IH QIDP PRN BREATHING #120 NEB Canagliflozin (Invokana) 300 MG PO DAILY Spironolactone (Aldactone) 25 MG PO DAILY Estradiol 2 MG PO DAILY Losartan Potassium (Losartan 100MG) 100 MG PO DAILY Famotidine (Pepcid 20MG) 20 MG PO BID Gabapentin (Gabapentin 600MG) 800 MG PO TID Insulin Aspart (Novolog) (Insulin Aspart Flexpen 3ML) 30 UNITS SC BID #15 CITALOPRAM HYDROBROMIDE (Citalopram HBr) 40 MG PO DAILY OMEGA-3 FATTY ACIDS/FISH OIL (Fish Oil 1,000 MG Capsule) 1,000 MG PO DAILY Atorvastatin Calcium (Lipitor 10MG) 10 MG PO QHS Quetiapine Fumarate (Seroquel 50MG) 50 MG PO QHS FENOFIBRATE NANOCRYSTALLIZED (Tricor) 145 MG PO DAILY BACLOFEN (Baclofen) 10 MG PO TID Hydroxyzine Pamoate (Vistaril) 25 MG PO QHS History Medical History General CAD? No Angina: No [place]: No Hypertension? Yes Hyperlipidemia? Yes CHF? No DVT? No PE? No COPD? No Asthma? Yes Anemia? No GERD? Yes Gastric ulcers? No GI Bleed? No Hernia? No Thyroid Problems? No Hypothyroidism? No CVA? No Seizures? No Diabetes? Yes Insulin Dependent: Yes Insulin Pump: No Home FSBS? Yes Renal Insuffiency? No End Stage Renal Disease? No UTI? No Stones? No BPH? No GB Disease: Yes Nephritic Syndrome? No Asplenia? No Hepatitis? No Sickle Cell Disease? No Arthritis? Yes Migraines? No Cataracts? No Glaucoma? No MRSA? No HIV? No TB? No Anxiety? No Depression? No Cancer? Yes Site: SKIN CA CHIN More? 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 Respiratory cough, denies shortness of breath, denies wheezing Cardiovascular denies chest pain, denies syncope Gastrointestinal denies abdominal pain, denies diarrhea, denies vomiting Genitourinary denies: dysuria, frequency, hesitancy, hematuria. Musculoskeletal see HPI, back pain, denies joint pain, denies neck pain Skin denies rash Psychiatric/Neurological denies headache, denies seizure Physical Exam Vital Signs Vital Signs Date Time Temp Pulse Resp B/P Pulse O2 O2 Flow FiO2 Ox Delivery Rate 07/28 0150 18 93 07/28 0118 99.2 90 18 142/82 93 - WBC >12,000 or <4,000 or 10% bands? 2 or more SIRS Criteria Met? B/P:142/82 MAP:102 Creatinine >2.0? UA output<0.5ml/kg/hr for 2 hrs? Platelet count >100,000? Lactate >2.0mmol/1? INR >1.2 or PTT > than 60 sec? Evidence of Organ Dysfunction? Provider documented clinical suspician of infection? Y Sepsis Criteria Count: 1 Sepsis Risk: Low Sepsis Risk General Appearance no apparent distress Eye Exam - bilateral eye PERRL, bilateral eye EOMI Ear, Nose, Throat normal ENT inspection Neck non-tender Respiratory Status No: respiratory distress. Lung Sounds bilateral: rhonchi. 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 No Results/Orders Laboratory Tests 07/28/17 0139: Influenza Type A Ag NOT DETECTED, Influenza Type B Ag NOT DETECTED 07/28/17124: Lactic Acid 1.6 07/28/17124: Creatine Kinase 144, CK-MB (CK-2) Rel Index 0.4, CK and CKMB Interp 0.6, Troponin I < 0.02 07/28/17 0125: Sodium 138, Potassium 3.6, Chloride 101, Carbon Dioxide 29, BUN 18, Creatinine 1.0, Estimated Creat Clear 151, Estimated GFR (MDRD) 60, Glucose 284 H, Calcium 8.6, Total Bilirubin 0.5, AST 20, ALT 31, Alkaline Phosphatase 66, Total Protein 7.0, Albumin 3.3 L, Globulin 3.7 H, Albumin/Globulin Ratio 0.9 L, WBC 8.4, RBC 4.69, Hgb 13.8, Hct 42.3, MCV 90.1, RDW 15.2, Plt Count 255, MPV 7.6, Gran % 59.2, Gran # 5.0, Lymphocytes % 30.8, Monocytes % 4.4, Eosinophils % 5.2, Basophils % 0.4, Lymphocytes # 2.6, Monocytes # 0.4, Eosinophils # 0.4, Basophils # 0.0, PUBS MCHC 32.7, MCH 29.5 Current Medication Orders Sig/Safia Start time Last Medication Dose Route Stop Time Status Admin Albuterol/Ipratropium 3 ML ONCE ONE 07/28 230 DC INH 07/28 231 Albuterol/Ipratropium 0 .STK-MED ONE 07/28 229 DC INH Orders Procedure Date/time Status RT REQUEST DUONEB 07/28 222 Active ELECTROCARDIOGRAM REQUEST 07/28 141 Active CARDIAC ENZYMES 07/28 141 Complete CHEST-PORTABLE 07/28 139 Active CULTURE, BLOOD 07/28 139 Active LACTIC ACID 07/28 139 Complete INFLUENZA A&B ANTIGENS 07/28 139 Complete CBC WITH AUTO DIFF 07/28 139 Complete CHEM 12 PROFILE 07/28 139 Complete 12 LEAD EKG-RONI (INITIAL) 07/28 UNK Active 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 ST/Twave chgs XRAY/CT/US XRAY/CT/US XRAY chest XR interpretation by reviewed by me Xray Results abnormal (cm) Departure Departure Time of Disposition 0253 Disposition DC Home or Self Care(routine) Clinical Impression Primary Impression: Prolonged Q-T interval on ECG Condition STABLE Patient Instructions DI for Cough -- Adult Additional Instructions use meds and see pcp for follow up Discharge Counseling Counseled pt/family regarding diagnosis, test results, medications/RX, follow up needs Prescriptions Current Visit Scripts BENZONATATE (Benzonatate) 100 MG PO TID #15 CAP ED Critical Care Critical Care No at 0305
--- OUTSIDE RECORDS SUMMARY | 2017-07-28 02:54 | External Medical Summary Rpt | CCD ---
Demographics Preferred Language Macedonian Marital Status Unknown Baptist Affiliation Unknown Race Unknown Ethnic Group Unknown Author Author , AMAURI BAUGH Address Unknown Phone Immunization Unable to retrieve immunization data due to connection failure with Immunization Registry. Please try again later.
--- OUTSIDE RECORDS SUMMARY | 2017-07-28 02:54 | External Medical Summary Rpt | CCD ---
Demographics Preferred Language Yoruba Marital Status Unknown Jain Affiliation Unknown Race Unknown Ethnic Group Unknown Author Author , AMAURI BAUGH Address Unknown Phone Immunization Unable to retrieve immunization data due to connection failure with Immunization Registry. Please try again later.
[2017-07-28] MEDS ORDERED: TESSALON PERLE100 MG PO (03:08)
[2017-07-28 03:25] VITALS: BP 156/73
--- NOTE | 2017-07-28 08:57 | RADIOLOGY REPORT PS360 ---
CHEST-PORTABLE COMPARISON: Portable semiupright chest 11/18/2016 HISTORY: Shortness of breath TECHNIQUE: Portable upright chest FINDINGS: The lung schmitz are well expanded and appear clear of infiltrate. There is borderline cardio megaly without failure. The costophrenic angles are clear. IMPRESSION: Grossly negative portable chest
[2017-08-01] MEDS ORDERED: KEFLEX 500MG.500 MG PO (18:30)
[2017-08-02] MEDS ORDERED: AMLO5TAB PO (17:03)
[2017-08-02] MEDS ORDERED: FUROSEMIDE40 MG PO (17:09)
[2017-08-02] MEDS ORDERED: LISINOPRIL10 MG PO (17:09)
[2017-08-02] MEDS ORDERED: LOPRESSOR 50 MG50 MG PO (17:09)
== END 2017-07-28 03:26 | disposition home or self-care (01) ==
LOC: ER 01:07
PROVIDERS: Emergency Medicine
DX: J40 Bronchitis, not specified as acute or chronic (principal); M54.6 Pain in thoracic spine; I45.81 Long QT syndrome; E11.9 Type 2 diabetes mellitus without complications; J45.909 Unspecified asthma, uncomplicated; I10 Essential (primary) hypertension; K21.9 Gastro-esophageal reflux disease without esophagitis; Z79.890 Hormone replacement therapy; Z90.710 Acquired absence of both cervix and uterus; Z90.49 Acquired absence of other specified parts of digestive tract; Z85.828 Personal history of other malignant neoplasm of skin; Z79.4 Long term (current) use of insulin; Z79.899 Other long term (current) drug therapy; Z79.51 Long term (current) use of inhaled steroids; Z88.8 Allergy status to other drugs, medicaments and biological substances